=== PATIENT | female | born 1960 | race Caucasian/White ===

== ENCOUNTER 2017-10-18 08:00 | Outpatient (CLI) | payer BC ==
[2017-10-18 12:36] LABS: BASOPHILS # (AUTO) 0.1 10^3/uL (0.0-0.1); EOSINOPHILS # (AUTO) 0.1 10^3/uL (0.0-0.7); EOSINOPHILS % (AUTO) 1.3 %; HGB - HEMOGLOBIN 14.3 g/dL (12.0-16.0); LYMPHOCYTES # (AUTO) 1.8 10^3/uL (1.5-3.5); LYMPHOCYTES % (AUTO) 19.6 %; MEAN CORPUSCULAR HEMOGLOBIN 33.2 pg (27.0-31.0); MEAN CORPUSCULAR HGB CONC 34.9 g/dL (32.0-36.0); MEAN PLATELET VOLUME 7.7 fL (7.9-10.8); MONOCYTES # (AUTO) 0.8 10^3/uL (0.0-1.0); NEUTROPHILS # (AUTO) 6.4 10^3/uL (1.5-6.6); NEUTROPHILS % (AUTO) 69.1 %; PLT - PLATELET COUNT 332 10^3/uL (130-450); RED BLOOD COUNT 4.31 10^6/uL (4.20-5.40); RED CELL DISTRIBUTION WIDTH 12.7 % (12.0-15.0); WHITE BLOOD COUNT 9.3 x10^3/uL (4.8-10.8)
[2017-10-18 13:29] LABS: ALBUMIN 4.2 g/dL (3.2-5.5); ALKALINE PHOSPHATASE 68 IU/L (42-121); ALT ALANINE AMINOTRANSFERASE 25 IU/L (10-60); AST ASPARTATE AMINOTRANSFERASE 37 IU/L (10-42); BILIRUBIN,TOTAL 0.7 mg/dL (0.2-1.0); BUN - BLOOD UREA NITROGEN 12 mg/dL (6-20); CALCIUM 9.5 mg/dL (8.5-10.3); CARBON DIOXIDE - CO2 27 mmol/L (21-32); CHLORIDE 98 mmol/L (101-111); CHOL/HDL RATIO 3.2 (<4.4); CHOLESTEROL 213 mg/dL; CREATININE 0.8 mg/dL (0.4-1.0); GFR - MDRD 74 (>89); GLUCOSE 137 mg/dL (70-100); HDL CHOLESTEROL 67 mg/dL; LDL CHOLESTEROL,CALCULATED 123 mg/dL; LDL/HDL RATIO 1.8 (<4.4); SODIUM 135 mmol/L (135-145); TOTAL PROTEIN 8.3 g/dL (6.7-8.2); VLDL CHOLESTEROL 23 mg/dL
== END 2017-10-18 08:01 | disposition home or self-care (01) ==
LOC: LAB.WCP 08:00
PROVIDERS: ATTEND Family Medicine
DX: Z00.00 Encounter for general adult medical examination without abnormal findings (principal); I10 Essential (primary) hypertension; E78.5 Hyperlipidemia, unspecified
CPT/HCPCS: 36415; 80053; 80061; 83721; 84443; 85025

== ENCOUNTER 2019-05-14 08:00 | Outpatient (CLI) | payer BC ==
[2019-05-14 18:49] LABS: BASOPHILS # (AUTO) 0.1 10^3/uL (0.0-0.1); BASOPHILS % (AUTO) 0.6 %; EOSINOPHILS # (AUTO) 0.3 10^3/uL (0.0-0.7); EOSINOPHILS % (AUTO) 2.7 %; HGB - HEMOGLOBIN 13.5 g/dL (12.0-16.0); LYMPHOCYTES # (AUTO) 2.4 10^3/uL (1.5-3.5); LYMPHOCYTES % (AUTO) 21.8 %; MEAN CORPUSCULAR HEMOGLOBIN 31.8 pg (27.0-31.0); MEAN CORPUSCULAR HGB CONC 33.2 g/dL (32.0-36.0); MEAN PLATELET VOLUME 9.3 fL (7.9-10.8); MONOCYTES % (AUTO) 9.1 %; NEUTROPHILS # (AUTO) 7.3 10^3/uL (1.5-6.6); NEUTROPHILS % (AUTO) 65.4 %; PLT - PLATELET COUNT 330 10^3/uL (130-450); RED BLOOD COUNT 4.24 10^6/uL (4.20-5.40); WHITE BLOOD COUNT 11.2 x10^3/uL (4.8-10.8)
[2019-05-14 19:11] LABS: HB2 TOTAL 13.7 g/dL; HEMOGLOBIN A1C 0.56 g/dL; HEMOGLOBIN A1C % 5.9 % (4.6-6.2)
[2019-05-14 19:17] LABS: ALBUMIN 3.7 g/dL (3.2-5.5); ALBUMIN/GLOBULIN RATIO 0.8 (1.0-2.2); ALKALINE PHOSPHATASE 93 IU/L (42-121); ALT ALANINE AMINOTRANSFERASE 40 IU/L (10-60); AST ASPARTATE AMINOTRANSFERASE 45 IU/L (10-42); BILIRUBIN,TOTAL 0.4 mg/dL (0.2-1.0); BUN - BLOOD UREA NITROGEN 15 mg/dL (6-20); CALCIUM 9.4 mg/dL (8.5-10.3); CARBON DIOXIDE - CO2 29 mmol/L (21-32); CHLORIDE 94 mmol/L (101-111); CHOL/HDL RATIO 2.7 (<4.4); CHOLESTEROL 199 mg/dL; CREATININE 0.7 mg/dL (0.4-1.0); GFR - MDRD 87 (>89); GLUCOSE 89 mg/dL (70-100); HDL CHOLESTEROL 75 mg/dL; LDL CHOLESTEROL,CALCULATED 108 mg/dL; LDL/HDL RATIO 1.4 (<4.4); SODIUM 133 mmol/L (135-145); TOTAL PROTEIN 8.3 g/dL (6.7-8.2); VLDL CHOLESTEROL 16 mg/dL
== END 2019-05-14 23:59 | disposition home or self-care (01) ==
LOC: LAB.WCP 08:00
PROVIDERS: ATTEND Family Medicine
DX: E87.6 Hypokalemia (principal); E78.5 Hyperlipidemia, unspecified; R73.01 Impaired fasting glucose; I10 Essential (primary) hypertension
CPT/HCPCS: 36415; 80053; 80061; 83036; 83721; 85025

== ENCOUNTER 2019-05-31 07:46 | Emergency (ER) | payer BC ==
[2019-05-31] MEDS ORDERED: ONDANSETRON 4 MG/2 ML VIAL IVP STA (08:47)
[2019-05-31] MEDS ORDERED: SODIUM CHLORIDE 0.9% 1,000 ML IV ONE (08:47)
[2019-05-31] MEDS ORDERED: MORPHINE 2 MG/ML CARPUJECT IVP STA (08:47)
[2019-05-31 08:54] LABS: ALBUMIN 3.9 g/dL (3.2-5.5); ALBUMIN/GLOBULIN RATIO 0.8 (1.0-2.2); CALCIUM 9.7 mg/dL (8.5-10.3); CREATININE 0.7 mg/dL (0.4-1.0); TOTAL PROTEIN 8.9 g/dL (6.7-8.2)
[2019-05-31 08:55] LABS: BASOPHILS # (AUTO) 0.1 10^3/uL (0.0-0.1); BASOPHILS % (AUTO) 0.4 %; EOSINOPHILS % (AUTO) 0.2 %; HGB - HEMOGLOBIN 14.3 g/dL (12.0-16.0); LYMPHOCYTES # (AUTO) 2.1 10^3/uL (1.5-3.5); MEAN CORPUSCULAR HEMOGLOBIN 32.6 pg (27.0-31.0); MEAN CORPUSCULAR HGB CONC 34.8 g/dL (32.0-36.0); MEAN CORPUSCULAR VOLUME 93.8 fL (81.0-99.0); MEAN PLATELET VOLUME 9.8 fL (7.9-10.8); MONOCYTES # (AUTO) 1.8 10^3/uL (0.0-1.0); MONOCYTES % (AUTO) 9.6 %; NEUTROPHILS # (AUTO) 14.8 10^3/uL (1.5-6.6); PLT - PLATELET COUNT 328 10^3/uL (130-450); RED BLOOD COUNT 4.38 10^6/uL (4.20-5.40); RED CELL DISTRIBUTION WIDTH 12.2 % (12.0-15.0)
--- NOTE | 2019-05-31 08:56 | ED Physician Documentation ---
PD HPI ABD PAIN - Stated complaint Stated Complaint: ABD PX - Chief complaint Chief Complaint: Abd Pain - History obtained from History obtained from: Patient, Family - History of Present Illness Timing - onset: How many days ago (2) Timing - duration: Days (2) Timing - details: Gradual onset Pain level max: 7 Pain level now: 5 Quality: Aching, Pain Location: LLQ Radiation: No: Chest, , Lower back, Left flank, Left shoulder, Right flank, Right shoulder, Upper back Improved by: Other (laying on her R side) Worsened by: Palpation Associated symptoms: No: Fever, Nausea, Vomiting, Hematemesis, Diarrhea, Constipation, Melena, Hematochezia, Dysuria, Hematuria Similar symptoms before: Has not had sx before Recently seen: Not recently seen - Additional information Additional information: states no constipation or diarrhea. Review of Systems Constitutional: denies: Fever, Chills Throat: denies: Sore throat Respiratory: denies: Cough GI: denies: Nausea, Vomiting, Constipation, Diarrhea, Hematemesis, Bloody / black stool : denies: Dysuria, Frequency, Hesitancy, Discharge Skin: denies: Rash Musculoskeletal: denies: Neck pain, Back pain Neurologic: denies: Headache PD PAST MEDICAL HISTORY - Past Medical History Past Medical History: Yes Cardiovascular: Hypertension - Present Medications Home Medications: Ambulatory Orders Medication Instructions Recorded Confirmed Metoprolol Tartrate 50 mg PO 05/31/19 Metronidazole [Flagyl] 500 mg PO TID #30 tablet 05/31/19 Ondansetron Odt [Zofran] 4 mg TL Q6H PRN #10 tablet 05/31/19 Oxycodone HCl/Acetaminophen 1 - 2 each PO Q6H PRN #14 tablet 05/31/19 [Percocet 5-325 mg Tablet] Sulfamethox/Trimeth 800/160 1 each PO BID #20 tablet 05/31/19 [Bactrim Ds 800/160] Triamterene 50 mg PO 05/31/19 - Allergies Allergies/Adverse Reactions: Allergies Allergy/AdvReac Type Severity Reaction Status Date / Time amoxicillin Allergy Unknown Verified 05/31/19 07:58 - Living Situation Living Situation: reports: With spouse/s.o. Living Arrangement: reports: At home - Social History Does the pt smoke?: Yes - Family History Family history: reports: Non contributory PD ED PE NORMAL - Vitals Vital signs reviewed: Yes - General General: Alert and oriented X 3, No acute distress, Well developed/nourished - HEENT HEENT: Moist mucous membranes - Neck Neck: Supple, no meningeal sign - Cardiac Cardiac: RRR - Respiratory Respiratory: No respiratory distress, Clear bilaterally - Abdomen Abdomen: Soft, Non distended, Other (TTP LLQ, no peritoneal signs) - Derm Derm: Warm and dry, No rash - Extremities Extremities: No calf tenderness / cord - Neuro Neuro: Alert and oriented X 3 - Psych Psych: Normal mood, Normal affect Results - Vitals Vitals: Vital Signs - 24 hr 05/31/19 05/31/19 07:56 09:55 Temperature 36.9 C Heart Rate 105 H 75 Respiratory 18 16 Rate Blood Pressure 156/100 H 141/84 H O2 Saturation 98 100 Oxygen O2 Source Room air - Labs Labs: Laboratory Tests 05/31/19 05/31/19 05/31/19 08:07 08:15 08:15 WBC 19.0 H RBC 4.38 Hgb 14.3 Hct 41.1 MCV 93.8 MCH 32.6 H MCHC 34.8 RDW 12.2 Plt Count 328 MPV 9.8 Neut # (Auto) 14.8 H Lymph # (Auto) 2.1 [place] # (Auto) 1.8 H Eos # (Auto) 0.0 Baso # (Auto) 0.1 Absolute Nucleated RBC 0.00 Nucleated RBC % 0.0 Sodium 133 L Potassium 2.5 L* Chloride 91 L Carbon Dioxide 27 Anion Gap 15.0 H BUN 15 Creatinine 0.7 Estimated GFR (MDRD) 87 L Glucose 136 H Calcium 9.7 Phosphorus Magnesium Total Bilirubin 1.0 AST 26 ALT 32 Alkaline Phosphatase 97 Total Protein 8.9 H Albumin 3.9 Globulin 5.0 H Albumin/Globulin Ratio 0.8 L Lipase 29 Urine Color YELLOW Urine Clarity HAZY Urine pH 7.0 Ur Specific [place] 1.015 Urine Protein 30 H Urine Glucose (UA) NEGATIVE Urine Ketones 15 H Urine Occult Blood NEGATIVE Urine Nitrite POSITIVE H Urine Bilirubin MODERATE H Urine Urobilinogen 1 (NORMAL) Ur Leukocyte Esterase NEGATIVE Urine RBC 0-5 Urine WBC 0-3 Ur Squamous Epith Cells MANY Squamous H Urine Bacteria Many H Ur Microscopic Review INDICATED Urine Culture Comments NOT INDICATED 05/31/19 08:15 WBC RBC Hgb Hct MCV MCH MCHC RDW Plt Count MPV Neut # (Auto) Lymph # (Auto) [place] # (Auto) Eos # (Auto) Baso # (Auto) Absolute Nucleated RBC Nucleated RBC % Sodium Potassium Chloride Carbon Dioxide Anion Gap BUN Creatinine Estimated GFR (MDRD) Glucose Calcium Phosphorus 2.4 L Magnesium 1.3 L Total Bilirubin AST ALT Alkaline Phosphatase Total Protein Albumin Globulin Albumin/Globulin Ratio Lipase Urine Color Urine Clarity Urine pH Ur Specific [place] Urine Protein Urine Glucose (UA) Urine Ketones Urine Occult Blood Urine Nitrite Urine Bilirubin Urine Urobilinogen Ur Leukocyte Esterase Urine RBC Urine WBC Ur Squamous Epith Cells Urine Bacteria Ur Microscopic Review Urine Culture Comments - Rads (name of study) CT abd/pelvis Radiology: Prelim report reviewed, EMP read contemporaneously, See rad report (Likely multifocal uncomplicated diverticulitis, with inflammation around the proximal descending colon, as well as wall thickening and inflammation involving the mid sigmoid colon. Given the degree of wall thickening in the sigmoid colon, consider follow-up colonoscopy after resolution of the acute event to exclude an underlying mass lesion. ) PD MEDICAL DECISION MAKING - ED course Complexity details: reviewed results, re-evaluated patient, considered differential, d/w patient, d/w family ED course: Patient with diverticulitis. Will place on antibiotics and pain medication for home. She is well-appearing, nontoxic. Afebrile. Pain well controlled. We will follow-up with her doctor for further care. Patient counseled that she needs a colonoscopy after completion of treatment. Patient and both state understanding of this. Patient counseled regarding signs and symptoms for which I believe and urgent re-evaluation would be necessary. Patient with good understanding of and agreement to plan and is comfortable going home at this time This document was made in part using voice recognition software. While efforts are made to proofread this document, sound alike and grammatical errors may occur. Departure - Departure Disposition: 01 Home, Self Care Clinical Impression: Diverticulitis, Hypokalemia Condition: Good Instructions: ED Diverticulitis Follow-Up: Brandt Richardson DO [Primary Care Provider] - Within 1 week Prescriptions: Metronidazole [Flagyl] 500 mg PO TID #30 tablet Ondansetron Odt [Zofran] 4 mg TL Q6H PRN #10 tablet PRN Reason: Nausea / Vomiting Oxycodone HCl/Acetaminophen [Percocet 5-325 mg Tablet] 1 - 2 each PO Q6H PRN #14 tablet PRN Reason: pain Sulfamethox/Trimeth 800/160 [Bactrim Ds 800/160] 1 each PO BID #20 tablet Comments: Return if you worsen. Take all antibiotics until gone. You should be feeling better in the next 2 days. [address] not drink alcohol or drive while on narcotic pain medicine. Note that many narcotic pain relievers also contain tylenol/acetaminophen. Please ensure that your total dose of acetaminophen from all sources does not exceed 3 grams (3000mg) per day. You may constipated on this medication, take a stool softener such as "Colace" twice a day while you are on it. Also recommend a byyt-utm-jbeomff laxative such as senna or MiraLAX any day that you do not have a bowel movement. If you received narcotic pain medication in the emergency department, do not drive or operate machinery for the next 24 hours. Discharge Date/Time: 05/31/19 10:52
[2019-05-31] MEDS ORDERED: POTASSIUM CHLORIDE 20 MEQ TABLET PO STA (08:57)
[2019-05-31] MEDS ORDERED: IOVERSOL 320 100 ML VIAL IVP ONE ×2 (09:05→09:28)
[2019-05-31 09:09] LABS: GLUCOSE, URINE (UA) NEGATIVE (NEGATIVE); KETONES,URINE (UA) 15 mg/dL (NEGATIVE); LEUKOCYTE ESTERASE, URINE NEGATIVE (NEGATIVE); NITRITE,URINE POSITIVE (NEGATIVE); OCCULT BLOOD,URINE NEGATIVE (NEGATIVE); PROTEIN,URINE 30 mg/dL (NEGATIVE); UROBILINOGEN,URINE 1 (NORMAL) E.U./dL (NORMAL)
[2019-05-31 09:17] LABS: CLARITY,URINE HAZY (CLEAR); ICTOTEST,URINE POSITIVE
[2019-05-31 09:18] LABS: BILIRUBIN,URINE MODERATE (NEGATIVE)
[2019-05-31 09:20] LABS: BACTERIA,URINE Many /HPF (None Seen); RBC,URINE 0-5 /HPF (0-5); SQUAMOUS EPITHELIAL CELL,UR MANY Squamous (<= Few)
[2019-05-31 09:22] LABS: MAGNESIUM 1.3 mg/dL (1.7-2.8); PHOSPHORUS 2.4 mg/dL (2.5-4.6)
--- NOTE | 2019-05-31 09:54 | CT Report ---
Reason: L LQ abd pain Procedure Date: 05/31/2019 Accession Number: [id number] / [id number] Procedure: CT - Abdomen/Pelvis W CPT Code: FULL RESULT: EXAM: CT ABDOMEN AND PELVIS EXAM DATE: 05/31/2019 09:27 AM. CLINICAL HISTORY: L LQ abd pain. COMPARISONS: None. TECHNIQUE: Routine helical CT imaging was performed through the abdomen and pelvis. IV contrast: 90 mL Optiray 320. Enteric contrast: No. Reconstructions: Coronal and sagittal. In accordance with CT protocol optimization, one or more of the following dose reduction techniques were utilized for this exam: automated exposure control, adjustment of mA and/or KV based on patient size, or use of iterative reconstructive technique. FINDINGS: Lung Bases: Minimal dependent atelectasis. Liver: Diffuse infiltration. No focal lesion. Gallbladder/Bile Ducts: Unremarkable. Spleen: Normal. Pancreas: Normal. Adrenal Glands: Normal. Kidneys: Normal. No masses or hydronephrosis. Peritoneal Cavity/Bowel: There is inflammation around the proximal descending colon, with diverticula present, compatible with diverticulitis. Additionally, there is a longer segment of wall thickening and inflammation in the mid sigmoid colon, with surrounding inflammation, also compatible with diverticulitis. No perforation or abscess is identified. No small bowel obstruction. No adenopathy or free fluid. The appendix is well visualized and normal. Pelvic Organs: Normal. The bladder and visualized pelvic organs are within normal limits. Vasculature: No aneurysms or other significant abnormality. Bones: No significant abnormality. Other: None. IMPRESSION: Likely multifocal uncomplicated diverticulitis, with inflammation around the proximal descending colon, as well as wall thickening and inflammation involving the mid sigmoid colon. Given the degree of wall thickening in the sigmoid colon, consider follow-up colonoscopy after resolution of the acute event to exclude an underlying mass lesion. RADIA
[2019-05-31 09:56] VITALS: BP 141/84
[2019-05-31] MEDS ORDERED: POTASSIUM CHLORIDE 20 MEQ TABLET PO SCH (10:00)
== END 2019-05-31 10:52 | disposition home or self-care (01) ==
LOC: ED 07:46
DX: K57.32 Diverticulitis of large intestine without perforation or abscess without bleeding (principal); E87.6 Hypokalemia; I10 Essential (primary) hypertension; F17.200 Nicotine dependence, unspecified, uncomplicated
CPT/HCPCS: 36415; 74177; 80053; 81001; 83690; 83735; 84100; 85025; 96361; 96374; 99284; A9270; Q9967; 81003; 87086

== ENCOUNTER 2019-06-15 08:00 | Outpatient (CLI) | payer BC ==
[2019-06-15 18:46] LABS: CALCIUM 9.7 mg/dL (8.5-10.3); CREATININE 0.8 mg/dL (0.4-1.0)
== END 2019-06-15 23:59 | disposition home or self-care (01) ==
LOC: LAB.WCP 08:00
PROVIDERS: ATTEND Family Medicine
DX: E87.6 Hypokalemia (principal)
CPT/HCPCS: 36415; 80048

== ENCOUNTER 2019-10-13 09:43 | Outpatient (CLI) | payer BC, OTHER ==
--- NOTE | 2019-10-13 16:40 | XRAY Report ---
Reason: RIGHT LUMBAR RADICULOPATHY Procedure Date: 10/13/2019 Accession Number: [id number] / [id number] Procedure: WCP - Lumbar Spine 2 View CPT Code: Final Report FULL RESULT: EXAM: LUMBOSACRAL SPINE RADIOGRAPHY EXAM DATE: 10/13/2019 09:43 AM. CLINICAL HISTORY: RIGHT LUMBAR RADICULOPATHY. Chronic low back pain, worse 1 week. COMPARISONS: ABDOMEN/PELVIS W/ 05/31/2019 9:18 AM. TECHNIQUE: 2 views. FINDINGS: Alignment: Normal. No spondylolisthesis or scoliosis. Bones: Five pbg-ddy-kqhkahw lumbar vertebral bodies are present. No fractures or bone lesions. Disks: Normal. Disk heights are maintained. Facets: L5-S1 facet hypertrophy. Sacroiliac Joints: Unremarkable. Soft Tissues: Atherosclerotic aortic calcifications. IMPRESSION: 1. L5-S1 facet degenerative changes. RADIA
== END 2019-10-13 23:59 | disposition home or self-care (01) ==
LOC: DI.WCP 09:43
PROVIDERS: ATTEND Family Medicine
DX: M47.27 Other spondylosis with radiculopathy, lumbosacral region (principal)
CPT/HCPCS: 72100

== ENCOUNTER 2020-03-03 12:36 | Outpatient (CLI) | payer OTHER ==
--- NOTE | 2020-03-03 14:11 | XRAY Report ---
PROCEDURE: Shoulder 2 View RT INDICATIONS: PAIN IN RIGHT SHOULDER TECHNIQUE: 2 views of the shoulder were acquired. COMPARISON: None. FINDINGS: Bones: No fractures or dislocations. No suspicious bony lesions. Visualized ribs appear intact. Soft tissues: No suspicious soft tissue calcifications. IMPRESSION: No acute radiographic findings. If pain persists, consider CT or MRI to further characte paris findings. Reviewed by: Julee Francis MD on 03/03/2020 2:10 PM PDT Approved by: Julee Francis MD on 03/03/2020 2:10 PM PDT Station ID: [id number]
== END 2020-03-03 12:37 | disposition home or self-care (01) ==
LOC: DI 12:36
PROVIDERS: ATTEND Nurse Practitioner Family
DX: M25.511 Pain in right shoulder (principal)

== ENCOUNTER 2020-12-05 07:00 | Outpatient (CLI) | payer OTHER ==
--- NOTE | 2020-12-05 13:40 | XRAY Report ---
PROCEDURE: Shoulder 3 View RT INDICATIONS: STRAIN OF MUSCLES AND TENDONS OF ROTATOR CUFF OF R SHOULDER TECHNIQUE: 3 views of the shoulder were acquired. COMPARISON: None. FINDINGS: Bones: No fractures or dislocations. No suspicious bony lesions. Visualized ribs appear intact. Soft tissues: No suspicious soft tissue calcifications. IMPRESSION: No fracture found, no area of ligamentous laxity is identified. Reviewed by: Max Antonio MD on 12/05/2020 1:39 PM PDT Approved by: Max Antonio MD on 12/05/2020 1:39 PM PDT Station ID: [id number]
== END 2020-12-05 23:59 | disposition home or self-care (01) ==
LOC: DI.N 07:00
PROVIDERS: ATTEND Physician Assistant Medical
DX: S46.011D Strain of muscle(s) and tendon(s) of the rotator cuff of right shoulder, subsequent encounter (principal)

== ENCOUNTER 2020-12-16 15:37 | Inpatient (IN) | payer OTHER ==
--- OUTSIDE RECORDS SUMMARY | 2020-12-16 16:05 | EXTERNAL MEDICAL SUMMARY RPT | Continuity of Care Document ---
:1960 Demographics Phone Unavailable Preferred Language Unknown Marital Status Unknown Adventist Affiliation Unknown Race Unknown Ethnic Group Unknown Author Organization [facility] Address [address] [phone] Phone Social History date description facility [phone]
[2020-12-16 16:07] LABS: BASOPHILS # (AUTO) 0.1 10^3/uL (0.0-0.1); BASOPHILS % (AUTO) 0.4 %; EOSINOPHILS # (AUTO) 0.2 10^3/uL (0.0-0.7); EOSINOPHILS % (AUTO) 0.8 %; HCT - HEMATOCRIT 42.8 % (37.0-47.0); LYMPHOCYTES # (AUTO) 1.3 10^3/uL (1.5-3.5); LYMPHOCYTES % (AUTO) 5.6 %; MEAN CORPUSCULAR HEMOGLOBIN 33.1 pg (27.0-31.0); MEAN CORPUSCULAR VOLUME 94.5 fL (81.0-99.0); MONOCYTES # (AUTO) 1.1 10^3/uL (0.0-1.0); MONOCYTES % (AUTO) 4.9 %; NEUTROPHILS # (AUTO) 19.4 10^3/uL (1.5-6.6); NEUTROPHILS % (AUTO) 87.2 %; PLT - PLATELET COUNT 313 10^3/uL (130-450); RED BLOOD COUNT 4.53 10^6/uL (4.20-5.40); RED CELL DISTRIBUTION WIDTH 13.2 % (12.0-15.0); WHITE BLOOD COUNT 22.2 x10^3/uL (4.8-10.8)
[2020-12-16 16:10] LABS: SLIDE REVIEW? Indicated
[2020-12-16] MEDS ORDERED: HYDROmorphone 1 MG/ML CARPUJECT IVP STA ×3 (16:10→19:33)
[2020-12-16] MEDS ORDERED: IOPAMIDOL-300 100 ML VIAL ONE (16:12)
[2020-12-16 16:20] LABS: ALBUMIN 3.2 g/dL (3.2-5.5); ALBUMIN/GLOBULIN RATIO 0.6 (1.0-2.2); BILIRUBIN,TOTAL 1.9 mg/dL (0.2-1.0); CALCIUM 8.7 mg/dL (8.5-10.3); CREATININE 0.8 mg/dL (0.4-1.0); POTASSIUM 3.3 mmol/L (3.5-5.0); TOTAL PROTEIN 8.2 g/dL (6.7-8.2)
[2020-12-16] MEDS ORDERED: SODIUM CHLORIDE 0.9% 1,000 ML IV STA ×2 (16:38)
--- NOTE | 2020-12-16 16:41 | ED Physician Documentation ---
PD HPI ABD PAIN - Stated complaint Stated Complaint: ABD PX/NAUSEA/VOMIT - Chief complaint Chief Complaint: Abd Pain - History obtained from History obtained from: Patient - History of Present Illness Timing - onset: Yesterday Timing - duration: Days (2) Timing - details: Gradual onset Pain level max: 10 Pain level now: 10 Quality: Aching, Pain Location: All over / everywhere Radiation: No: Chest, , Lower back, Left flank, Left shoulder, Right flank, Right shoulder, Upper back Improved by: Laying still Worsened by: Moving, Palpation Associated symptoms: Nausea, Vomiting, Diarrhea, Hematochezia (x1). No: Fever, Hematemesis, Constipation, Melena, Dysuria Similar symptoms before: Diagnosis (diverticulitis) Recently seen: Not recently seen Review of Systems Ten Systems: 10 systems reviewed and negative Constitutional: denies: Fever, Chills Nose: denies: Rhinorrhea / runny nose, Congestion Skin: denies: Rash Musculoskeletal: denies: Neck pain, Back pain Neurologic: denies: Headache PD PAST MEDICAL HISTORY - Past Medical History Past Medical History: Yes Cardiovascular: Hypertension - Past Surgical History Past Surgical History: No - Present Medications Home Medications: Ambulatory Orders Medication Instructions Recorded Confirmed Metoprolol Tartrate 50 mg PO BID 05/31/19 12/16/20 Triamterene 50 mg PO DAILY 05/31/19 12/16/20 - Allergies Allergies/Adverse Reactions: Allergies Allergy/AdvReac Type Severity Reaction Status Date / Time amoxicillin Allergy Unknown Verified 12/16/20 15:49 - Social History Does the pt smoke?: Yes Smoking Status: Current every day smoker PD ED PE NORMAL - Vitals Vital signs reviewed: Yes - General General: Alert and oriented X 3, No acute distress, Well developed/nourished - HEENT HEENT: PERRL, Moist mucous membranes - Neck Neck: Supple, no meningeal sign - Cardiac Cardiac: RRR, Strong equal pulses - Respiratory Respiratory: No respiratory distress, Clear bilaterally - Abdomen Abdomen: Soft, Other (Diffusely tender to palpation, but significantly more tender in the left lower quadrant. Positive rebound and guarding.) - Back Back: No CVA TTP, No spinal TTP - Derm Derm: Warm and dry - Extremities Extremities: No edema - Neuro Neuro: Alert and oriented X 3 - Psych Psych: Normal mood, Normal affect Results - Vitals Vitals: Vital Signs - 24 hr 04/09/21 04/09/21 04/09/21 15:41 18:38 20:00 Temperature 36.5 C Heart Rate 93 95 105 H Respiratory 16 16 16 Rate Blood Pressure 145/76 H 127/78 117/79 O2 Saturation 98 95 95 Oxygen O2 Source Room air - Labs Labs: Laboratory Tests 12/16/20 12/16/20 12/16/20 16:00 16:00 17:54 WBC 22.2 H RBC 4.53 Hgb 15.0 Hct 42.8 MCV 94.5 MCH 33.1 H MCHC 35.0 RDW 13.2 Plt Count 313 MPV 9.0 Neut # (Auto) 19.4 H Lymph # (Auto) 1.3 L [place] # (Auto) 1.1 H Eos # (Auto) 0.2 Baso # (Auto) 0.1 Absolute Nucleated RBC 0.00 Nucleated RBC % 0.0 Manual Slide Review Indicated WBC Morphology NORMAL APPEARANCE Platelet Estimate NORMAL (130-450,000) Platelet Morphology NORMAL APPEARANCE RBC Morph Micro Appear NORMAL APPEARANCE Sodium 129 L Potassium 3.3 L Chloride 99 L Carbon Dioxide 20 L Anion Gap 10.0 BUN 21 H Creatinine 0.8 Estimated GFR (MDRD) 74 L Glucose 124 H Calcium 8.7 Total Bilirubin 1.9 H AST 36 ALT 77 H Alkaline Phosphatase 104 Total Protein 8.2 Albumin 3.2 Globulin 5.0 H Albumin/Globulin Ratio 0.6 L Lipase 27 Urine Color Urine Clarity Urine pH Ur Specific [place] Urine Protein Urine Glucose (UA) Urine Ketones Urine Occult Blood Urine Nitrite Urine Bilirubin Urine Urobilinogen Ur Leukocyte Esterase Ur Microscopic Review Urine Culture Comments Nasal Adenovirus (PCR) NOT DETECTED Nasal B. parapertussis DNA (PCR) NOT DETECTED Nasal Coronavir 229E PCR NOT DETECTED Nasal Coronavir HKU1 PCR NOT DETECTED Nasal Coronavir NL63 PCR NOT DETECTED Nasal Coronavir OC43 PCR NOT DETECTED Nasal Enterovir/Rhinovir PCR NOT DETECTED Nasal Influenza B PCR NOT DETECTED Nasal Influenza A PCR NOT DETECTED Nasal Parainfluen 1 PCR NOT DETECTED Nasal Parainfluen 2 PCR NOT DETECTED Nasal Parainfluen 3 PCR NOT DETECTED Nasal Parainfluen 4 PCR NOT DETECTED Nasal RSV (PCR) NOT DETECTED Nasal B.pertussis DNA PCR NOT DETECTED Nasal C.pneumoniae (PCR) NOT DETECTED Robin Human Metapneumo PCR NOT DETECTED Nasal M.pneumoniae (PCR) NOT DETECTED Nasal SARS-CoV-2 (PCR) NOT DETECTED 12/16/20 19:25 WBC RBC Hgb Hct MCV MCH MCHC RDW Plt Count MPV Neut # (Auto) Lymph # (Auto) [place] # (Auto) Eos # (Auto) Baso # (Auto) Absolute Nucleated RBC Nucleated RBC % Manual Slide Review WBC Morphology Platelet Estimate Platelet Morphology RBC Morph Micro Appear Sodium Potassium Chloride Carbon Dioxide Anion Gap BUN Creatinine Estimated GFR (MDRD) Glucose Calcium Total Bilirubin AST ALT Alkaline Phosphatase Total Protein Albumin Globulin Albumin/Globulin Ratio Lipase Urine Color YELLOW Urine Clarity CLEAR Urine pH 7.0 Ur Specific [place] 1.010 Urine Protein NEGATIVE Urine Glucose (UA) NEGATIVE Urine Ketones NEGATIVE Urine Occult Blood NEGATIVE Urine Nitrite NEGATIVE Urine Bilirubin NEGATIVE Urine Urobilinogen 0.2 (NORMAL) Ur Leukocyte Esterase NEGATIVE Ur Microscopic Review NOT INDICATED Urine Culture Comments NOT INDICATED Nasal Adenovirus (PCR) Nasal B. parapertussis DNA (PCR) Nasal Coronavir 229E PCR Nasal Coronavir HKU1 PCR Nasal Coronavir NL63 PCR Nasal Coronavir OC43 PCR Nasal Enterovir/Rhinovir PCR Nasal Influenza B PCR Nasal Influenza A PCR Nasal Parainfluen 1 PCR Nasal Parainfluen 2 PCR Nasal Parainfluen 3 PCR Nasal Parainfluen 4 PCR Nasal RSV (PCR) Nasal B.pertussis DNA PCR Nasal C.pneumoniae (PCR) Robin Human Metapneumo PCR Nasal M.pneumoniae (PCR) Nasal SARS-CoV-2 (PCR) PD MEDICAL DECISION MAKING - ED course Complexity details: reviewed results, re-evaluated patient, considered differential, d/w patient, d/w workforce management consultant ED course: 60-year-old female with acute sigmoid diverticulitis with signs of perforation, pneumoperitoneum and a small pericolonic abscess, 4 x 2 x 4 cm. Discussed with radiology and does not appear amenable to interventional radiology drainage. Discussed the case with Dr. Collins, recommends admission to the hospitalist and he will consult. Discussed the case with Dr. Snider, hospitalist who states that surgery should admit this patient primarily. Discussed the case with Dr. Collins again and he will write orders. Patient will be admitted IMPRESSION: Acute sigmoid diverticulitis with signs of rupture including a small amount of pneumoperitoneum and formation of a pericolonic abscess measuring 4 x 2 x 4 cm. Departure - Departure Disposition: [facility] DC/Xfer Clinical Impression: Perforation of intestine due to diverticulitis of gastrointestinal tract Condition: Stable
[2020-12-16] MEDS ORDERED: IOPAMIDOL-300 100 ML VIAL IVP ONE (16:49)
[2020-12-16] MEDS ORDERED: CIPROFLOXACIN 400 MG/200 ML 400 MG/200 ML BAG IV STA (16:54)
[2020-12-16] MEDS ORDERED: metroNIDAZOLE 500 MG/100 ML 500 MG/100 ML BAG IV ONE (16:54)
[2020-12-16 17:11] LABS: PLATELET ESTIMATE, MANUAL NORMAL (130-450,000) (NORMAL); PLATELET MORPHOLOGY NORMAL APPEARANCE (NORMAL); RBC MORPHOLOGY (MULTIPLE) NORMAL APPEARANCE (NORMAL); WBC MORPHOLOGY (MULTIPLE) NORMAL APPEARANCE (NORMAL)
--- NOTE | 2020-12-16 17:24 | CT Report ---
PROCEDURE: Abdomen/Pelvis W INDICATIONS: diffuse abd pain CONTRAST: IV CONTRAST: Isovue 300 ml: 100 PO CONTRAST: *NO PO CONTRAST TECHNIQUE: After the administration of intravenous contrast, 5 mm thick sections acquired from the diaphragms to the symphysis. 5 mm thick coronal and sagittal reformats were acquired. For radiation dose reducti on, the following was used: automated exposure control, adjustment of mA and/or kV according to virgil ent size. COMPARISON: CT abdomen/pelvis 05/31/2019 FINDINGS: Image quality: Excellent. ABDOMEN: Lung bases: There is mild dependent atelectasis in the lung bases bilaterally. Heart size is normal. Solid organs: Liver and spleen are normal in size and enhancement. Gallbladder appears normal. Eliceo iary system is non dilated. Pancreas enhances normally. No adrenal nodules. Kidneys demonstrate no rmal size and enhancement, without hydronephrosis. Mild multifocal left renal cortical scarring is se en without signs of acute pyelonephritis. A punctate 2 mm calculus is seen in the inferior pole of th e right kidney. Peritoneum and bowel: A small hiatal hernia is present. Multiple diverticula are seen in the colon. T here is bowel wall thickening and surrounding inflammatory fat stranding involving a diverticulum in the sigmoid colon. Adjacent collection of fluid and gas is seen measuring up to 4.0 x 2.0 x 4.0 cm in size that is suspicious for abscess formation. There is reactive bone marrow edema within adjacent p ortions of the small bowel. Multiple small foci of free air is seen in the abdomen and pelvis. Nodes and vessels: No retroperitoneal or mesenteric adenopathy by size criteria. Aorta and inferior vena cava are normal in size. Mild atherosclerotic calcifications are seen in the aorta. Miscellaneous: No ventral hernias. PELVIS: Genitourinary: Bladder wall thickness is normal. Miscellaneous: No inguinal hernias or adenopathy. Bones: No suspicious bony lesions. No vertebral body compression fractures. IMPRESSION: Acute sigmoid diverticulitis with signs of rupture including a small amount of pneumoperitoneum and f ormation of a pericolonic abscess measuring 4 x 2 x 4 cm. Findings were discussed with Dr. Gallegos of the Emergency Department on 12/16/2020 at 5:22 PM. Reviewed by: Jose Ramírez MD on 12/16/2020 5:23 PM PDT Approved by: Jose Ramírez MD on 12/16/2020 5:23 PM PDT Station ID: [id number]
[2020-12-16 18:52] LABS: B. PARAPERTUSSIS- RESP PCR PAN NOT DETECTED; B. PERTUSSIS- RESP PCR PANEL NOT DETECTED; C. PNEUMONIAE- RESP PCR PANEL NOT DETECTED; CORONAVIRUS 229E-RESP PCR NOT DETECTED; CORONAVIRUS HKU1-RESP PCR NOT DETECTED; CORONAVIRUS NL63-RESP PCR NOT DETECTED; CORONAVIRUS OC43-RESP PCR NOT DETECTED; HUMAN METAPNEUMOVIRUS NOT DETECTED; INFLUENZA A- RESP PCR PANEL NOT DETECTED; INFLUENZA B - RESP PCR PANEL NOT DETECTED; M. PNEUMONIAE- RESP PCR PANEL NOT DETECTED; PARAINFLUENZA VIRUS 1 NOT DETECTED; PARAINFLUENZA VIRUS 2 NOT DETECTED; PARAINFLUENZA VIRUS 3 NOT DETECTED; PARAINFLUENZA VIRUS 4 NOT DETECTED; RHINOVIRUS/ENTEROVIRUS NOT DETECTED; RSV- RESP PCR PANEL NOT DETECTED; SARS-CoV-2 -RESP PCR PANEL NOT DETECTED
[2020-12-16 19:35] LABS: BILIRUBIN,URINE NEGATIVE (NEGATIVE); GLUCOSE, URINE (UA) NEGATIVE (NEGATIVE); KETONES,URINE (UA) NEGATIVE (NEGATIVE); LEUKOCYTE ESTERASE, URINE NEGATIVE (NEGATIVE); NITRITE,URINE NEGATIVE (NEGATIVE); OCCULT BLOOD,URINE NEGATIVE (NEGATIVE); PROTEIN,URINE NEGATIVE (NEGATIVE); UROBILINOGEN,URINE 0.2 (NORMAL) E.U./dL (NORMAL)
[2020-12-16 19:43] LABS: CLARITY,URINE CLEAR (CLEAR)
[2020-12-16] MEDS ORDERED: ONDANSETRON ODT 4 MG TABLET TL PRN (20:43)
--- OUTSIDE RECORDS SUMMARY | 2020-12-16 21:18 | EXTERNAL MEDICAL SUMMARY RPT | Continuity of Care Document ---
:1960 Demographics Phone Unavailable Preferred Language Unknown Marital Status Unknown Congregation Affiliation Unknown Race Unknown Ethnic Group Unknown Author Organization [facility] Address [address] [place] [address] Phone Social History date description facility [phone]
[2020-12-16] MEDS: D5.45NS W/20 MEQ KCL 1,000 ML IV SCH (21:58)
[2020-12-16] MEDS: ACETAMINOPHEN 325 MG TABLET PO PRN (22:00)
[2020-12-16] MEDS: oxyCODONE 5 MG TABLET PO PRN (22:00)
[2020-12-16] MEDS: METOPROLOL TARTRATE 50 MG TABLET PO SCH (22:03)
[2020-12-17] MEDS: metroNIDAZOLE 500 MG/100 ML 500 MG/100 ML BAG IV SCH ×3 (01:22→18:28)
[2020-12-17] MEDS: SODIUM CHLORIDE FLUSH 0.9% 10 ML SYRINGE IVP SCH ×3 (01:22→16:41)
[2020-12-17] MEDS: SODIUM CHLORIDE FLUSH 0.9% 10 ML SYRINGE IVP PRN (02:27)
[2020-12-17] MEDS: oxyCODONE 5 MG TABLET PO PRN ×3 (05:09→22:26)
[2020-12-17] MEDS: ACETAMINOPHEN 325 MG TABLET PO PRN ×3 (05:09→22:26)
[2020-12-17] MEDS: CIPROFLOXACIN 400 MG/200 ML 400 MG/200 ML BAG IV SCH ×2 (05:11→18:29)
[2020-12-17 06:05] LABS: HCT - HEMATOCRIT 38.2 % (37.0-47.0); HGB - HEMOGLOBIN 13.1 g/dL (12.0-16.0); MEAN CORPUSCULAR HEMOGLOBIN 32.7 pg (27.0-31.0); MEAN CORPUSCULAR HGB CONC 34.3 g/dL (32.0-36.0); MEAN CORPUSCULAR VOLUME 95.3 fL (81.0-99.0); MEAN PLATELET VOLUME 9.2 fL (7.9-10.8); RED BLOOD COUNT 4.01 10^6/uL (4.20-5.40); RED CELL DISTRIBUTION WIDTH 13.2 % (12.0-15.0); WHITE BLOOD COUNT 12.6 x10^3/uL (4.8-10.8)
[2020-12-17 06:20] LABS: CALCIUM 7.8 mg/dL (8.5-10.3); CREATININE 0.7 mg/dL (0.4-1.0); POTASSIUM 2.7 mmol/L (3.5-5.0)
[2020-12-17] MEDS: D5.45NS W/20 MEQ KCL 1,000 ML IV SCH (07:58)
[2020-12-17] MEDS: METOPROLOL TARTRATE 50 MG TABLET PO SCH ×2 (08:35→21:29)
[2020-12-17] MEDS: HYDROmorphone 0.5 MG/0.5 ML SYRINGE IVP PRN ×2 (08:53→14:59)
[2020-12-17] MEDS: ONDANSETRON 4 MG/2 ML VIAL IVP PRN (09:51)
[2020-12-17] MEDS: POTASSIUM CHLOR 10 MEQ/100 ML 10 MEQ/100 ML BAG IV SCH ×4 (11:05→16:30)
--- NOTE | 2020-12-17 13:40 | HISTORY & PHYSICAL EXAMINATION ---
Chief Complaint - Chief Complaint Chief Complaint: abdominal pain History of Present Illness - Admitted From Admitted From:: ed - History Obtained From History obtained from: pt Exam Limitations: none - History of Present Illness HPI Comment/Other: Abdominal pain a few days ago. Was not feeling well and then pain become acutely worse. She had a similar episode about a year ago that was not as severe. She is feeling better today. No nausea. She has not had prior colon cancer screening. She has been planning on a cologuard test. History - Past Medical History Cardiovascular: reports: Hypertension Meds/Allgy - Home Medications Home Medications: Ambulatory Orders Medication Instructions Recorded Confirmed Metoprolol Tartrate 50 mg PO BID 05/31/19 12/16/20 Triamterene 50 mg PO DAILY 05/31/19 12/16/20 - Allergies Allergies/Adverse Reactions: Allergies Allergy/AdvReac Type Severity Reaction Status Date / Time amoxicillin Allergy Unknown Verified 12/16/20 15:49 Review of Systems - Other Findings Other Findings: 10 pt ros as above otherwise unremarkable Exam - Vital Signs Reviewed Vital Signs: Yes Vital Signs: Vital Signs x48h Temp Pulse Resp BP Pulse Ox 12/17/20 09:04 36.7 C 103 H 18 127/73 96 - Physical Exam General Appearance: positive: No acute distress, Alert Eyes Bilateral: positive: Normal inspection, PERRL, EOMI ENT: positive: No signs of dehydration Neck: positive: No JVD, Trachea midline Respiratory: positive: No respiratory distress, Breath sounds nml Cardiovascular: positive: Regular rate & rhythm Abdomen: positive: Other (minimal tenderness and distension) Neurologic/Psychiatric: positive: Oriented x3, Mood/affect nml Conclusion/Plan - Problem List (1) Perforation of intestine due to diverticulitis of gastrointestinal tract Conclusion/Plan: much improved today. wbc down. afebrile. continue bowel rest and antibiotics low k. k replacement today recheck labs including mg tomorrow. if improving plan clears tomorrow. if not progressing daily plan repeat ct in several days we discussed need for colon cancer screening and cologuard is fine we also discussed she should consider surgery for diverticular disease when she is well. risk of needing a colostomy at this time is low - Lab Results Fish Bones: 12/17/20 05:46 12/17/20 05:46
[2020-12-18] MEDS: metroNIDAZOLE 500 MG/100 ML 500 MG/100 ML BAG IV SCH ×3 (01:25→16:01)
[2020-12-18] MEDS: SODIUM CHLORIDE FLUSH 0.9% 10 ML SYRINGE IVP SCH ×3 (01:25→18:25)
[2020-12-18] MEDS: SODIUM CHLORIDE FLUSH 0.9% 10 ML SYRINGE IVP PRN (02:19)
[2020-12-18] MEDS: oxyCODONE 5 MG TABLET PO PRN ×2 (02:27→08:05)
[2020-12-18] MEDS: ACETAMINOPHEN 325 MG TABLET PO PRN ×2 (02:27→08:04)
[2020-12-18] MEDS: D5.45NS W/20 MEQ KCL 1,000 ML IV SCH ×2 (02:36→22:31)
[2020-12-18] MEDS: CIPROFLOXACIN 400 MG/200 ML 400 MG/200 ML BAG IV SCH ×2 (05:48→18:30)
[2020-12-18 05:53] LABS: HCT - HEMATOCRIT 36.7 % (37.0-47.0); HGB - HEMOGLOBIN 12.3 g/dL (12.0-16.0); MEAN CORPUSCULAR HEMOGLOBIN 32.3 pg (27.0-31.0); MEAN CORPUSCULAR HGB CONC 33.5 g/dL (32.0-36.0); MEAN CORPUSCULAR VOLUME 96.3 fL (81.0-99.0); MEAN PLATELET VOLUME 9.3 fL (7.9-10.8); RED BLOOD COUNT 3.81 10^6/uL (4.20-5.40); RED CELL DISTRIBUTION WIDTH 13.3 % (12.0-15.0)
[2020-12-18 06:02] LABS: CALCIUM 7.6 mg/dL (8.5-10.3); CREATININE 0.6 mg/dL (0.4-1.0); MAGNESIUM 1.5 mg/dL (1.7-2.8); POTASSIUM 2.9 mmol/L (3.5-5.0)
[2020-12-18] MEDS: HYDROmorphone 0.5 MG/0.5 ML SYRINGE IVP PRN (07:59)
[2020-12-18] MEDS: METOPROLOL TARTRATE 50 MG TABLET PO SCH ×3 (08:45→22:56)
[2020-12-18] MEDS: MORPHINE 2 MG/ML CARPUJECT IVP PRN ×5 (08:50→21:36)
[2020-12-18] MEDS ORDERED: MAGNESIUM SULFATE 2 GRAM 2 GM/50 ML BAG IV ONE (09:00)
[2020-12-18] MEDS: POTASSIUM CHLOR 10 MEQ/100 ML 10 MEQ/100 ML BAG IV SCH ×6 (10:47→17:28)
--- NOTE | 2020-12-18 13:03 | PROVIDER PROGRESS NOTE ---
Subjective - Prog Note Date Prog Note Date: 12/18/20 - Subjective Pt reports feeling: No change (right abdomen was very tight crampy earlier. better now no n/v) Objective - Vital Signs/Intake & Output Reviewed Vital Signs: Yes Vital Signs: Vital Signs x48h Temp Pulse Resp BP Pulse Ox 12/18/20 07:42 36.9 C 102 H 18 108/63 94 Intake & Output: Intake & Output 12/15/20 12/16/20 12/17/20 12/18/20 23:59 23:59 23:59 23:59 Intake Total 1560 3488.750 1998. Balance 1560 3488.750 1998. - Objective General Appearance: positive: No acute distress, Alert Eyes Bilateral: positive: Normal inspection ENT: positive: No signs of dehydration Neck: positive: No JVD, Trachea midline Respiratory: positive: Chest non-tender Abdomen: positive: Other (mild distension. minimal tenderness no peritoneal signs) Neurologic/Psychiatric: positive: Oriented x3 - Lab Results Fish Bones: 12/18/20 05:38 12/18/20 05:38 Other Labs: Lab Results x24hrs 12/18/20 12/18/20 Range/Units 05:38 05:38 WBC 13.0 H (4.8-10.8) x10^3/uL RBC 3.81 L (4.20-5.40) 10^6/uL Hgb 12.3 (12.0-16.0) g/dL Hct 36.7 L (37.0-47.0) % MCV 96.3 (81.0-99.0) fL MCH 32.3 H (27.0-31.0) pg MCHC 33.5 (32.0-36.0) g/dL RDW 13.3 (12.0-15.0) % Plt Count 275 (130-450) 10^3/uL MPV 9.3 (7.9-10.8) fL Sodium 128 L (135-145) mmol/L Potassium 2.9 L (3.5-5.0) mmol/L Chloride 101 (101-111) mmol/L Carbon Dioxide 20 L (21-32) mmol/L Anion Gap 7.0 (6-13) BUN 12 (6-20) mg/dL Creatinine 0.6 (0.4-1.0) mg/dL Estimated GFR (MDRD) 103 (>89) Glucose 154 H (70-100) mg/dL Calcium 7.6 L (8.5-10.3) mg/dL Magnesium 1.5 L (1.7-2.8) mg/dL Assessment/Plan - Problem List (1) Perforation of intestine due to diverticulitis of gastrointestinal tract Impression: continue bowel rest and antibiotics. if she has progressive distension plan ngt. if not improving plan ct scan in several days to evaluate for developing abscess (2) Hypokalemia Impression: replace kcl and mg recheck labs tomorrow
--- NOTE | 2020-12-18 15:37 | PHARMACY PROGRESS NOTE ---
- Best Possible Medication History Admit Date and Time: 12/16/202042 Processed by: Pharmacy Medication History completed: Yes Secondary Source(s): Insurance records As the person ultimately responsible for medication therapy, providers are able to order a medication from an existing home medication list in [facility] via the "Reconcile Routine" prior to Confirmation of that medication by senior support engineer. Such practice is discouraged except when the physician, in their clinical judgment, deems that a medical need exists for a medication without regard to previous use.
[2020-12-19] MEDS: oxyCODONE 5 MG TABLET PO PRN ×4 (01:10→20:31)
[2020-12-19] MEDS: ACETAMINOPHEN 325 MG TABLET PO PRN ×4 (01:10→20:30)
[2020-12-19] MEDS: SIMETHICONE CHEW 80 MG TABLET PO PRN ×4 (01:11→14:33)
[2020-12-19] MEDS: metroNIDAZOLE 500 MG/100 ML 500 MG/100 ML BAG IV SCH ×3 (01:26→18:07)
[2020-12-19] MEDS: SODIUM CHLORIDE FLUSH 0.9% 10 ML SYRINGE IVP SCH ×3 (01:38→15:59)
[2020-12-19] MEDS: CIPROFLOXACIN 400 MG/200 ML 400 MG/200 ML BAG IV SCH ×2 (06:04→18:14)
[2020-12-19 06:29] LABS: HCT - HEMATOCRIT 37.5 % (37.0-47.0); HGB - HEMOGLOBIN 12.7 g/dL (12.0-16.0); MEAN CORPUSCULAR HEMOGLOBIN 32.2 pg (27.0-31.0); MEAN CORPUSCULAR HGB CONC 33.9 g/dL (32.0-36.0); MEAN CORPUSCULAR VOLUME 94.9 fL (81.0-99.0); MEAN PLATELET VOLUME 9.4 fL (7.9-10.8); RED BLOOD COUNT 3.95 10^6/uL (4.20-5.40); RED CELL DISTRIBUTION WIDTH 13.4 % (12.0-15.0); WHITE BLOOD COUNT 12.9 x10^3/uL (4.8-10.8)
[2020-12-19 06:37] LABS: CALCIUM 7.8 mg/dL (8.5-10.3); CREATININE 0.5 mg/dL (0.4-1.0); MAGNESIUM 1.9 mg/dL (1.7-2.8); POTASSIUM 3.4 mmol/L (3.5-5.0)
[2020-12-19] MEDS: METOPROLOL TARTRATE 50 MG TABLET PO SCH ×2 (08:29→20:31)
[2020-12-19] MEDS: D5.45NS W/20 MEQ KCL 1,000 ML IV SCH (10:39)
[2020-12-19] MEDS: POTASSIUM CHLOR 10 MEQ/100 ML 10 MEQ/100 ML BAG IV SCH ×4 (13:33→16:48)
[2020-12-19] MEDS: MORPHINE 2 MG/ML CARPUJECT IVP PRN ×2 (15:57→22:45)
[2020-12-19] MEDS ORDERED: SODIUM CHLORIDE 0.9% 1,000 ML IV ONE (16:30)
--- NOTE | 2020-12-19 16:32 | PROVIDER PROGRESS NOTE ---
Subjective - Prog Note Date Prog Note Date: 12/19/20 - Subjective Pt reports feeling: Improved (less pain today) Objective - Vital Signs/Intake & Output Reviewed Vital Signs: Yes Vital Signs: Vital Signs x48h Temp Pulse Resp BP Pulse Ox 12/19/20 16:00 37.0 C 101 H 18 138/83 H 95 Intake & Output: Intake & Output 12/16/20 12/17/20 12/18/20 12/19/20 23:59 23:59 23:59 23:59 Intake Total 1560 3488.750 3020.833 1600.000 Output Total 400 1450 Balance 1560 3488.750 2620.833 150.000 - Objective General Appearance: positive: No acute distress, Alert ENT: positive: No signs of dehydration Neck: positive: No JVD, Trachea midline Respiratory: positive: No respiratory distress Neurologic/Psychiatric: positive: Oriented x3 - Lab Results Fish Bones: 12/19/20 06:05 12/19/20 06:05 Other Labs: Lab Results x24hrs 12/19/20 12/19/20 12/19/20 Range/Units 07:37 06:05 06:05 WBC 12.9 H (4.8-10.8) x10^3/uL RBC 3.95 L (4.20-5.40) 10^6/uL Hgb 12.7 (12.0-16.0) g/dL Hct 37.5 (37.0-47.0) % MCV 94.9 (81.0-99.0) fL MCH 32.2 H (27.0-31.0) pg MCHC 33.9 (32.0-36.0) g/dL RDW 13.4 (12.0-15.0) % Plt Count 262 (130-450) 10^3/uL MPV 9.4 (7.9-10.8) fL Sodium 129 L (135-145) mmol/L Potassium 3.4 L (3.5-5.0) mmol/L Chloride 103 (101-111) mmol/L Carbon Dioxide 19 L (21-32) mmol/L Anion Gap 7.0 (6-13) BUN 13 (6-20) mg/dL Creatinine 0.5 (0.4-1.0) mg/dL Estimated GFR (MDRD) 127 (>89) Glucose 140 H (70-100) mg/dL POC Whole Bld Glucose 134 H (70 - 100) mg/dL Calcium 7.8 L (8.5-10.3) mg/dL Magnesium 1.9 (1.7-2.8) mg/dL Assessment/Plan - Problem List (1) Perforation of intestine due to diverticulitis of gastrointestinal tract Impression: feeling better. ileus beginning to resolve. less tender low k and low na. plan replacement continue npo except sips and icechips
[2020-12-19] MEDS: MAG HYDROX/AL HYDROX/SIMETH 30 ML UDC PO PRN (18:05)
[2020-12-19] MEDS: ONDANSETRON 4 MG/2 ML VIAL IVP PRN (21:12)
[2020-12-20] MEDS: D5.45NS W/20 MEQ KCL 1,000 ML IV SCH ×3 (00:31→15:01)
[2020-12-20] MEDS: SODIUM CHLORIDE FLUSH 0.9% 10 ML SYRINGE IVP SCH ×3 (00:37→16:43)
[2020-12-20] MEDS: metroNIDAZOLE 500 MG/100 ML 500 MG/100 ML BAG IV SCH ×3 (00:45→16:03)
[2020-12-20] MEDS: ACETAMINOPHEN 325 MG TABLET PO PRN ×4 (00:46→16:40)
[2020-12-20] MEDS: oxyCODONE 5 MG TABLET PO PRN ×4 (00:46→16:40)
[2020-12-20] MEDS: CIPROFLOXACIN 400 MG/200 ML 400 MG/200 ML BAG IV SCH ×2 (05:37→17:24)
[2020-12-20] MEDS: METOPROLOL TARTRATE 50 MG TABLET PO SCH ×2 (09:11→21:04)
[2020-12-20] MEDS: MAG HYDROX/AL HYDROX/SIMETH 30 ML UDC PO PRN ×2 (09:11→16:40)
[2020-12-20] MEDS: SIMETHICONE CHEW 80 MG TABLET PO PRN (09:11)
--- NOTE | 2020-12-20 13:53 | PROVIDER PROGRESS NOTE ---
Subjective - Prog Note Date Prog Note Date: 12/20/20 - Subjective Pt reports feeling: Improved (feeling better. less pain. passing gas.) Objective - Vital Signs/Intake & Output Reviewed Vital Signs: Yes Vital Signs: Vital Signs x48h Temp Pulse Resp BP Pulse Ox 12/20/20 07:45 36.7 C 100 17 128/71 96 Intake & Output: Intake & Output 12/17/20 12/18/20 12/19/20 12/20/20 23:59 23:59 23:59 23:59 Intake Total 3488.750 3020.833 3935.000 1400 Output Total 400 2200 750 Balance 3488.750 2620.833 1735.000 650 - Objective General Appearance: positive: No acute distress, Alert ENT: positive: No signs of dehydration Neck: positive: No JVD Respiratory: positive: No respiratory distress Abdomen: positive: Non-tender, No distention Neurologic/Psychiatric: positive: Oriented x3 - Lab Results Fish Bones: 12/19/20 06:05 12/19/20 06:05 Assessment/Plan - Problem List (1) Perforation of intestine due to diverticulitis of gastrointestinal tract Impression: improving. less pain and tenderness. ileus resolving. diet clears
[2020-12-21] MEDS: ACETAMINOPHEN 325 MG TABLET PO PRN ×4 (00:02→21:24)
[2020-12-21] MEDS: SODIUM CHLORIDE FLUSH 0.9% 10 ML SYRINGE IVP SCH ×3 (00:46→17:11)
[2020-12-21] MEDS: metroNIDAZOLE 500 MG/100 ML 500 MG/100 ML BAG IV SCH ×3 (00:55→17:08)
[2020-12-21] MEDS: D5.45NS W/20 MEQ KCL 1,000 ML IV SCH ×2 (05:22→18:44)
[2020-12-21] MEDS: CIPROFLOXACIN 400 MG/200 ML 400 MG/200 ML BAG IV SCH ×2 (05:25→19:03)
[2020-12-21] MEDS: MAG HYDROX/AL HYDROX/SIMETH 30 ML UDC PO PRN ×2 (05:35→14:27)
[2020-12-21] MEDS: oxyCODONE 5 MG TABLET PO PRN ×2 (08:49→17:05)
[2020-12-21] MEDS: METOPROLOL TARTRATE 50 MG TABLET PO SCH ×2 (08:50→21:25)
[2020-12-21] MEDS: SIMETHICONE CHEW 80 MG TABLET PO PRN ×2 (08:54→17:05)
--- NOTE | 2020-12-21 09:27 | PROVIDER PROGRESS NOTE ---
Subjective - Prog Note Date Prog Note Date: 12/21/20 - Subjective Pt reports feeling: Improved (still painful but improved. passing gas, having bms, abd softer) Objective - Vital Signs/Intake & Output Reviewed Vital Signs: Yes Vital Signs: Vital Signs x48h Temp Pulse Resp BP Pulse Ox 12/21/20 07:51 36.8 C 108 H 17 139/83 H 96 Intake & Output: Intake & Output 12/18/20 12/19/20 12/20/20 12/21/20 23:59 23:59 23:59 23:59 Intake Total 3020.833 3935.000 3048.753 1736.667 Output Total 400 2200 1150 500 Balance 2620.833 3985.855 5369.753 1236.667 - Objective General Appearance: positive: No acute distress, Alert Neck: positive: No JVD Abdomen: positive: No distention, Other (minimal tenderness) - Lab Results Fish Bones: 12/19/20 06:05 12/19/20 06:05 Assessment/Plan - Problem List (1) Perforation of intestine due to diverticulitis of gastrointestinal tract Impression: Improving. tolerating clears. ileus nearly resolved. continue present care. possibly home tomorrow if pain continues to improve
[2020-12-21] MEDS: ONDANSETRON 4 MG/2 ML VIAL IVP PRN (20:09)
[2020-12-22] MEDS: HYDROmorphone 0.5 MG/0.5 ML SYRINGE IVP PRN ×5 (00:24→23:43)
[2020-12-22] MEDS: ONDANSETRON 4 MG/2 ML VIAL IVP PRN ×4 (00:25→21:08)
[2020-12-22] MEDS: metroNIDAZOLE 500 MG/100 ML 500 MG/100 ML BAG IV SCH ×3 (00:37→16:41)
[2020-12-22] MEDS: SODIUM CHLORIDE FLUSH 0.9% 10 ML SYRINGE IVP SCH ×3 (00:43→16:41)
[2020-12-22] MEDS: MAG HYDROX/AL HYDROX/SIMETH 30 ML UDC PO PRN (04:48)
[2020-12-22] MEDS: CIPROFLOXACIN 400 MG/200 ML 400 MG/200 ML BAG IV SCH ×2 (06:27→18:12)
[2020-12-22] MEDS: oxyCODONE 5 MG TABLET PO PRN (06:46)
[2020-12-22] MEDS: ACETAMINOPHEN 325 MG TABLET PO PRN (06:47)
[2020-12-22] MEDS: D5.45NS W/20 MEQ KCL 1,000 ML IV SCH ×3 (07:43→21:25)
[2020-12-22] MEDS: METOPROLOL TARTRATE 50 MG TABLET PO SCH ×2 (08:58→23:30)
--- NOTE | 2020-12-22 17:12 | PROVIDER PROGRESS NOTE ---
Subjective - Subjective Pt reports feeling: Improved (she had more distension today and more discomfort that prior few days. still passing gas/ flatus feels better after ngt placed) Objective - Vital Signs/Intake & Output Reviewed Vital Signs: Yes Vital Signs: Vital Signs x48h Temp Pulse Resp BP Pulse Ox 12/22/20 16:00 37.3 C 108 H 17 127/75 98 Intake & Output: Intake & Output 12/19/20 12/20/20 12/21/20 12/22/20 23:59 23:59 23:59 23:59 Intake Total 3935.000 3048.753 3441.667 1299.999 Output Total 2200 1150 1475 2255 Balance 4177.566 1303.753 1966.662 -955.001 - Objective General Appearance: positive: No acute distress, Alert ENT: positive: No signs of dehydration Neck: positive: No JVD Respiratory: positive: No respiratory distress Abdomen: positive: Non-tender, No distention - Lab Results Fish Bones: 12/19/20 06:05 12/19/20 06:05 Assessment/Plan - Problem List (1) Perforation of intestine due to diverticulitis of gastrointestinal tract Impression: had been improving daily until this afternoon when developed more distension and discomfort. improved after ngt. benign soft non tender abdomen at this time. plan check labs and ct scan. If abscess present she prefers [facility] for IR consult/ drainage Consider picc and tpn soon if not likely to be eating soon. to be reevaluated tomorrow
[2020-12-22 17:23] LABS: HCT - HEMATOCRIT 41.3 % (37.0-47.0); MEAN CORPUSCULAR HEMOGLOBIN 32.3 pg (27.0-31.0); MEAN CORPUSCULAR HGB CONC 33.9 g/dL (32.0-36.0); MEAN CORPUSCULAR VOLUME 95.2 fL (81.0-99.0); MEAN PLATELET VOLUME 9.5 fL (7.9-10.8); RED BLOOD COUNT 4.34 10^6/uL (4.20-5.40); RED CELL DISTRIBUTION WIDTH 14.2 % (12.0-15.0); WHITE BLOOD COUNT 20.9 x10^3/uL (4.8-10.8)
[2020-12-22 17:33] LABS: ALBUMIN 2.3 g/dL (3.2-5.5); ALBUMIN/GLOBULIN RATIO 0.6 (1.0-2.2); BILIRUBIN,TOTAL 1.6 mg/dL (0.2-1.0); CREATININE 0.5 mg/dL (0.4-1.0); POTASSIUM 3.2 mmol/L (3.5-5.0); TOTAL PROTEIN 6.4 g/dL (6.7-8.2)
[2020-12-22] MEDS ORDERED: IOPAMIDOL-300 100 ML VIAL ONE (18:50)
[2020-12-22] MEDS: POTASSIUM CHLOR 10 MEQ/100 ML 10 MEQ/100 ML BAG IV SCH ×3 (19:22→22:55)
[2020-12-22] MEDS ORDERED: IOPAMIDOL-300 50 ML VIAL ONE (20:13)
--- NOTE | 2020-12-22 21:55 | XRAY Report ---
PROCEDURE: Chest for Line Placement INDICATIONS: NGT placement TECHNIQUE: One view of the chest was acquired. COMPARISON: None FINDINGS: Surgical changes and devices: Nasogastric tube is well-positioned with the tip and side port in the s tomach.. Lungs and pleura: There is bibasilar atelectasis. No pneumothorax or pleural effusion. Mediastinum: Mediastinal contours appear normal. Heart size is normal. Bones and chest wall: No suspicious bony lesions. Overlying soft tissues appear unremarkable. IMPRESSION: 1. Nasogastric tube is well-positioned in the stomach. 2. Bibasilar atelectasis. Reviewed by: Elder Christy on 12/22/2020 9:54 PM PDT Approved by: Elder Christy on 12/22/2020 9:54 PM PDT Station ID: [id number]
[2020-12-23] MEDS: POTASSIUM CHLOR 10 MEQ/100 ML 10 MEQ/100 ML BAG IV SCH (00:09)
[2020-12-23] MEDS ORDERED: IOPAMIDOL-300 50 ML VIAL PO ONE (00:52)
[2020-12-23] MEDS ORDERED: IOPAMIDOL-300 100 ML VIAL IVP ONE (00:52)
[2020-12-23] MEDS: SODIUM CHLORIDE FLUSH 0.9% 10 ML SYRINGE IVP PRN ×2 (01:55→03:15)
[2020-12-23] MEDS: SODIUM CHLORIDE FLUSH 0.9% 10 ML SYRINGE IVP SCH ×3 (01:56→21:14)
[2020-12-23] MEDS: metroNIDAZOLE 500 MG/100 ML 500 MG/100 ML BAG IV SCH ×3 (02:06→20:46)
[2020-12-23] MEDS: HYDROmorphone 0.5 MG/0.5 ML SYRINGE IVP PRN ×4 (04:27→21:19)
[2020-12-23] MEDS: CIPROFLOXACIN 400 MG/200 ML 400 MG/200 ML BAG IV SCH ×2 (05:40→21:59)
[2020-12-23] MEDS: METOPROLOL TARTRATE 50 MG TABLET PO SCH ×2 (08:38→21:41)
[2020-12-23] MEDS: D5.45NS W/20 MEQ KCL 1,000 ML IV SCH (08:41)
--- NOTE | 2020-12-23 11:30 | CT Report ---
PROCEDURE: Abdomen/Pelvis W INDICATIONS: eval for abdominal abscess CONTRAST: IV CONTRAST: Isovue 300 ml: 100 PO CONTRAST: Isovue 300 [id number] TECHNIQUE: After the administration of nonionic contrast, 5 mm thick sections acquired from the diaphragms to th e symphysis. 5 mm thick coronal and sagittal reformats were acquired. For radiation dose reduction, the following was used: automated exposure control, adjustment of mA and/or kV according to patient size. COMPARISON: Similar CT 12/16/2020. FINDINGS: Image quality: Excellent. ABDOMEN: Lung bases: Lung bases are mildly abnormal with lung base atelectasis and/or pneumonia. There is a small right pleural effusion, water in density and simple in appearance. Heart size is normal. Esop hagogastric tube extends into the gastric lumen. Solid organs: Liver and spleen are normal in size and enhancement. Gallbladder is free of calculus or evidence of acute cholecystitis. Biliary system is non dilated. Pancreas enhances normally. No adrenal nodules. Kidneys demonstrate normal size and enhancement, without hydronephrosis. Peritoneum and bowel: Bowel loops demonstrate normal wall thickness and caliber. There is, however, a small amount of free fluid in the perihepatic space and also extraluminal gas within the peritoneal space is seen ventral to the liver, and within the fifi hepatis at the left hepatic lobe margin, an d also more inferiorly scattered at several points within the peritoneal space of the abdomen. Additi onal small gas bubbles are present adjacent to the gallbladder, where gallbladder wall thickening is not suspected.. Nodes and vessels: No retroperitoneal or mesenteric adenopathy by size criteria. Aorta and inferior vena cava are normal in size. Miscellaneous: No ventral hernias. PELVIS: Genitourinary: Bladder wall thickness is normal. Miscellaneous: No inguinal hernias or adenopathy. Within the pelvis there are several small bowel l oops that are fluid-dilated, and oral contrast has not transited through the entire small bowel into the cecum. There is a small amount of free fluid within the superior right paracolic gutter, and more inferiorly within the pelvis multiple air-fluid levels can be seen consistent with peritoneal absces s formation in a 3 x 4 cm fluid collection is present to the left of midline, series 3 image 80, show ing rim enhancement. An additional apparent abscess is present at the right lower quadrant measuring approximately 5 x 9 cm in size, interdigitating amongst bowel loops, centered on . A midline ovoi d fluid collection is seen just above the bladder measuring approximately 4 x 5.5 cm, . Bones: No suspicious bony lesions. No vertebral body compression fractures. IMPRESSION: 1. Scattered small foci of free air within the peritoneal space is present. In the absence of recent surgical intervention this is likely a manifestation of bowel perforation. The exact site of bowel pe rforation is not identified. These findings represent a significant worsening in the appearance of e abdomen/pelvis from the comparison study 12/16/2020. 2. Within the lower abdomen and pelvis there are multiple rim-enhancing fluid collections which inter digitate between small bowel and large bowel loops, consistent with multifocal abscess formation. The se fluid collections do not appear to communicate in general. 3. Small bowel loops are mildly dilated within the pelvis, and oral contrast has not transited from t he small bowel into the colon. Inflammatory change causing ileus is the likely cause. 4. Small pleural effusion simple in appearance at the right posterior costophrenic sulcus. Scant effu david on the left. Lung base consolidation appears to represent atelectasis more likely than pneumonia . Note: Findings immediately called to the emergency room and discussed with the emergency room physici an at time of this dictation. Reviewed by: Max Antonio MD on 12/23/2020 11:29 AM PDT Approved by: Max Antonio MD on 12/23/2020 11:29 AM PDT Station ID: [id number]
--- NOTE | 2020-12-23 13:49 | PROVIDER PROGRESS NOTE ---
Subjective - Prog Note Date Prog Note Date: 12/23/20 - Subjective Pt reports feeling: Improved (feeling better, soft abdomen with minimal lower abdominal tenderness) Objective - Vital Signs/Intake & Output Reviewed Vital Signs: Yes Vital Signs: Vital Signs x48h Temp Pulse Resp BP Pulse Ox 12/23/20 08:19 37.1 C 114 H 18 142/75 H 95 Intake & Output: Intake & Output 12/20/20 12/21/20 12/22/20 12/23/20 23:59 23:59 23:59 23:59 Intake Total 3048.753 3441.667 2761.666 1576.667 Output Total 1150 1475 3680 1800 Balance 9115.908 2346.221 -401.334 -223.333 - Objective General Appearance: positive: No acute distress, Alert Eyes Bilateral: positive: PERRL, EOMI ENT: positive: No signs of dehydration Neck: positive: No JVD Respiratory: positive: No respiratory distress Abdomen: positive: No distention, Other (minimal suprapubic tenderness. no peritoneal signs, soft abdomen) - Lab Results Fish Bones: 12/22/20 17:14 12/22/20 17:14 Other Labs: Lab Results x24hrs 12/22/20 12/22/20 Range/Units 17:14 17:14 WBC 20.9 H (4.8-10.8) x10^3/uL RBC 4.34 (4.20-5.40) 10^6/uL Hgb 14.0 (12.0-16.0) g/dL Hct 41.3 (37.0-47.0) % MCV 95.2 (81.0-99.0) fL MCH 32.3 H (27.0-31.0) pg MCHC 33.9 (32.0-36.0) g/dL RDW 14.2 (12.0-15.0) % Plt Count 242 (130-450) 10^3/uL MPV 9.5 (7.9-10.8) fL Sodium 132 L (135-145) mmol/L Potassium 3.2 L (3.5-5.0) mmol/L Chloride 97 L (101-111) mmol/L Carbon Dioxide 27 (21-32) mmol/L Anion Gap 8.0 (6-13) BUN 9 (6-20) mg/dL Creatinine 0.5 (0.4-1.0) mg/dL Estimated GFR (MDRD) 127 (>89) Glucose 130 H (70-100) mg/dL Calcium 8.0 L (8.5-10.3) mg/dL Total Bilirubin 1.6 H (0.2-1.0) mg/dL AST 31 (10-42) IU/L ALT 24 (10-60) IU/L Alkaline Phosphatase 135 H (42-121) IU/L Total Protein 6.4 L (6.7-8.2) g/dL Albumin 2.3 L (3.2-5.5) g/dL Globulin 4.1 (2.1-4.2) g/dL Albumin/Globulin Ratio 0.6 L (1.0-2.2) Assessment/Plan - Problem List (1) Perforation of intestine due to diverticulitis of gastrointestinal tract Impression: Abscess now present. Plan IR consult and drainage angelicat. discussed with patient, [facility]. arrangements made. plan picc line and tpn upon her return to [facility].
[2020-12-23] MEDS ORDERED: SODIUM CHLORIDE 0.9% 1,000 ML IV ONE (21:54)
[2020-12-24] MEDS: HYDROmorphone 0.5 MG/0.5 ML SYRINGE IVP PRN ×6 (00:55→21:58)
[2020-12-24] MEDS: SODIUM CHLORIDE FLUSH 0.9% 10 ML SYRINGE IVP SCH ×3 (00:56→16:59)
[2020-12-24] MEDS: metroNIDAZOLE 500 MG/100 ML 500 MG/100 ML BAG IV SCH ×3 (05:10→21:40)
[2020-12-24 06:10] LABS: BASOPHILS # (AUTO) 0.1 10^3/uL (0.0-0.1); BASOPHILS % (AUTO) 0.6 %; EOSINOPHILS # (AUTO) 0.2 10^3/uL (0.0-0.7); EOSINOPHILS % (AUTO) 1.2 %; HCT - HEMATOCRIT 35.7 % (37.0-47.0); HGB - HEMOGLOBIN 12.3 g/dL (12.0-16.0); INR 1.9 (0.8-1.2); LYMPHOCYTES # (AUTO) 1.1 10^3/uL (1.5-3.5); MEAN CORPUSCULAR HEMOGLOBIN 32.2 pg (27.0-31.0); MEAN CORPUSCULAR HGB CONC 34.5 g/dL (32.0-36.0); MEAN CORPUSCULAR VOLUME 93.5 fL (81.0-99.0); MEAN PLATELET VOLUME 9.1 fL (7.9-10.8); MONOCYTES # (AUTO) 0.9 10^3/uL (0.0-1.0); MONOCYTES % (AUTO) 4.9 %; NEUTROPHILS # (AUTO) 16.1 10^3/uL (1.5-6.6); PLT - PLATELET COUNT 281 10^3/uL (130-450); PT - PROTHROMBIN TIME 20.3 secs (9.9-12.6); RED BLOOD COUNT 3.82 10^6/uL (4.20-5.40); RED CELL DISTRIBUTION WIDTH 14.4 % (12.0-15.0); WHITE BLOOD COUNT 18.7 x10^3/uL (4.8-10.8)
[2020-12-24 06:23] LABS: ALBUMIN 1.9 g/dL (3.2-5.5); ALBUMIN/GLOBULIN RATIO 0.5 (1.0-2.2); BILIRUBIN,TOTAL 1.4 mg/dL (0.2-1.0); CALCIUM 7.4 mg/dL (8.5-10.3); CREATININE 0.4 mg/dL (0.4-1.0); MAGNESIUM 1.7 mg/dL (1.7-2.8); PHOSPHORUS 2.4 mg/dL (2.5-4.6); POTASSIUM 3.1 mmol/L (3.5-5.0); TOTAL PROTEIN 5.5 g/dL (6.7-8.2)
[2020-12-24] MEDS: METOPROLOL TARTRATE 50 MG TABLET PO SCH ×2 (08:02→21:39)
[2020-12-24] MEDS: SODIUM CHLORIDE FLUSH 0.9% 10 ML SYRINGE IVP PRN (08:07)
[2020-12-24] MEDS: CIPROFLOXACIN 400 MG/200 ML 400 MG/200 ML BAG IV SCH ×2 (09:56→22:51)
[2020-12-24] MEDS: D5.45NS W/20 MEQ KCL 1,000 ML IV SCH ×2 (09:58→10:10)
[2020-12-24] MEDS ORDERED: POTASSIUM CHLORIDE 20 MEQ/15 ML UDC NG ONE (11:00)
[2020-12-24] MEDS: D5NS W/20 MEQ KCL 1,000 ML IV SCH (11:25)
[2020-12-24] MEDS: POTASSIUM CHLOR 10 MEQ/100 ML 10 MEQ/100 ML BAG IV SCH ×3 (11:29→16:59)
[2020-12-24 11:49] LABS: ALBUMIN 2.3 g/dL (3.2-5.5); ALBUMIN/GLOBULIN RATIO 0.6 (1.0-2.2); BILIRUBIN,TOTAL 1.7 mg/dL (0.2-1.0); CALCIUM 7.4 mg/dL (8.5-10.3); CREATININE 0.6 mg/dL (0.4-1.0); MAGNESIUM 1.7 mg/dL (1.7-2.8); POTASSIUM 3.4 mmol/L (3.5-5.0); TOTAL PROTEIN 6.1 g/dL (6.7-8.2)
--- NOTE | 2020-12-24 16:19 | PROVIDER PROGRESS NOTE ---
Progress Note Subjective Hospital day #9 for complicated diverticulitis. Patient status post IR drainage yesterday. Pain unchanged. Persistent bowel obstruction with NG tube in place. Continues with bowel function. Objective Afebrile hemodynamically acceptable General Appearance: positive: No acute distress Eyes Bilateral: positive: Normal inspection ENT: positive: ENT inspection nml Neck: positive: Nml inspection Respiratory: positive: Chest non-tender, No respiratory distress, Breath sounds nml. negative: Wheezes, Rales, Rhonchi Cardiovascular: positive: Regular rate & rhythm Abdomen: See below Extremities: positive: Non-tender, Full ROM, Nml appearance Neurologic/Psychiatric: positive: Oriented x3, CN's nml (2-12) Abdomen distended, tender at drainage site, bilious/feculent output from drainage catheter. Impression/Plan 60-year-old female with complicated diverticulitis and drainage catheter revealing feculent output concerning for persistent perforation, although contained. Patient also has bowel obstruction. I am pessimistic that the patient will be candidate for nonoperative management and will discuss this with Dr. Collins. (1) GI - IVF, bowel rest, nasogastric decompression, IV fluid resuscitation. May need TPN. (2) SURGERY - Serial abdominal exams, plain film imaging, possible repeat imaging with CT and contrast challenge. May need operative intervention if fails conservative management. Will follow closely. (3) Renal/Lytes - continue IVF. Renal indices within normal limits. (4) Respiratory - O2 as necessary. Continue IS. (5) Heme - Will continue with DVT ppx. H/H stable. (6) Cardiovascular - HD acceptable. (7) Neuro - Opiate sparring analgesia. (8) Immune/Infectious Disease - continue antibiotic
[2020-12-25] MEDS: SODIUM CHLORIDE FLUSH 0.9% 10 ML SYRINGE IVP SCH ×3 (01:01→16:46)
[2020-12-25] MEDS: HYDROmorphone 0.5 MG/0.5 ML SYRINGE IVP PRN ×8 (01:01→23:56)
[2020-12-25] MEDS: D5NS W/20 MEQ KCL 1,000 ML IV SCH ×4 (02:55→20:37)
[2020-12-25] MEDS: metroNIDAZOLE 500 MG/100 ML 500 MG/100 ML BAG IV SCH ×3 (04:36→21:11)
[2020-12-25] MEDS: oxyCODONE 5 MG TABLET PO PRN (07:53)
[2020-12-25] MEDS: METOPROLOL TARTRATE 50 MG TABLET PO SCH ×2 (07:53→21:26)
[2020-12-25] MEDS: CIPROFLOXACIN 400 MG/200 ML 400 MG/200 ML BAG IV SCH ×2 (10:38→22:15)
[2020-12-25] MEDS: INSULIN REGULAR HUMAN 300 UNIT/3 ML VIAL SUBQ SCH ×2 (12:18→17:37)
[2020-12-25 14:07] LABS: ALBUMIN/GLOBULIN RATIO 0.5 (1.0-2.2); ALKALINE PHOSPHATASE 102 IU/L (42-121); ALT ALANINE AMINOTRANSFERASE 17 IU/L (10-60); AST ASPARTATE AMINOTRANSFERASE 42 IU/L (10-42); BILIRUBIN,TOTAL 1.2 mg/dL (0.2-1.0); BUN - BLOOD UREA NITROGEN < 5 mg/dL (6-20); CALCIUM 7.7 mg/dL (8.5-10.3); CARBON DIOXIDE - CO2 24 mmol/L (21-32); CHLORIDE 104 mmol/L (101-111); CREATININE 0.4 mg/dL (0.4-1.0); GFR - MDRD 164 (>89); GLUCOSE 101 mg/dL (70-100); SODIUM 136 mmol/L (135-145); TOTAL PROTEIN 5.8 g/dL (6.7-8.2)
[2020-12-25] MEDS: SIMETHICONE CHEW 80 MG TABLET PO PRN ×2 (16:46→22:13)
--- NOTE | 2020-12-25 17:02 | PROVIDER PROGRESS NOTE ---
Progress Note Subjective Hospital day #10 for complicated diverticulitis. Patient status post IR drainage Saturday. Pain unchanged. Persistent bowel obstruction with NG tube in place. Continues with minimal bowel function. NGT clamping trial. Objective Afebrile hemodynamically acceptable General Appearance: positive: No acute distress Eyes Bilateral: positive: Normal inspection ENT: positive: ENT inspection nml Neck: positive: Nml inspection Respiratory: positive: Chest non-tender, No respiratory distress, Breath sounds nml. negative: Wheezes, Rales, Rhonchi Cardiovascular: positive: Regular rate & rhythm Abdomen: See below Extremities: positive: Non-tender, Full ROM, Nml appearance Neurologic/Psychiatric: positive: Oriented x3, CN's nml (2-12) Abdomen distended, tender at drainage site, bilious/feculent output from drainage catheter. Impression/Plan 60-year-old female with complicated diverticulitis and drainage catheter revealing feculent output concerning for persistent perforation, although contained. Patient also has bowel obstruction. I am pessimistic that the patient will be candidate for nonoperative management and will discuss this with Dr. Collins. Positive feculent drain output. (1) GI - IVF, bowel rest, nasogastric decompression, IV fluid resuscitation. May need TPN. NG clamp trial. (2) SURGERY - Serial abdominal exams, plain film imaging, possible repeat imaging with CT and contrast challenge. May need operative intervention if fails conservative management. Will follow closely. (3) Renal/Lytes - continue IVF. Renal indices within normal limits. Replete hypokalemia. (4) Respiratory - O2 as necessary. Continue IS. (5) Heme - Will continue with DVT ppx. H/H stable. (6) Cardiovascular - HD acceptable. (7) Neuro - Opiate sparring analgesia. (8) Immune/Infectious Disease - continue antibiotic
[2020-12-25] MEDS: POTASSIUM CHLOR 10 MEQ/100 ML 10 MEQ/100 ML BAG IV SCH ×3 (17:17→20:14)
[2020-12-25] MEDS: PHENOL THROAT SPRAY 177 ML MM PRN ×2 (17:20→21:29)
[2020-12-25] MEDS ORDERED: POTASSIUM CHLORIDE 20 MEQ/15 ML UDC PO SCH (18:00)
[2020-12-25] MEDS: SODIUM CHLORIDE FLUSH 0.9% 10 ML SYRINGE IVP PRN ×2 (18:53→21:32)
[2020-12-26] MEDS: INSULIN REGULAR HUMAN 300 UNIT/3 ML VIAL SUBQ SCH ×4 (00:01→18:29)
[2020-12-26] MEDS: HYDROmorphone 0.5 MG/0.5 ML SYRINGE IVP PRN ×6 (03:00→21:33)
[2020-12-26] MEDS: ONDANSETRON 4 MG/2 ML VIAL IVP PRN (03:09)
[2020-12-26] MEDS: metroNIDAZOLE 500 MG/100 ML 500 MG/100 ML BAG IV SCH ×3 (05:22→21:33)
[2020-12-26 05:32] LABS: BASOPHILS % (AUTO) 0.6 %; EOSINOPHILS % (AUTO) 1.5 %; HCT - HEMATOCRIT 35.5 % (37.0-47.0); HGB - HEMOGLOBIN 11.4 g/dL (12.0-16.0); MEAN CORPUSCULAR HEMOGLOBIN 31.5 pg (27.0-31.0); MEAN CORPUSCULAR HGB CONC 32.1 g/dL (32.0-36.0); MEAN CORPUSCULAR VOLUME 98.1 fL (81.0-99.0); MEAN PLATELET VOLUME 9.1 fL (7.9-10.8); MONOCYTES % (AUTO) 6.4 %; NEUTROPHILS % (AUTO) 82.3 %; PLT - PLATELET COUNT 326 10^3/uL (130-450); RED BLOOD COUNT 3.62 10^6/uL (4.20-5.40); RED CELL DISTRIBUTION WIDTH 14.5 % (12.0-15.0); WHITE BLOOD COUNT 15.3 x10^3/uL (4.8-10.8)
[2020-12-26] MEDS: SODIUM CHLORIDE FLUSH 0.9% 10 ML SYRINGE IVP SCH ×3 (05:34→18:29)
[2020-12-26 05:38] LABS: BAND NEUTROPHILS % (MANUAL) 0 %
[2020-12-26 05:50] LABS: ABNORMAL LYMPHS % (MANUAL) 1 %; BASOPHILS # (MANUAL) 0.3 10^3/uL (0-0.1); BASOPHILS % (MANUAL) 2 %; EOSINOPHILS # (MANUAL) 0.2 10^3/uL (0-0.7); LYMPHOCYTES # (MANUAL) 1.1 10^3/uL (1.5-3.5); LYMPHOCYTES % (MANUAL) 6 %; MONOCYTES # (MANUAL) 0.6 10^3/uL (0.0-1.0); NEUTROPHILS # (MANUAL) 13.2 10^3/uL (1.5-6.6)
[2020-12-26 05:51] LABS: DIFFERENTIAL COMMENT MANUAL DIFFERENTIAL; PLATELET ESTIMATE, MANUAL NORMAL (130-450,000) (NORMAL); PLATELET MORPHOLOGY NORMAL APPEARANCE (NORMAL); RBC MORPHOLOGY (MULTIPLE) 1+ HYPOCHROMASIA (NORMAL); WBC MORPHOLOGY (MULTIPLE) NORMAL APPEARANCE (NORMAL)
[2020-12-26 05:56] LABS: ALBUMIN 2.1 g/dL (3.2-5.5); ALBUMIN/GLOBULIN RATIO 0.6 (1.0-2.2); ALKALINE PHOSPHATASE 95 IU/L (42-121); ALT ALANINE AMINOTRANSFERASE 15 IU/L (10-60); AST ASPARTATE AMINOTRANSFERASE 43 IU/L (10-42); BILIRUBIN,TOTAL 1.3 mg/dL (0.2-1.0); BUN - BLOOD UREA NITROGEN < 5 mg/dL (6-20); CALCIUM 7.3 mg/dL (8.5-10.3); CARBON DIOXIDE - CO2 23 mmol/L (21-32); CHLORIDE 102 mmol/L (101-111); CREATININE 0.4 mg/dL (0.4-1.0); GFR - MDRD 164 (>89); GLUCOSE 136 mg/dL (70-100); MAGNESIUM 1.3 mg/dL (1.7-2.8); PHOSPHORUS 1.9 mg/dL (2.5-4.6); POTASSIUM 3.2 mmol/L (3.5-5.0); PREALBUMIN 6 mg/dL (18-45); SODIUM 132 mmol/L (135-145); TOTAL PROTEIN 5.8 g/dL (6.7-8.2); TRIGLYCERIDES 73 mg/dL
[2020-12-26] MEDS ORDERED: MAGNESIUM SULFATE 1 GM in SODIUM CHLORIDE 0.9% 50 ML IV ONE (08:14)
[2020-12-26] MEDS ORDERED: SODIUM PHOSPHATE 20 MMOL in SODIUM CHLORIDE 0.9% 250 ML IV ONE (08:14)
[2020-12-26] MEDS ORDERED: IOPAMIDOL-300 50 ML VIAL ONE (08:39)
[2020-12-26] MEDS ORDERED: IOPAMIDOL-300 100 ML VIAL ONE (08:39)
[2020-12-26] MEDS: METOPROLOL TARTRATE 50 MG TABLET PO SCH ×2 (08:49→21:32)
[2020-12-26] MEDS: D5NS W/20 MEQ KCL 1,000 ML IV SCH ×2 (08:49→19:20)
[2020-12-26] MEDS: CIPROFLOXACIN 400 MG/200 ML 400 MG/200 ML BAG IV SCH ×2 (08:50→22:40)
[2020-12-26 08:54] LABS: ALBUMIN 2.3 g/dL (3.2-5.5); ALBUMIN/GLOBULIN RATIO 0.5 (1.0-2.2); ALKALINE PHOSPHATASE 105 IU/L (42-121); ALT ALANINE AMINOTRANSFERASE 18 IU/L (10-60); AST ASPARTATE AMINOTRANSFERASE 46 IU/L (10-42); BILIRUBIN,TOTAL 1.3 mg/dL (0.2-1.0); BUN - BLOOD UREA NITROGEN < 5 mg/dL (6-20); CALCIUM 7.9 mg/dL (8.5-10.3); CARBON DIOXIDE - CO2 21 mmol/L (21-32); CHLORIDE 104 mmol/L (101-111); CREATININE 0.5 mg/dL (0.4-1.0); GFR - MDRD 127 (>89); GLUCOSE 132 mg/dL (70-100); POTASSIUM 3.8 mmol/L (3.5-5.0); SODIUM 134 mmol/L (135-145); TOTAL PROTEIN 6.5 g/dL (6.7-8.2)
[2020-12-26] MEDS ORDERED: D5NS W/20 MEQ KCL 1,000 ML IV SCH (09:00)
[2020-12-26] MEDS ORDERED: POTASSIUM CHLORIDE 20 MEQ/15 ML UDC PO SCH (09:00)
[2020-12-26] MEDS ORDERED: POTASSIUM CHLOR 10 MEQ/100 ML 10 MEQ/100 ML BAG IV SCH (09:00)
[2020-12-26] MEDS ORDERED: MAGNESIUM SULFATE 2 GRAM 2 GM/50 ML BAG IV ONE ×2 (09:00→14:00)
[2020-12-26] MEDS ORDERED: POTASSIUM PHOSPHATE 21 MMOL in SODIUM CHLORIDE 0.9% 250 ML IV ONE (10:00)
[2020-12-26] MEDS ORDERED: IOPAMIDOL-300 100 ML VIAL IVP ONE (11:31)
[2020-12-26] MEDS ORDERED: IOPAMIDOL-300 50 ML VIAL PO ONE (11:31)
[2020-12-26] MEDS: oxyCODONE 5 MG TABLET PO PRN (14:18)
--- NOTE | 2020-12-26 16:09 | CT Report ---
PROCEDURE: Abdomen/Pelvis W INDICATIONS: evalute for ileus, perforated diverticulitis CONTRAST: IV CONTRAST: Isovue 300 ml: 100 PO CONTRAST: Isovue 300 ml50 TECHNIQUE: After the administration of contrast, 5 mm thick sections acquired from the diaphragms to the sym physis. 5 mm thick coronal and sagittal reformats were acquired. For radiation dose reduction, the following was used: automated exposure control, adjustment of mA and/or kV according to patient size . COMPARISON: CT abdomen and pelvis 12/23/2020 and 12/16/2020. FINDINGS: Image quality: Excellent. ABDOMEN: Lung bases: Trace bilateral pleural fluid collections. Consolidation noted in the lung bases, right g reater than left which could represent atelectasis, pneumonia or aspiration. Heart size is normal. Solid organs: Liver and spleen are normal in size and enhancement. Small amount of right perihepatic fluid, fluid in the bladder fossa and within the fifi hepatis is stable compared to 12/23/2020. Smal l perihepatic air locules are decreased in size and number compared to 12/23/2020. Gallbladder is with in normal limits Biliary system is non dilated. Pancreas enhances normally. No adrenal nodules. K idneys demonstrate normal size and enhancement, without hydronephrosis. Left renal cortical scarring stable compared to prior exam. Peritoneum and bowel: Nasogastric tube with tip and side-port in distal stomach noted. Multiple dila zev loops of proximal small bowel noted which have decreased in in diameter compared to 12/23/2020. Pe rcutaneous pigtail catheter has been placed into the lower pelvis via a right anterior approach. Mult iple pelvic fluid collections situated between loops of large and small bowel demonstrate peripheral postcontrast enhancement compatible abscesses . The pelvic abscesses have decreased in size compared to 12/23/2020 without complete resolution. Scattered small fluid collections with peripheral enhanceme nt noted in the right paracolic gutter compatible small abscesses. Multiple small free air locules in the peritoneal cavity have decreased in number and size compared to 12/23/2020. Numerous colonic dive rticuli redemonstrated. Nodes and vessels: No retroperitoneal or mesenteric adenopathy by size criteria. Aorta and inferior vena cava are normal in size. Miscellaneous: No ventral hernias. PELVIS: Genitourinary: Bladder wall thickness is normal. Miscellaneous: No inguinal hernias or adenopathy. Bones: No suspicious bony lesions. No vertebral body compression fractures. IMPRESSION: 1. Status post placement of pelvic percutaneous pigtail catheter for drainage of multiple pelvic absc esses. Pelvic abscesses are decreased in size compared to 12/23/2020 but are not completely resolved. 2. Small abscesses in the right paracolic gutter stable compared to 12/23/2000. 3. Dilated loops this proximal small bowel slightly decreased in diameter compared to 12/23/2020. Find ing likely represents ileus related to peritoneal inflammation. 4. Multiple small intraperitoneal and perihepatic free air locules decreased in size and number jil red to 12/23/2020. 5. Bibasilar lung consolidation, right greater than left stable compared to the prior exam. Finding m ay represent atelectasis, aspiration or pneumonia Reviewed by: Cleopatra Jennings MD, PhD on 12/26/2020 4:08 PM PDT Approved by: Cleopatra Jennings MD, PhD on 12/26/2020 4:08 PM PDT Station ID: [id number]
--- NOTE | 2020-12-26 16:41 | XRAY Report ---
PROCEDURE: Chest for Line Placement INDICATIONS: Picc line placement TECHNIQUE: One view of the chest was acquired. COMPARISON: 12/22/2020 FINDINGS: Surgical changes and devices: Nasogastric tube extends below the level of the diaphragm with the dist al tip extending off the [id number]. Right upper extremity PICC is in place with the distal tip pr ojecting near the lower cavoatrial junction. Lungs and pleura: Diffuse interstitial prominence. Patchy bibasilar opacities likely representing ate lectasis. No substantial pleural effusion. No pneumothorax. Patchy airspace opacities of the right mi d lung zone appear more prominent. Mediastinum: Mediastinal contours appear stable. Heart size is normal. Bones and chest wall: No suspicious bony lesions. Overlying soft tissues appear unremarkable. IMPRESSION: 1. Right upper extremity PICC is in place with the distal tip projecting over the lower cavoatrial ju nction. 2. Relatively stable appearance of patchy bibasilar opacities and diffuse interstitial prominence. Fi ndings may represent atelectasis and/or concurrent inflammatory/infectious process. Reviewed by: Armando Espinoza MD on 12/26/2020 3:39 PM AKDT Approved by: Armando Espinoza MD on 12/26/2020 3:39 PM AKDT Station ID: [id number]
--- NOTE | 2020-12-26 17:14 | PROVIDER PROGRESS NOTE ---
Progress Note Subjective Hospital day #11 for complicated diverticulitis. Patient status post IR drainage Saturday. Pain unchanged. Persistent bowel obstruction with NG tube in place. Continues with minimal bowel function. NGT clamping trial without significant tolerance. Objective Afebrile hemodynamically acceptable General Appearance: positive: No acute distress Eyes Bilateral: positive: Normal inspection ENT: positive: ENT inspection nml Neck: positive: Nml inspection Respiratory: positive: Chest non-tender, No respiratory distress, Breath sounds nml. negative: Wheezes, Rales, Rhonchi Cardiovascular: positive: Regular rate & rhythm Abdomen: See below Extremities: positive: Non-tender, Full ROM, Nml appearance Neurologic/Psychiatric: positive: Oriented x3, CN's nml (2-12) Abdomen with persistent distension, tender at drainage site, bilious/feculent output from drainage catheter. Impression/Plan 60-year-old female with complicated diverticulitis and drainage catheter revealing feculent output concerning for persistent perforation, although contained. Patient also has bowel obstruction. I am pessimistic that the patient will be candidate for nonoperative management. Have discussed this with Dr. Collins at length and given the patient's feculent output from the percutaneous drainage, persistent obstruction, failure to improve, and extent of intra-abdominal sequelae, agree that we should proceed with operative intervention. We will proceed with CT scan for further preoperative evaluation. (1) GI - IVF, bowel rest, nasogastric decompression, IV fluid resuscitation. Begin TPN (2) SURGERY - Serial abdominal exams, plain film imaging, repeat imaging with CT and contrast challenge. Plan operative intervention. Will follow closely. Place PICC line for TPN (3) Renal/Lytes - continue IVF. Renal indices within normal limits. Replete hypokalemia. (4) Respiratory - O2 as necessary. Continue IS. (5) Heme - Will continue with DVT ppx. H/H stable. (6) Cardiovascular - HD acceptable. (7) Neuro - Opiate sparring analgesia. (8) Immune/Infectious Disease - continue antibiotic Repeat CT scan abdomen pelvis December 26 impression: 1. Status post placement of pelvic percutaneous pigtail catheter for drainage of multiple pelvic abscesses. Pelvic abscesses are decreased in size compared to 416 but are not completely resolved. 2. Small abscesses in the right paracolic gutter stable compared to 12/23/2020 3. Dilated loops proximal small bowel slightly decreased in diameter compared to 416 findings likely represent ileus related to peritoneal inflammation. 4. Multiple small intraperitoneal and perihepatic free fluid air locules 5. Bibasilar lung consolidation right greater than left stable compared to the prior exam. Findings may represent atelectasis aspiration or pneumonia.
[2020-12-26] MEDS: TPN (CLINIMIX E 5/15) 2,000 ML with MULTIVITAMIN 10 ML, TRACE ELEMENTS 1 ML IV SCH ×3 (19:09)
[2020-12-26] MEDS: FAT EMULSION 20% 250 ML IV SCH (19:10)
[2020-12-26] MEDS: SODIUM CHLORIDE FLUSH 0.9% 10 ML SYRINGE IVP PRN (21:36)
[2020-12-27] MEDS: INSULIN REGULAR HUMAN 300 UNIT/3 ML VIAL SUBQ SCH ×4 (00:01→20:08)
[2020-12-27] MEDS: HYDROmorphone 0.5 MG/0.5 ML SYRINGE IVP PRN ×8 (00:02→18:52)
[2020-12-27] MEDS: SODIUM CHLORIDE FLUSH 0.9% 10 ML SYRINGE IVP SCH ×3 (00:02→19:30)
[2020-12-27] MEDS: metroNIDAZOLE 500 MG/100 ML 500 MG/100 ML BAG IV SCH (05:09)
[2020-12-27] MEDS: D5NS W/20 MEQ KCL 1,000 ML IV SCH ×2 (05:21→19:21)
[2020-12-27 05:24] LABS: BASOPHILS # (AUTO) 0.1 10^3/uL (0.0-0.1); BASOPHILS % (AUTO) 0.8 %; EOSINOPHILS # (AUTO) 0.3 10^3/uL (0.0-0.7); EOSINOPHILS % (AUTO) 1.8 %; HCT - HEMATOCRIT 39.5 % (37.0-47.0); HGB - HEMOGLOBIN 12.8 g/dL (12.0-16.0); LYMPHOCYTES # (AUTO) 1.4 10^3/uL (1.5-3.5); LYMPHOCYTES % (AUTO) 8.4 %; MEAN CORPUSCULAR HEMOGLOBIN 32.2 pg (27.0-31.0); MEAN CORPUSCULAR HGB CONC 32.4 g/dL (32.0-36.0); MEAN CORPUSCULAR VOLUME 99.5 fL (81.0-99.0); MEAN PLATELET VOLUME 9.8 fL (7.9-10.8); MONOCYTES # (AUTO) 1.2 10^3/uL (0.0-1.0); MONOCYTES % (AUTO) 7.1 %; NEUTROPHILS # (AUTO) 13.7 10^3/uL (1.5-6.6); NEUTROPHILS % (AUTO) 80.7 %; PLT - PLATELET COUNT 260 10^3/uL (130-450); RED BLOOD COUNT 3.97 10^6/uL (4.20-5.40); RED CELL DISTRIBUTION WIDTH 14.6 % (12.0-15.0); WHITE BLOOD COUNT 16.9 x10^3/uL (4.8-10.8)
[2020-12-27] MEDS: METOPROLOL TARTRATE 50 MG TABLET PO SCH (08:06)
[2020-12-27] MEDS: CIPROFLOXACIN 400 MG/200 ML 400 MG/200 ML BAG IV SCH (08:07)
[2020-12-27 08:09] LABS: ALBUMIN 2.2 g/dL (3.2-5.5); ALBUMIN/GLOBULIN RATIO 0.5 (1.0-2.2); BILIRUBIN,TOTAL 0.8 mg/dL (0.2-1.0); CALCIUM 7.7 mg/dL (8.5-10.3); CREATININE 0.5 mg/dL (0.4-1.0); MAGNESIUM 1.6 mg/dL (1.7-2.8); PHOSPHORUS 2.3 mg/dL (2.5-4.6); POTASSIUM 3.6 mmol/L (3.5-5.0); TOTAL PROTEIN 6.4 g/dL (6.7-8.2)
--- NOTE | 2020-12-27 10:19 | ANESTHESIA ---
Pre-Anesthesia VS, & Labs - Diagnosis diverticultis, bowel obstruction - Procedure colon resection Vital Signs: Temp Pulse Resp BP Pulse Ox 36.6 C 127 H 20 134/78 H 93 12/27/20 07:52 12/27/20 07:52 12/27/20 07:52 12/27/20 08:06 12/27/20 07:52 Height: 5 ft 3 in Weight (kg): 72 kg Body Mass Index: 28.0 BMI Classification: Overweight - NPO >8 hours - Is Patient ?: No - Lab Results Current Lab Results: Laboratory Tests 12/27/20 07:45: Sodium 134 L, Potassium 3.6, Chloride 103, Carbon Dioxide 23, Anion Gap 8.0, BUN 5 L, Creatinine 0.5, Estimated GFR (MDRD) 127, Glucose 166 H, Calcium 7.7 L, Phosphorus 2.3 L, Magnesium 1.6 L, Total Bilirubin 0.8, AST 41, ALT 16, Alkaline Phosphatase 87, Total Protein 6.4 L, Albumin 2.2 L, Globulin 4.2, Albumin/Globulin Ratio 0.5 L 12/27/20 05:27: POC Whole Bld Glucose 137 H 12/27/20 05:05: WBC 16.9 H, RBC 3.97 L, Hgb 12.8, Hct 39.5, MCV 99.5 H, MCH 32.2 H, MCHC 32.4, RDW 14.6, Plt Count 260, MPV 9.8, Neut # (Auto) 13.7 H, Lymph # (Auto) 1.4 L, Travis # (Auto) 1.2 H, Eos # (Auto) 0.3, Baso # (Auto) 0.1, Absolute Nucleated RBC 0.00, Nucleated RBC % 0.0 12/26/20 23:56: POC Whole Bld Glucose 156 H 12/26/20 18:12: POC Whole Bld Glucose 113 H 12/26/20 11:27: POC Whole Bld Glucose 89 12/26/20 08:34: Sodium 134 L, Potassium 3.8, Chloride 104, Carbon Dioxide 21, Anion Gap 9.0, BUN < 5 L, Creatinine 0.5, Estimated GFR (MDRD) 127, Glucose 132 H, Calcium 7.9 L, Total Bilirubin 1.3 H, AST 46 H, ALT 18, Alkaline Phosphatase 105, Total Protein 6.5 L, Albumin 2.3 L, Globulin 4.2, Albumin/Globulin Ratio 0.5 L 12/26/20 05:41: POC Whole Bld Glucose 121 H 12/26/20 05:18: WBC 15.3 H, RBC 3.62 L, Hgb 11.4 L, Hct 35.5 L, MCV 98.1, MCH 31.5 H, MCHC 32.1, RDW 14.5, Plt Count 326, MPV 9.1, Neut # (Auto) Not Reportable, Lymph # (Auto) Not Reportable, Travis # (Auto) Not Reportable, Eos # (Auto) Not Reportable, Baso # (Auto) Not Reportable, Absolute Nucleated RBC Not Reportable, Total Counted 100, Band Neuts % (Manual) 0, Abnorm Lymph % (Manual) 1, Nucleated RBC % Not Reportable, Neutrophils # (Manual) 13.2 H, Lymphocytes # (Manual) 1.1 L, Monocytes # (Manual) 0.6, Eosinophils # (Manual) 0.2, Basophils # (Manual) 0.3 H, Differential Comment MANUAL DIFFERENTIAL, WBC Morphology NORMAL APPEARANCE, Platelet Estimate NORMAL (130-450,000), Platelet Morphology NORMAL APPEARANCE, RBC Morph Micro Appear 1+ HYPOCHROMASIA 12/26/20 05:18: Sodium 132 L, Potassium 3.2 L, Chloride 102, Carbon Dioxide 23, Anion Gap 7.0, BUN < 5 L, Creatinine 0.4, Estimated GFR (MDRD) 164, Glucose 136 H, Calcium 7.3 L, Phosphorus 1.9 L, Magnesium 1.3 L, Total Bilirubin 1.3 H, AST 43 H, ALT 15, Alkaline Phosphatase 95, Total Protein 5.8 L, Albumin 2.1 L, Globulin 3.7, Albumin/Globulin Ratio 0.6 L, Prealbumin 6 L, Triglycerides 73 12/25/20 23:46: POC Whole Bld Glucose 128 H 12/25/20 17:36: POC Whole Bld Glucose 132 H 12/25/20 13:17: Sodium 136, Potassium 3.0 L, Chloride 104, Carbon Dioxide 24, Anion Gap 8.0, BUN < 5 L, Creatinine 0.4, Estimated GFR (MDRD) 164, Glucose 101 H, Calcium 7.7 L, Total Bilirubin 1.2 H, AST 42, ALT 17, Alkaline Phosphatase 102, Total Protein 5.8 L, Albumin 2.0 L, Globulin 3.8, Albumin/Globulin Ratio 0.5 L 12/25/20 11:46: POC Whole Bld Glucose 146 H 12/25/20 05:36: POC Whole Bld Glucose 130 H 12/25/20 00:01: POC Whole Bld Glucose 127 H 12/24/20 17:51: POC Whole Bld Glucose 117 H 12/24/20 11:23: Phosphorus 2.0 L 12/24/20 11:23: Sodium 130 L, Potassium 3.4 L, Chloride 98 L, Carbon Dioxide 22, Anion Gap 10.0, BUN 7, Creatinine 0.6, Estimated GFR (MDRD) 103, Glucose 126 H, Calcium 7.4 L, Magnesium 1.7, Total Bilirubin 1.7 H, AST 39, ALT 18, Alkaline Phosphatase 123 H, Total Protein 6.1 L, Albumin 2.3 L, Globulin 3.8, Albumin/Globulin Ratio 0.6 L 12/24/20 11:14: POC Whole Bld Glucose 139 H 12/24/20 05:35: Sodium 133 L, Potassium 3.1 L, Chloride 102, Carbon Dioxide 22, Anion Gap 9.0, BUN 8, Creatinine 0.4, Estimated GFR (MDRD) 164, Glucose 111 H, Calcium 7.4 L, Phosphorus 2.4 L, Magnesium 1.7, Total Bilirubin 1.4 H, AST 34, ALT 19, Alkaline Phosphatase 110, Total Protein 5.5 L, Albumin 1.9 L, Globulin 3.6, Albumin/Globulin Ratio 0.5 L, Prealbumin 6 L, Triglycerides 72 12/24/20 05:35: PT 20.3 H, INR 1.9 H 12/24/20 05:35: WBC 18.7 H, RBC 3.82 L, Hgb 12.3, Hct 35.7 L, MCV 93.5, MCH 32.2 H, MCHC 34.5, RDW 14.4, Plt Count 281, MPV 9.1, Neut # (Auto) 16.1 H, Lymph # (Auto) 1.1 L, Travis # (Auto) 0.9, Eos # (Auto) 0.2, Baso # (Auto) 0.1, Absolute Nucleated RBC 0.00, Nucleated RBC % 0.0 04/17/21 00:14: POC Whole Bld Glucose 94 12/22/20 17:14: Sodium 132 L, Potassium 3.2 L, Chloride 97 L, Carbon Dioxide 27, Anion Gap 8.0, BUN 9, Creatinine 0.5, Estimated GFR (MDRD) 127, Glucose 130 H, Calcium 8.0 L, Total Bilirubin 1.6 H, AST 31, ALT 24, Alkaline Phosphatase 135 H , Total Protein 6.4 L, Albumin 2.3 L, Globulin 4.1, Albumin/Globulin Ratio 0.6 L 12/22/20 17:14: WBC 20.9 H, RBC 4.34, Hgb 14.0, Hct 41.3, MCV 95.2, MCH 32.3 H, MCHC 33.9, RDW 14.2, Plt Count 242, MPV 9.5 12/19/20 07:37: POC Whole Bld Glucose 134 H 12/19/20 06:05: Sodium 129 L, Potassium 3.4 L, Chloride 103, Carbon Dioxide 19 L , Anion Gap 7.0, BUN 13, Creatinine 0.5, Estimated GFR (MDRD) 127, Glucose 140 H , Calcium 7.8 L, Magnesium 1.9 12/19/20 06:05: WBC 12.9 H, RBC 3.95 L, Hgb 12.7, Hct 37.5, MCV 94.9, MCH 32.2 H , MCHC 33.9, RDW 13.4, Plt Count 262, MPV 9.4 12/18/20 05:38: Sodium 128 L, Potassium 2.9 L, Chloride 101, Carbon Dioxide 20 L , Anion Gap 7.0, BUN 12, Creatinine 0.6, Estimated GFR (MDRD) 103, Glucose 154 H , Calcium 7.6 L, Magnesium 1.5 L 12/18/20 05:38: WBC 13.0 H, RBC 3.81 L, Hgb 12.3, Hct 36.7 L, MCV 96.3, MCH 32.3 H, MCHC 33.5, RDW 13.3, Plt Count 275, MPV 9.3 12/17/20 05:46: Sodium 129 L, Potassium 2.7 L, Chloride 101, Carbon Dioxide 19 L , Anion Gap 9.0, BUN 16, Creatinine 0.7, Estimated GFR (MDRD) 86 L, Glucose 193 H, Calcium 7.8 L 12/17/20 05:46: WBC 12.6 H, RBC 4.01 L, Hgb 13.1, Hct 38.2, MCV 95.3, MCH 32.7 H , MCHC 34.3, RDW 13.2, Plt Count 279, MPV 9.2 12/16/20 16:00: Sodium 129 L, Potassium 3.3 L, Chloride 99 L, Carbon Dioxide 20 L, Anion Gap 10.0, BUN 21 H, Creatinine 0.8, Estimated GFR (MDRD) 74 L, Glucose 124 H, Calcium 8.7, Total Bilirubin 1.9 H, AST 36, ALT 77 H, Alkaline Phosphatase 104, Total Protein 8.2, Albumin 3.2, Globulin 5.0 H, Albumin/Globulin Ratio 0.6 L, Lipase 27 12/16/20 16:00: WBC 22.2 H, RBC 4.53, Hgb 15.0, Hct 42.8, MCV 94.5, MCH 33.1 H, MCHC 35.0, RDW 13.2, Plt Count 313, MPV 9.0, Neut # (Auto) 19.4 H, Lymph # (Auto) 1.3 L, Travis # (Auto) 1.1 H, Eos # (Auto) 0.2, Baso # (Auto) 0.1, Absolute Nucleated RBC 0.00, Nucleated RBC % 0.0, Manual Slide Review Indicated, WBC Morphology NORMAL APPEARANCE, Platelet Estimate NORMAL (130-450,000), Platelet Morphology NORMAL APPEARANCE, RBC Morph Micro Appear NORMAL APPEARANCE Fish Bones: 12/27/20 05:05 12/27/20 07:45 Home Medications and Allergies Home Medications: Ambulatory Orders Metoprolol Tartrate [Lopressor] 100 mg PO BID 12/18/20 Potassium Chloride [K-Dur] 20 meq PO DAILY 12/18/20 Triamterene/Hydrochlorothiazid [Maxzide 75 mg-50 mg Tablet] 0.5 tab PO DAILY 12/18/20 Active Medications Acetaminophen (Acetaminophen 325 Mg Tablet) 650 mg PO Q4HR PRN PRN Reason: Pain 1 to 4 Last Admin: 12/22/20 06:47 Dose: 650 mg Documented by: Al Hydroxide/Mg Hydroxide (Mag Hydrox/Al Hydrox/Simeth 30 Ml Udc) 30 ml PO Q4HR PRN PRN Reason: INDIGESTION Last Admin: 12/22/20 04:48 Dose: 30 ml Documented by: Hydromorphone HCl (Hydromorphone 0.5 Mg/0.5 Ml Syringe) 0.5 mg IVP Q2H PRN PRN Reason: Pain 8 to 10 Last Admin: 12/27/20 08:07 Dose: 0.5 mg Documented by: Ciprofloxacin (Cipro 400 Mg/200 Ml) 400 mg in 200 mls @ 200 mls/hr IV Q12H [facility] Last Infusion: 12/27/20 10:11 Dose: Infused Documented by: Metronidazole (Flagyl 500 Mg/100 Ml) 500 mg in 100 mls @ 100 mls/hr IV Q8H [facility] Last Infusion: 12/27/20 06:09 Dose: Infused Documented by: Potassium Chloride/Dextrose/Sod Cl (D5ns W/20 Meq Kcl) 1,000 mls @ 125 mls/hr IV .Q8H [facility] Last Infusion: 12/27/20 10:10 Dose: 0 mls/hr Documented by: Multivitamins 10 ml/ TRACE ELEMENTS 1 ml/ Amino Ac/Electrol/Dextrose/Calcium 2,011 mls @ 75 mls/hr IV Q24H [facility]; Protocol Last Infusion: 12/26/20 22:54 Dose: 50 mls/hr Documented by: Fat Emulsion Intravenous (Intralipid 20%) 250 mls @ 21 mls/hr IV Q24H [facility] Last Infusion: 12/27/20 07:05 Dose: Infused Documented by: Insulin Human Regular (Insulin Regular Human 300 Unit/3 Ml Vial) 1 - 5 unit SUBQ Q6HR [facility]; Protocol Last Admin: 12/27/20 05:28 Dose: Not Given Documented by: Metoprolol Tartrate (Metoprolol Tartrate 50 Mg Tablet) 50 mg PO BID [facility] Last Admin: 12/27/20 08:06 Dose: 50 mg Documented by: Morphine Sulfate (Morphine 2 Mg/Ml Carpuject) 2 mg IVP Q2HR PRN PRN Reason: PAIN Last Admin: 12/19/20 22:45 Dose: 2 mg Documented by: Ondansetron HCl (Ondansetron Odt 4 Mg Tablet) 4 mg TL Q6HR PRN PRN Reason: Nausea / Vomiting Ondansetron HCl (Ondansetron 4 Mg/2 Ml Vial) 4 mg IVP Q6HR PRN PRN Reason: Nausea / Vomiting Last Admin: 12/26/20 03:09 Dose: 4 mg Documented by: Oxycodone HCl (Oxycodone 5 Mg Tablet) 5 mg PO Q4HR PRN PRN Reason: Pain 5 to 7 Last Admin: 12/26/20 14:18 Dose: 5 mg Documented by: Phenol/Menthol (Phenol Throat [place] 177 Ml) 2 sprays MM Q2HR PRN PRN Reason: Throat Pain Last Admin: 12/25/20 21:29 Dose: 2 sprays Documented by: Simethicone (Simethicone Chew 80 Mg Tablet) 80 mg PO QID PRN PRN Reason: Gas Last Admin: 12/25/20 22:13 Dose: 80 mg Documented by: Sodium Chloride (Sodium Chloride Flush 0.9% 10 Ml Syringe) 10 ml IVP PRN PRN PRN Reason: NEEDED PER PROVIDER ORDERS Last Admin: 12/26/20 21:36 Dose: 10 ml Documented by: Sodium Chloride (Sodium Chloride Flush 0.9% 10 Ml Syringe) 10 ml IVP 0100,0900,1700 VANESSA Last Admin: 12/27/20 08:08 Dose: 10 ml Documented by: Metoprolol Tartrate [Lopressor] 100 mg PO BID 12/18/20 Potassium Chloride [K-Dur] 20 meq PO DAILY 12/18/20 Triamterene/Hydrochlorothiazid [Maxzide 75 mg-50 mg Tablet] 0.5 tab PO DAILY 07/30 Allergies/Adverse Reactions: Allergies Allergy/AdvReac Type Severity Reaction Status Date / Time amoxicillin Allergy Unknown Verified 12/16/20 15:49 Anes History & Medical History - Anesthetic History Family history of Anesthesia Complications: Denies Family history of Malignant Hyperthermia: Denies - Medical History Cardiovascular: reports: Hypertension Smoking Status: Current every day smoker Exam General: Alert, Oriented x3, Cooperative Dental: Partials Upper Mouth Openin Fingerbreadth Neck Mobility: Normal Mallampati classification: I Thyromental Distance: 4-6 cm Respiratory: Lungs clear Cardiovascular: Regular rate Plan Anesthesia Type: General, Transverse Abdominis Plane (TAP) Block Regional Block: Per Surgeon's request for Post Op pain control Consent for Procedure(s) Verified and Reviewed: Yes Code Status: Attempt Resuscitation ASA classification: 2-Mild systemic disease Is this case an emergency?: No
[2020-12-27] MEDS ORDERED: ePHEDrine 50 MG/ML VIAL IVP PRN (10:23)
[2020-12-27] MEDS ORDERED: ATROPINE ABBOJECT 1 MG/10 ML SYRINGE IVP PRN (10:23)
[2020-12-27] MEDS ORDERED: MORPHINE 2 MG/ML CARPUJECT IVP PRN (10:23)
[2020-12-27] MEDS ORDERED: METOCLOPRAMIDE 10 MG/2 ML VIAL IVP PRN (10:23)
[2020-12-27] MEDS ORDERED: fentaNYL 100 MCG/2 ML VIAL IVP PRN (10:23)
[2020-12-27] MEDS ORDERED: HYDROmorphone 0.5 MG/0.5 ML SYRINGE IVP PRN (10:23)
[2020-12-27] MEDS ORDERED: ONDANSETRON 4 MG/2 ML VIAL IVP PRN ×2 (10:23→17:31)
[2020-12-27] MEDS ORDERED: NALOXONE 0.4 MG/ML VIAL IVP PRN (10:23)
[2020-12-27] MEDS ORDERED: ONDANSETRON 4 MG/2 ML VIAL ONE (10:55)
[2020-12-27] MEDS ORDERED: LIDOCAINE-MPF 2% 5 ML VIAL ONE (10:55)
[2020-12-27] MEDS ORDERED: ROCURONIUM 50 MG/5 ML VIAL ONE ×3 (10:55→16:15)
[2020-12-27] MEDS ORDERED: ROPIVACAINE 0.5% PF 20 ML AMPULE ONE (10:58)
[2020-12-27] MEDS ORDERED: DEXAMETHASONE 4 MG/ML VIAL ONE (10:58)
[2020-12-27] MEDS ORDERED: SUCCINYLCHOLINE 200 MG/10 ML VIAL ONE (10:58)
[2020-12-27] MEDS ORDERED: LACTATED RINGERS 1,000 ML IV SCH (11:00)
[2020-12-27] MEDS ORDERED: MIDAZOLAM 2 MG/2 ML VIAL ONE (11:00)
[2020-12-27] MEDS ORDERED: fentaNYL 100 MCG/2 ML VIAL ONE ×2 (11:00→16:27)
[2020-12-27] MEDS ORDERED: PHENYLEPHRINE 10 MG/ML VIAL ONE ×2 (12:41→17:24)
[2020-12-27] MEDS ORDERED: HYDROmorphone 1 MG/ML CARPUJECT ONE (13:27)
[2020-12-27] MEDS ORDERED: METHYLENE BLUE 0.5% 50 MG/10 ML AMPULE ONE (14:47)
[2020-12-27] MEDS ORDERED: metroNIDAZOLE 500 MG/100 ML 500 MG/100 ML BAG ONE (15:00)
[2020-12-27] MEDS ORDERED: CIPROFLOXACIN 400 MG/200 ML 400 MG/200 ML BAG IV ONE (15:01)
[2020-12-27] MEDS ORDERED: ACETAMINOPHEN 1,000 MG/100 ML 100 ML IV ONE (15:02)
[2020-12-27] MEDS ORDERED: SUGAMMADEX 200 MG/2 ML VIAL IVP ONE (16:37)
[2020-12-27] MEDS ORDERED: PHENYLEPHRINE 20 MG in SODIUM CHLORIDE 0.9% 248 ML IV SCH (17:00)
[2020-12-27] MEDS ORDERED: ALBUTEROL NEB 2.5 MG/3 ML INH PRN (17:31)
[2020-12-27] MEDS ORDERED: IPRATROPIUM 0.2 MG/ML NEB INH PRN (17:31)
[2020-12-27] MEDS ORDERED: METOPROLOL 5 MG/5 ML VIAL IVP STA (17:46)
[2020-12-27] MEDS ORDERED: PHENYLEPHRINE 20 MG in SODIUM CHLORIDE 0.9% 248 ML IV ONE (17:47)
[2020-12-27] MEDS ORDERED: LACTATED RINGERS 1,000 ML IV ONE ×3 (17:55→20:14)
[2020-12-27] MEDS: PHENYLEPHRINE 20 MG in SODIUM CHLORIDE 0.9% 248 ML IV SCH ×2 (17:55→21:27)
[2020-12-27] MEDS ORDERED: MEROPENEM 1 GM in SODIUM CHLORIDE 0.9% MINIBAG 100 ML IV SCH (18:00)
[2020-12-27] MEDS ORDERED: metroNIDAZOLE 500 MG/100 ML 500 MG/100 ML BAG IV SCH (18:00)
--- NOTE | 2020-12-27 18:05 | OPERATIVE REPORT ---
Operative Report - General Admit Date: 12/16/20 Planned Procedure: Procedure: 1. Diagnostic laparoscopy, possible laparotomy 2. Laparoscopic adhesiolysis, possible open 3. Laparoscopic low anterior resection, possible open 4. Abscess drainage with Drain placement 5. Rigid proctoscopy 6. Laparoscopic loop ileostomy, possible Margarita's 7. Tap block per anesthesia Pre-Op Diagnosis: Complicated diverticulitis; perforated diverticulitis s/p perc drain; SBO Procedure Performed: 1. Diagnostic laparoscopy 2. Laparoscopic adhesiolysis extensive 3. Laparoscopic takedown of enterocolonic fistula 4. Laparoscopic takedown of colocutaneous fistula 5. Low anterior resection, laparoscopic 6. Splenic flexure mobilization, laparoscopic 7. Repair of vesicular sinus tract 8. Laparoscopic assisted loop ileostomy 9. Partial omentectomy 10. Umbilical hernia repair 11. Drainage of intra-abdominal abscess multiple 12. Drainage catheter placement 13. Small bowel resection 14. Abdominal washout Post Op Diagnosis: Same; feculent peritonitis; multiple fistulae; vesicular involvement - Procedure Note Primary Surgeon: Juan Secondary Surgeon: Karina Anesthesia Provider: Raudel Anesthesia Technique: General ET tube, Regional block Pathology: 1. Rectosigmoid colon 2. Proximal margin 3. Pericolic abscess 4 culture 4. Anastomotic donuts 5. Omentum 6. Enteric portion of the enterocolic fistula Estimated Blood Loss (mL): 350 Drain/Tube Type: Julio drain Indications: See operative note Findings: See operative note Complications: None - Other Other Information/Narrative: DATE OF SERVICE: 12/27/2020 Physician: Prem Martinez MD ADDENDUM PREOPERATIVE DIAGNOSES 1. Complicated diverticulitis. 2. Perforated diverticulitis. 3. Status post percutaneous drain with feculent output. 4. Small-bowel obstruction. 5. Sepsis. 6. Failure of medical management. POSTOPERATIVE DIAGNOSES 1. Complicated diverticulitis. 2. Perforated diverticulitis. 3. Status post percutaneous drain with feculent output. 4. Small-bowel obstruction. 5. Sepsis. 6. Failure of medical management. 7. Feculent peritonitis. 8. Multiple fistulae including enterocolic. 9. Vesicular involvement of phlegmon in the pelvis at the dome of the bladder. PROCEDURE PERFORMED 1. Diagnostic laparoscopy. 2. Laparoscopic adhesiolysis, extensive. 3. Laparoscopic takedown of enterocolic fistula. 4. Laparoscopic takedown of colocutaneous fistula. 5. Low anterior resection, laparoscopic. 6. Splenic flexure mobilization, laparoscopic. 7. Repair of the vesicular sinus tract. 8. Laparoscopic-assisted loop ileostomy. 9. Partial omentectomy. 10. Umbilical hernia repair. 11. Drainage of intraabdominal abscess, multiple. 12. Drainage catheter placement. 13. Small-bowel resection. 14. Abdominal washout. INDICATIONS: Kindly see electronic medical record. However, in brief, this patient was admitted on 12/16 with complicated diverticulitis as noted by pericolic abscess and pneumoperitoneum as, well as concern for extravasation. The patient underwent bowel rest, IV antibiotics, and was ultimately scheduled for percutaneous drainage catheter placement. Patient had no significant improvement in constellation of symptoms with persistent small-bowel obstruction, leukocytosis, and concerning for continued sepsis. For source control, the patient continued to have feculent output from his percutaneous drain. The patient was discussed with the primary surgeon, Dr. Collins, and we decided that the patient had failed maximal medical therapy and was appropriate for surgical intervention. The patient was counseled at length of the possible risks of intervention including injury to local structures including the ureter as well as the need for fecal diversion either through Margarita's with colostomy or diverting loop ileostomy. OPERATIVE REPORT: The patient was taken to the operating room and placed supine on the operating table. The patient was already obtained for informed consent. The patient had already undergone a transversus abdominis plane block after general endotracheal induction by anesthesia. The patient was placed for Acosta catheter and was prepped and draped in the usual sterile fashion in lithotomy with Olaf stirrups. A timeout was called and agreed to by all in the room. The patient was already on scheduled antibiotics. A plan access point was incised periumbilical. An incision was made sharply. Skin and subcutaneous tissues were divided using Bovie electrocautery. Fascia was encountered it was sharply divided. Muscle was bluntly divided. Posterior fascia was elevated and sharply divided. Abdominal cavity was entered without incident. Kwon port was placed without complication. He noted extensive induration and thereafter proceeded with Pfannenstiel as listed below. We proceeded with hand port placement in the suprapubic region through a Pfannenstiel. The skin 2 cm above the pubis was incised sharply; this was taken down through the skin and subcutaneous fat with Bovie electrocautery. The fascia was encountered and sharply divided. The muscle thereafter was vertically after the fascia had been divided horizontally/transversely. We carefully elevated the peritoneum and sharply incised this and entered the abdominal cavity, which immediately there was noted for evidence of purulent and feculent peritonitis. We proceeded to place the wound ring accessory to the hand port GelPOINT access device to prevent skin and soft tissue complications. With this inside, we proceeded with blunt dissection to assess the degree of the local inflammatory changes, and there was a large phlegmonous change involving the sigmoid colon, extending to the bladder and pelvic structures with small bowel involved, and this was carefully teased bluntly and cautiously, given the extent of the inflammatory changes, through this hand assist port site. Once we were able to ensure additional ports could be placed for laparoscopic access, additional ports were placed as follows: 1. Suprapubic. 2. Right lower quadrant 12 port. 3. Right upper quadrant 5 mm port. We proceeded to perform insufflation through an umbilical access port that was achieved through an open Tammie technique. Please note, there was an umbilical hernia that was appropriate for repair at the conclusion of this case. The patient tolerated insufflation to 15 mmHg without any adverse event. There were extensive inflammatory changes, and we proceeded with extensive hand- assisted adhesiolysis with laparoscopic visualization for nearly 2 hours, which was carefully achieved bluntly with finger fracture as well as laparoscopic suction irrigation; diligent electrocautery was also used, as well as the LigaSure device. Ultimately we were able to achieve access to the abdomen. I had to mobilize the majority of bowel off phlegmonous change and noted that, at this point, with these areas mobilized, patient was noted for air within the Acosta bag, which was consistent with a communication to the urinary bladder, and at this time we plan to evaluate this later with methylene blue. We proceeded with low-anterior resection laparoscopically. Case began with adhesiolysis as follows: Trocars were sequentially placed towards affording appropriate abdominal access for laparoscopic and ultimately Laparoscopic adhesiolysis and enterolysis commences. This was performed in such a way as to maximize exposure and minimize abdominal trauma. We clearly visualized, after appropriate and lengthy laparoscopic adhesiolysis, each trocar placement. Thereafter once appropriate and safe exposure was achieved without any inadvertent injuries or other complicating factors, we proceeded to continue with adhesiolysis to address the patient's extensive intra-abdominal adhesions using sharp Lap dissection, diligent electrocautery, and appropriate countertraction. Please note for multiple reasons as listed above under brief procedural findings, this patient was best suited to minimal access adhesiolysis towards avoiding open intervention, reducing the associated risks thereof, maximizing recovery, minimizing postoperative morbidity and associated stigmata, and enhancing the patient's convalescence towards assuring safe and expeditious ushering into the next step of therapeutic intervention which was crucial given presenting sepsis. This proceeded without any untoward complications, and without any inadvertent injuries or other adverse effect events. With adhesions lysed we proceeded with resection as follows. Along the rectosigmoid mesocolon, the medial peritoneum was incised using the cautery. This was carefully dissected down laterally. The ureter and gonadal vessels were noted and swept down away from colonic mesentery. With this accomplished, and both the ureter and gonadal vessels protected, the inferior mesenteric artery was encircled and divided using EndoGIA vascular staple load, with hemostasis achieved. We proceeded with splenic flexure mobilization taking the lateral peritoneal attachments all the way up affording adequate mobility along with the retroperitoneal attachments carefully minding the location of the ureter and associated structures. No inadvertent injuries or trauma resulted. Once adequate mobility was achieved we proceeded as follows. We proceeded to thereafter proceed with the pelvic dissection, which we proceeded very cautiously. We addressed the side wall adhesions cautiously and identified the ureter and kept it in constant visualization to avoid any inadvertent injury. Ultimately the colon, which was significantly indurated and noted for multiple areas of mural abscess and tethering, was mobilized, and we proceeded with the pelvic dissection, which necessitated careful upward traction to reveal the presacral plane. Ultimately we stapled across the distal margin with a green load of Endo-MALIK and proceeded with a vascular load to take the mesorectum. We confirmed that there was splaying of the tenia at this level at the true anatomic rectum. Once this was completed, we proceeded to continue mobilization of distal rectosigmoid and rectum. The avascular plane between the mesorectum and the presacral space was thereafter entered. This dissection was continued down through to the level of the upper rectum. This was all performed using Ligasure, cautery and countertraction. In addition, the lateral peritoneal reflections of rectum were also divided and ultimately anterior peritoneal reflection of the rectum was divided as well. The mesorectum was then continuously mobilized using Bovie electrocautery. Care was taken not to enter the presacral venous plexus. Extensive adhesions noted to the left adnexal structures associated with the patient's historic refractory chronic diverticular disease. Were able to preserve the left tube and ovary without any consequential injury. Again the left ureter was identified and protected throughout. Please see above findings for the height of the dissection (clearly the upper rectum was visualized given the splaying of taenia) and the specific margins performed during this dissection. Once this was completed with adequate distal margin assured in an appropriately mobilized rectum, the mesorectum was then divided using Ligasure vessel sealing device. With mesorectum divided, and hemostatic, the rectum was appropriately cleared and using Endo-stapling device, the upper rectum was thereafter stapled and divided; again ureters were noted and protected throughout. With the sigmoid colon mobilized and rectum divided, we planned to exteriorize the resection specimen through the GelPort site. With this completed, we exteriorized the specimen, chose an area of viable colon proximal to diseased segment, completely mobilized the splenic flexure la paroscopically with the patient in reverse Trendelenburg position. We then divided the mesentery using the energy device and 2-0 ligatures in the clamp/clamp/cut fashion. We placed a pursestring with 2-0 Prolene and thereafter, the 28 EEA anvil was placed into the lumen. With this completed, anvil was replaced into the abdomen, and proceeded to perform the end to end anastomosis after resufflation by closing the Royal wound ring. Additional mobilization was performed of the peritoneal reflection which allowed, after dividing the peritoneum surrounding rectum, additional distal mobility without any concern for tension. We proceeded to take down the insufflation and complete any necessary adhesiolysis at this time. We proceeded with another half hour to 1 hour of lengthy adhesiolysis of the small bowel and noted an area of small bowel still matted, which was consistent with associated fistula to the colon, and this necessitated small-bowel resection. After performing finger fracture and sharp diligent adhesiolysis throughout the small bowel, which was run through the entirety of its length from the terminal ileum to the ligament of Treitz, we performed a small-bowel resection at the level of this fistula and sent the small specimen for pathology. Additional adhesiolysis was necessary for appropriate prolapse of the small bowel loop and after this was completed, we chose points of transection and after dividing and ligating the intervening mesentery, the small intestine was divided using a linear cutting stapler with a triple staple line. This was in the area of significantly indurated small bowel that appeared to have been gone or performed enterocolic fistula formation to the level of the pelvic phlegmon/abscess. The small bowel was sent for permanent pathology. Once this was completed, Allis clamps were placed along the antimesenteric staple lines of both ends. These were incised and divided using curved Cedeño scissors and thereafter limbs of the linear cutting stapler were placed through both enterotomies and the [id number] anastomosis was created. There was no bleeding, and after the stapler was fired, two seromuscular crotch stitches were placed in order to relieve any tension. Thereafter, the enterotomies were closed with no firings of the Endo MALIK. The anastomosis was widely patent, intact, with no ischemic changes noted. We proceeded to place the anvil in an open manner, after confirming an area of healthy supple colon well above and beyond the area of pathology. We confirmed no tension at the level of the planned coloproctostomy. The EEA stapler was placed through rectum and once appropriately positioned, the spike thereafter was engaged through the staple line of the rectal stump under direct laparoscopic guidance. The spike was then removed and taken out of the abdomen. This was then mated with the trocar of the anvil and once adequately engaged and the colon checked for orientation without evidence of twist, torsion or tension, the EEA was closed and adequate tension was achieved on meter, it was fired without any complication. Again, ureters, both left and right, were identified and protected throughout the entirety of this case. With the EEA fired, donuts were harvested and both were complete and thereafter we performed insufflation test using rigid proctosigmoidoscope under saline immersion without evidence of bubbles or air leak noted laparoscopically. This was done with pinpoint as well. Please note that the anvil was mated to the EEA through direct access using the GelPort and wound protector, and this was not done laparoscopically and under direct visualization. The staple was fired in the usual sterile fashion. There was extensive intraabdominal abscess cavities that were addressed during initial adhesiolysis, requiring extensive and lengthy repeated abdominal washout. In particular, a mural abscess was obtained and sent for pathology and culture and sensitivity. Having performed a small-bowel resection and pelvic anastomosis, we reevaluated the entirety of the length of the small bowel, which was run without any other areas of occult injury. We thereafter planned to place diverting loop ileostomy after measuring 20 cm from the terminal ileum, which was marked with sutures, and the right lower quadrant ileostomy site was performed in the usual fashion. Abdomen was extensively irrigated clear. Ileostomy was constructed as follows: Trephine of skin overlying the Right Abdominal wall was resected within the triangle that encompassed the umbilicus, the anterior superior iliac spine and the pubis (or as pre-operatively marked). Vertical division of the subcutaneous fat to the level of the fascia thereafter was performed with electrocautery. The rectus was bluntly with a oksana clamp with hemostasis achieved. The posterior fascia/peritoneum was divided protecting the underlying structures. The terminal ileum was brought through without torsion or twisting. It was then matured at the conclusion of this case using multiple interrupted sutures of 2-0 Vicryl sutures placed in such a way as to tack the full thickness of the edge of the ileum to a subcuticular layer of the skin in addition to maturation in the standard Iman ileostomy fashion. An ostomy appliance was ultimately placed. Fascia & surrounding skin was appropriately approximated to accommodate the loop ileostomy, which, as stated, at the end of case was matured in a Iman fashion. We thereafter, once performing extensive irrigation and lavage and planning drainage through the right upper quadrant trocar site into the pelvis with a Julio drain, proceeded to evaluate the bladder for communication. Ultimately we placed methylene blue in a clamped bladder and, after evaluating, saw an area of induration and inflammatory change at the dome, which we performed for 2-layer closure with 2-0 Vicryl, first simple interrupted and thereafter with Lembert sutures with no complication. The plan would be to maintain the Acosta catheter going forward. At this time, having completed the following procedures, we noted that there was indurated omentum that was concerning for infectious compromise, and we performed partial omentectomy at this time. With this completed, which was achieved using the LigaSure device, we proceeded to again once more irrigate the abdomen without any complication. It aspirated clear. We placed Seprafilm in the abdomen through the Pfannenstiel site and thereafter closed this in the usual fashion. First we closed the peritoneum in a running fashion and thereafter reapproximated the muscle with interrupted and fashioned bidirectionally with looped PDS. We planned to keep the skin open with a wound VAC, given the extent of the patient's infectious compromise. We closed the umbilicus in the usual fashion with interrupted [id number] of 0 Vicryl and performed an umbilicoplasty. The skin was closed with akash, as were the other trocar sites. The drain was sutured in place with 2-0 nylon. This point we had please note there was multiple occasions where we had proceeded from dirty to clean notably after the small bowel resection. Ultimately after the pelvic double stapled coloproctostomy. We used clean instruments to close the fascia and the Pfannenstiel incision, which was ultimately placed for a wound VAC in the usual fashion. WOUND VAC CHANGE: Pfannenstiel incision was prepped with Betadine. The defect was approximately 14 cm in length by 4 cm in width. At this time we proceeded with washout withsterile saline. There was no concerns for induration or other erythema or purulence. Thereafter black sponge was inserted and placed overlying the entire defect. The clear top dressing was placed, the suction button was thereafter installed over hole cut in the dressing. There was no air leak or other compromise from the dressing. Stoma was matured after instruments were appropriately transitioned from dirty to clean. The patient tolerated the procedure well with no complication. All counts of sponges, needles, and instruments were correct at the conclusion of this operative case. I was present for the entirety of this operative intervention. Dr. Sherif Collins was present for the entirety of this operation, without whom performing this laparoscopically and restoring the patient's bowel continuity would not have been possible. His presence was crucial for retraction, camera maneuvering, performing the anastomoses, and for clinical judgment. TD: 01/02/2021 07:07
--- NOTE | 2020-12-27 18:18 | PROVIDER PROGRESS NOTE ---
Progress Note BRIEF OP NOTE: Admit Date: 12/16/20 Procedure Date: 12/27/20 Planned Procedure: Procedure: 1. Diagnostic laparoscopy, possible laparotomy 2. Laparoscopic adhesiolysis, possible open 3. Laparoscopic low anterior resection, possible open 4. Abscess drainage with Drain placement 5. Rigid proctoscopy 6. Laparoscopic loop ileostomy, possible Margarita's 7. Tap block per anesthesia Pre-Op Diagnosis: Complicated diverticulitis; perforated diverticulitis s/p perc drain; SBO Procedure Performed: 1. Diagnostic laparoscopy 2. Laparoscopic adhesiolysis extensive 3. Laparoscopic takedown of enterocolonic fistula 4. Laparoscopic takedown of colocutaneous fistula 5. Low anterior resection, laparoscopic 6. Splenic flexure mobilization, laparoscopic 7. Repair of vesicular sinus tract 8. Laparoscopic assisted loop ileostomy 9. Partial omentectomy 10. Umbilical hernia repair 11. Drainage of intra-abdominal abscess multiple 12. Drainage catheter placement 13. Small bowel resection 14. Abdominal washout Post Op Diagnosis: Same; feculent peritonitis; multiple fistulae; vesicular involvement - Procedure Note Primary Surgeon: Juan Secondary Surgeon: Karina Anesthesia Provider: Raudel Anesthesia Technique: General ET tube, Regional block Pathology: 1. Rectosigmoid colon 2. Proximal margin 3. Pericolic abscess 4 culture 4. Anastomotic donuts 5. Omentum 6. Enteric portion of the enterocolic fistula Estimated Blood Loss (mL): 350 Drain/Tube Type: Julio drain Indications: See operative note Findings: See operative note Complications: None
[2020-12-27] MEDS ORDERED: HYDROmorphone 0.5 MG/0.5 ML SYRINGE ONE (18:50)
[2020-12-27] MEDS ORDERED: VANCOMYCIN INJ 1 GM, VANCOMYCIN INJ 500 MG in SODIUM CHLORIDE 0.9% 500 ML IV ONE (19:00)
--- NOTE | 2020-12-27 19:05 | ANESTHESIA POST OP EVALUATION ---
Anesthesia Post Eval - Post Anesthesia Eval Vitals: Last Vital Signs Temp 37 C 12/27/20 19:01 Pulse 136 H 12/27/20 19:01 Resp 13 12/27/20 19:01 BP 119/65 12/27/20 19:01 Pulse Ox 96 12/27/20 19:01 CV Function Including HR & BP: Stable, Additional Therapies Ordered (Pt transferred to ICU, Sander gtt infusing @ 40mcg) Pain Control: Satisfactory Nausea & Vomiting: Negative Mental Status: Baseline Respiratory Status: Airway Patent Hydration Status: Satisfactory Anesthesia Complications: None
--- NOTE | 2020-12-27 19:13 | OPERATIVE REPORT ---
Operative Report - General Admit Date: 12/16/20 Procedure Date: 12/27/20 Planned Procedure: Procedure performed: 1. Ultrasound guided left radial arterial access 2. Left radial arterial line placement for hemodynamic monitoring Pre-Op Diagnosis: see below Procedure Performed: Procedure performed: 1. Ultrasound guided left radial arterial access 2. Left radial arterial line placement for hemodynamic monitoring Post Op Diagnosis: see below - Procedure Note Primary Surgeon: Juan Secondary Surgeon: Wayne Anesthesia Provider: Wayne Pathology: None Estimated Blood Loss (mL): 5 Indications: Preoperative diagnosis: 1. Hypovolemic shock 2. Upper GI bleed 3. Suspicion for sepsis 4. Need for additional Hemodynamic monitoring. Postoperative diagnosis: 1. Hypovolemic shock 2. Upper GI bleed 3. Suspicion for sepsis 4. Need for additional Hemodynamic monitoring. 5. Successful placement of Left arterial line, radial artery. Indications: . Complex abdominal postoperative case in 60-year-old female who presented with complicated diverticulitis with complex multifocal abscess, recurrent, contained perforation with feculent drainage per IR drain, and bowel obstruction who underwent extensive laparoscopic assisted intervention. Patient was placed for an arterial line for continued titration of Sander-Synephrine however that line was inadvertently lost during patient transfer. Reattempt was made by drug discovery informatics specialist unsuccessfully on the contralateral, left side, however the patient was signif icantly vasoconstricted. I thereafter was able to achieve arterial access to continued with hemodynamic monitoring in the setting of pressor support. Findings: INTRAOPERATIVE FINDINGS: Left hand confirmed for Olaf test with no concern for compromised arch. Left ulnar artery noted for pulsatile flow by Doppler on ultrasonography. Confirmed left radial artery by ultrasound with pulsatile flow noted on arterial access with appropriate waveform once line completed. Good capillary return and no compromise to left hand at the conclusion of procedure. Complications: None - Other Other Information/Narrative: Procedure performed: 1. Ultrasound guided left radial arterial access 2. Left radial arterial line placement for hemodynamic monitoring INTRAOPERATIVE FINDINGS: Left hand confirmed for Olaf test with no concern for compromised arch. Left ulnar artery noted for pulsatile flow by Doppler on ultrasonography. Confirmed left radial artery by ultrasound with pulsatile flow noted on arterial access with appropriate waveform once line completed. Good capillary return and no compromise to left hand at the conclusion of procedure. Preoperative diagnosis: 1. Hypovolemic shock 2. Upper GI bleed 3. Suspicion for sepsis 4. Need for additional Hemodynamic monitoring. Postoperative diagnosis: 1. Hypovolemic shock 2. Upper GI bleed 3. Suspicion for sepsis 4. Need for additional Hemodynamic monitoring. 5. Successful placement of Left arterial line, radial artery. PROCEDURAL REPORT The patient was prepped for Left hand and arm. Olaf's test performed see above for results.. Time out was called and agreed to by all in the room. Please note secondary to the urgency of the procedure verbal informed consent was obtained and witnessed by nurse attendant in room. The ultrasound probe was draped with a sterile sleeve. Pulsatile structures were noted for both radial and ulnar arteries, and we had already confirmed patency of a palmar arch with completion of the Olaf's test. We proceeded to access the left radial artery using ultrasound guidance with positive arterial blood return. The catheter was easily placed over the wire by modified Seldinger technique. Appropriate arterial waveform was appreciated with no complication. Patient had good cap refill with no complication to the left hand at the conclusion of this procedure. The patient tolerated the procedure well for which there was no complication. All counts for sponges, needles, instruments were correct at the conclusion of this operative intervention. Post-op XR was reviewed without any deviation.
[2020-12-27] MEDS: methocarbamoL 500 MG TABLET PO SCH (19:32)
[2020-12-27] MEDS: DOCUSATE SODIUM 100 MG CAPSULE PO SCH (19:35)
--- NOTE | 2020-12-27 19:37 | CONSULTATION NOTE ---
Referring Provider Name of Referring Provider:: Dr. Prem Martinez Consult Date: 12/27/20 Chief Complaint - Chief Complaint Chief Complaint: Abdominal pain History of Present Illness - Admitted From Admitted From:: Home - History Obtained From Records Reviewed: Yes History obtained from: Patient, Daytime Hospitalist, EMR - History of Present Illness HPI Comment/Other: This is a 60-year-old female with a past medical history significant for hypertension and a history of tachycardia who presented to our facility 11 days ago complaining of abdominal pain. She was admitted on December 16 to the general surgery service for complicated diverticulitis with pneumoperitoneum and abscess. She was treated medically with IV antibiotics and bowel rest. Her hospitalization was complicated by ileus and she required NG tube placement. She had slowly been improving until the when she complained of more abdominal pain and distention. She underwent a repeat CT of the abdomen pelvis which confirmed multiple fluid collections concerning for abscess. She was taken to interventional radiology at [facility] on the for drainage. Despite continued antibiotics and supportive measures, she continued to have ongoing obstruction and her white count was increasing. General surgery felt that at this point in time, she will need operative intervention. The patient went to the OR on December 27 for laparoscopic takedown of enterocolonic fistula, colocutaneous fistula, low anterior resection, loop ileostomy, drainage of intra-abdominal abscess, and small bowel resection. It was noted that she had feculent peritonitis and multiple fistula. She was taken to the intensive care unit postoperatively and medicine was consulted to assist with medical management. The patient currently reports feeling the same as she has been for the past few days. She states her pain is about 8 out of 10 and located throughout her abdomen. She has no nausea or vomiting. Denies any dyspnea or chest pain. She does report palpitations. She has a poor appetite and does not feel hungry or thirsty. She does feel like her mouth is dry. Denies any dysuria, urgency. She tells me prior to this hospitalization, the have been doing well was relatively healthy. She has been on metoprolol as well as triamterene/hydrochlorothiazide for over 15 years. She tells me her blood pressure was quite elevated back then with a systolic in the 200s. It has been controlled ever since. She also reports a history of elevated heart rate but denies a history of arrhythmia, coronary artery disease, heart failure. History - Past Medical History Cardiovascular: reports: Hypertension - Family & Social History Family History: Mother: CAD, Father: Alive and Well, Brother: , CAD Family History Comment/Other: She had a brother who at the age of 48 from a myocardial infarction. Her father has a history of coronary artery disease and also has a pacemaker for unclear reasons. She reports no history of cancer. Living arrangement: At home Living Situation: With spouse/s.o. Social History Notes: She has lived here on [facility] since the age of 12. 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 She drinks about 2-3 alcoholic beverages a day and has been doing so for the past 30 years. She also smokes about half a pack a day and has been doing this for the past 30 years. Meds/Allgy - Home Medications Home Medications: Ambulatory Orders Medication Instructions Recorded Confirmed Metoprolol Tartrate [Lopressor] 100 mg PO BID 12/18/20 12/18/20 Potassium Chloride [K-Dur] 20 meq PO DAILY 12/18/20 12/18/20 Triamterene/Hydrochlorothiazid 0.5 tab PO DAILY 12/18/20 12/18/20 [Maxzide 75 mg-50 mg Tablet] - Allergies Allergies/Adverse Reactions: Allergies Allergy/AdvReac Type Severity Reaction Status Date / Time amoxicillin Allergy Unknown Verified 12/16/20 15:49 Review of Systems - Constitutional Constitutional: reports: Fatigue, Poor appetite. denies: Fever, Chills - Cardiovascular Cariovascular: reports: Palpitations. denies: Chest pain, Edema, Exertional dyspnea, Decr. exercise tolerance - Respiratory Respiratory: denies: Cough, Sputum production, SOB at rest, SOB with exertion - Gastrointestinal Gastrointestinal: reports: Abdominal pain, Constipation, Change in bowel habits. denies: Diarrhea, Nausea, Vomiting - Genitourinary Genitourinary: denies: Frequency, Urgency, Hematuria - Integumentary Integumentary: denies: Rash - Neurological Neurological: denies: General weakness, Focal weakness - Hematologic/Lymphatic Hematologic/Lymphatic: denies: Bleeding tendencies - All Other Systems All Other Systems: reports: Reviewed and negative Exam - Vital Signs Reviewed Vital Signs: Yes Vital Signs: Vital Signs x48h Temp Pulse Pulse Resp BP BP Pulse Ox 12/27/20 19:05 137 H 20 112/62 95 12/27/20 19:01 37 C 136 H 13 119/65 96 12/27/20 18:56 37.1 C 135 H 18 113/63 94 12/27/20 18:46 131 H 18 116/74 100 12/27/20 18:40 128 H 15 129/62 100 12/27/20 18:35 128 H 18 134/65 H 100 12/27/20 18:31 126 H 20 140/67 H 100 12/27/20 18:25 125 H 19 129/74 100 12/27/20 18:22 124 H 17 139/83 H 100 12/27/20 18:17 122 H 17 119/76 100 12/27/20 18:03 123 H 22 127/75 100 12/27/20 18:00 36.9 C 123 H 19 127/75 100 12/27/20 17:55 36.9 C 131 H 17 121/60 99 - Physical Exam General Appearance: positive: No acute distress, Alert Eyes Bilateral: positive: Normal inspection, Conjunctivae nml ENT: positive: Dry mucous membranes. negative: No signs of dehydration Neck: positive: Nml inspection Respiratory: positive: No respiratory distress. negative: Wheezes, Rales Cardiovascular: positive: No murmur, Tachycardia. negative: Irregularly irregular, Systolic murmur Abdomen: positive: No distention, Tenderness (Diffuse tenderness.), Abnml bowel sounds (Hypoactive.), Other (FREDDY drain in RUQ. Ileostomy in place.). negative: Guarding, Rebound Skin: positive: Warm, Dry Extremities: positive: No pedal edema Neurologic/Psychiatric: positive: Oriented x3, Motor nml. negative: Disoriented to person, Disoriented to place, Disoriented to time Conclusion/Plan - Diagnosis Diagnosis: 1) Septic shock. 2) Complicated diverticulitis. 3) Sinus tachycardia. 4) History of hypertension. 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 She is requiring norepinephrine postoperatively but only 40 mcg and her mean arterial pressure is currently 80 mmHg while I was evaluating her. Her hypotension may be related to septic shock or hypovolemia postoperatively. We will give her a liter of lactated Ringer's right now and look to wean her vasopressors to mean arterial pressure of 65 mmHg. I am hopeful this can be accomplished this evening or tomorrow. We will continue the IV antibiotics. I agree with meropenem IV for gram-negative and anaerobic coverage. Will defer the use of vancomycin and fluconazole to general surgery. Follow up cultures. With regards to her tachycardia, this is likely multifactorial. This is tachycardia on telemetry and I suspect is related to her pain, hypovolemia and possible sepsis as well as her not receiving her usual dose of metoprolol. Her heart rate has varied throughout this stay but has predominately been in the 100s to 110s. We will give her a liter of lactated Ringer's as mentioned above. We will resume her home metoprolol when appropriate and likely when she is off of pressors for at least 24 hours. Continue with antibiotics as mentioned above. Will also check a TSH. Thank you for this consult. We will continue to follow with you. - Lab Results Lab results reviewed: Yes Fish Bones: 12/27/20 05:05 12/27/20 07:45 - Diagnostic Imaging Results Diagnostic Imaging Results: positive: Final report reviewed
[2020-12-27] MEDS: HYDROmorphone PCA 20MG/100ML IV PRN (19:59)
[2020-12-27] MEDS: TPN (CLINIMIX E 5/15) 2,000 ML with MULTIVITAMIN 10 ML, TRACE ELEMENTS 1 ML IV SCH ×3 (20:00)
[2020-12-27] MEDS: FAT EMULSION 20% 250 ML IV SCH (20:01)
[2020-12-27] MEDS: KETOROLAC 30 MG/ML VIAL IVP SCH (20:10)
[2020-12-27] MEDS: METOCLOPRAMIDE 10 MG/2 ML VIAL IVP SCH (20:19)
[2020-12-27] MEDS ORDERED: ACETAMINOPHEN 1,000 MG/100 ML 100 ML IV SCH (21:00)
[2020-12-27] MEDS: HEPARIN 5,000 UNIT/ML VIAL SUBQ SCH (21:01)
[2020-12-27] MEDS: polyethylene glycoL 3350 17 GM PACKET PO SCH (21:12)
[2020-12-27] MEDS: SODIUM CHLORIDE FLUSH 0.9% 10 ML SYRINGE IVP PRN (22:32)
[2020-12-28] MEDS: methocarbamoL 500 MG TABLET PO SCH ×4 (00:05→18:08)
[2020-12-28] MEDS: SODIUM CHLORIDE FLUSH 0.9% 10 ML SYRINGE IVP SCH ×3 (00:06→17:43)
[2020-12-28] MEDS: INSULIN REGULAR HUMAN 300 UNIT/3 ML VIAL SUBQ SCH ×3 (00:15→18:26)
[2020-12-28] MEDS: PHENYLEPHRINE 20 MG in SODIUM CHLORIDE 0.9% 248 ML IV SCH ×2 (00:44→06:23)
[2020-12-28] MEDS ORDERED: SODIUM CHLORIDE FLUSH 0.9% 10 ML SYRINGE IVP SCH (01:00)
[2020-12-28] MEDS: METOCLOPRAMIDE 10 MG/2 ML VIAL IVP SCH ×4 (01:40→18:09)
[2020-12-28] MEDS: KETOROLAC 30 MG/ML VIAL IVP SCH ×4 (01:40→18:07)
[2020-12-28] MEDS ORDERED: ACETAMINOPHEN 1,000 MG/100 ML 100 ML IV SCH (05:00)
[2020-12-28] MEDS: MEROPENEM 1 GM in SODIUM CHLORIDE 0.9% MINIBAG 100 ML IV SCH ×3 (05:05→21:17)
[2020-12-28 05:24] LABS: BASOPHILS % (AUTO) 0.5 %; EOSINOPHILS % (AUTO) 0.1 %; HCT - HEMATOCRIT 23.7 % (37.0-47.0); HGB - HEMOGLOBIN 7.8 g/dL (12.0-16.0); LYMPHOCYTES % (AUTO) 5.8 %; MEAN CORPUSCULAR HGB CONC 32.9 g/dL (32.0-36.0); MEAN CORPUSCULAR VOLUME 97.1 fL (81.0-99.0); MEAN PLATELET VOLUME 9.6 fL (7.9-10.8); MONOCYTES % (AUTO) 3.1 %; NEUTROPHILS % (AUTO) 89.9 %; PLT - PLATELET COUNT 326 10^3/uL (130-450); RED BLOOD COUNT 2.44 10^6/uL (4.20-5.40); RED CELL DISTRIBUTION WIDTH 14.6 % (12.0-15.0)
[2020-12-28 05:31] LABS: ABNORMAL LYMPHS % (MANUAL) 0 %
[2020-12-28 05:35] LABS: ALBUMIN 1.4 g/dL (3.2-5.5); ALBUMIN/GLOBULIN RATIO 0.5 (1.0-2.2); BILIRUBIN,TOTAL 0.7 mg/dL (0.2-1.0); CALCIUM 6.8 mg/dL (8.5-10.3); CREATININE 0.7 mg/dL (0.4-1.0); MAGNESIUM 1.2 mg/dL (1.7-2.8); POTASSIUM 3.3 mmol/L (3.5-5.0); TOTAL PROTEIN 4.2 g/dL (6.7-8.2)
[2020-12-28 06:25] LABS: BAND NEUTROPHILS % (MANUAL) 31 %; DIFFERENTIAL COMMENT MANUAL DIFFERENTIAL; LYMPHOCYTES # (MANUAL) 0.3 10^3/uL (1.5-3.5); LYMPHOCYTES % (MANUAL) 2 %; MONOCYTES # (MANUAL) 0.3 10^3/uL (0.0-1.0); NEUTROPHILS # (MANUAL) 15.4 10^3/uL (1.5-6.6); PLATELET ESTIMATE, MANUAL NORMAL (130-450,000) (NORMAL); RBC MORPHOLOGY (MULTIPLE) NORMAL APPEARANCE (NORMAL)
[2020-12-28] MEDS: MAGNESIUM SULFATE 2 GRAM 2 GM/50 ML BAG IV SCH ×2 (07:17→08:22)
[2020-12-28] MEDS: POTASSIUM CHLOR 20 MEQ/100 ML 20 MEQ/100 ML BAG IV SCH ×2 (08:27→09:40)
[2020-12-28] MEDS: VANCOMYCIN INJ 1 GM, VANCOMYCIN INJ 250 MG in SODIUM CHLORIDE 0.9% 250 ML IV SCH ×2 (08:38→20:34)
[2020-12-28] MEDS: FLUCONAZOLE 200 MG/100 ML 100 ML IV SCH (08:43)
[2020-12-28] MEDS ORDERED: POTASSIUM PHOSPHATE 15 MMOL in SODIUM CHLORIDE 0.9% 250 ML IV ONE (09:30)
[2020-12-28] MEDS: DOCUSATE SODIUM 100 MG CAPSULE PO SCH ×2 (09:43→21:17)
[2020-12-28] MEDS: polyethylene glycoL 3350 17 GM PACKET PO SCH ×2 (09:45→21:17)
[2020-12-28] MEDS: HEPARIN 5,000 UNIT/ML VIAL SUBQ SCH ×2 (09:47→21:18)
[2020-12-28] MEDS: ACETAMINOPHEN 325 MG TABLET PO PRN (11:50)
[2020-12-28] MEDS ORDERED: INSULIN REGULAR HUMAN 300 UNIT/3 ML VIAL SUBQ SCH (12:00)
--- NOTE | 2020-12-28 12:02 | PROVIDER PROGRESS NOTE ---
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 Management as per surgery. Since she has slght bowel sounds, will start diet w/ clear liquid diet, OKd by Dr Martinez. Continue CAD MANAGER pump for pain control. Will change iv ofirmev to po Tylenol. Continue broad spectrum antibiotics. (2) Diverticulitis Assessment/Plan: She had a complication of diverticulitis, prompting this entire stay. Continue empiric antibx, TPN, slow advancement of diet and surgical management. (3) Anemia Assessment/Plan: This is probably multifactorial: From IV hydration and hemodilution, also from blood loss and surgery yesterday. Follow CBC daily, transfuse if hemoglobin goes under 7. We will check iron stores and B12 and folate stores. (4) Hypokalemia Assessment/Plan: Replace w/ K riders. Follow BMP daily. (5) Hyponatremia Assessment/Plan: Related to fluid shifts and iv fluids for hydration. Will give NS. Follow BMP daily. (6) HTN (hypertension) Assessment/Plan: She was hypotensive yesterday and for the last few days because of sepsis. Her blood pressure meds have been on hold, this explains the tachycardia because she has not been getting the metoprolol. We will slowly resume her blood pressure meds as the blood pressure rises. (7) Septic shock Assessment/Plan: Resolved. She was weaned off iv pressors overnight. Will discontinue art line. Remain in ICU today; still using CAD MANAGER pump. - Current Meds Current Meds: Current Medications Generic Name Dose Route Start Last Admin Trade Name Freq PRN Reason Stop Dose Admin Docusate Sodium 100 mg 12/27/20 21:00 12/28/20 09:43 Docusate Sodium 100 Mg Capsule PO 100 mg BID VANESSA Administration Heparin Sodium (Porcine) 5,000 unit 12/27/20 21:00 12/28/20 09:47 Heparin 5,000 Unit/Ml Vial SUBQ 5,000 unit BID VANESSA Administration Hydromorphone HCl 0 mg 12/27/20 19:14 12/27/20 19:59 Hydromorphone Ui Software Engineer 20mg/100ml IV 20 mg PRN PRN Administration PAIN Protocol Multivitamins 10 ml/ TRACE 2,011 mls @ 75 mls/hr 12/26/20 19:00 12/28/20 10:09 ELEMENTS 1 ml/ Amino Ac/ IV 75 mls/hr Electrol/Dextrose/Calcium Q24H VANESSA Infusion Protocol Fat Emulsion Intravenous 250 mls @ 21 mls/hr 12/26/20 19:00 12/28/20 08:00 Intralipid 20% IV Infused Q24H VANESSA Infusion Potassium Chloride/Dextrose/Sod Cl 1,000 mls @ 50 mls/hr 12/27/20 17:41 12/28/20 08:59 D5ns W/20 Meq Kcl IV 0 mls/hr .Q20H VANESSA Infusion Fluconazole 100 mls @ 100 mls/hr 12/28/20 09:00 12/28/20 10:09 Diflucan 200 Mg/100 Ml IV Infused DAILY VANESSA Infusion Vancomycin HCl 1 gm/ 250 mls @ 167 mls/hr 12/28/20 08:00 12/28/20 08:38 Vancomycin HCl 250 mg/ Sodium IV 167 mls/hr Chloride Q12H VANESSA Administration Meropenem 1 gm/ Sodium 100 mls @ 200 mls/hr 12/28/20 05:00 12/28/20 05:35 Chloride IV Infused Q8H VANESSA Infusion Potassium Phosphate 15 mmol/ 255 mls @ 63 mls/hr 12/28/20 09:30 12/28/20 10:48 Sodium Chloride IV 12/28/20 13:32 63 mls/hr ONCE ONE Administration Protocol Ketorolac Tromethamine 15 mg 12/27/20 18:00 12/28/20 07:46 Ketorolac 30 Mg/Ml Vial IVP 01/01/21 17:59 15 mg Q6HR VANESSA Administration Methocarbamol 500 mg 12/27/20 18:00 12/28/20 06:23 Methocarbamol 500 Mg Tablet PO Not Given Q6HR VANESSA Metoclopramide HCl 10 mg 12/27/20 18:00 12/28/20 07:48 Metoclopramide 10 Mg/2 Ml Vial IVP 10 mg Q6HR VANESSA Administration Morphine Sulfate 2 mg 12/18/20 08:36 12/19/20 22:45 Morphine 2 Mg/Ml Carpuject IVP 2 mg Q2HR PRN Administration PAIN Polyethylene Glycol 17 gm 12/27/20 21:00 12/28/20 09:45 Polyethylene Glycol 3350 17 Gm Packet PO 17 gm BID VANESSA Administration Sodium Chloride 10 ml 12/17/20 01:00 12/28/20 09:54 Sodium Chloride Flush 0.9% 10 Ml Syringe IVP Not Given 0100,0900,1700 VANESSA - Lab Result Fish Bone Diagrams: 12/28/20 05:00 12/28/20 05:00 - Additional Planning My Orders: My Active Orders 12/28/20 10:01 Acetaminophen [Tylenol] 650 mg PO Q4HR PRN 12/28/20 Lunch Clear Liquid Diet [DIET] 12/28/20 11:58 Arterial Line Discontinuation [RC] .Once Subjective - Subjective Patient Reports: Resting Comfortably, Pain (She has required treatment using her CAD MANAGER pump all morning.) Objective Vital Signs: Vital Signs - 24 hr 12/27/20 12/27/20 12/27/20 17:55 18:00 18:03 Temperature 36.9 C 36.9 C Heart Rate 131 H 123 H Heart Rate [ 123 H Brachial] Heart Rate [ Monitoring electrodes] Respiratory 17 19 22 Rate Blood Pressure 121/60 127/75 Blood Pressure 127/75 [Left Brachial artery] Blood Pressure [left radial] O2 Saturation 99 100 100 12/27/20 12/27/20 12/27/20 18:15 18:16 18:17 Temperature Heart Rate 121 H 121 H 122 H Heart Rate [ Brachial] Heart Rate [ Monitoring electrodes] Respiratory 19 20 17 Rate Blood Pressure 119/76 119/76 Blood Pressure [Left Brachial artery] Blood Pressure [left radial] O2 Saturation 100 12/27/20 12/27/20 12/27/20 18:19 18:20 18:21 Temperature Heart Rate 123 H 122 H 123 H Heart Rate [ Brachial] Heart Rate [ Monitoring electrodes] Respiratory 23 15 18 Rate Blood Pressure 139/83 H Blood Pressure [Left Brachial artery] Blood Pressure [left radial] O2 Saturation 12/27/20 12/27/20 12/27/20 18:22 18:25 18:26 Temperature Heart Rate 124 H 125 H 124 H Heart Rate [ Brachial] Heart Rate [ Monitoring electrodes] Respiratory 17 20 15 Rate Blood Pressure 139/83 H 129/74 129/74 Blood Pressure [Left Brachial artery] Blood Pressure [left radial] O2 Saturation 100 100 12/27/20 12/27/20 12/27/20 18:30 18:31 18:35 Temperature Heart Rate 125 H 126 H 127 H Heart Rate [ Brachial] Heart Rate [ Monitoring electrodes] Respiratory 16 20 18 Rate Blood Pressure 140/67 H 134/65 H Blood Pressure [Left Brachial artery] Blood Pressure [left radial] O2 Saturation 100 100 12/27/20 12/27/20 12/27/20 18:36 18:40 18:45 Temperature Heart Rate 129 H 130 H 132 H Heart Rate [ Brachial] Heart Rate [ Monitoring electrodes] Respiratory 18 17 23 Rate Blood Pressure 140/75 H 129/62 Blood Pressure [Left Brachial artery] Blood Pressure [left radial] O2 Saturation 100 12/27/20 12/27/20 12/27/20 18:46 18:50 18:55 Temperature Heart Rate 131 H 135 H 136 H Heart Rate [ Brachial] Heart Rate [ Monitoring electrodes] Respiratory 18 23 17 Rate Blood Pressure 116/74 Blood Pressure [Left Brachial artery] Blood Pressure [left radial] O2 Saturation 100 12/27/20 12/27/20 12/27/20 18:56 19:00 19:01 Temperature 37.1 C 37 C Heart Rate 135 H 136 H 136 H Heart Rate [ Brachial] Heart Rate [ Monitoring electrodes] Respiratory 18 18 13 Rate Blood Pressure 113/63 119/65 Blood Pressure [Left Brachial artery] Blood Pressure [left radial] O2 Saturation 94 96 12/27/20 12/27/20 12/27/20 19:05 19:10 19:15 Temperature Heart Rate 137 H 136 H 138 H Heart Rate [ Brachial] Heart Rate [ Monitoring electrodes] Respiratory 20 20 16 Rate Blood Pressure 112/62 Blood Pressure [Left Brachial artery] Blood Pressure [left radial] O2 Saturation 95 12/27/20 12/27/20 12/27/20 19:20 19:25 19:30 Temperature Heart Rate 138 H 138 H 138 H Heart Rate [ Brachial] Heart Rate [ Monitoring electrodes] Respiratory 16 18 19 Rate Blood Pressure Blood Pressure [Left Brachial artery] Blood Pressure [left radial] O2 Saturation 12/27/20 12/27/20 12/27/20 19:35 19:40 19:45 Temperature Heart Rate 138 H 137 H 136 H Heart Rate [ Brachial] Heart Rate [ Monitoring electrodes] Respiratory 17 19 20 Rate Blood Pressure Blood Pressure [Left Brachial artery] Blood Pressure [left radial] O2 Saturation 12/27/20 12/27/20 12/27/20 19:50 19:55 20:00 Temperature Heart Rate 135 H 135 H 135 H Heart Rate [ Brachial] Heart Rate [ Monitoring electrodes] Respiratory 20 20 16 Rate Blood Pressure Blood Pressure [Left Brachial artery] Blood Pressure [left radial] O2 Saturation 12/27/20 12/27/20 12/27/20 20:05 20:10 20:15 Temperature Heart Rate 133 H 130 H 129 H Heart Rate [ Brachial] Heart Rate [ Monitoring electrodes] Respiratory 17 14 19 Rate Blood Pressure Blood Pressure [Left Brachial artery] Blood Pressure [left radial] O2 Saturation 12/27/20 12/27/20 12/27/20 20:20 20:25 20:30 Temperature Heart Rate 124 H 129 H 125 H Heart Rate [ Brachial] Heart Rate [ Monitoring electrodes] Respiratory 14 16 20 Rate Blood Pressure Blood Pressure [Left Brachial artery] Blood Pressure [left radial] O2 Saturation 12/27/20 12/27/20 12/27/20 20:35 20:40 20:45 Temperature Heart Rate 121 H 123 H 121 H Heart Rate [ Brachial] Heart Rate [ Monitoring electrodes] Respiratory 17 15 15 Rate Blood Pressure Blood Pressure [Left Brachial artery] Blood Pressure [left radial] O2 Saturation 12/27/20 12/27/20 12/27/20 20:50 20:55 21:00 Temperature Heart Rate 118 H 121 H 118 H Heart Rate [ Brachial] Heart Rate [ Monitoring electrodes] Respiratory 14 22 17 Rate Blood Pressure Blood Pressure [Left Brachial artery] Blood Pressure [left radial] O2 Saturation 12/27/20 12/27/20 12/27/20 21:05 21:10 21:15 Temperature Heart Rate 118 H 117 H 113 H Heart Rate [ Brachial] Heart Rate [ Monitoring electrodes] Respiratory 20 19 10 L Rate Blood Pressure Blood Pressure [Left Brachial artery] Blood Pressure [left radial] O2 Saturation 12/27/20 12/27/20 12/27/20 21:20 21:25 21:30 Temperature Heart Rate 110 H 113 H 109 H Heart Rate [ Brachial] Heart Rate [ Monitoring electrodes] Respiratory 13 13 13 Rate Blood Pressure Blood Pressure [Left Brachial artery] Blood Pressure [left radial] O2 Saturation 12/27/20 12/27/20 12/27/20 21:35 21:38 21:39 Temperature Heart Rate 111 H 110 H 109 H Heart Rate [ Brachial] Heart Rate [ Monitoring electrodes] Respiratory 14 11 L 10 L Rate Blood Pressure 110/56 L Blood Pressure [Left Brachial artery] Blood Pressure [left radial] O2 Saturation 12/27/20 12/27/20 12/27/20 21:40 22:00 22:01 Temperature 37.3 C Heart Rate 110 H 112 H 111 H Heart Rate [ Brachial] Heart Rate [ 109 H 117 H Monitoring electrodes] Respiratory 17 12 13 Rate Blood Pressure 96/61 Blood Pressure 110/56 L 96/61 [Left Brachial artery] Blood Pressure 110/59 L [left radial] O2 Saturation 96 95 12/27/20 12/27/20 12/27/20 22:05 22:10 22:15 Temperature Heart Rate 114 H 114 H 116 H Heart Rate [ Brachial] Heart Rate [ Monitoring electrodes] Respiratory 13 13 13 Rate Blood Pressure Blood Pressure [Left Brachial artery] Blood Pressure [left radial] O2 Saturation 12/27/20 12/27/20 12/27/20 22:20 22:25 22:30 Temperature Heart Rate 113 H 116 H 114 H Heart Rate [ Brachial] Heart Rate [ Monitoring electrodes] Respiratory 13 15 11 L Rate Blood Pressure Blood Pressure [Left Brachial artery] Blood Pressure [left radial] O2 Saturation 12/27/20 12/27/20 12/27/20 22:35 22:40 22:45 Temperature Heart Rate 114 H 110 H 113 H Heart Rate [ Brachial] Heart Rate [ Monitoring electrodes] Respiratory 12 14 13 Rate Blood Pressure Blood Pressure [Left Brachial artery] Blood Pressure [left radial] O2 Saturation 12/27/20 12/27/20 12/27/20 22:50 22:55 22:59 Temperature Heart Rate 111 H 115 H 114 H Heart Rate [ Brachial] Heart Rate [ Monitoring electrodes] Respiratory 15 13 13 Rate Blood Pressure Blood Pressure [Left Brachial artery] Blood Pressure [left radial] O2 Saturation 12/27/20 12/27/20 12/27/20 23:00 23:01 23:05 Temperature Heart Rate 111 H 115 H 109 H Heart Rate [ Brachial] Heart Rate [ 114 H Monitoring electrodes] Respiratory 12 13 13 Rate Blood Pressure 95/65 Blood Pressure 95/65 [Left Brachial artery] Blood Pressure 117/61 [left radial] O2 Saturation 95 12/27/20 12/27/20 12/27/20 23:10 23:15 23:20 Temperature Heart Rate 113 H 113 H 112 H Heart Rate [ Brachial] Heart Rate [ Monitoring electrodes] Respiratory 14 12 14 Rate Blood Pressure Blood Pressure [Left Brachial artery] Blood Pressure [left radial] O2 Saturation 12/27/20 12/27/20 12/27/20 23:25 23:30 23:35 Temperature Heart Rate 108 H 112 H 112 H Heart Rate [ Brachial] Heart Rate [ Monitoring electrodes] Respiratory 14 14 14 Rate Blood Pressure Blood Pressure [Left Brachial artery] Blood Pressure [left radial] O2 Saturation 12/27/20 12/27/20 12/27/20 23:40 23:45 23:50 Temperature Heart Rate 110 H 110 H 111 H Heart Rate [ Brachial] Heart Rate [ Monitoring electrodes] Respiratory 14 14 13 Rate Blood Pressure Blood Pressure [Left Brachial artery] Blood Pressure [left radial] O2 Saturation 12/27/20 12/27/20 12/28/20 23:55 23:59 00:00 Temperature 36.8 C Heart Rate 109 H 114 H 114 H Heart Rate [ Brachial] Heart Rate [ 114 H Monitoring electrodes] Respiratory 12 14 14 Rate Blood Pressure 122/68 Blood Pressure 122/68 [Left Brachial artery] Blood Pressure 138/69 H [left radial] O2 Saturation 95 12/28/20 12/28/20 12/28/20 00:01 00:05 00:10 Temperature Heart Rate 112 H 112 H 118 H Heart Rate [ Brachial] Heart Rate [ Monitoring electrodes] Respiratory 14 13 18 Rate Blood Pressure Blood Pressure [Left Brachial artery] Blood Pressure [left radial] O2 Saturation 12/28/20 12/28/20 12/28/20 00:15 00:20 00:25 Temperature Heart Rate 114 H 119 H 117 H Heart Rate [ Brachial] Heart Rate [ Monitoring electrodes] Respiratory 16 22 18 Rate Blood Pressure Blood Pressure [Left Brachial artery] Blood Pressure [left radial] O2 Saturation 12/28/20 12/28/20 12/28/20 00:30 00:35 00:40 Temperature Heart Rate 110 H 112 H 108 H Heart Rate [ Brachial] Heart Rate [ Monitoring electrodes] Respiratory 12 14 14 Rate Blood Pressure Blood Pressure [Left Brachial artery] Blood Pressure [left radial] O2 Saturation 12/28/20 12/28/20 12/28/20 00:45 00:50 00:55 Temperature Heart Rate 109 H 112 H 110 H Heart Rate [ Brachial] Heart Rate [ Monitoring electrodes] Respiratory 13 13 13 Rate Blood Pressure Blood Pressure [Left Brachial artery] Blood Pressure [left radial] O2 Saturation 12/28/20 12/28/20 12/28/20 01:00 01:01 01:05 Temperature Heart Rate 106 H 112 H 113 H Heart Rate [ Brachial] Heart Rate [ 111 H Monitoring electrodes] Respiratory 13 14 14 Rate Blood Pressure 103/60 Blood Pressure 103/60 [Left Brachial artery] Blood Pressure 110/59 L [left radial] O2 Saturation 96 12/28/20 12/28/20 12/28/20 01:10 01:15 01:20 Temperature Heart Rate 110 H 111 H 108 H Heart Rate [ Brachial] Heart Rate [ Monitoring electrodes] Respiratory 14 16 14 Rate Blood Pressure Blood Pressure [Left Brachial artery] Blood Pressure [left radial] O2 Saturation 12/28/20 12/28/20 12/28/20 01:25 01:30 01:35 Temperature Heart Rate 111 H 107 H 110 H Heart Rate [ Brachial] Heart Rate [ Monitoring electrodes] Respiratory 15 14 15 Rate Blood Pressure Blood Pressure [Left Brachial artery] Blood Pressure [left radial] O2 Saturation 12/28/20 12/28/20 12/28/20 01:40 01:45 01:50 Temperature Heart Rate 108 H 110 H 107 H Heart Rate [ Brachial] Heart Rate [ Monitoring electrodes] Respiratory 13 16 15 Rate Blood Pressure Blood Pressure [Left Brachial artery] Blood Pressure [left radial] O2 Saturation 12/28/20 12/28/20 12/28/20 01:55 01:59 02:00 Temperature Heart Rate 108 H 107 H 110 H Heart Rate [ Brachial] Heart Rate [ 109 H Monitoring electrodes] Respiratory 14 15 14 Rate Blood Pressure 95/60 Blood Pressure 95/60 [Left Brachial artery] Blood Pressure 109/58 L [left radial] O2 Saturation 95 12/28/20 12/28/20 12/28/20 02:01 02:05 02:10 Temperature Heart Rate 109 H 109 H 108 H Heart Rate [ Brachial] Heart Rate [ Monitoring electrodes] Respiratory 14 16 15 Rate Blood Pressure Blood Pressure [Left Brachial artery] Blood Pressure [left radial] O2 Saturation 12/28/20 12/28/20 12/28/20 02:15 02:20 02:25 Temperature Heart Rate 109 H 107 H 107 H Heart Rate [ Brachial] Heart Rate [ Monitoring electrodes] Respiratory 15 14 16 Rate Blood Pressure Blood Pressure [Left Brachial artery] Blood Pressure [left radial] O2 Saturation 12/28/20 12/28/20 12/28/20 02:30 02:35 02:40 Temperature Heart Rate 108 H 110 H 108 H Heart Rate [ Brachial] Heart Rate [ Monitoring electrodes] Respiratory 15 15 15 Rate Blood Pressure Blood Pressure [Left Brachial artery] Blood Pressure [left radial] O2 Saturation 12/28/20 12/28/20 12/28/20 02:45 02:50 02:55 Temperature Heart Rate 110 H 109 H 103 H Heart Rate [ Brachial] Heart Rate [ Monitoring electrodes] Respiratory 15 17 14 Rate Blood Pressure Blood Pressure [Left Brachial artery] Blood Pressure [left radial] O2 Saturation 12/28/20 12/28/20 12/28/20 02:59 03:00 03:01 Temperature Heart Rate 110 H 109 H 104 H Heart Rate [ Brachial] Heart Rate [ 108 H Monitoring electrodes] Respiratory 14 15 16 Rate Blood Pressure 99/59 L Blood Pressure 99/59 L [Left Brachial artery] Blood Pressure [left radial] O2 Saturation 96 12/28/20 12/28/20 12/28/20 03:05 03:10 03:15 Temperature Heart Rate 107 H 108 H 108 H Heart Rate [ Brachial] Heart Rate [ Monitoring electrodes] Respiratory 16 16 15 Rate Blood Pressure Blood Pressure [Left Brachial artery] Blood Pressure [left radial] O2 Saturation 12/28/20 12/28/20 12/28/20 03:20 03:25 03:30 Temperature Heart Rate 102 H 106 H 110 H Heart Rate [ Brachial] Heart Rate [ Monitoring electrodes] Respiratory 16 15 16 Rate Blood Pressure Blood Pressure [Left Brachial artery] Blood Pressure [left radial] O2 Saturation 12/28/20 12/28/20 12/28/20 03:35 03:40 03:45 Temperature Heart Rate 109 H 107 H 109 H Heart Rate [ Brachial] Heart Rate [ Monitoring electrodes] Respiratory 15 16 16 Rate Blood Pressure Blood Pressure [Left Brachial artery] Blood Pressure [left radial] O2 Saturation 12/28/20 12/28/20 12/28/20 03:50 03:55 03:59 Temperature Heart Rate 108 H 106 H 107 H Heart Rate [ Brachial] Heart Rate [ Monitoring electrodes] Respiratory 16 17 16 Rate Blood Pressure Blood Pressure [Left Brachial artery] Blood Pressure [left radial] O2 Saturation 12/28/20 12/28/20 12/28/20 04:00 04:01 04:05 Temperature 36.9 C Heart Rate 114 H 119 H 118 H Heart Rate [ Brachial] Heart Rate [ 105 H Monitoring electrodes] Respiratory 26 H 23 21 Rate Blood Pressure 99/74 Blood Pressure 99/74 [Left Brachial artery] Blood Pressure 125/64 [left radial] O2 Saturation 96 12/28/20 12/28/20 12/28/20 04:10 04:15 04:20 Temperature Heart Rate 110 H 110 H 109 H Heart Rate [ Brachial] Heart Rate [ Monitoring electrodes] Respiratory 16 15 16 Rate Blood Pressure Blood Pressure [Left Brachial artery] Blood Pressure [left radial] O2 Saturation 12/28/20 12/28/20 12/28/20 04:25 04:30 04:35 Temperature Heart Rate 108 H 117 H 110 H Heart Rate [ Brachial] Heart Rate [ Monitoring electrodes] Respiratory 16 27 H 16 Rate Blood Pressure Blood Pressure [Left Brachial artery] Blood Pressure [left radial] O2 Saturation 12/28/20 12/28/20 12/28/20 04:40 04:45 04:50 Temperature Heart Rate 107 H 110 H 107 H Heart Rate [ Brachial] Heart Rate [ Monitoring electrodes] Respiratory 16 16 16 Rate Blood Pressure Blood Pressure [Left Brachial artery] Blood Pressure [left radial] O2 Saturation 12/28/20 12/28/20 12/28/20 04:55 04:59 05:00 Temperature Heart Rate 107 H 110 H 105 H Heart Rate [ Brachial] Heart Rate [ 106 H Monitoring electrodes] Respiratory 15 17 15 Rate Blood Pressure 101/56 L Blood Pressure 101/56 L [Left Brachial artery] Blood Pressure 106/54 L [left radial] O2 Saturation 96 12/28/20 12/28/20 12/28/20 05:01 06:00 06:39 Temperature Heart Rate 109 H Heart Rate [ Brachial] Heart Rate [ 18 L Monitoring electrodes] Respiratory 14 103 H 21 Rate Blood Pressure Blood Pressure 94/57 L [Left Brachial artery] Blood Pressure 115/54 L [left radial] O2 Saturation 96 12/28/20 12/28/20 12/28/20 07:00 08:00 08:54 Temperature 37.2 C 36.9 C Heart Rate 115 H Heart Rate [ Brachial] Heart Rate [ 105 H 114 H Monitoring electrodes] Respiratory 16 26 H 24 Rate Blood Pressure Blood Pressure 98/63 116/63 [Left Brachial artery] Blood Pressure 107/50 L 119/55 L [left radial] O2 Saturation 94 95 96 12/28/20 12/28/20 12/28/20 09:00 10:00 11:00 Temperature Heart Rate Heart Rate [ Brachial] Heart Rate [ 115 H 108 H 114 H Monitoring electrodes] Respiratory 24 23 26 H Rate Blood Pressure Blood Pressure 109/69 [Left Brachial artery] Blood Pressure 124/61 127/62 133/64 H [left radial] O2 Saturation 93 95 94 Oxygen O2 Source Room air I&O (Last 24 Hrs): Intake and Output Totals x24h 12/26/20 12/27/20 12/28/20 23:59 23:59 23:59 Intake Total 3334.900 4283.100 2321.667 Output Total 2905 3155 1478 Balance 863.711 0767.100 843.667 General: Alert, Oriented x3 HEENT: Mucous membr. moist/pink Neck: Supple, No JVD Neuro: Alert, Non Focal Cardiovascular: Regular rate, No murmurs Respiratory: No respiratory distress, Breath sounds nml Abdomen: Soft, Other (Trivial bowel sounds in RUQ ar4e present.) Extremities: No edema - Results Results: Laboratory Results WBC 16.0 x10^3/uL (4.8-10.8) H 12/28/20 05:00 RBC 2.44 10^6/uL (4.20-5.40) L 12/28/20 05:00 Hgb 7.8 g/dL (12.0-16.0) L 12/28/20 05:00 Hct 23.7 % (37.0-47.0) L 12/28/20 05:00 MCV 97.1 fL (81.0-99.0) 12/28/20 05:00 MCH 32.0 pg (27.0-31.0) H 12/28/20 05:00 MCHC 32.9 g/dL (32.0-36.0) 12/28/20 05:00 RDW 14.6 % (12.0-15.0) 12/28/20 05:00 Plt Count 326 10^3/uL (130-450) 12/28/20 05:00 MPV 9.6 fL (7.9-10.8) 12/28/20 05:00 Neut # (Auto) Not Reportable 12/28/20 05:00 Lymph # (Auto) Not Reportable 12/28/20 05:00 [place] # (Auto) Not Reportable 12/28/20 05:00 Eos # (Auto) Not Reportable 12/28/20 05:00 Baso # (Auto) Not Reportable 12/28/20 05:00 Absolute Nucleated RBC Not Reportable 12/28/20 05:00 Total Counted 100 12/28/20 05:00 Band Neuts % (Manual) 31 % (0-10) H 12/28/20 05:00 Abnorm Lymph % (Manual) 0 % 12/28/20 05:00 Nucleated RBC % Not Reportable 12/28/20 05:00 Neutrophils # (Manual) 15.4 10^3/uL (1.5-6.6) H 12/28/20 05:00 Lymphocytes # (Manual) 0.3 10^3/uL (1.5-3.5) L 12/28/20 05:00 Monocytes # (Manual) 0.3 10^3/uL (0.0-1.0) 12/28/20 05:00 Eosinophils # (Manual) 0.0 10^3/uL (0-0.7) 12/28/20 05:00 Basophils # (Manual) 0.0 10^3/uL (0-0.1) 12/28/20 05:00 Differential Comment MANUAL DIFFERENTIAL 12/28/20 05:00 Manual Slide Review Indicated 12/16/20 16:00 WBC Morphology NORMAL APPEARANCE (NORMAL) 12/26/20 05:18 Platelet Estimate NORMAL (130-450,000) (NORMAL) 12/28/20 05:00 Platelet Morphology NORMAL APPEARANCE (NORMAL) 12/26/20 05:18 RBC Morph Micro Appear NORMAL APPEARANCE (NORMAL) 12/28/20 05:00 PT 20.3 secs (9.9-12.6) H 12/24/20 05:35 INR 1.9 (0.8-1.2) H 12/24/20 05:35 Sodium 129 mmol/L (135-145) L 12/28/20 05:00 Potassium 3.3 mmol/L (3.5-5.0) L 12/28/20 05:00 Chloride 102 mmol/L (101-111) 12/28/20 05:00 Carbon Dioxide 21 mmol/L (21-32) 12/28/20 05:00 Anion Gap 6.0 (6-13) 12/28/20 05:00 BUN 10 mg/dL (6-20) 12/28/20 05:00 Creatinine 0.7 mg/dL (0.4-1.0) 12/28/20 05:00 Estimated GFR (MDRD) 86 (>89) L 12/28/20 05:00 Glucose 263 mg/dL (70-100) H 12/28/20 05:00 POC Whole Bld Glucose 233 mg/dL (70 - 100) H 12/28/20 06:28 Calcium 6.8 mg/dL (8.5-10.3) L 12/28/20 05:00 Phosphorus 2.0 mg/dL (2.5-4.6) L 12/28/20 05:00 Magnesium 1.2 mg/dL (1.7-2.8) L 12/28/20 05:00 Total Bilirubin 0.7 mg/dL (0.2-1.0) 12/28/20 05:00 AST 31 IU/L (10-42) 12/28/20 05:00 ALT 16 IU/L (10-60) 12/28/20 05:00 Alkaline Phosphatase 49 IU/L (42-121) 12/28/20 05:00 Total Protein 4.2 g/dL (6.7-8.2) L 12/28/20 05:00 Albumin 1.4 g/dL (3.2-5.5) L 12/28/20 05:00 Globulin 2.8 g/dL (2.1-4.2) 12/28/20 05:00 Albumin/Globulin Ratio 0.5 (1.0-2.2) L 12/28/20 05:00 Prealbumin 4 mg/dL (18-45) L 12/28/20 05:00 Triglycerides 49 mg/dL (-149) 12/28/20 05:00 Lipase 27 U/L (22-51) 12/16/20 16:00 TSH 2.48 uIU/mL (0.34-5.60) 12/28/20 05:00 Urine Color YELLOW 12/16/20 19:25 Urine Clarity CLEAR (CLEAR) 12/16/20 19:25 Urine pH 7.0 PH (5.0-7.5) 12/16/20 19:25 Ur Specific [place] 1.010 (1.002-1.030) 12/16/20 19:25 Urine Protein NEGATIVE mg/dL (NEGATIVE) 12/16/20 19:25 Urine Glucose (UA) NEGATIVE mg/dL (NEGATIVE) 12/16/20 19:25 Urine Ketones NEGATIVE mg/dL (NEGATIVE) 12/16/20 19:25 Urine Occult Blood NEGATIVE (NEGATIVE) 12/16/20 19:25 Urine Nitrite NEGATIVE (NEGATIVE) 12/16/20 19:25 Urine Bilirubin NEGATIVE (NEGATIVE) 12/16/20 19:25 Urine Urobilinogen 0.2 (NORMAL) E.U./dL (NORMAL) 12/16/20 19:25 Ur Leukocyte Esterase NEGATIVE (NEGATIVE) 12/16/20 19:25 Ur Microscopic Review NOT INDICATED 12/16/20 19:25 Urine Culture Comments NOT INDICATED 12/16/20 19:25 Nasal Adenovirus (PCR) NOT DETECTED 12/16/20 17:54 Nasal B. parapertussis DNA (PCR) NOT DETECTED 12/16/20 17:54 Nasal Coronavir 229E PCR NOT DETECTED 12/16/20 17:54 Nasal Coronavir HKU1 PCR NOT DETECTED 12/16/20 17:54 Nasal Coronavir NL63 PCR NOT DETECTED 12/16/20 17:54 Nasal Coronavir OC43 PCR NOT DETECTED 12/16/20 17:54 Nasal Enterovir/Rhinovir PCR NOT DETECTED 12/16/20 17:54 Nasal Influenza B PCR NOT DETECTED 12/16/20 17:54 Nasal Influenza A PCR NOT DETECTED 12/16/20 17:54 Nasal Parainfluen 1 PCR NOT DETECTED 12/16/20 17:54 Nasal Parainfluen 2 PCR NOT DETECTED 12/16/20 17:54 Nasal Parainfluen 3 PCR NOT DETECTED 12/16/20 17:54 Nasal Parainfluen 4 PCR NOT DETECTED 12/16/20 17:54 Nasal RSV (PCR) NOT DETECTED 12/16/20 17:54 Nasal Screen MRSA (PCR) NEGATIVE (NEGATIVE) 12/27/20 18:00 Nasal B.pertussis DNA PCR NOT DETECTED 12/16/20 17:54 Nasal C.pneumoniae (PCR) NOT DETECTED 12/16/20 17:54 Robin Human Metapneumo PCR NOT DETECTED 04/09/21 17:54 Nasal M.pneumoniae (PCR) NOT DETECTED 12/16/20 17:54 Nasal SARS-CoV-2 (PCR) NOT DETECTED 12/16/20 17:54
--- NOTE | 2020-12-28 15:38 | PROVIDER PROGRESS NOTE ---
Subjective - Prog Note Date Prog Note Date: 12/28/20 - Subjective Pt reports feeling: Improved (feeling much better than prior to surgery) Objective - Vital Signs/Intake & Output Reviewed Vital Signs: Yes Vital Signs: Vital Signs x48h Temp Pulse Pulse Resp BP BP Pulse Ox 12/28/20 15:00 111 H 24 118/67 95 12/28/20 14:00 109 H 24 116/64 96 12/28/20 12:52 37.2 C 12/28/20 12:00 118 H 28 H 123/75 128/62 95 12/28/20 11:00 114 H 26 H 109/69 133/64 H 94 12/28/20 10:00 108 H 23 127/62 95 12/28/20 09:00 115 H 24 124/61 93 12/28/20 08:54 36.9 C 115 H 24 96 12/28/20 08:00 37.2 C 114 H 26 H 116/63 119/55 L 95 Intake & Output: Intake & Output 12/25/20 12/26/20 12/27/20 12/28/20 23:59 23:59 23:59 23:59 Intake Total 3220.417 3334.900 4283.100 3302.084 Output Total 3920 2905 3155 1833 Balance -699.583 671.644 9459.100 1469.084 - Objective General Appearance: positive: No acute distress, Alert Neck: positive: No JVD Respiratory: positive: No respiratory distress Abdomen: positive: Non-tender, No distention, Other (pink stoma clear urine) Neurologic/Psychiatric: positive: Oriented x3 - Lab Results Fish Bones: 12/28/20 05:00 12/28/20 05:00 Other Labs: Lab Results x24hrs 12/28/20 12/28/20 12/28/20 Range/Units 11:58 11:30 06:28 WBC (4.8-10.8) x10^3/uL RBC (4.20-5.40) 10^6/uL Hgb (12.0-16.0) g/dL Hct (37.0-47.0) % MCV (81.0-99.0) fL MCH (27.0-31.0) pg MCHC (32.0-36.0) g/dL RDW (12.0-15.0) % Plt Count (130-450) 10^3/uL MPV (7.9-10.8) fL Neut # (Auto) Lymph # (Auto) [place] # (Auto) Eos # (Auto) Baso # (Auto) Absolute Nucleated RBC Total Counted Band Neuts % (Manual) (0 - 10) % Abnorm Lymph % (Manual) % Nucleated RBC % Neutrophils # (Manual) (1.5-6.6) 10^3/uL Lymphocytes # (Manual) (1.5-3.5) 10^3/uL Monocytes # (Manual) (0.0-1.0) 10^3/uL Eosinophils # (Manual) (0-0.7) 10^3/uL Basophils # (Manual) (0-0.1) 10^3/uL Differential Comment Platelet Estimate (NORMAL) RBC Morph Micro Appear (NORMAL) Sodium (135-145) mmol/L Potassium (3.5-5.0) mmol/L Chloride (101-111) mmol/L Carbon Dioxide (21-32) mmol/L Anion Gap (6-13) BUN (6-20) mg/dL Creatinine (0.4-1.0) mg/dL Estimated GFR (MDRD) (>89) Glucose (70-100) mg/dL POC Whole Bld Glucose 205 H 233 H (70 - 100) mg/dL Calcium (8.5-10.3) mg/dL Phosphorus (2.5-4.6) mg/dL Magnesium 2.2 (1.7-2.8) mg/dL Total Bilirubin (0.2-1.0) mg/dL AST (10-42) IU/L ALT (10-60) IU/L Alkaline Phosphatase (42-121) IU/L Total Protein (6.7-8.2) g/dL Albumin (3.2-5.5) g/dL Globulin (2.1-4.2) g/dL Albumin/Globulin Ratio (1.0-2.2) Prealbumin (18-45) mg/dL Triglycerides ( - 149) mg/dL TSH (0.34-5.60) uIU/mL Nasal Screen MRSA (PCR) (NEGATIVE) 12/28/20 12/28/20 12/28/20 Range/Units 05:00 05:00 05:00 WBC 16.0 H (4.8-10.8) x10^3/uL RBC 2.44 L (4.20-5.40) 10^6/uL Hgb 7.8 L (12.0-16.0) g/dL Hct 23.7 L (37.0-47.0) % MCV 97.1 (81.0-99.0) fL MCH 32.0 H (27.0-31.0) pg MCHC 32.9 (32.0-36.0) g/dL RDW 14.6 (12.0-15.0) % Plt Count 326 (130-450) 10^3/uL MPV 9.6 (7.9-10.8) fL Neut # (Auto) Not Reportable Lymph # (Auto) Not Reportable [place] # (Auto) Not Reportable Eos # (Auto) Not Reportable Baso # (Auto) Not Reportable Absolute Nucleated RBC Not Reportable Total Counted 100 Band Neuts % (Manual) 31 H (0 - 10) % Abnorm Lymph % (Manual) 0 % Nucleated RBC % Not Reportable Neutrophils # (Manual) 15.4 H (1.5-6.6) 10^3/uL Lymphocytes # (Manual) 0.3 L (1.5-3.5) 10^3/uL Monocytes # (Manual) 0.3 (0.0-1.0) 10^3/uL Eosinophils # (Manual) 0.0 (0-0.7) 10^3/uL Basophils # (Manual) 0.0 (0-0.1) 10^3/uL Differential Comment MANUAL DIFFERENTIAL Platelet Estimate NORMAL (130-450,000) (NORMAL) RBC Morph Micro Appear NORMAL APPEARANCE (NORMAL) Sodium 129 L (135-145) mmol/L Potassium 3.3 L (3.5-5.0) mmol/L Chloride 102 (101-111) mmol/L Carbon Dioxide 21 (21-32) mmol/L Anion Gap 6.0 (6-13) BUN 10 (6-20) mg/dL Creatinine 0.7 (0.4-1.0) mg/dL Estimated GFR (MDRD) 86 L (>89) Glucose 263 H (70-100) mg/dL POC Whole Bld Glucose (70 - 100) mg/dL Calcium 6.8 L (8.5-10.3) mg/dL Phosphorus 2.0 L (2.5-4.6) mg/dL Magnesium 1.2 L (1.7-2.8) mg/dL Total Bilirubin 0.7 (0.2-1.0) mg/dL AST 31 (10-42) IU/L ALT 16 (10-60) IU/L Alkaline Phosphatase 49 (42-121) IU/L Total Protein 4.2 L (6.7-8.2) g/dL Albumin 1.4 L (3.2-5.5) g/dL Globulin 2.8 (2.1-4.2) g/dL Albumin/Globulin Ratio 0.5 L (1.0-2.2) Prealbumin 4 L (18-45) mg/dL Triglycerides 49 ( - 149) mg/dL TSH 2.48 (0.34-5.60) uIU/mL Nasal Screen MRSA (PCR) (NEGATIVE) 12/28/20 12/27/20 12/27/20 Range/Units 00:10 19:31 18:00 WBC (4.8-10.8) x10^3/uL RBC (4.20-5.40) 10^6/uL Hgb (12.0-16.0) g/dL Hct (37.0-47.0) % MCV (81.0-99.0) fL MCH (27.0-31.0) pg MCHC (32.0-36.0) g/dL RDW (12.0-15.0) % Plt Count (130-450) 10^3/uL MPV (7.9-10.8) fL Neut # (Auto) Lymph # (Auto) [place] # (Auto) Eos # (Auto) Baso # (Auto) Absolute Nucleated RBC Total Counted Band Neuts % (Manual) (0 - 10) % Abnorm Lymph % (Manual) % Nucleated RBC % Neutrophils # (Manual) (1.5-6.6) 10^3/uL Lymphocytes # (Manual) (1.5-3.5) 10^3/uL Monocytes # (Manual) (0.0-1.0) 10^3/uL Eosinophils # (Manual) (0-0.7) 10^3/uL Basophils # (Manual) (0-0.1) 10^3/uL Differential Comment Platelet Estimate (NORMAL) RBC Morph Micro Appear (NORMAL) Sodium (135-145) mmol/L Potassium (3.5-5.0) mmol/L Chloride (101-111) mmol/L Carbon Dioxide (21-32) mmol/L Anion Gap (6-13) BUN (6-20) mg/dL Creatinine (0.4-1.0) mg/dL Estimated GFR (MDRD) (>89) Glucose (70-100) mg/dL POC Whole Bld Glucose 273 H 159 H (70 - 100) mg/dL Calcium (8.5-10.3) mg/dL Phosphorus (2.5-4.6) mg/dL Magnesium (1.7-2.8) mg/dL Total Bilirubin (0.2-1.0) mg/dL AST (10-42) IU/L ALT (10-60) IU/L Alkaline Phosphatase (42-121) IU/L Total Protein (6.7-8.2) g/dL Albumin (3.2-5.5) g/dL Globulin (2.1-4.2) g/dL Albumin/Globulin Ratio (1.0-2.2) Prealbumin (18-45) mg/dL Triglycerides ( - 149) mg/dL TSH (0.34-5.60) uIU/mL Nasal Screen MRSA (PCR) NEGATIVE (NEGATIVE) Assessment/Plan - Problem List (1) Perforation of intestine due to diverticulitis of gastrointestinal tract Impression: doing well after complex surgery for perforated diverticular disease. continue present care
[2020-12-28] MEDS: D5NS W/20 MEQ KCL 1,000 ML IV SCH (17:43)
[2020-12-28] MEDS: FAT EMULSION 20% 250 ML IV SCH (18:36)
[2020-12-28] MEDS: TPN (CLINIMIX E 5/15) 2,000 ML with MULTIVITAMIN 10 ML, TRACE ELEMENTS 1 ML IV SCH ×3 (18:43)
[2020-12-28 20:36] LABS: HCT - HEMATOCRIT 22.7 % (37.0-47.0); HGB - HEMOGLOBIN 8.3 g/dL (12.0-16.0)
[2020-12-28] MEDS ORDERED: METOPROLOL 5 MG/5 ML VIAL IVP STA (23:20)
[2020-12-29] MEDS: INSULIN REGULAR HUMAN 300 UNIT/3 ML VIAL SUBQ SCH ×4 (00:10→17:56)
[2020-12-29] MEDS: METOCLOPRAMIDE 10 MG/2 ML VIAL IVP SCH ×5 (00:19→23:59)
[2020-12-29] MEDS: KETOROLAC 30 MG/ML VIAL IVP SCH ×5 (00:22→23:58)
[2020-12-29] MEDS: methocarbamoL 500 MG TABLET PO SCH ×5 (00:22→23:58)
[2020-12-29] MEDS: SODIUM CHLORIDE FLUSH 0.9% 10 ML SYRINGE IVP SCH ×4 (00:24→23:59)
[2020-12-29] MEDS: MORPHINE 2 MG/ML CARPUJECT IVP PRN ×2 (04:34→23:59)
[2020-12-29 04:52] LABS: BASOPHILS % (AUTO) 0.4 %; EOSINOPHILS % (AUTO) 0.1 %; HGB - HEMOGLOBIN 8.5 g/dL (12.0-16.0); LYMPHOCYTES % (AUTO) 5.2 %; MEAN CORPUSCULAR HEMOGLOBIN 31.7 pg (27.0-31.0); MEAN CORPUSCULAR HGB CONC 32.7 g/dL (32.0-36.0); MEAN PLATELET VOLUME 9.4 fL (7.9-10.8); MONOCYTES % (AUTO) 4.7 %; NEUTROPHILS % (AUTO) 87.7 %; PLT - PLATELET COUNT 481 10^3/uL (130-450); RED BLOOD COUNT 2.68 10^6/uL (4.20-5.40); RED CELL DISTRIBUTION WIDTH 14.6 % (12.0-15.0); WHITE BLOOD COUNT 29.9 x10^3/uL (4.8-10.8)
[2020-12-29 04:55] LABS: ABNORMAL LYMPHS % (MANUAL) 0 %
[2020-12-29 05:04] LABS: ALBUMIN 1.9 g/dL (3.2-5.5); ALBUMIN/GLOBULIN RATIO 0.5 (1.0-2.2); BILIRUBIN,TOTAL 0.8 mg/dL (0.2-1.0); CALCIUM 7.3 mg/dL (8.5-10.3); CREATININE 0.6 mg/dL (0.4-1.0); POTASSIUM 3.7 mmol/L (3.5-5.0); TOTAL PROTEIN 5.6 g/dL (6.7-8.2)
[2020-12-29 05:42] LABS: BAND NEUTROPHILS % (MANUAL) 23 %; DIFFERENTIAL COMMENT MANUAL DIFFERENTIAL; LYMPHOCYTES # (MANUAL) 0.9 10^3/uL (1.5-3.5); LYMPHOCYTES % (MANUAL) 3 %; MONOCYTES # (MANUAL) 0.6 10^3/uL (0.0-1.0); NEUTROPHILS # (MANUAL) 28.4 10^3/uL (1.5-6.6); PLATELET ESTIMATE, MANUAL INCREASED (>450,000) (NORMAL); RBC MORPHOLOGY (MULTIPLE) NORMAL APPEARANCE (NORMAL)
[2020-12-29] MEDS: MEROPENEM 1 GM in SODIUM CHLORIDE 0.9% MINIBAG 100 ML IV SCH ×3 (06:29→20:23)
[2020-12-29] MEDS: VANCOMYCIN INJ 1 GM, VANCOMYCIN INJ 250 MG in SODIUM CHLORIDE 0.9% 250 ML IV SCH ×2 (08:07→20:24)
[2020-12-29] MEDS: polyethylene glycoL 3350 17 GM PACKET PO SCH ×2 (08:18→20:22)
[2020-12-29] MEDS: DOCUSATE SODIUM 100 MG CAPSULE PO SCH ×2 (08:19→20:22)
[2020-12-29] MEDS: FLUCONAZOLE 200 MG/100 ML 100 ML IV SCH (08:20)
--- NOTE | 2020-12-29 09:20 | XRAY Report ---
PROCEDURE: Chest 1 View X-Ray INDICATIONS: F/U post-op, rising WBC TECHNIQUE: One view of the chest was acquired. COMPARISON: 12/26/2020 FINDINGS: Surgical changes and devices: PICC line is stable. Lungs and pleura: Trace right pleural effusion. Patchy opacities in the lung bases bilaterally are st able. Mediastinum: Mediastinal contours appear normal. Heart size is normal. Bones and chest wall: No suspicious bony lesions. Overlying soft tissues appear unremarkable. IMPRESSION: 1. Trace right-sided pleural effusion. 2. Stable bibasilar patchy opacities which could represent atelectasis or pneumonia. Reviewed by: Cleopatra Jennings MD, PhD on 12/29/2020 9:18 AM PDT Approved by: Cleopatra Jennings MD, PhD on 12/29/2020 9:18 AM PDT Station ID: [id number]
[2020-12-29] MEDS: HEPARIN 5,000 UNIT/ML VIAL SUBQ SCH ×2 (09:47→20:24)
--- NOTE | 2020-12-29 11:06 | PROVIDER PROGRESS NOTE ---
Progress Note Subjective: Patient remains in ICU. Positive ileostomy output. Pain controlled. Nothing per rectum. Acosta remains in place. Off pressors. Pre-Op Diagnosis: Complicated diverticulitis; perforated diverticulitis s/p perc drain; SBO Procedure Performed: 1. Diagnostic laparoscopy 2. Laparoscopic adhesiolysis extensive 3. Laparoscopic takedown of enterocolonic fistula 4. Laparoscopic takedown of colocutaneous fistula 5. Low anterior resection, laparoscopic 6. Splenic flexure mobilization, laparoscopic 7. Repair of vesicular sinus tract 8. Laparoscopic assisted loop ileostomy 9. Partial omentectomy 10. Umbilical hernia repair 11. Drainage of intra-abdominal abscess multiple 12. Drainage catheter placement 13. Small bowel resection 14. Abdominal washout Post Op Diagnosis: Same; feculent peritonitis; multiple fistulae; vesicular involvement Objective General Appearance: positive: No acute distress Eyes Bilateral: positive: Normal inspection ENT: positive: ENT inspection nml Neck: positive: Nml inspection Respiratory: positive: Chest non-tender, No respiratory distress, Breath sounds nml. negative: Wheezes, Rales, Rhonchi Cardiovascular: positive: Regular rate & rhythm Abdomen: positive: No distention, Other. negative: Guarding, Rebound Extremities: positive: Non-tender, Full ROM, Nml appearance Neurologic/Psychiatric: positive: Oriented x3, CN's nml (2-12) Stoma pink. Wound VAC in place. Julio drain serosanguineous. Impression/Plan Post operative day #2 status post above listed procedure. (1) GI - IVF, bowel regimen, TPN. Advance diet slowly. GI ppx. [Anticipate ileus]. Opiate sparring analgesia. (2) SURGERY - continue Acosta catheter secondary to bladder involvement. Bladder repair. Continue Julio drain. Will need to change wound VAC.. (3) Renal/Lytes - continue IVF. Renal indices within normal limits. Do not remove Acosta catheter prior to CT cystogram. (4) Respiratory - O2 as necessary. Continue IS. (5) Heme - Will continue with DVT ppx. H/H stable. (6) Cardiovascular - HD acceptable. (7) Neuro - Opiate sparring analgesia. Antispasmodics with Robaxin. [Toradol]. Neuropathic agents. (8) Immune/Infectious Disease - continue broad-spectrum antibiotics to include vancomycin, meropenem, and Diflucan.
[2020-12-29] MEDS: NEUTRA-PHOS 250 MG TABLET PO SCH ×2 (11:22→13:24)
[2020-12-29 11:38] LABS: BILIRUBIN,URINE NEGATIVE (NEGATIVE); GLUCOSE, URINE (UA) NEGATIVE (NEGATIVE); KETONES,URINE (UA) NEGATIVE (NEGATIVE); LEUKOCYTE ESTERASE, URINE NEGATIVE (NEGATIVE); NITRITE,URINE NEGATIVE (NEGATIVE); OCCULT BLOOD,URINE TRACE-LYSE (NEGATIVE); PROTEIN,URINE NEGATIVE (NEGATIVE); UROBILINOGEN,URINE 0.2 (NORMAL) E.U./dL (NORMAL)
[2020-12-29 11:39] LABS: CLARITY,URINE CLEAR (CLEAR)
--- NOTE | 2020-12-29 12:29 | PROVIDER PROGRESS NOTE ---
Assessment/Plan - Problem List (1) Perforation and abscess of large intestine concurrent with and due to diverticulitis Assessment/Plan: Concerned that her white blood count increased to nearly 30 today from yesterday. Pressure however is not low, we did not need to restart IV pressors. Chest x-ray, urinalysis and blood cultures were ordered to be repeated today. Continue with broad-spectrum empiric antibiotics. Remain in the ICU in case she develops signs of sepsis. Continue with only clear liquid diet. Continue with IV fluids and follow electrolytes daily. (2) Diverticulitis Assessment/Plan: As per history, this was the cause of this complication (3) Anemia Assessment/Plan: Today Hgb is 8.5. This is probably multifactorial: From IV hydration and hemodilution, also from blood loss in surgery. Follow CBC daily, transfuse if hemoglobin goes under 7. We will check iron stores and B12 and folate stores. (4) Tachycardia Assessment/Plan: "Tachycardia" along with her hypertension was her diagnosis and she was on beta- pura for this pre-admission. She has been off her beta-pura for over a week now. Her TSH is normal, ruling out hyperthyroidism. Her heart rate has been elevated throughout admission but even more today with an elevation of white blood count making a worsening infection of concern. Did get 1 dose of Lopressor 5 mg IV at midnight last night. Will begin to treat with daily IV beta-pura. Continue with IV fluids. Continue telemetry. (5) Hyponatremia Assessment/Plan: Improving with NS in iv fluids. Follow BMP daily. (6) HTN (hypertension) Assessment/Plan: Blood pressure is more elevated today. She has been off her home blood pressure meds for many days. She did get IV Lopressor for the tachycardia and blood pressure control. She may need to continue with IV meds for several days before resuming p.o. blood pressure meds (7) Septic shock Assessment/Plan: Resolved (8) Hypokalemia Assessment/Plan: Resolved - Current Meds Current Meds: Current Medications Generic Name Dose Route Start Last Admin Trade Name Freq PRN Reason Stop Dose Admin Acetaminophen 650 mg 12/28/20 10:01 12/28/20 11:50 Acetaminophen 325 Mg Tablet PO 650 mg Q4HR PRN Administration Pain or Fever > 38C (100.4F) Docusate Sodium 100 mg 12/27/20 21:00 12/29/20 08:19 Docusate Sodium 100 Mg Capsule PO 100 mg BID VANESSA Administration Heparin Sodium (Porcine) 5,000 unit 12/27/20 21:00 12/29/20 09:47 Heparin 5,000 Unit/Ml Vial SUBQ 5,000 unit BID VANESSA Administration Hydromorphone HCl 0 mg 12/27/20 19:14 12/27/20 19:59 Hydromorphone Biology Research Assistant 20mg/100ml IV 20 mg PRN PRN Administration PAIN Protocol Multivitamins 10 ml/ TRACE 2,011 mls @ 75 mls/hr 12/26/20 19:00 12/28/20 18:43 ELEMENTS 1 ml/ Amino Ac/ IV 75 mls/hr Electrol/Dextrose/Calcium Q24H VANESSA Administration Protocol Fat Emulsion Intravenous 250 mls @ 21 mls/hr 12/26/20 19:00 12/29/20 07:13 Intralipid 20% IV Infused Q24H VANESSA Infusion Potassium Chloride/Dextrose/Sod Cl 1,000 mls @ 50 mls/hr 12/27/20 17:41 12/28/20 17:43 D5ns W/20 Meq Kcl IV 50 mls/hr .Q20H VANESSA Administration Fluconazole 100 mls @ 100 mls/hr 12/28/20 09:00 12/29/20 09:30 Diflucan 200 Mg/100 Ml IV Infused DAILY VANESSA Infusion Vancomycin HCl 1 gm/ 250 mls @ 167 mls/hr 12/28/20 08:00 12/29/20 09:53 Vancomycin HCl 250 mg/ Sodium IV Infused Chloride Q12H VANESSA Infusion Meropenem 1 gm/ Sodium 100 mls @ 200 mls/hr 12/28/20 05:00 12/29/20 07:00 Chloride IV Infused Q8H VANESSA Infusion Insulin Human Regular 2 - 10 unit 12/28/20 19:00 12/29/20 06:41 Insulin Regular Human 300 Unit/3 Ml Vial SUBQ 2 unit Q6HR VANESSA Administration Protocol Ketorolac Tromethamine 15 mg 12/27/20 18:00 12/29/20 12:27 Ketorolac 30 Mg/Ml Vial IVP 01/01/21 17:59 15 mg Q6HR VANESSA Administration Methocarbamol 500 mg 12/27/20 18:00 12/29/20 12:26 Methocarbamol 500 Mg Tablet PO 500 mg Q6HR VANESSA Administration Metoclopramide HCl 10 mg 12/27/20 18:00 12/29/20 12:27 Metoclopramide 10 Mg/2 Ml Vial IVP 10 mg Q6HR VANESSA Administration Morphine Sulfate 2 mg 12/18/20 08:36 12/29/20 04:34 Morphine 2 Mg/Ml Carpuject IVP 2 mg Q2HR PRN Administration PAIN Polyethylene Glycol 17 gm 12/27/20 21:00 12/29/20 08:18 Polyethylene Glycol 3350 17 Gm Packet PO 17 gm BID VANESSA Administration Sodium Chloride 10 ml 12/17/20 01:00 12/29/20 09:54 Sodium Chloride Flush 0.9% 10 Ml Syringe IVP 10 ml 0100,0900,1700 VANESSA Administration Sodium Phosphate 250 mg 12/29/20 11:00 12/29/20 11:22 Neutra-Phos 250 Mg Tablet PO 12/29/20 13:01 250 mg Q2H VANESSA Administration Protocol - Lab Result Fish Bone Diagrams: 12/29/20 04:44 12/29/20 04:44 - Additional Planning My Orders: My Active Orders 12/29/20 11:00 Neutra-Phos [K-Phos Neutral] 250 mg PO Q2H Subjective - Subjective Patient Reports: Pain (Patient encouraged by her RN to use her CUSTOMER LOGISTICS MANAGER pump for abd pain. No nausea or epigastric pain with drinking clear liquids. Feels like gas is building up but no passing gas yet.) Objective Vital Signs: Vital Signs - 24 hr 12/28/20 12/28/20 12/28/20 12:52 14:00 15:00 Temperature 37.2 C Heart Rate [ 109 H 111 H Monitoring electrodes] Respiratory 24 24 Rate Blood Pressure Blood Pressure 116/64 118/67 [Left Brachial artery] O2 Saturation 96 95 12/28/20 12/28/20 12/28/20 16:00 17:00 18:00 Temperature 37.3 C Heart Rate [ 98 118 H 135 H Monitoring electrodes] Respiratory 15 26 H 26 H Rate Blood Pressure Blood Pressure 102/59 L 129/69 120/70 [Left Brachial artery] O2 Saturation 97 100 95 12/28/20 12/28/20 12/28/20 19:00 20:00 21:00 Temperature 37.2 C Heart Rate [ 120 H 112 H 116 H Monitoring electrodes] Respiratory 26 H 27 H 23 Rate Blood Pressure Blood Pressure 123/70 132/78 H 128/67 [Left Brachial artery] O2 Saturation 100 98 98 12/28/20 12/28/20 12/29/20 22:00 23:00 00:00 Temperature 37.0 C Heart Rate [ 118 H 102 H 108 H Monitoring electrodes] Respiratory 31 H 17 22 Rate Blood Pressure Blood Pressure 136/70 H 120/71 131/75 H [Left Brachial artery] O2 Saturation 95 96 97 12/29/20 12/29/20 12/29/20 00:21 01:00 02:00 Temperature Heart Rate [ 94 99 Monitoring electrodes] Respiratory 15 17 Rate Blood Pressure 131/75 H Blood Pressure 104/60 115/63 [Left Brachial artery] O2 Saturation 95 97 12/29/20 12/29/20 12/29/20 03:00 04:00 05:00 Temperature 37.1 C Heart Rate [ 111 H 118 H 111 H Monitoring electrodes] Respiratory 28 H 24 24 Rate Blood Pressure Blood Pressure 152/94 H 170/83 H 162/84 H [Left Brachial artery] O2 Saturation 95 96 96 12/29/20 12/29/20 12/29/20 06:00 07:00 08:00 Temperature 36.8 C Heart Rate [ 125 H 120 H 126 H Monitoring electrodes] Respiratory 28 H 29 H 26 H Rate Blood Pressure Blood Pressure 163/89 H 159/86 H 141/69 H [Left Brachial artery] O2 Saturation 95 95 96 12/29/20 12/29/20 12/29/20 09:00 10:00 11:00 Temperature Heart Rate [ 123 H 114 H 112 H Monitoring electrodes] Respiratory 30 H 21 27 H Rate Blood Pressure Blood Pressure 127/74 149/79 H 141/82 H [Left Brachial artery] O2 Saturation 99 98 98 12/29/20 12:00 Temperature Heart Rate [ 118 H Monitoring electrodes] Respiratory 27 H Rate Blood Pressure Blood Pressure [Left Brachial artery] O2 Saturation 97 Oxygen O2 Source Room air I&O (Last 24 Hrs): Intake and Output Totals x24h 12/27/20 12/28/20 12/29/20 23:59 23:59 23:59 Intake Total 4283.100 4932.500 1180 Output Total 3155 2998 1425 Balance 4849.376 8119.500 -245 General: Alert, Oriented x3 HEENT: Mucous membr. moist/pink Neck: Supple, No JVD Neuro: Alert, Non Focal Cardiovascular: Regular rate, No murmurs Respiratory: No respiratory distress, Breath sounds nml Abdomen: Soft, Other (No bowel sounds) Extremities: No edema - Results Results: Laboratory Results WBC 29.9 x10^3/uL (4.8-10.8) H 12/29/20 04:44 RBC 2.68 10^6/uL (4.20-5.40) L 12/29/20 04:44 Hgb 8.5 g/dL (12.0-16.0) L 12/29/20 04:44 Hct 26.0 % (37.0-47.0) L 12/29/20 04:44 MCV 97.0 fL (81.0-99.0) 12/29/20 04:44 MCH 31.7 pg (27.0-31.0) H 12/29/20 04:44 MCHC 32.7 g/dL (32.0-36.0) 12/29/20 04:44 RDW 14.6 % (12.0-15.0) 12/29/20 04:44 Plt Count 481 10^3/uL (130-450) H 12/29/20 04:44 MPV 9.4 fL (7.9-10.8) 12/29/20 04:44 Neut # (Auto) Not Reportable 12/29/20 04:44 Lymph # (Auto) Not Reportable 12/29/20 04:44 [place] # (Auto) Not Reportable 12/29/20 04:44 Eos # (Auto) Not Reportable 12/29/20 04:44 Baso # (Auto) Not Reportable 12/29/20 04:44 Absolute Nucleated RBC Not Reportable 12/29/20 04:44 Total Counted 100 12/29/20 04:44 Band Neuts % (Manual) 23 % (0-10) H 12/29/20 04:44 Abnorm Lymph % (Manual) 0 % 12/29/20 04:44 Nucleated RBC % Not Reportable 12/29/20 04:44 Neutrophils # (Manual) 28.4 10^3/uL (1.5-6.6) H 12/29/20 04:44 Lymphocytes # (Manual) 0.9 10^3/uL (1.5-3.5) L 12/29/20 04:44 Monocytes # (Manual) 0.6 10^3/uL (0.0-1.0) 12/29/20 04:44 Eosinophils # (Manual) 0.0 10^3/uL (0-0.7) 12/29/20 04:44 Basophils # (Manual) 0.0 10^3/uL (0-0.1) 12/29/20 04:44 Differential Comment MANUAL DIFFERENTIAL 12/29/20 04:44 Manual Slide Review Indicated 12/16/20 16:00 WBC Morphology NORMAL APPEARANCE (NORMAL) 12/26/20 05:18 Platelet Estimate INCREASED (>450,000) (NORMAL) 12/29/20 04:44 Platelet Morphology NORMAL APPEARANCE (NORMAL) 12/26/20 05:18 RBC Morph Micro Appear NORMAL APPEARANCE (NORMAL) 12/29/20 04:44 PT 20.3 secs (9.9-12.6) H 12/24/20 05:35 INR 1.9 (0.8-1.2) H 12/24/20 05:35 Whole Blood INR 1.4 (0.8-1.2) H 12/29/20 09:13 Sodium 134 mmol/L (135-145) L 12/29/20 04:44 Potassium 3.7 mmol/L (3.5-5.0) 12/29/20 04:44 Chloride 105 mmol/L (101-111) 12/29/20 04:44 Carbon Dioxide 22 mmol/L (21-32) 12/29/20 04:44 Anion Gap 7.0 (6-13) 12/29/20 04:44 BUN 14 mg/dL (6-20) 12/29/20 04:44 Creatinine 0.6 mg/dL (0.4-1.0) 12/29/20 04:44 Estimated GFR (MDRD) 103 (>89) 12/29/20 04:44 Glucose 172 mg/dL (70-100) H 12/29/20 04:44 POC Whole Bld Glucose 153 mg/dL (70 - 100) H 12/29/20 11:56 Calcium 7.3 mg/dL (8.5-10.3) L 12/29/20 04:44 Phosphorus 2.3 mg/dL (2.5-4.6) L 12/29/20 06:35 Magnesium 2.2 mg/dL (1.7-2.8) 12/28/20 11:30 Total Bilirubin 0.8 mg/dL (0.2-1.0) 12/29/20 04:44 AST 24 IU/L (10-42) 12/29/20 04:44 ALT 16 IU/L (10-60) 12/29/20 04:44 Alkaline Phosphatase 66 IU/L (42-121) 12/29/20 04:44 Total Protein 5.6 g/dL (6.7-8.2) L 12/29/20 04:44 Albumin 1.9 g/dL (3.2-5.5) L 12/29/20 04:44 Globulin 3.7 g/dL (2.1-4.2) 12/29/20 04:44 Albumin/Globulin Ratio 0.5 (1.0-2.2) L 12/29/20 04:44 Prealbumin 4 mg/dL (18-45) L 12/28/20 05:00 Triglycerides 49 mg/dL (-149) 12/28/20 05:00 Lipase 27 U/L (22-51) 12/16/20 16:00 TSH 2.48 uIU/mL (0.34-5.60) 12/28/20 05:00 Urine Color YELLOW 12/29/20 11:30 Urine Clarity CLEAR (CLEAR) 12/29/20 11:30 Urine pH 7.0 PH (5.0-7.5) 12/29/20 11:30 Ur Specific [place] 1.020 (1.002-1.030) 12/29/20 11:30 Urine Protein NEGATIVE mg/dL (NEGATIVE) 12/29/20 11:30 Urine Glucose (UA) NEGATIVE mg/dL (NEGATIVE) 12/29/20 11:30 Urine Ketones NEGATIVE mg/dL (NEGATIVE) 12/29/20 11:30 Urine Occult Blood TRACE-LYSE (NEGATIVE) 12/29/20 11:30 Urine Nitrite NEGATIVE (NEGATIVE) 12/29/20 11:30 Urine Bilirubin NEGATIVE (NEGATIVE) 12/29/20 11:30 Urine Urobilinogen 0.2 (NORMAL) E.U./dL (NORMAL) 12/29/20 11:30 Ur Leukocyte Esterase NEGATIVE (NEGATIVE) 12/29/20 11:30 Ur Microscopic Review NOT INDICATED 12/29/20 11:30 Urine Culture Comments NOT INDICATED 12/29/20 11:30 Nasal Adenovirus (PCR) NOT DETECTED 12/16/20 17:54 Nasal B. parapertussis DNA (PCR) NOT DETECTED 12/16/20 17:54 Nasal Coronavir 229E PCR NOT DETECTED 12/16/20 17:54 Nasal Coronavir HKU1 PCR NOT DETECTED 12/16/20 17:54 Nasal Coronavir NL63 PCR NOT DETECTED 12/16/20 17:54 Nasal Coronavir OC43 PCR NOT DETECTED 12/16/20 17:54 Nasal Enterovir/Rhinovir PCR NOT DETECTED 12/16/20 17:54 Nasal Influenza B PCR NOT DETECTED 12/16/20 17:54 Nasal Influenza A PCR NOT DETECTED 12/16/20 17:54 Nasal Parainfluen 1 PCR NOT DETECTED 12/16/20 17:54 Nasal Parainfluen 2 PCR NOT DETECTED 12/16/20 17:54 Nasal Parainfluen 3 PCR NOT DETECTED 12/16/20 17:54 Nasal Parainfluen 4 PCR NOT DETECTED 12/16/20 17:54 Nasal RSV (PCR) NOT DETECTED 12/16/20 17:54 Nasal Screen MRSA (PCR) NEGATIVE (NEGATIVE) 12/27/20 18:00 Nasal B.pertussis DNA PCR NOT DETECTED 12/16/20 17:54 Nasal C.pneumoniae (PCR) NOT DETECTED 12/16/20 17:54 Robin Human Metapneumo PCR NOT DETECTED 12/16/20 17:54 Nasal M.pneumoniae (PCR) NOT DETECTED 12/16/20 17:54 Nasal SARS-CoV-2 (PCR) NOT DETECTED 12/16/20 17:54 Blood Type O POSITIVE 12/28/20 20:28 Blood Type Recheck O POSITIVE 12/28/20 05:00 Antibody Screen NEGATIVE 12/28/20 20:28
[2020-12-29] MEDS: METOPROLOL 5 MG/5 ML VIAL IVP SCH ×2 (13:39→20:23)
[2020-12-29] MEDS: HYDROmorphone PCA 20MG/100ML IV PRN (16:07)
[2020-12-29] MEDS: D5NS W/20 MEQ KCL 1,000 ML IV SCH (16:08)
[2020-12-29] MEDS: TPN (CLINIMIX E 5/15) 2,000 ML with MULTIVITAMIN 10 ML, TRACE ELEMENTS 1 ML IV SCH ×3 (18:48)
[2020-12-29] MEDS: FAT EMULSION 20% 250 ML IV SCH (19:40)
[2020-12-30] MEDS: INSULIN REGULAR HUMAN 300 UNIT/3 ML VIAL SUBQ SCH ×5 (00:27→23:40)
[2020-12-30] MEDS ORDERED: SODIUM CHLORIDE 0.9% 500 ML IV PRN (01:06)
[2020-12-30] MEDS: MORPHINE 2 MG/ML CARPUJECT IVP PRN ×4 (03:34→23:36)
[2020-12-30] MEDS: MEROPENEM 1 GM in SODIUM CHLORIDE 0.9% MINIBAG 100 ML IV SCH ×3 (04:54→20:40)
[2020-12-30] MEDS: SODIUM CHLORIDE FLUSH 0.9% 10 ML SYRINGE IVP PRN ×6 (04:54→22:58)
[2020-12-30 05:26] LABS: BASOPHILS % (AUTO) 0.3 %; EOSINOPHILS % (AUTO) 0.1 %; HCT - HEMATOCRIT 22.8 % (37.0-47.0); HGB - HEMOGLOBIN 7.6 g/dL (12.0-16.0); LYMPHOCYTES % (AUTO) 8.1 %; MEAN CORPUSCULAR HEMOGLOBIN 32.5 pg (27.0-31.0); MEAN CORPUSCULAR HGB CONC 33.3 g/dL (32.0-36.0); MEAN CORPUSCULAR VOLUME 97.4 fL (81.0-99.0); MEAN PLATELET VOLUME 9.5 fL (7.9-10.8); MONOCYTES % (AUTO) 3.8 %; NEUTROPHILS % (AUTO) 85.1 %; PLT - PLATELET COUNT 484 10^3/uL (130-450); RED BLOOD COUNT 2.34 10^6/uL (4.20-5.40); RED CELL DISTRIBUTION WIDTH 14.9 % (12.0-15.0); WHITE BLOOD COUNT 24.2 x10^3/uL (4.8-10.8)
[2020-12-30 05:27] LABS: ABNORMAL LYMPHS % (MANUAL) 0 %; BAND NEUTROPHILS % (MANUAL) 0 %
[2020-12-30] MEDS: methocarbamoL 500 MG TABLET PO SCH ×4 (05:37→23:13)
[2020-12-30] MEDS: METOCLOPRAMIDE 10 MG/2 ML VIAL IVP SCH ×4 (05:38→23:15)
[2020-12-30] MEDS: KETOROLAC 30 MG/ML VIAL IVP SCH ×4 (05:38→23:15)
[2020-12-30 05:43] LABS: ALBUMIN 1.6 g/dL (3.2-5.5); ALBUMIN/GLOBULIN RATIO 0.4 (1.0-2.2); BILIRUBIN,TOTAL 0.6 mg/dL (0.2-1.0); CALCIUM 7.3 mg/dL (8.5-10.3); CREATININE 0.5 mg/dL (0.4-1.0); POTASSIUM 3.8 mmol/L (3.5-5.0); TOTAL PROTEIN 5.5 g/dL (6.7-8.2)
[2020-12-30 05:44] LABS: EOSINOPHILS # (MANUAL) 0.2 10^3/uL (0-0.7); LYMPHOCYTES # (MANUAL) 2.4 10^3/uL (1.5-3.5); LYMPHOCYTES % (MANUAL) 10 %; NEUTROPHILS # (MANUAL) 20.6 10^3/uL (1.5-6.6); PLATELET MORPHOLOGY NORMAL APPEARANCE (NORMAL); RBC MORPHOLOGY (MULTIPLE) 1+ HYPOCHROMASIA (NORMAL)
[2020-12-30 05:45] LABS: DIFFERENTIAL COMMENT MANUAL DIFFERENTIAL; PLATELET ESTIMATE, MANUAL INCREASED (>450,000) (NORMAL); WBC MORPHOLOGY (MULTIPLE) NORMAL APPEARANCE (NORMAL)
[2020-12-30 06:09] LABS: FOLATE 3.8 ng/mL (5.90 - >24.8)
[2020-12-30] MEDS ORDERED: LACTATED RINGERS 500 ML IV ONE (07:20)
[2020-12-30] MEDS: VANCOMYCIN INJ 1 GM, VANCOMYCIN INJ 250 MG in SODIUM CHLORIDE 0.9% 250 ML IV SCH (08:00)
[2020-12-30 08:07] LABS: PHOSPHORUS 2.3 mg/dL (2.5-4.6)
[2020-12-30 08:24] LABS: VANCOMYCIN,TROUGH 25.2 ug/mL (10.0-20.0)
[2020-12-30] MEDS: MAGNESIUM SULFATE 2 GRAM 2 GM/50 ML BAG IV SCH ×2 (08:41→09:44)
[2020-12-30] MEDS: NEUTRA-PHOS 250 MG TABLET PO SCH ×2 (08:42→10:04)
[2020-12-30] MEDS: polyethylene glycoL 3350 17 GM PACKET PO SCH ×2 (08:43→20:39)
[2020-12-30] MEDS: DOCUSATE SODIUM 100 MG CAPSULE PO SCH ×2 (08:43→20:40)
[2020-12-30] MEDS: FLUCONAZOLE 200 MG/100 ML 100 ML IV SCH (08:44)
[2020-12-30] MEDS: METOPROLOL 5 MG/5 ML VIAL IVP SCH ×2 (08:46→16:56)
[2020-12-30] MEDS: SODIUM CHLORIDE FLUSH 0.9% 10 ML SYRINGE IVP SCH ×4 (08:49→23:16)
--- NOTE | 2020-12-30 09:20 | PROVIDER PROGRESS NOTE ---
Assessment/Plan - Problem List (1) Perforation and abscess of large intestine concurrent with and due to diverticulitis Assessment/Plan: Blood count has decreased from 30-24. There is no fever. She is tolerating clear liquids only. She is getting peripheral iv TPN for protein and nutrition support. Management as per general surgery (2) Tachycardia Assessment/Plan: Her heart rate was as high as 150 this morning. The cooler deliverer gave her 500 cc LR bolus. We will increase her IV Lopressor from 5 mg twice daily to 5 mg every 8 hours. Will check chest x-ray today, get a baseline BNP and will obtain an Echo to establish chamber sizes and contractility>> Chest x-ray showed interstitial edema. The echo showed preserved LV systolic function, cannot rule out diastolic dysfunction because of tachycardia, BNP is 200. The IV Lopressor 5 mg twice daily will be increased to every 8 hours. We will also start Cardizem 30 mg po, spread out, every 6 hours. (3) Dyspnea Assessment/Plan: She is more short of breath today and ankles show mild edema. Her weight has increased from 87 kg yesterday to 91.5 kg today and her iv fluids were going at 165 mL/h combining her IV hydration, her TPN and antibiotics. Will stop the IV fluid hydration of D5 NS with K at 50 cc/hr and only continue iv TPN fluids and her IV antibiotics. Will obtain baseline BNP, chest x-ray and Echo to establish chamber sizes and contractility>>> BNP was 200. The chest x-ray showed interstitial edema and the echo showed preserved LV systolic function, cannot rule out diastolic dysfunction due to tachycardia. IV Lasix was given x1 and she had marked improvement in shortness of breath in 30 minutes. Will decrease her TPN rate from 75-60 an hour. We will stop the TKA fluids which are giving her 500 cc extra per day. (4) Anemia Assessment/Plan: Partly from hemodilution and also blood loss and recent surgery. We will transfuse blood if hemoglobin goes under 7. Follow H/H every 12 hours. She has also been started on folate and iron replacement for low folate and iron serum levels. (5) Hyponatremia Assessment/Plan: Related to her fluid overload. Lasix was given today. Follow BMP daily. (6) HTN (hypertension) Assessment/Plan: Blood pressure has been rising, ever since Sander-Synephrine off to 1/2 days ago. By increasing her IV Lopressor and starting p.o. Cardizem, blood pressure should also improve (7) Septic shock Assessment/Plan: Resolved (8) Hypokalemia Assessment/Plan: Resolved with replacement. - Current Meds Current Meds: Current Medications Generic Name Dose Route Start Last Admin Trade Name Freq PRN Reason Stop Dose Admin Acetaminophen 650 mg 12/28/20 10:01 12/28/20 11:50 Acetaminophen 325 Mg Tablet PO 650 mg Q4HR PRN Administration Pain or Fever > 38C (100.4F) Docusate Sodium 100 mg 12/27/20 21:00 12/30/20 08:43 Docusate Sodium 100 Mg Capsule PO 100 mg BID VANESSA Administration Heparin Sodium (Porcine) 5,000 unit 12/27/20 21:00 12/29/20 20:24 Heparin 5,000 Unit/Ml Vial SUBQ 5,000 unit BID VANESSA Administration Hydromorphone HCl 0 mg 12/27/20 19:14 12/29/20 16:07 Hydromorphone Double Head Machine Operator 20mg/100ml IV 20 mg PRN PRN Administration PAIN Protocol Multivitamins 10 ml/ TRACE 2,011 mls @ 75 mls/hr 12/26/20 19:00 12/30/20 06:58 ELEMENTS 1 ml/ Amino Ac/ IV 75 mls/hr Electrol/Dextrose/Calcium Q24H VANESSA Infusion Protocol Fat Emulsion Intravenous 250 mls @ 21 mls/hr 12/26/20 19:00 12/30/20 06:58 Intralipid 20% IV 21 mls/hr Q24H VANESSA Infusion Fluconazole 100 mls @ 100 mls/hr 12/28/20 09:00 12/30/20 08:44 Diflucan 200 Mg/100 Ml IV 100 mls/hr DAILY VANESSA Administration Vancomycin HCl 1 gm/ 250 mls @ 167 mls/hr 12/28/20 08:00 12/29/20 22:40 Vancomycin HCl 250 mg/ Sodium IV Infused Chloride Q12H VANESSA Infusion Meropenem 1 gm/ Sodium 100 mls @ 200 mls/hr 12/28/20 05:00 12/30/20 05:30 Chloride IV Infused Q8H VANESSA Infusion Magnesium Sulfate 2 gm in 50 mls @ 50 mls/hr 12/30/20 08:00 12/30/20 08:41 Magnesium Sulfate IV 12/30/20 09:59 50 mls/hr Q1H VANESSA Administration Protocol Insulin Human Regular 2 - 10 unit 12/28/20 19:00 12/30/20 06:34 Insulin Regular Human 300 Unit/3 Ml Vial SUBQ Not Given Q6HR [facility] Protocol Ketorolac Tromethamine 15 mg 12/27/20 18:00 12/30/20 05:38 Ketorolac 30 Mg/Ml Vial IVP 01/01/21 17:59 15 mg Q6HR VANESSA Administration Methocarbamol 500 mg 12/27/20 18:00 12/30/20 05:37 Methocarbamol 500 Mg Tablet PO 500 mg Q6HR VANESSA Administration Metoclopramide HCl 10 mg 12/27/20 18:00 12/30/20 05:38 Metoclopramide 10 Mg/2 Ml Vial IVP 10 mg Q6HR VANESSA Administration Morphine Sulfate 2 mg 12/18/20 08:36 12/30/20 05:36 Morphine 2 Mg/Ml Carpuject IVP 2 mg Q2HR PRN Administration PAIN Polyethylene Glycol 17 gm 12/27/20 21:00 12/30/20 08:43 Polyethylene Glycol 3350 17 Gm Packet PO 17 gm BID VANESSA Administration Sodium Chloride 10 ml 12/17/20 01:00 12/30/20 08:49 Sodium Chloride Flush 0.9% 10 Ml Syringe IVP 10 ml 0100,0900,1700 VANESSA Administration Sodium Chloride 10 ml 12/27/20 17:31 12/30/20 05:39 Sodium Chloride Flush 0.9% 10 Ml Syringe IVP 10 ml PRN PRN Administration NEEDED PER PROVIDER ORDERS Sodium Chloride 20 ml 12/30/20 01:06 12/30/20 04:54 Sodium Chloride Flush 0.9% 10 Ml Syringe IVP 20 ml PRN PRN Administration After Blood Draw Sodium Phosphate 250 mg 12/30/20 08:00 12/30/20 08:42 Neutra-Phos 250 Mg Tablet PO 12/30/20 10:01 250 mg Q2H VANESSA Administration Protocol - Lab Result Fish Bone Diagrams: 12/30/20 04:50 12/30/20 05:00 - Additional Planning My Orders: My Active Orders 12/29/20 12:55 CULTURE, BLOOD #1 [RM] Urgent 12/29/20 13:30 CULTURE, BLOOD #2 [RM] Urgent 12/30/20 08:07 Echo Transthoracic Complete [ECHO] Routine 12/30/20 08:43 Chest 1 View X-Ray [XR] Stat 12/30/20 17:00 Metoprolol Inj [Lopressor Inj] 5 mg IVP Q8H 12/30/20 18:00 HEMOGLOBIN AND HEMATOCRIT [HEME] Timed Subjective - Subjective Patient Reports: Shortness of Breath Objective Vital Signs: Vital Signs - 24 hr 12/29/20 12/29/20 12/29/20 10:00 11:00 12:00 Temperature Heart Rate [ 114 H 112 H 118 H Monitoring electrodes] Respiratory 21 27 H 26 H Rate Blood Pressure Blood Pressure 149/79 H 141/82 H [Left Brachial artery] Blood Pressure [left radial] O2 Saturation 98 98 97 12/29/20 12/29/20 12/29/20 13:00 13:39 14:00 Temperature 37.4 C Heart Rate [ 115 H 105 H Monitoring electrodes] Respiratory 25 H 18 Rate Blood Pressure 142/85 H Blood Pressure 142/85 H 142/82 H [Left Brachial artery] Blood Pressure [left radial] O2 Saturation 97 100 12/29/20 12/29/20 12/29/20 15:00 16:00 17:00 Temperature 37.7 C Heart Rate [ 105 H 118 H 114 H Monitoring electrodes] Respiratory 23 25 H 27 H Rate Blood Pressure Blood Pressure 140/83 H 92/73 121/78 [Left Brachial artery] Blood Pressure [left radial] O2 Saturation 100 96 98 12/29/20 12/29/20 12/29/20 18:00 19:00 20:00 Temperature 37.5 C Heart Rate [ 118 H 118 H 118 H Monitoring electrodes] Respiratory 28 H 28 H 28 H Rate Blood Pressure Blood Pressure 141/85 H 161/88 H [Left Brachial artery] Blood Pressure 166/79 H [left radial] O2 Saturation 100 97 97 12/29/20 12/29/20 12/29/20 20:23 21:00 22:00 Temperature Heart Rate [ 108 H 106 H Monitoring electrodes] Respiratory 28 H 21 Rate Blood Pressure 166/79 H Blood Pressure [Left Brachial artery] Blood Pressure 161/71 H 114/65 [left radial] O2 Saturation 98 98 12/29/20 12/30/20 12/30/20 23:00 00:00 01:00 Temperature 37.5 C Heart Rate [ 108 H 126 H 113 H Monitoring electrodes] Respiratory 21 31 H 19 Rate Blood Pressure Blood Pressure [Left Brachial artery] Blood Pressure 134/84 H 154/80 H 126/63 [left radial] O2 Saturation 97 94 96 12/30/20 12/30/20 12/30/20 01:50 02:00 03:00 Temperature Heart Rate [ 111 H 115 H Monitoring electrodes] Respiratory 19 20 23 Rate Blood Pressure Blood Pressure [Left Brachial artery] Blood Pressure 123/67 137/74 H [left radial] O2 Saturation 96 95 12/30/20 12/30/20 12/30/20 04:00 04:24 05:00 Temperature 37.4 C Heart Rate [ 129 H 139 H Monitoring electrodes] Respiratory 27 H 25 H 29 H Rate Blood Pressure Blood Pressure [Left Brachial artery] Blood Pressure 139/76 H 156/94 H [left radial] O2 Saturation 93 93 12/30/20 12/30/20 12/30/20 06:00 06:12 07:00 Temperature Heart Rate [ 142 H 131 H Monitoring electrodes] Respiratory 25 H 23 14 Rate Blood Pressure Blood Pressure [Left Brachial artery] Blood Pressure 127/77 114/67 [left radial] O2 Saturation 92 93 12/30/20 12/30/20 12/30/20 08:00 08:46 09:00 Temperature 37.7 C Heart Rate [ 147 H 123 H Monitoring electrodes] Respiratory 34 H 32 H Rate Blood Pressure 152/82 H Blood Pressure [Left Brachial artery] Blood Pressure 152/82 H 123/100 H [left radial] O2 Saturation 94 941 H Oxygen O2 Source Room air I&O (Last 24 Hrs): Intake and Output Totals x24h 12/28/20 12/29/20 12/30/20 23:59 23:59 23:59 Intake Total 5186.600 4946.25 2410.633 Output Total 2998 4150 1740 Balance 2188.600 796.25 670.633 General: Alert, Oriented x3 HEENT: Atraumatic, EOMI Neck: Supple, No JVD Neuro: Alert, Non Focal Cardiovascular: Regular rate, No murmurs Respiratory: Rales (anteriorly) Abdomen: Soft, Other (No bowel sounds) Extremities: No edema (1+ ankle edema) - Results Results: Laboratory Results WBC 24.2 x10^3/uL (4.8-10.8) H 12/30/20 04:50 RBC 2.34 10^6/uL (4.20-5.40) L 12/30/20 04:50 Hgb 7.6 g/dL (12.0-16.0) L 12/30/20 04:50 Hct 22.8 % (37.0-47.0) L 12/30/20 04:50 MCV 97.4 fL (81.0-99.0) 12/30/20 04:50 MCH 32.5 pg (27.0-31.0) H 12/30/20 04:50 MCHC 33.3 g/dL (32.0-36.0) 12/30/20 04:50 RDW 14.9 % (12.0-15.0) 12/30/20 04:50 Plt Count 484 10^3/uL (130-450) H 12/30/20 04:50 MPV 9.5 fL (7.9-10.8) 12/30/20 04:50 Neut # (Auto) Not Reportable 12/30/20 04:50 Lymph # (Auto) Not Reportable 12/30/20 04:50 [place] # (Auto) Not Reportable 12/30/20 04:50 Eos # (Auto) Not Reportable 12/30/20 04:50 Baso # (Auto) Not Reportable 12/30/20 04:50 Absolute Nucleated RBC Not Reportable 12/30/20 04:50 Total Counted 100 12/30/20 04:50 Band Neuts % (Manual) 0 % (0-10) 12/30/20 04:50 Abnorm Lymph % (Manual) 0 % 12/30/20 04:50 Nucleated RBC % Not Reportable 12/30/20 04:50 Neutrophils # (Manual) 20.6 10^3/uL (1.5-6.6) H 12/30/20 04:50 Lymphocytes # (Manual) 2.4 10^3/uL (1.5-3.5) 12/30/20 04:50 Monocytes # (Manual) 1.0 10^3/uL (0.0-1.0) 12/30/20 04:50 Eosinophils # (Manual) 0.2 10^3/uL (0-0.7) 12/30/20 04:50 Basophils # (Manual) 0.0 10^3/uL (0-0.1) 12/30/20 04:50 Differential Comment MANUAL DIFFERENTIAL 12/30/20 04:50 Manual Slide Review Indicated 12/16/20 16:00 WBC Morphology NORMAL APPEARANCE (NORMAL) 12/30/20 04:50 Platelet Estimate INCREASED (>450,000) (NORMAL) 12/30/20 04:50 Platelet Morphology NORMAL APPEARANCE (NORMAL) 12/30/20 04:50 RBC Morph Micro Appear 1+ HYPOCHROMASIA (NORMAL) 12/30/20 04:50 PT 20.3 secs (9.9-12.6) H 12/24/20 05:35 INR 1.9 (0.8-1.2) H 12/24/20 05:35 Whole Blood INR 1.4 (0.8-1.2) H 12/29/20 09:13 Sodium 134 mmol/L (135-145) L 12/30/20 05:00 Potassium 3.8 mmol/L (3.5-5.0) 12/30/20 05:00 Chloride 105 mmol/L (101-111) 12/30/20 05:00 Carbon Dioxide 22 mmol/L (21-32) 12/30/20 05:00 Anion Gap 7.0 (6-13) 12/30/20 05:00 BUN 14 mg/dL (6-20) 12/30/20 05:00 Creatinine 0.5 mg/dL (0.4-1.0) 12/30/20 05:00 Estimated GFR (MDRD) 127 (>89) 12/30/20 05:00 Glucose 137 mg/dL (70-100) H 12/30/20 05:00 POC Whole Bld Glucose 125 mg/dL (70 - 100) H 12/30/20 05:44 Calcium 7.3 mg/dL (8.5-10.3) L 12/30/20 05:00 Phosphorus 2.3 mg/dL (2.5-4.6) L 12/30/20 07:40 Magnesium 1.3 mg/dL (1.7-2.8) L 12/30/20 05:00 Iron 6 ug/dL (28-170) L 12/30/20 05:00 TIBC 115 ug/dL (250-450) L 12/30/20 05:00 % Saturation 5 % (20-50) L 12/30/20 05:00 Transferrin 82 mg/dL (192-382) L 12/30/20 05:00 Total Bilirubin 0.6 mg/dL (0.2-1.0) 12/30/20 05:00 AST 26 IU/L (10-42) 12/30/20 05:00 ALT 14 IU/L (10-60) 12/30/20 05:00 Alkaline Phosphatase 79 IU/L (42-121) 12/30/20 05:00 B-Natriuretic Peptide 214 pg/mL (5-100) H 12/30/20 04:50 Total Protein 5.5 g/dL (6.7-8.2) L 12/30/20 05:00 Albumin 1.6 g/dL (3.2-5.5) L 12/30/20 05:00 Globulin 3.9 g/dL (2.1-4.2) 12/30/20 05:00 Albumin/Globulin Ratio 0.4 (1.0-2.2) L 12/30/20 05:00 Prealbumin 4 mg/dL (18-45) L 12/28/20 05:00 Triglycerides 49 mg/dL (-149) 12/28/20 05:00 Lipase 27 U/L (22-51) 12/16/20 16:00 Vitamin B12 893 pg/mL (180-914) 12/30/20 05:00 Folate 3.80 ng/mL (5.90 - >24.8) L 12/30/20 05:00 TSH 2.48 uIU/mL (0.34-5.60) 12/28/20 05:00 Urine Color YELLOW 12/29/20 11:30 Urine Clarity CLEAR (CLEAR) 12/29/20 11:30 Urine pH 7.0 PH (5.0-7.5) 12/29/20 11:30 Ur Specific [place] 1.020 (1.002-1.030) 12/29/20 11:30 Urine Protein NEGATIVE mg/dL (NEGATIVE) 12/29/20 11:30 Urine Glucose (UA) NEGATIVE mg/dL (NEGATIVE) 12/29/20 11:30 Urine Ketones NEGATIVE mg/dL (NEGATIVE) 12/29/20 11:30 Urine Occult Blood TRACE-LYSE (NEGATIVE) 12/29/20 11:30 Urine Nitrite NEGATIVE (NEGATIVE) 12/29/20 11:30 Urine Bilirubin NEGATIVE (NEGATIVE) 12/29/20 11:30 Urine Urobilinogen 0.2 (NORMAL) E.U./dL (NORMAL) 12/29/20 11:30 Ur Leukocyte Esterase NEGATIVE (NEGATIVE) 12/29/20 11:30 Ur Microscopic Review NOT INDICATED 12/29/20 11:30 Urine Culture Comments NOT INDICATED 12/29/20 11:30 Nasal Adenovirus (PCR) NOT DETECTED 12/16/20 17:54 Nasal B. parapertussis DNA (PCR) NOT DETECTED 12/16/20 17:54 Nasal Coronavir 229E PCR NOT DETECTED 12/16/20 17:54 Nasal Coronavir HKU1 PCR NOT DETECTED 12/16/20 17:54 Nasal Coronavir NL63 PCR NOT DETECTED 12/16/20 17:54 Nasal Coronavir OC43 PCR NOT DETECTED 12/16/20 17:54 Nasal Enterovir/Rhinovir PCR NOT DETECTED 12/16/20 17:54 Nasal Influenza B PCR NOT DETECTED 12/16/20 17:54 Nasal Influenza A PCR NOT DETECTED 12/16/20 17:54 Nasal Parainfluen 1 PCR NOT DETECTED 12/16/20 17:54 Nasal Parainfluen 2 PCR NOT DETECTED 12/16/20 17:54 Nasal Parainfluen 3 PCR NOT DETECTED 12/16/20 17:54 Nasal Parainfluen 4 PCR NOT DETECTED 12/16/20 17:54 Nasal RSV (PCR) NOT DETECTED 12/16/20 17:54 Nasal Screen MRSA (PCR) NEGATIVE (NEGATIVE) 12/27/20 18:00 Nasal B.pertussis DNA PCR NOT DETECTED 12/16/20 17:54 Nasal C.pneumoniae (PCR) NOT DETECTED 12/16/20 17:54 Robin Human Metapneumo PCR NOT DETECTED 12/16/20 17:54 Nasal M.pneumoniae (PCR) NOT DETECTED 12/16/20 17:54 Nasal SARS-CoV-2 (PCR) NOT DETECTED 12/16/20 17:54 Last Dose Date UNK 12/30/20 07:40 Last Dose Time UNK 12/30/20 07:40 Vancomycin Trough 25.2 ug/mL (10.0-20.0) H* 12/30/20 07:40 Blood Type O POSITIVE 12/28/20 20:28 Blood Type Recheck O POSITIVE 12/28/20 05:00 Antibody Screen NEGATIVE 12/28/20 20:28
--- NOTE | 2020-12-30 09:21 | XRAY Report ---
PROCEDURE: Chest 1 View X-Ray INDICATIONS: Increased shortness of breath TECHNIQUE: One view of the chest was acquired. COMPARISON: 12/29/2020 chest radiograph FINDINGS: Patchy bilateral interstitial and airspace opacities have worsened when compared with the prior study , particularly on the right. Right-sided pleural effusion is similar. No pleural effusion on the left . Cardiac and mediastinal contours are within normal limits. Right approaching the PICC is unchanged. IMPRESSION: Worsened bilateral interstitial and airspace opacities when compared with the prior study, particular ly on the right. Reviewed by: Jayme Cordova MD on 12/30/2020 9:20 AM PDT Approved by: Jayme Cordova MD on 12/30/2020 9:20 AM PDT Station ID: [id number]
[2020-12-30] MEDS ORDERED: FUROSEMIDE 40 MG/4 ML VIAL IVP STA (09:22)
[2020-12-30] MEDS: HEPARIN 5,000 UNIT/ML VIAL SUBQ SCH ×2 (09:31→20:48)
[2020-12-30] MEDS ORDERED: FAMOTIDINE 20 MG/2 ML VIAL IVP SCH (10:21)
[2020-12-30] MEDS: FAMOTIDINE 20 MG TABLET PO SCH ×2 (11:14→20:40)
[2020-12-30] MEDS: FOLIC ACID 1 MG TABLET PO SCH (11:16)
[2020-12-30] MEDS: VANCOMYCIN INJ 1 GM in SODIUM CHLORIDE 0.9% 250 ML IV SCH (13:15)
[2020-12-30] MEDS ORDERED: TPN (CLINIMIX E 5/15) 2,000 ML with MULTIVITAMIN 10 ML, TRACE ELEMENTS 1 ML IV SCH ×3 (13:52)
[2020-12-30] MEDS ORDERED: CARBOXYMETHYLCELLULOSE OPHTH DROPS EACHEYE PRN (14:41)
[2020-12-30] MEDS: HYDROmorphone 0.5 MG/0.5 ML SYRINGE IVP PRN ×3 (16:15→22:56)
[2020-12-30 18:18] LABS: HGB - HEMOGLOBIN 7.5 g/dL (12.0-16.0)
[2020-12-30] MEDS: diltiaZEM 30 MG TABLET PO SCH ×2 (18:34→23:13)
[2020-12-30] MEDS: TPN (CLINIMIX E 5/15) 2,000 ML with MULTIVITAMIN 10 ML, TRACE ELEMENTS 1 ML IV SCH ×3 (18:53)
[2020-12-30] MEDS: FAT EMULSION 20% 250 ML IV SCH (19:31)
[2020-12-30] MEDS ORDERED: FUROSEMIDE 20 MG/2 ML VIAL IVP STA (23:49)
[2020-12-31] MEDS: SODIUM CHLORIDE FLUSH 0.9% 10 ML SYRINGE IVP SCH ×4 (00:01→23:52)
[2020-12-31] MEDS: METOPROLOL 5 MG/5 ML VIAL IVP SCH ×3 (01:05→18:15)
[2020-12-31] MEDS: VANCOMYCIN INJ 1 GM in SODIUM CHLORIDE 0.9% 250 ML IV SCH ×2 (01:05→14:33)
[2020-12-31] MEDS: SODIUM CHLORIDE FLUSH 0.9% 10 ML SYRINGE IVP PRN ×6 (01:06→22:54)
[2020-12-31] MEDS: MORPHINE 2 MG/ML CARPUJECT IVP PRN ×6 (03:18→23:59)
[2020-12-31] MEDS: MEROPENEM 1 GM in SODIUM CHLORIDE 0.9% MINIBAG 100 ML IV SCH ×3 (04:45→20:29)
[2020-12-31] MEDS: HYDROmorphone 0.5 MG/0.5 ML SYRINGE IVP PRN ×5 (05:00→22:53)
[2020-12-31 05:36] LABS: BASOPHILS % (AUTO) 0.3 %; EOSINOPHILS % (AUTO) 0.7 %; LYMPHOCYTES % (AUTO) 7.6 %; MEAN CORPUSCULAR HEMOGLOBIN 31.1 pg (27.0-31.0); MEAN CORPUSCULAR HGB CONC 32.4 g/dL (32.0-36.0); MEAN CORPUSCULAR VOLUME 95.9 fL (81.0-99.0); MEAN PLATELET VOLUME 9.7 fL (7.9-10.8); MONOCYTES % (AUTO) 3.6 %; NEUTROPHILS % (AUTO) 85.9 %; PLT - PLATELET COUNT 450 10^3/uL (130-450); RED BLOOD COUNT 2.19 10^6/uL (4.20-5.40); RED CELL DISTRIBUTION WIDTH 14.7 % (12.0-15.0); WHITE BLOOD COUNT 20.5 x10^3/uL (4.8-10.8)
[2020-12-31 05:49] LABS: ABNORMAL LYMPHS % (MANUAL) 0 %; ALBUMIN 1.6 g/dL (3.2-5.5); ALBUMIN/GLOBULIN RATIO 0.4 (1.0-2.2); BAND NEUTROPHILS % (MANUAL) 0 %; BILIRUBIN,TOTAL 0.8 mg/dL (0.2-1.0); CALCIUM 7.2 mg/dL (8.5-10.3); CREATININE 0.5 mg/dL (0.4-1.0); HGB - HEMOGLOBIN 6.8 g/dL (12.0-16.0); INR 1.5 (0.8-1.2); MAGNESIUM 1.4 mg/dL (1.7-2.8); PHOSPHORUS 3.2 mg/dL (2.5-4.6); POTASSIUM 3.2 mmol/L (3.5-5.0); PT - PROTHROMBIN TIME 16.1 secs (9.9-12.6); TOTAL PROTEIN 5.6 g/dL (6.7-8.2)
[2020-12-31] MEDS: methocarbamoL 500 MG TABLET PO SCH ×4 (05:58→23:51)
[2020-12-31] MEDS: KETOROLAC 30 MG/ML VIAL IVP SCH ×4 (05:59→23:51)
[2020-12-31] MEDS: METOCLOPRAMIDE 10 MG/2 ML VIAL IVP SCH ×4 (05:59→23:51)
[2020-12-31] MEDS: diltiaZEM 30 MG TABLET PO SCH ×4 (06:01→23:51)
[2020-12-31 06:04] LABS: LYMPHOCYTES # (MANUAL) 1.2 10^3/uL (1.5-3.5); LYMPHOCYTES % (MANUAL) 6 %; MONOCYTES # (MANUAL) 0.2 10^3/uL (0.0-1.0); MYELOCYTES % (MANUAL) 1 %; NEUTROPHILS # (MANUAL) 17.8 10^3/uL (1.5-6.6)
[2020-12-31 06:05] LABS: DIFFERENTIAL COMMENT MANUAL DIFFERENTIAL; PLATELET ESTIMATE, MANUAL NORMAL (130-450,000) (NORMAL); PLATELET MORPHOLOGY NORMAL APPEARANCE (NORMAL); RBC MORPHOLOGY (MULTIPLE) 1+ HYPOCHROMASIA (NORMAL); WBC MORPHOLOGY (MULTIPLE) NORMAL APPEARANCE (NORMAL)
[2020-12-31] MEDS: INSULIN REGULAR HUMAN 300 UNIT/3 ML VIAL SUBQ SCH ×3 (06:09→17:52)
--- NOTE | 2020-12-31 07:54 | PROVIDER PROGRESS NOTE ---
Progress Note Subjective: Patient remains in ICU. Positive ileostomy output. Pain controlled. Nothing per rectum. Acosta remains in place. Off pressors. Pre-Op Diagnosis: Complicated diverticulitis; perforated diverticulitis s/p perc drain; SBO Procedure Performed: 1. Diagnostic laparoscopy 2. Laparoscopic adhesiolysis extensive 3. Laparoscopic takedown of enterocolonic fistula 4. Laparoscopic takedown of colocutaneous fistula 5. Low anterior resection, laparoscopic 6. Splenic flexure mobilization, laparoscopic 7. Repair of vesicular sinus tract 8. Laparoscopic assisted loop ileostomy 9. Partial omentectomy 10. Umbilical hernia repair 11. Drainage of intra-abdominal abscess multiple 12. Drainage catheter placement 13. Small bowel resection 14. Abdominal washout Post Op Diagnosis: Same; feculent peritonitis; multiple fistulae; vesicular involvement Objective General Appearance: positive: No acute distress Eyes Bilateral: positive: Normal inspection ENT: positive: ENT inspection nml Neck: positive: Nml inspection Respiratory: positive: Chest non-tender, No respiratory distress, Breath sounds nml. negative: Wheezes, Rales, Rhonchi Cardiovascular: positive: Regular rate & rhythm Abdomen: positive: No distention, Other. negative: Guarding, Rebound Extremities: positive: Non-tender, Full ROM, Nml appearance Neurologic/Psychiatric: positive: Oriented x3, CN's nml (2-12) Stoma pink. Wound VAC in place. Julio drain serosanguineous. Impression/Plan Post operative day #3 status post above listed procedure. (1) GI - IVF, bowel regimen, continue TPN through the weekend. Advance diet slowly given small bowel resection. GI ppx. Anticipate ileus. Opiate sparring analgesia. (2) SURGERY - continue Acosta catheter secondary to bladder involvement. Bladder repair. Continue Julio drain. Will need to change wound VAC.. (3) Renal/Lytes - continue IVF. Renal indices within normal limits. Do not remove Acosta catheter prior to CT cystogram. Agree with diuresis. (4) Respiratory - O2 as necessary. Continue IS. (5) Heme - Will continue with DVT ppx. H/H stable. Hemodiluted secondary to mobilization and aggressive resusitation in the setting of sepsis. (6) Cardiovascular - HD acceptable. (7) Neuro - Opiate sparring analgesia. Antispasmodics with Robaxin. [Toradol]. Neuropathic agents. (8) Immune/Infectious Disease - continue broad-spectrum antibiotics to include vancomycin, meropenem, and Diflucan.
[2020-12-31] MEDS ORDERED: POTASSIUM CHLORIDE 20 MEQ TABLET PO ONE (08:00)
--- NOTE | 2020-12-31 08:38 | XRAY Report ---
PROCEDURE: Chest 1 View X-Ray INDICATIONS: F/U CHF TECHNIQUE: One view of the chest was acquired. COMPARISON: 12/29/2020, 12/30/2020 FINDINGS: Surgical changes and devices: A stable right-sided PICC line is seen. Lungs and pleura: On the semiupright images, no large pneumothorax or large pleural effusions can be seen. Generalized interstitial prominence can be seen, which is slightly improved compared to the pr ior examination. Low lung volumes can be seen, causing a crowded appearance to the lung markings. Mediastinum: Mediastinal contours appear normal. Heart size is normal. Bones and chest wall: No suspicious bony lesions. Age-appropriate degenerative changes are seen. O verlying soft tissues appear unremarkable. IMPRESSION: Generalized interstitial prominence is seen, which is most likely related to pulmonary edema, which i s slightly improved compared to the prior examination. Reviewed by: Rad Garcia MD on 12/31/2020 7:36 AM JULIO Approved by: Rad Garcia MD on 12/31/2020 7:36 AM JULIO Station ID: [id number]
[2020-12-31] MEDS: polyethylene glycoL 3350 17 GM PACKET PO SCH ×2 (08:45→20:29)
[2020-12-31] MEDS: HEPARIN 5,000 UNIT/ML VIAL SUBQ SCH ×2 (08:45→20:37)
[2020-12-31] MEDS: FOLIC ACID 1 MG TABLET PO SCH (08:45)
[2020-12-31] MEDS: FAMOTIDINE 20 MG TABLET PO SCH ×2 (08:45→20:28)
[2020-12-31] MEDS: DOCUSATE SODIUM 100 MG CAPSULE PO SCH ×2 (08:45→20:28)
[2020-12-31] MEDS: MAGNESIUM OXIDE 400 MG TABLET PO SCH ×2 (08:55→14:30)
[2020-12-31] MEDS: FLUCONAZOLE 200 MG/100 ML 100 ML IV SCH (09:04)
[2020-12-31] MEDS ORDERED: FUROSEMIDE 20 MG/2 ML VIAL IVP SCH (09:35)
[2020-12-31 13:42] LABS: HCT - HEMATOCRIT 26.3 % (37.0-47.0); HGB - HEMOGLOBIN 8.7 g/dL (12.0-16.0)
--- NOTE | 2020-12-31 14:03 | PROVIDER PROGRESS NOTE ---
Subjective - General Admit Date: 12/16/20 Procedure Date: 12/27/20 Post Op Days: 4 Procedure Performed: Hand-assisted laparoscopic colectomy with small bowel resection, repair of - Review of Systems General: positive: No symptoms HEENT: positive: No symptoms Pulmonary: positive: Shortness of breath Cardiovascular: positive: Dyspnea on exertion, Edema Gastrointestinal: negative: Nausea, Vomiting Genitourinary: positive: No symptoms Skin: positive: No symptoms All Other Systems: positive: Reviewed and negative - Other Other Information/Narrative: Shauna reports feeling "actually really good today". She sitting up in a chair. She says she feels like the blood transfusion made all the difference in the world. She denies any pain. She denies any nausea. Not sure if she is passed any flatus per bag but has definitely noticed some fluid. Reports she is feeling more comfortable with her ostomy and that the ostomy nurse was around to see her again today.Her biggest complaint today is swelling of her feet and legs. She says it makes it feel very strange to walk.She has had a shower this morning and had her hair washed Objective - Patient Data Reviewed Vital Signs: Yes Vital Signs: Vital Signs x48h Temp Pulse Pulse Resp BP BP Pulse Ox 12/31/20 13:00 116 H 24 121/68 96 12/31/20 12:15 37.8 C 115 H 33 H 143/69 H 12/31/20 12:00 37.6 C 116 H 35 H 138/68 H 95 12/31/20 11:00 110 H 34 H 128/67 92 12/31/20 10:00 109 H 32 H 133/73 H 94 12/31/20 09:00 104 H 31 H 125/68 96 12/31/20 08:30 37.4 C 114 H 26 H 124/57 L 12/31/20 08:11 37.7 C 120 H 29 H 119/60 12/31/20 08:00 37.7 C 124 H 30 H 119/60 96 12/31/20 07:00 117 H 24 93/54 L 88 L Weight: Weight 12/29/20 12/30/20 12/31/20 23:59 23:59 23:59 Weight (kg) 87.9 kg 91.5 kg 91 kg Intake & Output: Intake and Output Totals x24h 12/29/20 12/30/20 12/31/20 23:59 23:59 23:59 Intake Total 4946.25 5163.083 1100 Output Total 3893 8119 0901 Balance 796.64 -717.425 -5312 - Lab Results Lab Results: 12/31/20 13:30 12/31/20 04:50 Other Lab Results: Lab Results x24hrs 12/31/20 12/31/20 12/31/20 Range/Units 13:30 12:38 06:06 WBC (4.8-10.8) x10^3/uL RBC (4.20-5.40) 10^6/uL Hgb 8.7 L (12.0-16.0) g/dL Hct 26.3 L (37.0-47.0) % MCV (81.0-99.0) fL MCH (27.0-31.0) pg MCHC (32.0-36.0) g/dL RDW (12.0-15.0) % Plt Count (130-450) 10^3/uL MPV (7.9-10.8) fL Neut # (Auto) Lymph # (Auto) [place] # (Auto) Eos # (Auto) Baso # (Auto) Absolute Nucleated RBC Total Counted Band Neuts % (Manual) (0 - 10) % Abnorm Lymph % (Manual) % Myelocytes % ( - 0) % Nucleated RBC % Neutrophils # (Manual) (1.5-6.6) 10^3/uL Lymphocytes # (Manual) (1.5-3.5) 10^3/uL Monocytes # (Manual) (0.0-1.0) 10^3/uL Eosinophils # (Manual) (0-0.7) 10^3/uL Basophils # (Manual) (0-0.1) 10^3/uL Differential Comment WBC Morphology (NORMAL) Platelet Estimate (NORMAL) Platelet Morphology (NORMAL) RBC Morph Micro Appear (NORMAL) PT (9.9-12.6) secs INR (0.8-1.2) Sodium (135-145) mmol/L Potassium (3.5-5.0) mmol/L Chloride (101-111) mmol/L Carbon Dioxide (21-32) mmol/L Anion Gap (6-13) BUN (6-20) mg/dL Creatinine (0.4-1.0) mg/dL Estimated GFR (MDRD) (>89) Glucose (70-100) mg/dL POC Whole Bld Glucose 145 H 155 H (70 - 100) mg/dL Calcium (8.5-10.3) mg/dL Phosphorus (2.5-4.6) mg/dL Magnesium (1.7-2.8) mg/dL Total Bilirubin (0.2-1.0) mg/dL AST (10-42) IU/L ALT (10-60) IU/L Alkaline Phosphatase (42-121) IU/L B-Natriuretic Peptide (5-100) pg/mL Total Protein (6.7-8.2) g/dL Albumin (3.2-5.5) g/dL Globulin (2.1-4.2) g/dL Albumin/Globulin Ratio (1.0-2.2) Prealbumin (18-45) mg/dL Triglycerides ( - 149) mg/dL Blood Type Antibody Screen Crossmatch IS Only 12/31/20 12/31/20 12/31/20 Range/Units 04:50 04:50 04:50 WBC (4.8-10.8) x10^3/uL RBC (4.20-5.40) 10^6/uL Hgb (12.0-16.0) g/dL Hct (37.0-47.0) % MCV (81.0-99.0) fL MCH (27.0-31.0) pg MCHC (32.0-36.0) g/dL RDW (12.0-15.0) % Plt Count (130-450) 10^3/uL MPV (7.9-10.8) fL Neut # (Auto) Lymph # (Auto) [place] # (Auto) Eos # (Auto) Baso # (Auto) Absolute Nucleated RBC Total Counted Band Neuts % (Manual) (0 - 10) % Abnorm Lymph % (Manual) % Myelocytes % ( - 0) % Nucleated RBC % Neutrophils # (Manual) (1.5-6.6) 10^3/uL Lymphocytes # (Manual) (1.5-3.5) 10^3/uL Monocytes # (Manual) (0.0-1.0) 10^3/uL Eosinophils # (Manual) (0-0.7) 10^3/uL Basophils # (Manual) (0-0.1) 10^3/uL Differential Comment WBC Morphology (NORMAL) Platelet Estimate (NORMAL) Platelet Morphology (NORMAL) RBC Morph Micro Appear (NORMAL) PT 16.1 H (9.9-12.6) secs INR 1.5 H (0.8-1.2) Sodium 131 L (135-145) mmol/L Potassium 3.2 L (3.5-5.0) mmol/L Chloride 100 L (101-111) mmol/L Carbon Dioxide 23 (21-32) mmol/L Anion Gap 8.0 (6-13) BUN 14 (6-20) mg/dL Creatinine 0.5 (0.4-1.0) mg/dL Estimated GFR (MDRD) 127 (>89) Glucose 140 H (70-100) mg/dL POC Whole Bld Glucose (70 - 100) mg/dL Calcium 7.2 L (8.5-10.3) mg/dL Phosphorus 3.2 (2.5-4.6) mg/dL Magnesium 1.4 L (1.7-2.8) mg/dL Total Bilirubin 0.8 (0.2-1.0) mg/dL AST 33 (10-42) IU/L ALT 13 (10-60) IU/L Alkaline Phosphatase 75 (42-121) IU/L B-Natriuretic Peptide 133 H (5-100) pg/mL Total Protein 5.6 L (6.7-8.2) g/dL Albumin 1.6 L (3.2-5.5) g/dL Globulin 4.0 (2.1-4.2) g/dL Albumin/Globulin Ratio 0.4 L (1.0-2.2) Prealbumin 6 L (18-45) mg/dL Triglycerides 80 ( - 149) mg/dL Blood Type Antibody Screen Crossmatch IS Only 12/31/20 12/30/20 12/30/20 Range/Units 04:50 23:22 18:12 WBC 20.5 H (4.8-10.8) x10^3/uL RBC 2.19 L (4.20-5.40) 10^6/uL Hgb 6.8 L* 7.5 L (12.0-16.0) g/dL Hct 21.0 L 23.0 L (37.0-47.0) % MCV 95.9 (81.0-99.0) fL MCH 31.1 H (27.0-31.0) pg MCHC 32.4 (32.0-36.0) g/dL RDW 14.7 (12.0-15.0) % Plt Count 450 (130-450) 10^3/uL MPV 9.7 (7.9-10.8) fL Neut # (Auto) Not Reportable Lymph # (Auto) Not Reportable [place] # (Auto) Not Reportable Eos # (Auto) Not Reportable Baso # (Auto) Not Reportable Absolute Nucleated RBC Not Reportable Total Counted 100 Band Neuts % (Manual) 0 (0 - 10) % Abnorm Lymph % (Manual) 0 % Myelocytes % 1 H ( - 0) % Nucleated RBC % Not Reportable Neutrophils # (Manual) 17.8 H (1.5-6.6) 10^3/uL Lymphocytes # (Manual) 1.2 L (1.5-3.5) 10^3/uL Monocytes # (Manual) 0.2 (0.0-1.0) 10^3/uL Eosinophils # (Manual) 1.0 H (0-0.7) 10^3/uL Basophils # (Manual) 0.0 (0-0.1) 10^3/uL Differential Comment MANUAL DIFFERENTIAL WBC Morphology NORMAL APPEARANCE (NORMAL) Platelet Estimate NORMAL (130-450,000) (NORMAL) Platelet Morphology NORMAL APPEARANCE (NORMAL) RBC Morph Micro Appear 1+ HYPOCHROMASIA (NORMAL) PT (9.9-12.6) secs INR (0.8-1.2) Sodium (135-145) mmol/L Potassium (3.5-5.0) mmol/L Chloride (101-111) mmol/L Carbon Dioxide (21-32) mmol/L Anion Gap (6-13) BUN (6-20) mg/dL Creatinine (0.4-1.0) mg/dL Estimated GFR (MDRD) (>89) Glucose (70-100) mg/dL POC Whole Bld Glucose 133 H (70 - 100) mg/dL Calcium (8.5-10.3) mg/dL Phosphorus (2.5-4.6) mg/dL Magnesium (1.7-2.8) mg/dL Total Bilirubin (0.2-1.0) mg/dL AST (10-42) IU/L ALT (10-60) IU/L Alkaline Phosphatase (42-121) IU/L B-Natriuretic Peptide (5-100) pg/mL Total Protein (6.7-8.2) g/dL Albumin (3.2-5.5) g/dL Globulin (2.1-4.2) g/dL Albumin/Globulin Ratio (1.0-2.2) Prealbumin (18-45) mg/dL Triglycerides ( - 149) mg/dL Blood Type Antibody Screen Crossmatch IS Only 12/30/20 12/28/20 Range/Units 18:07 20:28 WBC (4.8-10.8) x10^3/uL RBC (4.20-5.40) 10^6/uL Hgb (12.0-16.0) g/dL Hct (37.0-47.0) % MCV (81.0-99.0) fL MCH (27.0-31.0) pg MCHC (32.0-36.0) g/dL RDW (12.0-15.0) % Plt Count (130-450) 10^3/uL MPV (7.9-10.8) fL Neut # (Auto) Lymph # (Auto) [place] # (Auto) Eos # (Auto) Baso # (Auto) Absolute Nucleated RBC Total Counted Band Neuts % (Manual) (0 - 10) % Abnorm Lymph % (Manual) % Myelocytes % ( - 0) % Nucleated RBC % Neutrophils # (Manual) (1.5-6.6) 10^3/uL Lymphocytes # (Manual) (1.5-3.5) 10^3/uL Monocytes # (Manual) (0.0-1.0) 10^3/uL Eosinophils # (Manual) (0-0.7) 10^3/uL Basophils # (Manual) (0-0.1) 10^3/uL Differential Comment WBC Morphology (NORMAL) Platelet Estimate (NORMAL) Platelet Morphology (NORMAL) RBC Morph Micro Appear (NORMAL) PT (9.9-12.6) secs INR (0.8-1.2) Sodium (135-145) mmol/L Potassium (3.5-5.0) mmol/L Chloride (101-111) mmol/L Carbon Dioxide (21-32) mmol/L Anion Gap (6-13) BUN (6-20) mg/dL Creatinine (0.4-1.0) mg/dL Estimated GFR (MDRD) (>89) Glucose (70-100) mg/dL POC Whole Bld Glucose 128 H (70 - 100) mg/dL Calcium (8.5-10.3) mg/dL Phosphorus (2.5-4.6) mg/dL Magnesium (1.7-2.8) mg/dL Total Bilirubin (0.2-1.0) mg/dL AST (10-42) IU/L ALT (10-60) IU/L Alkaline Phosphatase (42-121) IU/L B-Natriuretic Peptide (5-100) pg/mL Total Protein (6.7-8.2) g/dL Albumin (3.2-5.5) g/dL Globulin (2.1-4.2) g/dL Albumin/Globulin Ratio (1.0-2.2) Prealbumin (18-45) mg/dL Triglycerides ( - 149) mg/dL Blood Type O POSITIVE Antibody Screen NEGATIVE Crossmatch IS Only See Detail - Imaging Results Imaging Results Comments: Chest x-ray consistent with mild pulmonary edema - Current Medications Current Medications: Current Medications Generic Name Dose Route Start Last Admin Trade Name Freq PRN Reason Stop Dose Admin Acetaminophen 650 mg 12/28/20 10:01 12/28/20 11:50 Acetaminophen 325 Mg Tablet PO 650 mg Q4HR PRN Administration Pain or Fever > 38C (100.4F) Carboxymethylcellulose 1 drops 12/30/20 14:41 12/30/20 14:51 Carboxymethylcellulose Ophth Drops EACHEYE 1 drops PRN PRN Administration Dry Eye Diltiazem HCl 30 mg 12/30/20 18:00 12/31/20 12:29 Diltiazem 30 Mg Tablet PO 30 mg Q6HR VANESSA Administration Docusate Sodium 100 mg 12/27/20 21:00 12/31/20 08:45 Docusate Sodium 100 Mg Capsule PO 100 mg BID VANESSA Administration Famotidine 20 mg 12/30/20 11:00 12/31/20 08:45 Famotidine 20 Mg Tablet PO 20 mg BID VANESSA Administration Folic Acid 1 mg 12/30/20 11:00 12/31/20 08:45 Folic Acid 1 Mg Tablet PO 1 mg DAILY VANESSA Administration Heparin Sodium (Porcine) 5,000 unit 12/27/20 21:00 12/31/20 08:45 Heparin 5,000 Unit/Ml Vial SUBQ 5,000 unit BID VANESSA Administration Hydromorphone HCl 0.5 mg 12/30/20 11:36 12/31/20 12:51 Hydromorphone 0.5 Mg/0.5 Ml Syringe IVP 0.5 mg Q2H PRN Administration PAIN Multivitamins 10 ml/ TRACE 2,011 mls @ 60 mls/hr 12/26/20 19:00 12/30/20 18:53 ELEMENTS 1 ml/ Amino Ac/ IV 60 mls/hr Electrol/Dextrose/Calcium Q24H VANESSA Administration Protocol Fat Emulsion Intravenous 250 mls @ 21 mls/hr 12/26/20 19:00 12/31/20 07:26 Intralipid 20% IV Infused Q24H VANESSA Infusion Fluconazole 100 mls @ 100 mls/hr 12/28/20 09:00 12/31/20 10:57 Diflucan 200 Mg/100 Ml IV Infused DAILY VANESSA Infusion Meropenem 1 gm/ Sodium 100 mls @ 200 mls/hr 12/28/20 05:00 12/31/20 13:37 Chloride IV 200 mls/hr Q8H VANESSA Administration Vancomycin HCl 1 gm/ Sodium 250 mls @ 167 mls/hr 12/30/20 13:00 12/31/20 02:50 Chloride IV Infused Q12H VANESSA Infusion Insulin Human Regular 2 - 10 unit 12/28/20 19:00 12/31/20 13:11 Insulin Regular Human 300 Unit/3 Ml Vial SUBQ 2 unit Q6HR VANESSA Administration Protocol Ketorolac Tromethamine 15 mg 12/27/20 18:00 12/31/20 12:28 Ketorolac 30 Mg/Ml Vial IVP 01/01/21 17:59 15 mg Q6HR VANESSA Administration Methocarbamol 500 mg 12/27/20 18:00 12/31/20 12:28 Methocarbamol 500 Mg Tablet PO 500 mg Q6HR VANESSA Administration Metoclopramide HCl 10 mg 12/27/20 18:00 12/31/20 12:28 Metoclopramide 10 Mg/2 Ml Vial IVP 10 mg Q6HR VANESSA Administration Metoprolol Tartrate 5 mg 12/30/20 17:00 12/31/20 08:46 Metoprolol 5 Mg/5 Ml Vial IVP 5 mg Q8H VANESSA Administration Morphine Sulfate 2 mg 12/18/20 08:36 12/31/20 11:36 Morphine 2 Mg/Ml Carpuject IVP 2 mg Q2HR PRN Administration PAIN Polyethylene Glycol 17 gm 12/27/20 21:00 12/31/20 08:45 Polyethylene Glycol 3350 17 Gm Packet PO 17 gm BID VANESSA Administration Sodium Chloride 10 ml 12/17/20 01:00 12/31/20 03:18 Sodium Chloride Flush 0.9% 10 Ml Syringe IVP 10 ml 0100,0900,1700 VANESSA Administration Sodium Chloride 10 ml 12/27/20 17:31 12/31/20 06:00 Sodium Chloride Flush 0.9% 10 Ml Syringe IVP 10 ml PRN PRN Administration NEEDED PER PROVIDER ORDERS Sodium Chloride 20 ml 12/30/20 01:06 12/31/20 04:49 Sodium Chloride Flush 0.9% 10 Ml Syringe IVP 20 ml PRN PRN Administration After Blood Draw - Physical Exam Wound/Incisions: positive: Healing well, Other (Wound VAC in place. Patient requests I not change it today as she has had such a busy morning.) General Appearance: positive: No acute distress, Alert Eyes Bilateral: positive: Normal inspection Neck: positive: No JVD Cardiovascular: positive: Regular rate & rhythm Abdomen: positive: Other (Appropriately tender to palpation with active bowel sounds.Ostomy is pink and viable.) Extremities: positive: Pedal edema Neurologic/Psychiatric: positive: Oriented x3 ABX Reporting Has patient been on IV antibiotics over the past 48 hours?: Yes Impression/Plan - Problem List Problem List: Postop day 4 after hand-assisted laparoscopic colon resection with resection and repair of small bowel fistula, repair of urinary bladder, and placement of diverting ileostomy.She continues to third space but in general she is looking much better.Ostomy and wound VAC supplies are in the room. I will plan to change it in the morning before she gets out of bed.Her pain is well controlled. We will continue with meropenem, vancomycin, and fluconazole due to the nature of the illness and prior cultures.Hold the diet clear liquids for now. Gait all of the excellent assistance from Hospitalist service
[2020-12-31] MEDS ORDERED: IOPAMIDOL-300 100 ML VIAL ONE (16:21)
--- NOTE | 2020-12-31 17:19 | PROVIDER PROGRESS NOTE ---
Assessment/Plan - Problem List (1) Perforation and abscess of large intestine concurrent with and due to diverticulitis Assessment/Plan: Continue with empiric antibiotics, clear liquid diet, management per surgery. Because of another drop in hemoglobin, will plan to image the abdomen with CT today to look for any new changes postop. (2) Tachycardia Assessment/Plan: Part of the tachycardia worsened when she had more distress. Continue with IV beta-pura and p.o. Cardizem. Treat the underlying pain. (3) Dyspnea Assessment/Plan: She is requiring much higher O2 settings in the last 24 hours. We will continue giving IV Lasix, especially since she will get a blood transfusion today. Plan on imaging the chest with CT machine is fixed (it is currently broken). She is getting empiric Vanco, Diflucan and meropenem, broad-spectrum which would cover most lung pathogens. (4) Anemia Assessment/Plan: Hemoglobin dropped to 6.8 today. She is still in significant positive fluid balance and is mobilizing the fluids. We will give 1 unit PRBCs, treat with iv Lasix pre and post. Follow CBC about every 12 hours (5) Hyponatremia Assessment/Plan: Continue with saline in her IV meds being administered. Follow BMP daily (6) Hypokalemia Assessment/Plan: Replace with ICU protocol. Follow BMP daily (7) HTN (hypertension) Assessment/Plan: We are continuing to hold oral BP meds since her Lopressor and p.o. Cardizem are needed for rate control (8) Septic shock Assessment/Plan: Resolved - Current Meds Current Meds: Current Medications Generic Name Dose Route Start Last Admin Trade Name Gabe PRN Reason Stop Dose Admin Acetaminophen 650 mg 12/28/20 10:01 12/28/20 11:50 Acetaminophen 325 Mg Tablet PO 650 mg Q4HR PRN Administration Pain or Fever > 38C (100.4F) Carboxymethylcellulose 1 drops 12/30/20 14:41 12/30/20 14:51 Carboxymethylcellulose Ophth Drops EACHEYE 1 drops PRN PRN Administration Dry Eye Diltiazem HCl 30 mg 12/30/20 18:00 12/31/20 12:29 Diltiazem 30 Mg Tablet PO 30 mg Q6HR VANESSA Administration Docusate Sodium 100 mg 12/27/20 21:00 12/31/20 08:45 Docusate Sodium 100 Mg Capsule PO 100 mg BID VANESSA Administration Famotidine 20 mg 12/30/20 11:00 12/31/20 08:45 Famotidine 20 Mg Tablet PO 20 mg BID VANESSA Administration Folic Acid 1 mg 12/30/20 11:00 12/31/20 08:45 Folic Acid 1 Mg Tablet PO 1 mg DAILY VANESSA Administration Heparin Sodium (Porcine) 5,000 unit 12/27/20 21:00 12/31/20 08:45 Heparin 5,000 Unit/Ml Vial SUBQ 5,000 unit BID VANESSA Administration Hydromorphone HCl 0.5 mg 12/30/20 11:36 12/31/20 12:51 Hydromorphone 0.5 Mg/0.5 Ml Syringe IVP 0.5 mg Q2H PRN Administration PAIN Multivitamins 10 ml/ TRACE 2,011 mls @ 60 mls/hr 12/26/20 19:00 12/30/20 18:53 ELEMENTS 1 ml/ Amino Ac/ IV 60 mls/hr Electrol/Dextrose/Calcium Q24H VANESSA Administration Protocol Fat Emulsion Intravenous 250 mls @ 21 mls/hr 12/26/20 19:00 12/31/20 07:26 Intralipid 20% IV Infused Q24H VANESSA Infusion Fluconazole 100 mls @ 100 mls/hr 12/28/20 09:00 12/31/20 10:57 Diflucan 200 Mg/100 Ml IV Infused DAILY VANESSA Infusion Meropenem 1 gm/ Sodium 100 mls @ 200 mls/hr 12/28/20 05:00 12/31/20 14:07 Chloride IV Infused Q8H VANESSA Infusion Vancomycin HCl 1 gm/ Sodium 250 mls @ 167 mls/hr 12/30/20 13:00 12/31/20 16:03 Chloride IV Infused Q12H VANESSA Infusion Insulin Human Regular 2 - 10 unit 12/28/20 19:00 12/31/20 13:11 Insulin Regular Human 300 Unit/3 Ml Vial SUBQ 2 unit Q6HR VANESSA Administration Protocol Ketorolac Tromethamine 15 mg 12/27/20 18:00 12/31/20 12:28 Ketorolac 30 Mg/Ml Vial IVP 01/01/21 17:59 15 mg Q6HR VANESSA Administration Methocarbamol 500 mg 12/27/20 18:00 12/31/20 12:28 Methocarbamol 500 Mg Tablet PO 500 mg Q6HR VANESSA Administration Metoclopramide HCl 10 mg 12/27/20 18:00 12/31/20 12:28 Metoclopramide 10 Mg/2 Ml Vial IVP 10 mg Q6HR VANESSA Administration Metoprolol Tartrate 5 mg 12/30/20 17:00 12/31/20 08:46 Metoprolol 5 Mg/5 Ml Vial IVP 5 mg Q8H VANESSA Administration Morphine Sulfate 2 mg 12/18/20 08:36 12/31/20 14:27 Morphine 2 Mg/Ml Carpuject IVP 2 mg Q2HR PRN Administration PAIN Polyethylene Glycol 17 gm 12/27/20 21:00 12/31/20 08:45 Polyethylene Glycol 3350 17 Gm Packet PO 17 gm BID VANESSA Administration Sodium Chloride 10 ml 12/17/20 01:00 12/31/20 03:18 Sodium Chloride Flush 0.9% 10 Ml Syringe IVP 10 ml 0100,0900,1700 VANESSA Administration Sodium Chloride 10 ml 12/27/20 17:31 12/31/20 06:00 Sodium Chloride Flush 0.9% 10 Ml Syringe IVP 10 ml PRN PRN Administration NEEDED PER PROVIDER ORDERS Sodium Chloride 20 ml 12/30/20 01:06 12/31/20 04:49 Sodium Chloride Flush 0.9% 10 Ml Syringe IVP 20 ml PRN PRN Administration After Blood Draw - Lab Result Fish Bone Diagrams: 12/31/20 13:30 12/31/20 04:50 - Additional Planning My Orders: My Active Orders 12/30/20 17:00 Metoprolol Inj [Lopressor Inj] 5 mg IVP Q8H 12/30/20 18:00 diltiaZEM [Cardizem] 30 mg PO Q6HR 12/31/20 16:07 ANGIO CHEST W/WO [CT] Stat 12/31/20 16:58 ABDOMEN/PELVIS W [CT] Stat 01/01/21 05:00 BNP - B-NATRIURETIC PEPTIDE [IAI] DAILYLAB Subjective - Subjective Patient Reports: Feeling Better, Shortness of Breath (She alternates between feeling better and feeling very SOB) Objective Vital Signs: Vital Signs - 24 hr 12/30/20 12/30/20 12/30/20 18:00 18:34 19:00 Temperature Heart Rate Heart Rate [ 124 H 122 H Monitoring electrodes] Respiratory 32 H 25 H Rate Blood Pressure 140/62 H Blood Pressure 140/62 H 128/78 [left radial] O2 Saturation 98 97 12/30/20 12/30/20 12/30/20 20:00 21:00 22:00 Temperature 37.4 C Heart Rate Heart Rate [ 127 H 123 H 122 H Monitoring electrodes] Respiratory 27 H 29 H 26 H Rate Blood Pressure Blood Pressure 131/68 H 151/68 H 128/72 [left radial] O2 Saturation 93 91 L 94 12/30/20 12/30/20 12/31/20 23:00 23:13 00:00 Temperature 38 C H Heart Rate Heart Rate [ 131 H 128 H Monitoring electrodes] Respiratory 27 H 23 Rate Blood Pressure 147/81 H Blood Pressure 147/81 H 99/58 L [left radial] O2 Saturation 91 L 92 12/31/20 12/31/20 12/31/20 01:04 01:05 02:00 Temperature Heart Rate Heart Rate [ 122 H 106 H Monitoring electrodes] Respiratory 20 23 Rate Blood Pressure 112/56 L Blood Pressure 112/56 L 98/60 [left radial] O2 Saturation 100 93 12/31/20 12/31/20 12/31/20 03:00 04:00 05:00 Temperature 37.4 C Heart Rate Heart Rate [ 112 H 118 H 130 H Monitoring electrodes] Respiratory 28 H 28 H 36 H Rate Blood Pressure Blood Pressure 105/62 96/82 H 134/64 H [left radial] O2 Saturation 93 93 90 L 12/31/20 12/31/20 12/31/20 06:00 06:01 07:00 Temperature 37.4 C Heart Rate Heart Rate [ 133 H 117 H Monitoring electrodes] Respiratory 23 24 Rate Blood Pressure 130/62 Blood Pressure 130/62 93/54 L [left radial] O2 Saturation 90 L 88 L 12/31/20 12/31/20 12/31/20 08:00 08:11 08:30 Temperature 37.7 C 37.7 C 37.4 C Heart Rate 120 H 114 H Heart Rate [ 124 H Monitoring electrodes] Respiratory 30 H 29 H 26 H Rate Blood Pressure 119/60 124/57 L Blood Pressure 119/60 [left radial] O2 Saturation 96 12/31/20 12/31/20 12/31/20 09:00 10:00 11:00 Temperature Heart Rate Heart Rate [ 104 H 109 H 110 H Monitoring electrodes] Respiratory 31 H 32 H 34 H Rate Blood Pressure Blood Pressure 125/68 133/73 H 128/67 [left radial] O2 Saturation 96 94 92 12/31/20 12/31/20 12/31/20 12:00 12:15 13:00 Temperature 37.6 C 37.8 C Heart Rate 115 H Heart Rate [ 116 H 116 H Monitoring electrodes] Respiratory 35 H 33 H 24 Rate Blood Pressure 143/69 H Blood Pressure 138/68 H 121/68 [left radial] O2 Saturation 95 96 12/31/20 12/31/20 12/31/20 14:00 15:00 16:00 Temperature 37.4 C Heart Rate Heart Rate [ 116 H 113 H 116 H Monitoring electrodes] Respiratory 28 H 30 H 29 H Rate Blood Pressure Blood Pressure 123/75 127/63 130/72 [left radial] O2 Saturation 96 96 92 Oxygen O2 Source Nasal cannula I&O (Last 24 Hrs): Intake and Output Totals x24h 12/29/20 12/30/20 12/31/20 23:59 23:59 23:59 Intake Total 4946.25 5163.083 1450 Output Total 4150 5820 3838 Balance 796.25 -656.917 -9938 General: Alert, Oriented x3 HEENT: Mucous membr. moist/pink, Other (On O2 per n.c.) Neck: Supple, No JVD Neuro: Alert, Non Focal Cardiovascular: Regular rate Respiratory: Other (Tachypneic with speaking) Abdomen: Other (Drains and ostomy in place) Extremities: Other (1+ edema) - Results Results: Laboratory Results WBC 20.5 x10^3/uL (4.8-10.8) H 12/31/20 04:50 RBC 2.19 10^6/uL (4.20-5.40) L 12/31/20 04:50 Hgb 8.7 g/dL (12.0-16.0) L 12/31/20 13:30 Hct 26.3 % (37.0-47.0) L 12/31/20 13:30 MCV 95.9 fL (81.0-99.0) 12/31/20 04:50 MCH 31.1 pg (27.0-31.0) H 12/31/20 04:50 MCHC 32.4 g/dL (32.0-36.0) 12/31/20 04:50 RDW 14.7 % (12.0-15.0) 12/31/20 04:50 Plt Count 450 10^3/uL (130-450) 12/31/20 04:50 MPV 9.7 fL (7.9-10.8) 12/31/20 04:50 Neut # (Auto) Not Reportable 12/31/20 04:50 Lymph # (Auto) Not Reportable 12/31/20 04:50 [place] # (Auto) Not Reportable 12/31/20 04:50 Eos # (Auto) Not Reportable 12/31/20 04:50 Baso # (Auto) Not Reportable 12/31/20 04:50 Absolute Nucleated RBC Not Reportable 12/31/20 04:50 Total Counted 100 12/31/20 04:50 Band Neuts % (Manual) 0 % (0-10) 12/31/20 04:50 Abnorm Lymph % (Manual) 0 % 12/31/20 04:50 Myelocytes % 1 % (-0) H 12/31/20 04:50 Nucleated RBC % Not Reportable 12/31/20 04:50 Neutrophils # (Manual) 17.8 10^3/uL (1.5-6.6) H 12/31/20 04:50 Lymphocytes # (Manual) 1.2 10^3/uL (1.5-3.5) L 12/31/20 04:50 Monocytes # (Manual) 0.2 10^3/uL (0.0-1.0) 12/31/20 04:50 Eosinophils # (Manual) 1.0 10^3/uL (0-0.7) H 12/31/20 04:50 Basophils # (Manual) 0.0 10^3/uL (0-0.1) 12/31/20 04:50 Differential Comment MANUAL DIFFERENTIAL 12/31/20 04:50 Manual Slide Review Indicated 12/16/20 16:00 WBC Morphology NORMAL APPEARANCE (NORMAL) 12/31/20 04:50 Platelet Estimate NORMAL (130-450,000) (NORMAL) 12/31/20 04:50 Platelet Morphology NORMAL APPEARANCE (NORMAL) 12/31/20 04:50 RBC Morph Micro Appear 1+ HYPOCHROMASIA (NORMAL) 12/31/20 04:50 PT 16.1 secs (9.9-12.6) H 12/31/20 04:50 INR 1.5 (0.8-1.2) H 12/31/20 04:50 Whole Blood INR 1.4 (0.8-1.2) H 12/29/20 09:13 Sodium 131 mmol/L (135-145) L 12/31/20 04:50 Potassium 3.2 mmol/L (3.5-5.0) L 12/31/20 04:50 Chloride 100 mmol/L (101-111) L 12/31/20 04:50 Carbon Dioxide 23 mmol/L (21-32) 12/31/20 04:50 Anion Gap 8.0 (6-13) 12/31/20 04:50 BUN 14 mg/dL (6-20) 12/31/20 04:50 Creatinine 0.5 mg/dL (0.4-1.0) 12/31/20 04:50 Estimated GFR (MDRD) 127 (>89) 12/31/20 04:50 Glucose 140 mg/dL (70-100) H 12/31/20 04:50 POC Whole Bld Glucose 145 mg/dL (70 - 100) H 12/31/20 12:38 Calcium 7.2 mg/dL (8.5-10.3) L 12/31/20 04:50 Phosphorus 3.2 mg/dL (2.5-4.6) 12/31/20 04:50 Magnesium 1.4 mg/dL (1.7-2.8) L 12/31/20 04:50 Iron 6 ug/dL (28-170) L 12/30/20 05:00 TIBC 115 ug/dL (250-450) L 12/30/20 05:00 % Saturation 5 % (20-50) L 12/30/20 05:00 Transferrin 82 mg/dL (192-382) L 12/30/20 05:00 Total Bilirubin 0.8 mg/dL (0.2-1.0) 12/31/20 04:50 AST 33 IU/L (10-42) 12/31/20 04:50 ALT 13 IU/L (10-60) 12/31/20 04:50 Alkaline Phosphatase 75 IU/L (42-121) 12/31/20 04:50 B-Natriuretic Peptide 133 pg/mL (5-100) H 12/31/20 04:50 Total Protein 5.6 g/dL (6.7-8.2) L 12/31/20 04:50 Albumin 1.6 g/dL (3.2-5.5) L 12/31/20 04:50 Globulin 4.0 g/dL (2.1-4.2) 12/31/20 04:50 Albumin/Globulin Ratio 0.4 (1.0-2.2) L 12/31/20 04:50 Prealbumin 6 mg/dL (18-45) L 12/31/20 04:50 Triglycerides 80 mg/dL (-149) 12/31/20 04:50 Lipase 27 U/L (22-51) 12/16/20 16:00 Vitamin B12 893 pg/mL (180-914) 12/30/20 05:00 Folate 3.80 ng/mL (5.90 - >24.8) L 12/30/20 05:00 TSH 2.48 uIU/mL (0.34-5.60) 12/28/20 05:00 Urine Color YELLOW 12/29/20 11:30 Urine Clarity CLEAR (CLEAR) 12/29/20 11:30 Urine pH 7.0 PH (5.0-7.5) 12/29/20 11:30 Ur Specific [place] 1.020 (1.002-1.030) 12/29/20 11:30 Urine Protein NEGATIVE mg/dL (NEGATIVE) 12/29/20 11:30 Urine Glucose (UA) NEGATIVE mg/dL (NEGATIVE) 12/29/20 11:30 Urine Ketones NEGATIVE mg/dL (NEGATIVE) 12/29/20 11:30 Urine Occult Blood TRACE-LYSE (NEGATIVE) 12/29/20 11:30 Urine Nitrite NEGATIVE (NEGATIVE) 12/29/20 11:30 Urine Bilirubin NEGATIVE (NEGATIVE) 12/29/20 11:30 Urine Urobilinogen 0.2 (NORMAL) E.U./dL (NORMAL) 12/29/20 11:30 Ur Leukocyte Esterase NEGATIVE (NEGATIVE) 12/29/20 11:30 Ur Microscopic Review NOT INDICATED 12/29/20 11:30 Urine Culture Comments NOT INDICATED 12/29/20 11:30 Nasal Adenovirus (PCR) NOT DETECTED 12/16/20 17:54 Nasal B. parapertussis DNA (PCR) NOT DETECTED 12/16/20 17:54 Nasal Coronavir 229E PCR NOT DETECTED 12/16/20 17:54 Nasal Coronavir HKU1 PCR NOT DETECTED 12/16/20 17:54 Nasal Coronavir NL63 PCR NOT DETECTED 12/16/20 17:54 Nasal Coronavir OC43 PCR NOT DETECTED 12/16/20 17:54 Nasal Enterovir/Rhinovir PCR NOT DETECTED 12/16/20 17:54 Nasal Influenza B PCR NOT DETECTED 12/16/20 17:54 Nasal Influenza A PCR NOT DETECTED 12/16/20 17:54 Nasal Parainfluen 1 PCR NOT DETECTED 12/16/20 17:54 Nasal Parainfluen 2 PCR NOT DETECTED 12/16/20 17:54 Nasal Parainfluen 3 PCR NOT DETECTED 12/16/20 17:54 Nasal Parainfluen 4 PCR NOT DETECTED 12/16/20 17:54 Nasal RSV (PCR) NOT DETECTED 12/16/20 17:54 Nasal Screen MRSA (PCR) NEGATIVE (NEGATIVE) 12/27/20 18:00 Nasal B.pertussis DNA PCR NOT DETECTED 12/16/20 17:54 Nasal C.pneumoniae (PCR) NOT DETECTED 12/16/20 17:54 Robin Human Metapneumo PCR NOT DETECTED 12/16/20 17:54 Nasal M.pneumoniae (PCR) NOT DETECTED 12/16/20 17:54 Nasal SARS-CoV-2 (PCR) NOT DETECTED 12/16/20 17:54 Last Dose Date UNK 12/30/20 07:40 Last Dose Time UNK 12/30/20 07:40 Vancomycin Trough 25.2 ug/mL (10.0-20.0) H* 12/30/20 07:40 Blood Type O POSITIVE 12/28/20 20:28 Blood Type Recheck O POSITIVE 12/28/20 05:00 Antibody Screen NEGATIVE 12/28/20 20:28 Crossmatch IS Only See Detail 12/28/20 20:28
--- NOTE | 2020-12-31 17:42 | CT Report ---
PROCEDURE: ANGIO CHEST W/WO INDICATIONS: Worsening SOB and desaturations CONTRAST: IV CONTRAST: Isovue 300 ml: 100 PO CONTRAST: *NO PO CONTRAST TECHNIQUE: After the administration of intravenous contrast, 2 mm thick sections acquired from the pulmonary api yoandy to the posterior costophrenic angles. 3-dimensional maximum intensity projection (MIP) coronal a nd sagittal reformats were then acquired through the thorax. For radiation dose reduction, the follow ing was used: automated exposure control, adjustment of mA and/or kV according to patient size. COMPARISON: Correlation is made with the accompanying abdomen and pelvis CT, 12/31/2020. Correlation is also made with the accompanying chest x-ray, 12/31/2020. FINDINGS: Image quality: Motion artifact is noted. Pulmonary arteries: Pulmonary arteries are normal in size, and demonstrate no intraluminal filling d efects to suggest central pulmonary embolism. Lungs and pleura: Abnormal patchy interstitial infiltrates are seen, which appear worse by chest CT t beyer on the recent prior chest radiograph. There is a small left-sided pleural effusion. Mild overlyin g dependent atelectasis can be seen at the left lung base. No pneumothorax. The central airways are p atent. Mediastinum: Heart size is normal, without pericardial effusion. No mediastinal or hilar adenopathy . Thoracic aorta is normal in caliber and enhancement. Esophagus is normal in caliber.There is a sm all hiatal hernia. Bones and chest wall: There is a right-sided PICC line, with the tip near the cavoatrial junction. N o suspicious bony lesions. Ribs and thoracic spine appear intact throughout. The thyroid is normal. No axillary or supraclavicular adenopathy. Abdomen: Visualized upper abdominal solid organs appear normal in the early arterial phase of enhanc ement. IMPRESSION: Negative for pulmonary embolism. Abnormal interstitial infiltrates are seen. Please consider carotid pneumonia versus pulmonary edema. Small left-sided pleural effusion. Incidental note is made of: Right-sided PICC line Small hiatal hernia Reviewed by: Rad Garcia MD on 12/31/2020 4:41 PM AKDT Approved by: Rad Garcia MD on 12/31/2020 4:41 PM AKDT Station ID: [id number]
--- NOTE | 2020-12-31 17:52 | CT Report ---
PROCEDURE: Abdomen/Pelvis W INDICATIONS: ANEMIA, POST OP EVAL CONTRAST: IV CONTRAST: Isovue 300 ml: 100 PO CONTRAST: *NO PO CONTRAST TECHNIQUE: After the administration of nonionic IV contrast contrast, 5 mm thick sections acquired from the diap hragms to the symphysis. 5 mm thick coronal and sagittal reformats were acquired. For radiation dos e reduction, the following was used: automated exposure control, adjustment of mA and/or kV accordin g to patient size. COMPARISON: 12/26/2020, 12/22/2020. Correlation is also made with a complete chest CT, 12/31/2020. FINDINGS: Image quality: Excellent. ABDOMEN: Lung bases: There is a small left-sided pleural effusion. Interstitial type infiltrates are seen at t he lung bases. Heart size is normal. Solid organs: Liver and spleen are normal in size and enhancement. Gallbladder wall does not appear thickened. Biliary system is non dilated. Pancreas enhances normally. No adrenal nodules. Kidn eys demonstrate normal size and enhancement, without hydronephrosis. Peritoneum and bowel: Partial colectomy change can be seen. There is a rectal anastomotic staple line seen. Small bowel anastomotic staple lines are also seen. Dilated loops of proximal small bowel can be seen that measure up to 3.6 cm. The proximal small bowel loops loops are mildly hyperenhancing. Th e distal small bowel loops are decompressed. There is a relative transition point identified adjacent to the small bowel anastomotic staple line, as on series 4 image 16. The previously administered ora l contrast can be seen within the colon. There is a right-sided drainage catheter. A small amount of free intraperitoneal fluid can be seen. No definite free air can be seen. The previ ously described right paracolic fluid collections are improved. Nodes and vessels: No retroperitoneal or mesenteric adenopathy by size criteria. Aorta and inferior vena cava are normal in size. Miscellaneous: No ventral hernias. Postoperative akash can be seen adjacent to the umbilicus. PELVIS: Genitourinary: Bladder wall thickness is normal. Miscellaneous: No inguinal hernias or adenopathy. Bones: No suspicious bony lesions. No vertebral body compression fractures. IMPRESSION: Abnormally dilated loops of proximal small bowel with decompressed distal small bowel loops. There i s a relative transition point seen within the lower mid abdomen, adjacent to a small bowel anastomoti c staple line. Given the forward progress of the previously administered oral contrast (now seen with in the colon) concern is raised for a partial small bowel obstruction, although ileus is also possibl e in this postoperative patient. Prior partial colectomy, with a rectal anastomotic staple line. A right-sided drainage catheter can be seen. Improved right paracolic gutter fluid collections, suggestive of resolving abscesses. There is a small left-sided pleural effusion. Interstitial type infiltrates are seen at the lung base s. Reviewed by: Rad Garcia MD on 12/31/2020 4:51 PM AKGRAY Approved by: Rad Garcia MD on 12/31/2020 4:51 PM JULIO Station ID: [id number]
[2020-12-31] MEDS ORDERED: IOPAMIDOL-300 100 ML VIAL IVP ONE (18:29)
[2020-12-31] MEDS ORDERED: FUROSEMIDE 20 MG/2 ML VIAL IVP STA (18:46)
[2020-12-31] MEDS ORDERED: MORPHINE 2 MG/ML CARPUJECT IVP STA (18:47)
[2020-12-31] MEDS: FAT EMULSION 20% 250 ML IV SCH (19:47)
[2020-12-31] MEDS: TPN (CLINIMIX E 5/15) 2,000 ML with MULTIVITAMIN 10 ML, TRACE ELEMENTS 1 ML IV SCH ×3 (19:48)
[2021-01-01] MEDS: INSULIN REGULAR HUMAN 300 UNIT/3 ML VIAL SUBQ SCH ×5 (00:07→23:54)
[2021-01-01] MEDS: VANCOMYCIN INJ 1 GM in SODIUM CHLORIDE 0.9% 250 ML IV SCH (01:14)
[2021-01-01] MEDS: METOPROLOL 5 MG/5 ML VIAL IVP SCH ×3 (01:14→16:37)
[2021-01-01] MEDS: MORPHINE 2 MG/ML CARPUJECT IVP PRN ×4 (03:24→18:06)
[2021-01-01] MEDS: SODIUM CHLORIDE FLUSH 0.9% 10 ML SYRINGE IVP PRN ×5 (03:25→05:58)
[2021-01-01] MEDS: MEROPENEM 1 GM in SODIUM CHLORIDE 0.9% MINIBAG 100 ML IV SCH (04:40)
[2021-01-01] MEDS: HYDROmorphone 0.5 MG/0.5 ML SYRINGE IVP PRN ×7 (04:49→23:42)
[2021-01-01 05:35] LABS: BASOPHILS % (AUTO) 0.4 %; EOSINOPHILS % (AUTO) 2.2 %; HGB - HEMOGLOBIN 8.6 g/dL (12.0-16.0); LYMPHOCYTES % (AUTO) 5.7 %; MEAN CORPUSCULAR HGB CONC 33.1 g/dL (32.0-36.0); MEAN CORPUSCULAR VOLUME 90.6 fL (81.0-99.0); MONOCYTES % (AUTO) 3.4 %; NEUTROPHILS % (AUTO) 84.3 %; PLT - PLATELET COUNT 465 10^3/uL (130-450); RED BLOOD COUNT 2.87 10^6/uL (4.20-5.40); RED CELL DISTRIBUTION WIDTH 17.1 % (12.0-15.0); WHITE BLOOD COUNT 20.1 x10^3/uL (4.8-10.8)
[2021-01-01 05:42] LABS: ABNORMAL LYMPHS % (MANUAL) 0 %
[2021-01-01 05:49] LABS: CALCIUM 7.4 mg/dL (8.5-10.3); CREATININE 0.4 mg/dL (0.4-1.0); MAGNESIUM 1.4 mg/dL (1.7-2.8); PHOSPHORUS 2.9 mg/dL (2.5-4.6); POTASSIUM 2.8 mmol/L (3.5-5.0)
[2021-01-01 05:57] LABS: BAND NEUTROPHILS % (MANUAL) 1 %; EOSINOPHILS # (MANUAL) 0.2 10^3/uL (0-0.7); LYMPHOCYTES # (MANUAL) 1.6 10^3/uL (1.5-3.5); LYMPHOCYTES % (MANUAL) 8 %; METAMYELOCYTES % (MANUAL) 1 %; MYELOCYTES % (MANUAL) 4 %; NEUTROPHILS # (MANUAL) 16.3 10^3/uL (1.5-6.6); PLATELET ESTIMATE, MANUAL INCREASED (>450,000) (NORMAL); PLATELET MORPHOLOGY NORMAL APPEARANCE (NORMAL); RBC MORPHOLOGY (MULTIPLE) 1+ ANISOCYTOSIS (NORMAL); WBC MORPHOLOGY (MULTIPLE) NORMAL APPEARANCE (NORMAL)
[2021-01-01 05:58] LABS: DIFFERENTIAL COMMENT MANUAL DIFFERENTIAL
[2021-01-01] MEDS: FUROSEMIDE 20 MG/2 ML VIAL IVP SCH ×2 (05:58→13:24)
[2021-01-01] MEDS: METOCLOPRAMIDE 10 MG/2 ML VIAL IVP SCH ×4 (05:58→23:55)
[2021-01-01] MEDS: KETOROLAC 30 MG/ML VIAL IVP SCH ×2 (05:58→12:27)
[2021-01-01] MEDS: diltiaZEM 30 MG TABLET PO SCH ×3 (06:01→18:00)
[2021-01-01] MEDS: methocarbamoL 500 MG TABLET PO SCH ×3 (06:08→18:00)
[2021-01-01] MEDS: TPN (CLINIMIX E 5/15) 2,000 ML with MULTIVITAMIN 10 ML, TRACE ELEMENTS 1 ML IV SCH ×6 (08:00→19:54)
[2021-01-01 08:45] LABS: ABG PCO2 38 mmHg (34-45); ABG PH 7.49 (7.35-7.45)
[2021-01-01 08:46] LABS: ABG HCO3 28.7 mmol/L (22.0-26.0); ALLEN TEST POSITIVE
[2021-01-01 08:50] LABS: ABG OXYGEN SATURATION 82 % (94-98); ABG PO2 43 mmHg (80-100)
[2021-01-01] MEDS: POTASSIUM CHLORIDE 20 MEQ TABLET PO SCH ×2 (08:59→12:14)
[2021-01-01] MEDS: DOCUSATE SODIUM 100 MG CAPSULE PO SCH ×2 (09:00→21:10)
[2021-01-01] MEDS: MAGNESIUM OXIDE 400 MG TABLET PO SCH ×2 (09:00→13:24)
[2021-01-01] MEDS: SODIUM CHLORIDE FLUSH 0.9% 10 ML SYRINGE IVP SCH ×4 (09:00→23:56)
[2021-01-01] MEDS: FOLIC ACID 1 MG TABLET PO SCH (09:00)
[2021-01-01] MEDS: FAMOTIDINE 20 MG TABLET PO SCH ×2 (09:00→21:10)
[2021-01-01] MEDS: polyethylene glycoL 3350 17 GM PACKET PO SCH ×2 (09:01→21:10)
[2021-01-01] MEDS: FLUCONAZOLE 200 MG/100 ML 100 ML IV SCH (09:03)
[2021-01-01] MEDS: HEPARIN 5,000 UNIT/ML VIAL SUBQ SCH ×2 (09:07→21:14)
--- NOTE | 2021-01-01 09:49 | PROVIDER PROGRESS NOTE ---
Subjective - General Admit Date: 12/16/20 Procedure Date: 12/27/20 Post Op Days: 5 Procedure Performed: Hand-assisted laparoscopic colectomy with small bowel resection, repair of - Review of Systems Wound/Incisions: positive: Healing well, Other (Wound VAC in place. Patient requests I not change it today as she has had such a busy morning.) Drain Type: clearing Drain Output Description: serous General: positive: No symptoms HEENT: positive: No symptoms Pulmonary: positive: Shortness of breath Cardiovascular: positive: Dyspnea on exertion, Edema Gastrointestinal: negative: Nausea, Vomiting Genitourinary: positive: No symptoms Skin: positive: No symptoms All Other Systems: positive: Reviewed and negative - Other Other Information/Narrative: Complaint this morning is shortness of breath. CT scan late yesterday afternoon was encouraging. She still has some dilated loops of proximal small bowel with a relative transition point at the anastomosis. Fortunately, she is not had any nausea. Her ostomy continues to work and is producing some air as well as succus.She has been switched to high flow oxygen this morning to maintain a saturation above 90%.She reports her pain is reasonably well controlled. Objective - Patient Data Reviewed Vital Signs: Yes Vital Signs: Vital Signs x48h Temp Pulse Resp BP BP Pulse Ox 01/01/21 09:00 116 H 32 H 123/65 90 L 01/01/21 08:19 37.3 C 01/01/21 08:00 106 H 26 H 108/59 L 96 01/01/21 07:00 108 H 24 110/62 95 01/01/21 06:01 110/65 01/01/21 06:00 37.1 C 109 H 21 110/65 92 01/01/21 05:00 117 H 42 H 150/72 H 87 L 01/01/21 04:00 37.1 C 110 H 41 H 147/71 H 86 L 01/01/21 03:00 112 H 34 H 138/73 H 90 L 01/01/21 02:00 93 22 105/58 L 96 Weight: Weight 12/30/20 12/31/20 01/01/21 23:59 23:59 23:59 Weight (kg) 91.5 kg 91 kg 81.5 kg Intake & Output: Intake and Output Totals x24h 12/30/20 12/31/20 01/01/21 23:59 23:59 23:59 Intake Total 5163.083 3535 1346 Output Total 7390 7284 7541 [facility] -[phone] - Lab Results Lab Results: 01/01/21 04:55 01/01/21 04:55 Other Lab Results: Lab Results x24hrs 01/01/21 01/01/21 01/01/21 Range/Units 08:30 06:06 04:55 WBC (4.8-10.8) x10^3/uL RBC (4.20-5.40) 10^6/uL Hgb (12.0-16.0) g/dL Hct (37.0-47.0) % MCV (81.0-99.0) fL MCH (27.0-31.0) pg MCHC (32.0-36.0) g/dL RDW (12.0-15.0) % Plt Count (130-450) 10^3/uL MPV (7.9-10.8) fL Neut # (Auto) Lymph # (Auto) Curry # (Auto) Eos # (Auto) Baso # (Auto) Absolute Nucleated RBC Total Counted Band Neuts % (Manual) (0 - 10) % Abnorm Lymph % (Manual) % Metamyelocytes % ( - 0) % Myelocytes % ( - 0) % Nucleated RBC % Neutrophils # (Manual) (1.5-6.6) 10^3/uL Lymphocytes # (Manual) (1.5-3.5) 10^3/uL Monocytes # (Manual) (0.0-1.0) 10^3/uL Eosinophils # (Manual) (0-0.7) 10^3/uL Basophils # (Manual) (0-0.1) 10^3/uL Differential Comment WBC Morphology (NORMAL) Platelet Estimate (NORMAL) Platelet Morphology (NORMAL) RBC Morph Micro Appear (NORMAL) Bld Gas Analysis Time 0830 Sample Site RIGHT RADIAL ABG pH 7.49 H (7.35-7.45) ABG pCO2 38 (34-45) mmHg ABG pO2 43 L* (80-100) mmHg ABG HCO3 28.7 H (22.0-26.0) mmol/L ABG Total CO2 30.0 H (21.0-29.0) MMOL/L ABG O2 Saturation 82 L* (94-98) % ABG Base Excess 5.0 H (-2.0-3.0) mmol/L Olaf Test POSITIVE O2 Delivery Device OXYMASK O2 Liters/Min 9.00 LPM Sodium 132 L (135-145) mmol/L Potassium 2.8 L (3.5-5.0) mmol/L Chloride 98 L (101-111) mmol/L Carbon Dioxide 25 (21-32) mmol/L Anion Gap 9.0 (6-13) BUN 13 (6-20) mg/dL Creatinine 0.4 (0.4-1.0) mg/dL Estimated GFR (MDRD) 164 (>89) Glucose 164 H (70-100) mg/dL POC Whole Bld Glucose 157 H (70 - 100) mg/dL Calcium 7.4 L (8.5-10.3) mg/dL Phosphorus 2.9 (2.5-4.6) mg/dL Magnesium 1.4 L (1.7-2.8) mg/dL B-Natriuretic Peptide (5-100) pg/mL Blood Type Antibody Screen Crossmatch IS Only 01/01/21 01/01/21 01/01/21 Range/Units 04:55 04:55 00:02 WBC 20.1 H (4.8-10.8) x10^3/uL RBC 2.87 L (4.20-5.40) 10^6/uL Hgb 8.6 L (12.0-16.0) g/dL Hct 26.0 L (37.0-47.0) % MCV 90.6 (81.0-99.0) fL MCH 30.0 (27.0-31.0) pg MCHC 33.1 (32.0-36.0) g/dL RDW 17.1 H (12.0-15.0) % Plt Count 465 H (130-450) 10^3/uL MPV 10.0 (7.9-10.8) fL Neut # (Auto) Not Reportable Lymph # (Auto) Not Reportable Curry # (Auto) Not Reportable Eos # (Auto) Not Reportable Baso # (Auto) Not Reportable Absolute Nucleated RBC Not Reportable Total Counted 100 Band Neuts % (Manual) 1 (0 - 10) % Abnorm Lymph % (Manual) 0 % Metamyelocytes % 1 H ( - 0) % Myelocytes % 4 H ( - 0) % Nucleated RBC % Not Reportable Neutrophils # (Manual) 16.3 H (1.5-6.6) 10^3/uL Lymphocytes # (Manual) 1.6 (1.5-3.5) 10^3/uL Monocytes # (Manual) 1.0 (0.0-1.0) 10^3/uL Eosinophils # (Manual) 0.2 (0-0.7) 10^3/uL Basophils # (Manual) 0.0 (0-0.1) 10^3/uL Differential Comment MANUAL DIFFERENTIAL WBC Morphology NORMAL APPEARANCE (NORMAL) Platelet Estimate INCREASED (>450,000) (NORMAL) Platelet Morphology NORMAL APPEARANCE (NORMAL) RBC Morph Micro Appear 1+ ANISOCYTOSIS (NORMAL) Bld Gas Analysis Time Sample Site ABG pH (7.35-7.45) ABG pCO2 (34-45) mmHg ABG pO2 (80-100) mmHg ABG HCO3 (22.0-26.0) mmol/L ABG Total CO2 (21.0-29.0) MMOL/L ABG O2 Saturation (94-98) % ABG Base Excess (-2.0-3.0) mmol/L Olaf Test O2 Delivery Device O2 Liters/Min LPM Sodium (135-145) mmol/L Potassium (3.5-5.0) mmol/L Chloride (101-111) mmol/L Carbon Dioxide (21-32) mmol/L Anion Gap (6-13) BUN (6-20) mg/dL Creatinine (0.4-1.0) mg/dL Estimated GFR (MDRD) (>89) Glucose (70-100) mg/dL POC Whole Bld Glucose 152 H (70 - 100) mg/dL Calcium (8.5-10.3) mg/dL Phosphorus (2.5-4.6) mg/dL Magnesium (1.7-2.8) mg/dL B-Natriuretic Peptide 159 H (5-100) pg/mL Blood Type Antibody Screen Crossmatch IS Only 12/31/20 12/31/20 12/31/20 Range/Units 17:51 13:30 12:38 WBC (4.8-10.8) x10^3/uL RBC (4.20-5.40) 10^6/uL Hgb 8.7 L (12.0-16.0) g/dL Hct 26.3 L (37.0-47.0) % MCV (81.0-99.0) fL MCH (27.0-31.0) pg MCHC (32.0-36.0) g/dL RDW (12.0-15.0) % Plt Count (130-450) 10^3/uL MPV (7.9-10.8) fL Neut # (Auto) Lymph # (Auto) Curry # (Auto) Eos # (Auto) Baso # (Auto) Absolute Nucleated RBC Total Counted Band Neuts % (Manual) (0 - 10) % Abnorm Lymph % (Manual) % Metamyelocytes % ( - 0) % Myelocytes % ( - 0) % Nucleated RBC % Neutrophils # (Manual) (1.5-6.6) 10^3/uL Lymphocytes # (Manual) (1.5-3.5) 10^3/uL Monocytes # (Manual) (0.0-1.0) 10^3/uL Eosinophils # (Manual) (0-0.7) 10^3/uL Basophils # (Manual) (0-0.1) 10^3/uL Differential Comment WBC Morphology (NORMAL) Platelet Estimate (NORMAL) Platelet Morphology (NORMAL) RBC Morph Micro Appear (NORMAL) Bld Gas Analysis Time Sample Site ABG pH (7.35-7.45) ABG pCO2 (34-45) mmHg ABG pO2 (80-100) mmHg ABG HCO3 (22.0-26.0) mmol/L ABG Total CO2 (21.0-29.0) MMOL/L ABG O2 Saturation (94-98) % ABG Base Excess (-2.0-3.0) mmol/L Olaf Test O2 Delivery Device O2 Liters/Min LPM Sodium (135-145) mmol/L Potassium (3.5-5.0) mmol/L Chloride (101-111) mmol/L Carbon Dioxide (21-32) mmol/L Anion Gap (6-13) BUN (6-20) mg/dL Creatinine (0.4-1.0) mg/dL Estimated GFR (MDRD) (>89) Glucose (70-100) mg/dL POC Whole Bld Glucose 114 H 145 H (70 - 100) mg/dL Calcium (8.5-10.3) mg/dL Phosphorus (2.5-4.6) mg/dL Magnesium (1.7-2.8) mg/dL B-Natriuretic Peptide (5-100) pg/mL Blood Type Antibody Screen Crossmatch IS Only 12/28/20 Range/Units 20:28 WBC (4.8-10.8) x10^3/uL RBC (4.20-5.40) 10^6/uL Hgb (12.0-16.0) g/dL Hct (37.0-47.0) % MCV (81.0-99.0) fL MCH (27.0-31.0) pg MCHC (32.0-36.0) g/dL RDW (12.0-15.0) % Plt Count (130-450) 10^3/uL MPV (7.9-10.8) fL Neut # (Auto) Lymph # (Auto) Curry # (Auto) Eos # (Auto) Baso # (Auto) Absolute Nucleated RBC Total Counted Band Neuts % (Manual) (0 - 10) % Abnorm Lymph % (Manual) % Metamyelocytes % ( - 0) % Myelocytes % ( - 0) % Nucleated RBC % Neutrophils # (Manual) (1.5-6.6) 10^3/uL Lymphocytes # (Manual) (1.5-3.5) 10^3/uL Monocytes # (Manual) (0.0-1.0) 10^3/uL Eosinophils # (Manual) (0-0.7) 10^3/uL Basophils # (Manual) (0-0.1) 10^3/uL Differential Comment WBC Morphology (NORMAL) Platelet Estimate (NORMAL) Platelet Morphology (NORMAL) RBC Morph Micro Appear (NORMAL) Bld Gas Analysis Time Sample Site ABG pH (7.35-7.45) ABG pCO2 (34-45) mmHg ABG pO2 (80-100) mmHg ABG HCO3 (22.0-26.0) mmol/L ABG Total CO2 (21.0-29.0) MMOL/L ABG O2 Saturation (94-98) % ABG Base Excess (-2.0-3.0) mmol/L Olaf Test O2 Delivery Device O2 Liters/Min LPM Sodium (135-145) mmol/L Potassium (3.5-5.0) mmol/L Chloride (101-111) mmol/L Carbon Dioxide (21-32) mmol/L Anion Gap (6-13) BUN (6-20) mg/dL Creatinine (0.4-1.0) mg/dL Estimated GFR (MDRD) (>89) Glucose (70-100) mg/dL POC Whole Bld Glucose (70 - 100) mg/dL Calcium (8.5-10.3) mg/dL Phosphorus (2.5-4.6) mg/dL Magnesium (1.7-2.8) mg/dL B-Natriuretic Peptide (5-100) pg/mL Blood Type O POSITIVE Antibody Screen NEGATIVE Crossmatch IS Only See Detail - Imaging Results Radiology Imaging: positive: Final report received Imaging Results Comments: Improving appearance of abscess with no new collections - Current Medications Current Medications: Current Medications Generic Name Dose Route Start Last Admin Trade Name Freq PRN Reason Stop Dose Admin Acetaminophen 650 mg 12/28/20 10:01 12/28/20 11:50 Acetaminophen 325 Mg Tablet PO 650 mg Q4HR PRN Administration Pain or Fever > 38C (100.4F) Carboxymethylcellulose 1 drops 12/30/20 14:41 12/30/20 14:51 Carboxymethylcellulose Ophth Drops EACHEYE 1 drops PRN PRN Administration Dry Eye Diltiazem HCl 30 mg 12/30/20 18:00 01/01/21 06:01 Diltiazem 30 Mg Tablet PO 30 mg Q6HR VANESSA Administration Docusate Sodium 100 mg 12/27/20 21:00 01/01/21 09:00 Docusate Sodium 100 Mg Capsule PO 100 mg BID VANESSA Administration Famotidine 20 mg 12/30/20 11:00 01/01/21 09:00 Famotidine 20 Mg Tablet PO 20 mg BID VANESSA Administration Folic Acid 1 mg 12/30/20 11:00 01/01/21 09:00 Folic Acid 1 Mg Tablet PO 1 mg DAILY VANESSA Administration Furosemide 20 mg 01/01/21 06:00 01/01/21 05:58 Furosemide 20 Mg/2 Ml Vial IVP 20 mg BIDDIURETIC VANESSA Administration Heparin Sodium (Porcine) 5,000 unit 12/27/20 21:00 01/01/21 09:07 Heparin 5,000 Unit/Ml Vial SUBQ 5,000 unit BID VANESSA Administration Hydromorphone HCl 0.5 mg 12/30/20 11:36 01/01/21 09:24 Hydromorphone 0.5 Mg/0.5 Ml Syringe IVP 0.5 mg Q2H PRN Administration PAIN Multivitamins 10 ml/ TRACE 2,011 mls @ 60 mls/hr 12/26/20 19:00 01/01/21 06:17 ELEMENTS 1 ml/ Amino Ac/ IV Infused Electrol/Dextrose/Calcium Q24H VANESSA Infusion Protocol Fat Emulsion Intravenous 250 mls @ 21 mls/hr 12/26/20 19:00 01/01/21 07:55 Intralipid 20% IV Infused Q24H VANESSA Infusion Fluconazole 100 mls @ 100 mls/hr 12/28/20 09:00 01/01/21 09:03 Diflucan 200 Mg/100 Ml IV 100 mls/hr DAILY VANESSA Administration Meropenem 1 gm/ Sodium 100 mls @ 200 mls/hr 12/28/20 05:00 01/01/21 05:15 Chloride IV Infused Q8H VANESSA Infusion Vancomycin HCl 1 gm/ Sodium 250 mls @ 167 mls/hr 12/30/20 13:00 01/01/21 03:10 Chloride IV Infused Q12H VANESSA Infusion Insulin Human Regular 2 - 10 unit 12/28/20 19:00 01/01/21 06:07 Insulin Regular Human 300 Unit/3 Ml Vial SUBQ 2 unit Q6HR VANESSA Administration Protocol Ketorolac Tromethamine 15 mg 12/27/20 18:00 01/01/21 05:58 Ketorolac 30 Mg/Ml Vial IVP 01/01/21 17:59 15 mg Q6HR VANESSA Administration Magnesium Oxide 400 mg 01/01/21 08:00 01/01/21 09:00 Magnesium Oxide 400 Mg Tablet PO 01/01/21 14:01 400 mg Q6H VANESSA Administration Protocol Methocarbamol 500 mg 12/27/20 18:00 01/01/21 06:08 Methocarbamol 500 Mg Tablet PO 500 mg Q6HR VANESSA Administration Metoclopramide HCl 10 mg 12/27/20 18:00 01/01/21 05:58 Metoclopramide 10 Mg/2 Ml Vial IVP 10 mg Q6HR VANESSA Administration Metoprolol Tartrate 5 mg 12/30/20 17:00 01/01/21 01:14 Metoprolol 5 Mg/5 Ml Vial IVP 5 mg Q8H VANESSA Administration Morphine Sulfate 2 mg 12/18/20 08:36 01/01/21 05:58 Morphine 2 Mg/Ml Carpuject IVP 2 mg Q2HR PRN Administration PAIN Polyethylene Glycol 17 gm 12/27/20 21:00 01/01/21 09:01 Polyethylene Glycol 3350 17 Gm Packet PO 17 gm BID VANESSA Administration Potassium Chloride 40 meq 01/01/21 08:00 01/01/21 08:59 Potassium Chloride 20 Meq Tablet PO 01/01/21 12:01 40 meq Q4H VANESSA Administration Protocol Sodium Chloride 10 ml 12/17/20 01:00 01/01/21 09:00 Sodium Chloride Flush 0.9% 10 Ml Syringe IVP 10 ml 0100,0900,1700 VANESSA Administration Sodium Chloride 10 ml 12/27/20 17:31 01/01/21 05:58 Sodium Chloride Flush 0.9% 10 Ml Syringe IVP 10 ml PRN PRN Administration NEEDED PER PROVIDER ORDERS Sodium Chloride 20 ml 12/30/20 01:06 01/01/21 04:57 Sodium Chloride Flush 0.9% 10 Ml Syringe IVP 20 ml PRN PRN Administration After Blood Draw - Physical Exam Wound/Incisions: positive: Healing well, Other (VAC changed. Wound is 4 x 12 and granualating well. No purulence. All other port sites are well approximate. Ostomy is pink and working.) General Appearance: positive: Mild distress (Respiratory) Eyes Bilateral: positive: Normal inspection ENT: positive: ENT inspection nml Neck: positive: Nml inspection Abdomen: positive: Nml bowel sounds, Tenderness. 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 1. Fluid overload - management per Hospitalist service. Now on IV Lasix 2. Pulmonary edema with hypoxia - on high flow O2 with improvement in symptoms 3. WBC stable at 20. Hospitalist service has recommended change from Meropenem to Zosyn for slightly broader coverage. Agree with that plan. Transfusion could also be a contributing factor. Diff shows only 1 band. 4. On clear liquid diet. Patient denies any nausea and has a strong desire to eat. Will advance to full liquid but hold there for now. This should give us slightly higher protein intake and may allow a decrease in TPN rate evenutally.
[2021-01-01] MEDS: ACETAMINOPHEN 325 MG TABLET PO PRN ×2 (11:16→18:02)
[2021-01-01] MEDS ORDERED: PIPERACILLIN/TAZOBACTAM 3.375 GM in SODIUM CHLORIDE 0.9% MINIBAG 100 ML IV SCH (12:00)
[2021-01-01 12:56] LABS: VANCOMYCIN,TROUGH 26.2 ug/mL (10.0-20.0)
--- NOTE | 2021-01-01 15:28 | PROVIDER PROGRESS NOTE ---
Assessment/Plan - Problem List (1) Perforation and abscess of large intestine concurrent with and due to diverticulitis Assessment/Plan: Caren have been no fevers but her white blood count has stopped normalizing and has plateaued at 20. CT of the abdomen yesterday showed an ileus Recommend changing her empiric Meropenem to Zosyn, continue the others empirically Vanco and Diflucan Continue drains and dressing plan as per general surgeon. Advance diet to pureed today. (2) Tachycardia Assessment/Plan: This is slightly improved today, resting heart rate is 108-114 in sinus rhythm. Continue with the IV Lopressor and the p.o. Cardizem spread out (3) Dyspnea Assessment/Plan: An ABG was done today that shows she is mildly hyperventilating to maintain saturations. Continue with scheduled IV twice daily Lasix. I told her that if she can increase nutritional intake, her TPN can decrease and be stopped since it is giving her extra fluids. (4) Anemia Assessment/Plan: Follow CBC daily. Transfuse if hemoglobin under 7 w/ extra Lasix. (5) Hyponatremia Assessment/Plan: Related to IV fluids. Continue with scheduled Lasix. Follow BMP (6) Hypokalemia Assessment/Plan: Replace per ICU protocol (7) HTN (hypertension) Assessment/Plan: Her home meds are on hold so that she can get Lopressor and Cardizem for heart rate control (8) Septic shock Assessment/Plan: Resolved - Current Meds Current Meds: Current Medications Generic Name Dose Route Start Last Admin Trade Name Freq PRN Reason Stop Dose Admin Acetaminophen 650 mg 12/28/20 10:01 01/01/21 11:16 Acetaminophen 325 Mg Tablet PO 650 mg Q4HR PRN Administration Pain or Fever > 38C (100.4F) Carboxymethylcellulose 1 drops 12/30/20 14:41 12/30/20 14:51 Carboxymethylcellulose Ophth Drops EACHEYE 1 drops PRN PRN Administration Dry Eye Diltiazem HCl 30 mg 12/30/20 18:00 01/01/21 12:13 Diltiazem 30 Mg Tablet PO 30 mg Q6HR VAENSSA Administration Docusate Sodium 100 mg 12/27/20 21:00 01/01/21 09:00 Docusate Sodium 100 Mg Capsule PO 100 mg BID VANESSA Administration Famotidine 20 mg 12/30/20 11:00 01/01/21 09:00 Famotidine 20 Mg Tablet PO 20 mg BID VANESSA Administration Folic Acid 1 mg 12/30/20 11:00 01/01/21 09:00 Folic Acid 1 Mg Tablet PO 1 mg DAILY VANESSA Administration Furosemide 20 mg 01/01/21 06:00 01/01/21 13:24 Furosemide 20 Mg/2 Ml Vial IVP 20 mg BIDDIURETIC VANESSA Administration Heparin Sodium (Porcine) 5,000 unit 12/27/20 21:00 01/01/21 09:07 Heparin 5,000 Unit/Ml Vial SUBQ 5,000 unit BID VANESSA Administration Hydromorphone HCl 0.5 mg 12/30/20 11:36 01/01/21 12:47 Hydromorphone 0.5 Mg/0.5 Ml Syringe IVP 0.5 mg Q2H PRN Administration PAIN Multivitamins 10 ml/ TRACE 2,011 mls @ 60 mls/hr 12/26/20 19:00 01/01/21 08:00 ELEMENTS 1 ml/ Amino Ac/ IV 60 mls/hr Electrol/Dextrose/Calcium Q24H VANESSA Administration Protocol Fat Emulsion Intravenous 250 mls @ 21 mls/hr 12/26/20 19:00 01/01/21 07:55 Intralipid 20% IV Infused Q24H VANESSA Infusion Fluconazole 100 mls @ 100 mls/hr 12/28/20 09:00 01/01/21 10:03 Diflucan 200 Mg/100 Ml IV Infused DAILY VANESSA Infusion Insulin Human Regular 2 - 10 unit 12/28/20 19:00 01/01/21 12:58 Insulin Regular Human 300 Unit/3 Ml Vial SUBQ 2 unit Q6HR VANESSA Administration Protocol Ketorolac Tromethamine 15 mg 12/27/20 18:00 01/01/21 12:27 Ketorolac 30 Mg/Ml Vial IVP 01/01/21 17:59 15 mg Q6HR VANESSA Administration Methocarbamol 500 mg 12/27/20 18:00 01/01/21 12:21 Methocarbamol 500 Mg Tablet PO 500 mg Q6HR VANESSA Administration Metoclopramide HCl 10 mg 12/27/20 18:00 01/01/21 12:27 Metoclopramide 10 Mg/2 Ml Vial IVP 10 mg Q6HR VANESSA Administration Metoprolol Tartrate 5 mg 12/30/20 17:00 01/01/21 09:45 Metoprolol 5 Mg/5 Ml Vial IVP 5 mg Q8H VANESSA Administration Morphine Sulfate 2 mg 12/18/20 08:36 01/01/21 11:18 Morphine 2 Mg/Ml Carpuject IVP 2 mg Q2HR PRN Administration PAIN Polyethylene Glycol 17 gm 12/27/20 21:00 01/01/21 09:01 Polyethylene Glycol 3350 17 Gm Packet PO 17 gm BID VANESSA Administration Sodium Chloride 10 ml 12/17/20 01:00 01/01/21 09:00 Sodium Chloride Flush 0.9% 10 Ml Syringe IVP 10 ml 0100,0900,1700 VANESSA Administration Sodium Chloride 10 ml 12/27/20 17:31 01/01/21 05:58 Sodium Chloride Flush 0.9% 10 Ml Syringe IVP 10 ml PRN PRN Administration NEEDED PER PROVIDER ORDERS Sodium Chloride 20 ml 12/30/20 01:06 01/01/21 04:57 Sodium Chloride Flush 0.9% 10 Ml Syringe IVP 20 ml PRN PRN Administration After Blood Draw - Lab Result Fish Bone Diagrams: 01/01/21 04:55 01/01/21 04:55 - Additional Planning My Orders: My Active Orders 01/01/21 06:00 FUROSEMIDE INJ 20mg VIAL [LASIX INJ 20mg VIAL] 20 mg IVP BIDDIURETIC 01/01/21 08:07 RT - Obtain Arterial Specimen [RC] .ONCE Subjective - Subjective Patient Reports: Feeling Better, Resting Comfortably Nursing Reports: Other (She is still intermittently complaining of shortness of breath) Objective Vital Signs: Vital Signs - 24 hr 12/31/20 12/31/20 12/31/20 16:00 17:00 18:00 Temperature 37.4 C Heart Rate [ 116 H 126 H 124 H Monitoring electrodes] Respiratory 29 H 36 H 36 H Rate Blood Pressure Blood Pressure 130/72 145/71 H 144/67 H [left radial] O2 Saturation 92 90 L 92 12/31/20 12/31/20 12/31/20 18:13 18:15 19:00 Temperature Heart Rate [ 112 H Monitoring electrodes] Respiratory 40 H Rate Blood Pressure 159/73 H 159/73 H Blood Pressure 121/94 H [left radial] O2 Saturation 88 L 12/31/20 12/31/20 12/31/20 20:00 21:00 22:00 Temperature 37.8 C Heart Rate [ 109 H 117 H 110 H Monitoring electrodes] Respiratory 36 H 23 33 H Rate Blood Pressure Blood Pressure 122/65 135/62 H 128/67 [left radial] O2 Saturation 92 91 L 93 12/31/20 12/31/20 01/01/21 23:00 23:51 00:03 Temperature 37.6 C Heart Rate [ 115 H 106 H Monitoring electrodes] Respiratory 38 H 24 Rate Blood Pressure 138/68 H Blood Pressure 138/68 H 146/69 H [left radial] O2 Saturation 91 L 91 L 01/01/21 01/01/21 01/01/21 01:00 01:14 02:00 Temperature Heart Rate [ 103 H 93 Monitoring electrodes] Respiratory 23 22 Rate Blood Pressure 107/62 Blood Pressure 107/62 105/58 L [left radial] O2 Saturation 96 96 01/01/21 01/01/21 01/01/21 03:00 04:00 05:00 Temperature 37.1 C Heart Rate [ 112 H 110 H 117 H Monitoring electrodes] Respiratory 34 H 41 H 42 H Rate Blood Pressure Blood Pressure 138/73 H 147/71 H 150/72 H [left radial] O2 Saturation 90 L 86 L 87 L 01/01/21 01/01/21 01/01/21 06:00 06:01 07:00 Temperature 37.1 C Heart Rate [ 109 H 108 H Monitoring electrodes] Respiratory 21 24 Rate Blood Pressure 110/65 Blood Pressure 110/65 110/62 [left radial] O2 Saturation 92 95 01/01/21 01/01/21 01/01/21 08:00 08:19 09:00 Temperature 37.3 C Heart Rate [ 106 H 116 H Monitoring electrodes] Respiratory 26 H 32 H Rate Blood Pressure Blood Pressure 108/59 L 123/65 [left radial] O2 Saturation 96 90 L 01/01/21 01/01/21 01/01/21 09:45 10:00 11:00 Temperature Heart Rate [ 107 H 112 H Monitoring electrodes] Respiratory 27 H 33 H Rate Blood Pressure 145/65 H Blood Pressure 121/77 113/69 [left radial] O2 Saturation 93 90 L 01/01/21 01/01/21 01/01/21 12:00 13:00 14:00 Temperature 37.3 C Heart Rate [ 113 H 116 H 110 H Monitoring electrodes] Respiratory 33 H 35 H 28 H Rate Blood Pressure Blood Pressure 138/72 H 114/73 97/67 [left radial] O2 Saturation 92 94 94 01/01/21 15:00 Temperature Heart Rate [ 114 H Monitoring electrodes] Respiratory 34 H Rate Blood Pressure Blood Pressure 121/71 [left radial] O2 Saturation 94 Oxygen O2 Source [facility] I&O (Last 24 Hrs): Intake and Output Totals x24h 12/30/20 12/31/20 01/01/21 23:59 23:59 23:59 Intake Total 5163.083 3535 2146 Output Total 5809 5788 2805 Balance -656.917 -2193 -659 General: Alert, Oriented x3 HEENT: Mucous membr. moist/pink, Other (Wearing high flow O2 nasal cannula mass) Neck: Supple, No JVD Neuro: Alert, Non Focal Cardiovascular: Regular rate Respiratory: Other (Crackles anteriorly) Abdomen: Soft, Other (Diminished bowel sounds, wrapped) Extremities: No edema - Results Results: Laboratory Results WBC 20.1 x10^3/uL (4.8-10.8) H 01/01/21 04:55 RBC 2.87 10^6/uL (4.20-5.40) L 01/01/21 04:55 Hgb 8.6 g/dL (12.0-16.0) L 01/01/21 04:55 Hct 26.0 % (37.0-47.0) L 01/01/21 04:55 MCV 90.6 fL (81.0-99.0) 01/01/21 04:55 MCH 30.0 pg (27.0-31.0) 01/01/21 04:55 MCHC 33.1 g/dL (32.0-36.0) 01/01/21 04:55 RDW 17.1 % (12.0-15.0) H 01/01/21 04:55 Plt Count 465 10^3/uL (130-450) H 01/01/21 04:55 MPV 10.0 fL (7.9-10.8) 01/01/21 04:55 Neut # (Auto) Not Reportable 01/01/21 04:55 Lymph # (Auto) Not Reportable 01/01/21 04:55 [place] # (Auto) Not Reportable 01/01/21 04:55 Eos # (Auto) Not Reportable 01/01/21 04:55 Baso # (Auto) Not Reportable 01/01/21 04:55 Absolute Nucleated RBC Not Reportable 01/01/21 04:55 Total Counted 100 01/01/21 04:55 Band Neuts % (Manual) 1 % (0-10) 01/01/21 04:55 Abnorm Lymph % (Manual) 0 % 01/01/21 04:55 Metamyelocytes % 1 % (-0) H 01/01/21 04:55 Myelocytes % 4 % (-0) H 01/01/21 04:55 Nucleated RBC % Not Reportable 01/01/21 04:55 Neutrophils # (Manual) 16.3 10^3/uL (1.5-6.6) H 01/01/21 04:55 Lymphocytes # (Manual) 1.6 10^3/uL (1.5-3.5) 01/01/21 04:55 Monocytes # (Manual) 1.0 10^3/uL (0.0-1.0) 01/01/21 04:55 Eosinophils # (Manual) 0.2 10^3/uL (0-0.7) 01/01/21 04:55 Basophils # (Manual) 0.0 10^3/uL (0-0.1) 01/01/21 04:55 Differential Comment MANUAL DIFFERENTIAL 01/01/21 04:55 Manual Slide Review Indicated 12/16/20 16:00 WBC Morphology NORMAL APPEARANCE (NORMAL) 01/01/21 04:55 Platelet Estimate INCREASED (>450,000) (NORMAL) 01/01/21 04:55 Platelet Morphology NORMAL APPEARANCE (NORMAL) 01/01/21 04:55 RBC Morph Micro Appear 1+ ANISOCYTOSIS (NORMAL) 01/01/21 04:55 PT 16.1 secs (9.9-12.6) H 12/31/20 04:50 INR 1.5 (0.8-1.2) H 12/31/20 04:50 Whole Blood INR 1.4 (0.8-1.2) H 12/29/20 09:13 Bld Gas Analysis Time 0830 01/01/21 08:30 Sample Site RIGHT RADIAL 01/01/21 08:30 ABG pH 7.49 (7.35-7.45) H 01/01/21 08:30 ABG pCO2 38 mmHg (34-45) 01/01/21 08:30 ABG pO2 43 mmHg (80-100) L* 01/01/21 08:30 ABG HCO3 28.7 mmol/L (22.0-26.0) H 01/01/21 08:30 ABG Total CO2 30.0 MMOL/L (21.0-29.0) H 01/01/21 08:30 ABG O2 Saturation 82 % (94-98) L* 01/01/21 08:30 ABG Base Excess 5.0 mmol/L (-2.0-3.0) H 01/01/21 08:30 Olaf Test POSITIVE 01/01/21 08:30 O2 Delivery Device OXYMASK 01/01/21 08:30 O2 Liters/Min 9.00 LPM 01/01/21 08:30 Sodium 132 mmol/L (135-145) L 01/01/21 04:55 Potassium 2.8 mmol/L (3.5-5.0) L 01/01/21 04:55 Chloride 98 mmol/L (101-111) L 01/01/21 04:55 Carbon Dioxide 25 mmol/L (21-32) 01/01/21 04:55 Anion Gap 9.0 (6-13) 01/01/21 04:55 BUN 13 mg/dL (6-20) 01/01/21 04:55 Creatinine 0.4 mg/dL (0.4-1.0) 01/01/21 04:55 Estimated GFR (MDRD) 164 (>89) 01/01/21 04:55 Glucose 164 mg/dL (70-100) H 01/01/21 04:55 POC Whole Bld Glucose 147 mg/dL (70 - 100) H 01/01/21 12:19 Calcium 7.4 mg/dL (8.5-10.3) L 01/01/21 04:55 Phosphorus 2.9 mg/dL (2.5-4.6) 01/01/21 04:55 Magnesium 1.4 mg/dL (1.7-2.8) L 01/01/21 04:55 Iron 6 ug/dL (28-170) L 12/30/20 05:00 TIBC 115 ug/dL (250-450) L 12/30/20 05:00 % Saturation 5 % (20-50) L 12/30/20 05:00 Transferrin 82 mg/dL (192-382) L 12/30/20 05:00 Total Bilirubin 0.8 mg/dL (0.2-1.0) 12/31/20 04:50 AST 33 IU/L (10-42) 12/31/20 04:50 ALT 13 IU/L (10-60) 12/31/20 04:50 Alkaline Phosphatase 75 IU/L (42-121) 12/31/20 04:50 B-Natriuretic Peptide 159 pg/mL (5-100) H 01/01/21 04:55 Total Protein 5.6 g/dL (6.7-8.2) L 12/31/20 04:50 Albumin 1.6 g/dL (3.2-5.5) L 12/31/20 04:50 Globulin 4.0 g/dL (2.1-4.2) 12/31/20 04:50 Albumin/Globulin Ratio 0.4 (1.0-2.2) L 12/31/20 04:50 Prealbumin 6 mg/dL (18-45) L 12/31/20 04:50 Triglycerides 80 mg/dL (-149) 12/31/20 04:50 Lipase 27 U/L (22-51) 12/16/20 16:00 Vitamin B12 893 pg/mL (180-914) 12/30/20 05:00 Folate 3.80 ng/mL (5.90 - >24.8) L 12/30/20 05:00 TSH 2.48 uIU/mL (0.34-5.60) 12/28/20 05:00 Urine Color YELLOW 12/29/20 11:30 Urine Clarity CLEAR (CLEAR) 12/29/20 11:30 Urine pH 7.0 PH (5.0-7.5) 12/29/20 11:30 Ur Specific [place] 1.020 (1.002-1.030) 12/29/20 11:30 Urine Protein NEGATIVE mg/dL (NEGATIVE) 12/29/20 11:30 Urine Glucose (UA) NEGATIVE mg/dL (NEGATIVE) 12/29/20 11:30 Urine Ketones NEGATIVE mg/dL (NEGATIVE) 12/29/20 11:30 Urine Occult Blood TRACE-LYSE (NEGATIVE) 12/29/20 11:30 Urine Nitrite NEGATIVE (NEGATIVE) 12/29/20 11:30 Urine Bilirubin NEGATIVE (NEGATIVE) 12/29/20 11:30 Urine Urobilinogen 0.2 (NORMAL) E.U./dL (NORMAL) 12/29/20 11:30 Ur Leukocyte Esterase NEGATIVE (NEGATIVE) 12/29/20 11:30 Ur Microscopic Review NOT INDICATED 12/29/20 11:30 Urine Culture Comments NOT INDICATED 12/29/20 11:30 Nasal Adenovirus (PCR) NOT DETECTED 12/16/20 17:54 Nasal B. parapertussis DNA (PCR) NOT DETECTED 12/16/20 17:54 Nasal Coronavir 229E PCR NOT DETECTED 12/16/20 17:54 Nasal Coronavir HKU1 PCR NOT DETECTED 12/16/20 17:54 Nasal Coronavir NL63 PCR NOT DETECTED 12/16/20 17:54 Nasal Coronavir OC43 PCR NOT DETECTED 12/16/20 17:54 Nasal Enterovir/Rhinovir PCR NOT DETECTED 12/16/20 17:54 Nasal Influenza B PCR NOT DETECTED 12/16/20 17:54 Nasal Influenza A PCR NOT DETECTED 12/16/20 17:54 Nasal Parainfluen 1 PCR NOT DETECTED 12/16/20 17:54 Nasal Parainfluen 2 PCR NOT DETECTED 12/16/20 17:54 Nasal Parainfluen 3 PCR NOT DETECTED 12/16/20 17:54 Nasal Parainfluen 4 PCR NOT DETECTED 12/16/20 17:54 Nasal RSV (PCR) NOT DETECTED 12/16/20 17:54 Nasal Screen MRSA (PCR) NEGATIVE (NEGATIVE) 12/27/20 18:00 Nasal B.pertussis DNA PCR NOT DETECTED 12/16/20 17:54 Nasal C.pneumoniae (PCR) NOT DETECTED 12/16/20 17:54 Robin Human Metapneumo PCR NOT DETECTED 12/16/20 17:54 Nasal M.pneumoniae (PCR) NOT DETECTED 12/16/20 17:54 Nasal SARS-CoV-2 (PCR) NOT DETECTED 12/16/20 17:54 Last Dose Date 01/01/21 01/01/21 12:20 Last Dose Time 0114 01/01/21 12:20 Vancomycin Trough 26.2 ug/mL (10.0-20.0) H* 04/25/21 12:20 Blood Type O POSITIVE 12/28/20 20:28 Blood Type Recheck O POSITIVE 12/28/20 05:00 Antibody Screen NEGATIVE 12/28/20 20:28 Crossmatch IS Only See Detail 12/28/20 20:28
[2021-01-01] MEDS: PIPERACILLIN/TAZOBACTAM 3.375 GM in SODIUM CHLORIDE 0.9% MINIBAG 100 ML IV SCH ×2 (16:37→23:54)
[2021-01-01] MEDS: FAT EMULSION 20% 250 ML IV SCH (19:55)
[2021-01-01] MEDS: VANCOMYCIN INJ 750 MG in SODIUM CHLORIDE 0.9% 250 ML IV SCH (21:10)
[2021-01-02] MEDS: diltiaZEM 30 MG TABLET PO SCH ×5 (00:01→23:51)
[2021-01-02] MEDS: methocarbamoL 500 MG TABLET PO SCH ×5 (00:01→23:50)
[2021-01-02] MEDS: METOPROLOL 5 MG/5 ML VIAL IVP SCH ×3 (01:02→16:47)
[2021-01-02] MEDS: MORPHINE 2 MG/ML CARPUJECT IVP PRN ×3 (01:07→22:10)
[2021-01-02] MEDS: HYDROmorphone 0.5 MG/0.5 ML SYRINGE IVP PRN ×9 (01:52→23:53)
[2021-01-02] MEDS: ACETAMINOPHEN 325 MG TABLET PO PRN ×2 (04:38→11:50)
[2021-01-02] MEDS: SODIUM CHLORIDE FLUSH 0.9% 10 ML SYRINGE IVP PRN ×5 (05:12→22:10)
[2021-01-02 05:40] LABS: BASOPHILS # (AUTO) 0.1 10^3/uL (0.0-0.1); BASOPHILS % (AUTO) 0.6 %; EOSINOPHILS # (AUTO) 0.5 10^3/uL (0.0-0.7); HCT - HEMATOCRIT 25.1 % (37.0-47.0); HGB - HEMOGLOBIN 8.4 g/dL (12.0-16.0); LYMPHOCYTES # (AUTO) 0.8 10^3/uL (1.5-3.5); LYMPHOCYTES % (AUTO) 4.7 %; MEAN CORPUSCULAR HEMOGLOBIN 30.5 pg (27.0-31.0); MEAN CORPUSCULAR HGB CONC 33.5 g/dL (32.0-36.0); MEAN CORPUSCULAR VOLUME 91.3 fL (81.0-99.0); MEAN PLATELET VOLUME 10.1 fL (7.9-10.8); MONOCYTES # (AUTO) 0.5 10^3/uL (0.0-1.0); MONOCYTES % (AUTO) 3.2 %; NEUTROPHILS # (AUTO) 14.5 10^3/uL (1.5-6.6); NEUTROPHILS % (AUTO) 85.2 %; PLT - PLATELET COUNT 483 10^3/uL (130-450); RED BLOOD COUNT 2.75 10^6/uL (4.20-5.40); RED CELL DISTRIBUTION WIDTH 16.5 % (12.0-15.0); WHITE BLOOD COUNT 17.1 x10^3/uL (4.8-10.8)
[2021-01-02 05:52] LABS: CALCIUM 7.7 mg/dL (8.5-10.3); CREATININE 0.5 mg/dL (0.4-1.0); MAGNESIUM 1.3 mg/dL (1.7-2.8); PHOSPHORUS 2.8 mg/dL (2.5-4.6); POTASSIUM 3.2 mmol/L (3.5-5.0)
[2021-01-02] MEDS: METOCLOPRAMIDE 10 MG/2 ML VIAL IVP SCH ×4 (06:17→23:51)
[2021-01-02] MEDS: INSULIN REGULAR HUMAN 300 UNIT/3 ML VIAL SUBQ SCH ×3 (06:17→18:50)
[2021-01-02] MEDS: FUROSEMIDE 20 MG/2 ML VIAL IVP SCH ×3 (06:17→19:42)
[2021-01-02] MEDS: MAGNESIUM SULFATE 2 GRAM 2 GM/50 ML BAG IV SCH ×2 (06:30→08:44)
[2021-01-02] MEDS: POTASSIUM CHLOR 20 MEQ/100 ML 20 MEQ/100 ML BAG IV SCH ×6 (06:32→20:00)
--- NOTE | 2021-01-02 08:10 | OPERATIVE REPORT ---
Please delete as incorporated into the operative report within the [employer] system. MTDD
[2021-01-02] MEDS: FAMOTIDINE 20 MG TABLET PO SCH ×2 (08:48→20:39)
[2021-01-02] MEDS: FOLIC ACID 1 MG TABLET PO SCH (08:48)
[2021-01-02] MEDS: polyethylene glycoL 3350 17 GM PACKET PO SCH ×2 (08:48→20:40)
[2021-01-02] MEDS: DOCUSATE SODIUM 100 MG CAPSULE PO SCH ×2 (08:48→20:39)
[2021-01-02] MEDS: PIPERACILLIN/TAZOBACTAM 3.375 GM in SODIUM CHLORIDE 0.9% MINIBAG 100 ML IV SCH ×3 (09:01→23:56)
[2021-01-02] MEDS: SODIUM CHLORIDE FLUSH 0.9% 10 ML SYRINGE IVP SCH ×3 (09:01→23:53)
[2021-01-02] MEDS: HEPARIN 5,000 UNIT/ML VIAL SUBQ SCH ×2 (09:09→20:48)
[2021-01-02] MEDS: VANCOMYCIN INJ 750 MG in SODIUM CHLORIDE 0.9% 250 ML IV SCH (09:49)
[2021-01-02] MEDS: FLUCONAZOLE 200 MG/100 ML 100 ML IV SCH (09:54)
[2021-01-02] MEDS ORDERED: PETROLATUM WHITE 5 GM PACKET TOP PRN (10:13)
[2021-01-02] MEDS ORDERED: TPN (CLINIMIX E 5/15) 2,000 ML with MULTIVITAMIN 10 ML, TRACE ELEMENTS 1 ML IV SCH ×3 (11:23)
--- NOTE | 2021-01-02 11:24 | PROVIDER PROGRESS NOTE ---
Assessment/Plan - Problem List (1) Perforation and abscess of large intestine concurrent with and due to diverticulitis Assessment/Plan: Abdominal surgery management as per general surgery. TPN will be decreased and weaned to off and either increased oral intake allowed or Dobbhoff is being considered by the general surgeon, since there is output in the ileostomy bag. Continue with pain meds as needed, continue empiric antibiotics. Vancomycin can be discontinued, in discussion with Dr. Martinez today (2) Tachycardia Assessment/Plan: She has only been in sinus tachycardia, no other dysrhythmias seen. Etiology is not clear since she has no fever, pain is relatively well controlled and she is not volume depleted. An Echo was done several days ago that showed normal LV contractility. HR is improving slightly as her meds for rate control have been increased c arefully. She is now on Lopressor IV scheduled and Cardizem p.o. spread out. (3) Dyspnea Assessment/Plan: She likely has hospital-acquired pneumonia, has very poor ventilation and cough effort. She also has volume overload of many liters. She improved once IV Lasix was scheduled. A CT chest was done several days ago that showed volume overload and "interst itial infiltrates". Continue with supplemental oxygen, weaning down as tolerated. Today her Lasix IV twice daily will be increased to 3 times daily since she always has a "panic attack" and shortness of breath at about 10 PM. Continue with incentive spirometry and encourage a deeper cough. Continue empiric IV antibiotics (4) Anemia Assessment/Plan: She has required blood transfusions intermittently when hemoglobin was under 7. Follow CBC daily. Transfuse if hemoglobin under 7 with iv Lasix pre and post. (5) Hyponatremia Assessment/Plan: This is improving slowly from 130 to 132 and today is 134. The hope is that her IV loop diuretic will help promote free water clearance more than salt loss. Continue with present plan: to decrease her peripheral IV infusions and continue IV Lasix. Follow BMP daily (6) Hypokalemia Assessment/Plan: Her leg cramps are likely from low potassium or magnesium from being diuresed aggressively. Will monitor afternoon electrolytes and replace if low. Magnesium has been added orally and IV and now will plan scheduled potassium daily as well, while she is being diuresed. (7) HTN (hypertension) Assessment/Plan: Pressure is under good control on her 2 heart rate slowing meds (8) Septic shock Assessment/Plan: Resolved - Current Meds Current Meds: Current Medications Generic Name Dose Route Start Last Admin Trade Name Freq PRN Reason Stop Dose Admin Acetaminophen 650 mg 12/28/20 10:01 01/02/21 04:38 Acetaminophen 325 Mg Tablet PO 650 mg Q4HR PRN Administration Pain or Fever > 38C (100.4F) Carboxymethylcellulose 1 drops 12/30/20 14:41 12/30/20 14:51 Carboxymethylcellulose Ophth Drops EACHEYE 1 drops PRN PRN Administration Dry Eye Diltiazem HCl 30 mg 12/30/20 18:00 01/02/21 11:08 Diltiazem 30 Mg Tablet PO 30 mg Q6HR VANESSA Administration Docusate Sodium 100 mg 12/27/20 21:00 01/02/21 08:48 Docusate Sodium 100 Mg Capsule PO 100 mg BID VANESSA Administration Famotidine 20 mg 12/30/20 11:00 01/02/21 08:48 Famotidine 20 Mg Tablet PO 20 mg BID VANESSA Administration Folic Acid 1 mg 12/30/20 11:00 01/02/21 08:48 Folic Acid 1 Mg Tablet PO 1 mg DAILY VANESSA Administration Heparin Sodium (Porcine) 5,000 unit 12/27/20 21:00 01/02/21 09:09 Heparin 5,000 Unit/Ml Vial SUBQ 5,000 unit BID VANESSA Administration Hydromorphone HCl 0.5 mg 12/30/20 11:36 01/02/21 11:08 Hydromorphone 0.5 Mg/0.5 Ml Syringe IVP 0.5 mg Q2H PRN Administration PAIN Fat Emulsion Intravenous 250 mls @ 21 mls/hr 12/26/20 19:00 01/02/21 07:50 Intralipid 20% IV Infused Q24H VANESSA Infusion Fluconazole 100 mls @ 100 mls/hr 12/28/20 09:00 01/02/21 10:54 Diflucan 200 Mg/100 Ml IV Infused DAILY VANESSA Infusion Piperacillin Sod/Tazobactam 100 mls @ 25 mls/hr 01/01/21 16:00 01/02/21 09:01 Sod 3.375 gm/ Sodium Chloride IV 25 mls/hr Q8H VANESSA Administration Insulin Human Regular 2 - 10 unit 12/28/20 19:00 01/02/21 06:17 Insulin Regular Human 300 Unit/3 Ml Vial SUBQ 2 unit Q6HR VANESSA Administration Protocol Methocarbamol 500 mg 12/27/20 18:00 01/02/21 11:08 Methocarbamol 500 Mg Tablet PO 500 mg Q6HR VANESSA Administration Metoclopramide HCl 10 mg 12/27/20 18:00 01/02/21 11:08 Metoclopramide 10 Mg/2 Ml Vial IVP 10 mg Q6HR VANESSA Administration Metoprolol Tartrate 5 mg 12/30/20 17:00 01/02/21 09:00 Metoprolol 5 Mg/5 Ml Vial IVP 5 mg Q8H VANESSA Administration Morphine Sulfate 2 mg 12/18/20 08:36 01/02/21 01:07 Morphine 2 Mg/Ml Carpuject IVP 2 mg Q2HR PRN Administration PAIN Petrolatum 1 applic 01/02/21 10:13 01/02/21 11:22 Petrolatum White 5 Gm Packet TOP 1 applic PRN PRN Administration Dry Lips Polyethylene Glycol 17 gm 12/27/20 21:00 01/02/21 08:48 Polyethylene Glycol 3350 17 Gm Packet PO 17 gm BID VANESSA Administration Sodium Chloride 10 ml 12/17/20 01:00 01/02/21 09:01 Sodium Chloride Flush 0.9% 10 Ml Syringe IVP 40 ml 0100,0900,1700 VANESSA Administration Sodium Chloride 10 ml 12/27/20 17:31 01/02/21 11:09 Sodium Chloride Flush 0.9% 10 Ml Syringe IVP 10 ml PRN PRN Administration NEEDED PER PROVIDER ORDERS Sodium Chloride 20 ml 12/30/20 01:06 01/02/21 05:12 Sodium Chloride Flush 0.9% 10 Ml Syringe IVP 20 ml PRN PRN Administration After Blood Draw - Lab Result Fish Bone Diagrams: 01/02/21 05:05 01/02/21 15:00 - Additional Planning My Orders: My Active Orders 01/02/21 10:13 Petrolatum White [Vaseline] 1 applic TOP PRN PRN 01/02/21 11:23 Multivitamin [Infuvite] 10 ml Trace Elements [Tralement Vial] 1 ml TPN (Clinimix E 5/15) [Clinimix E 5%-15% Solution] 2,000 ml IV Q24H 01/02/21 13:00 FUROSEMIDE INJ 20mg VIAL [LASIX INJ 20mg VIAL] 20 mg IVP 0600,1300,199901/02/21 17:00 Magnesium Oxide [Mag Ox] 400 mg PO BIDWM Subjective - Subjective Patient Reports: Shortness of Breath ("Hard to take a deep breath"), Other (Complains of cramping of her thighs and calves) Nursing Reports: Other (Responds well to iv Lasix, has a "panic attack" from dyspnea every 10 pm. Has a very weak and ineefective cough, per Liz. DAVID) Objective Vital Signs: Vital Signs - 24 hr 01/01/21 01/01/21 01/01/21 12:00 13:00 14:00 Temperature 37.3 C Heart Rate [ 113 H 116 H 110 H Monitoring electrodes] Respiratory 33 H 35 H 28 H Rate Blood Pressure Blood Pressure 138/72 H 114/73 97/67 [left radial] O2 Saturation 92 94 94 01/01/21 01/01/21 01/01/21 15:00 16:00 16:37 Temperature 37.1 C Heart Rate [ 114 H 104 H Monitoring electrodes] Respiratory 34 H 34 H Rate Blood Pressure 132/75 H Blood Pressure 121/71 134/90 H [left radial] O2 Saturation 94 95 01/01/21 01/01/21 01/01/21 17:00 18:00 20:00 Temperature 37.0 C Heart Rate [ 99 116 H 113 H Monitoring electrodes] Respiratory 21 32 H 31 H Rate Blood Pressure Blood Pressure 130/80 134/64 H 116/84 H [left radial] O2 Saturation 94 91 L 96 01/01/21 01/01/21 01/01/21 21:00 22:00 23:00 Temperature Heart Rate [ 99 101 H 103 H Monitoring electrodes] Respiratory 30 H 35 H 35 H Rate Blood Pressure Blood Pressure 125/76 133/75 H 144/77 H [left radial] O2 Saturation 99 97 97 01/02/21 01/02/21 01/02/21 00:00 00:01 01:00 Temperature 37.4 C Heart Rate [ 127 H 128 H Monitoring electrodes] Respiratory 35 H 84 H Rate Blood Pressure 162/79 H Blood Pressure 162/79 H 168/83 H [left radial] O2 Saturation 91 L 89 L 01/02/21 01/02/21 01/02/21 01:02 02:00 03:00 Temperature Heart Rate [ 117 H 112 H Monitoring electrodes] Respiratory 40 H 39 H Rate Blood Pressure 168/83 H Blood Pressure 170/88 H 155/75 H [left radial] O2 Saturation 94 100 01/02/21 01/02/21 01/02/21 04:34 05:00 06:00 Temperature 38.0 C H Heart Rate [ 121 H 121 H 107 H Monitoring electrodes] Respiratory 34 H 36 H 32 H Rate Blood Pressure Blood Pressure 150/75 H 140/77 H 123/65 [left radial] O2 Saturation 97 99 100 01/02/21 01/02/21 01/02/21 06:15 06:16 07:00 Temperature 37.8 C Heart Rate [ 106 H 101 H Monitoring electrodes] Respiratory 31 H 39 H Rate Blood Pressure 123/65 Blood Pressure 107/66 [left radial] O2 Saturation 100 01/02/21 01/02/21 08:00 09:00 Temperature 37.3 C Heart Rate [ 102 H 101 H Monitoring electrodes] Respiratory 26 H 39 H Rate Blood Pressure 117/71 Blood Pressure 110/59 L 103/61 [left radial] O2 Saturation 97 98 Oxygen O2 Source [facility] I&O (Last 24 Hrs): Intake and Output Totals x24h 12/31/20 01/01/21 01/02/21 23:59 23:59 23:59 Intake Total 3535 3210 870 Output Total 5769 3925 2330 Balance -2193 -715 -1460 General: Alert, Oriented x3 HEENT: Mucous membr. moist/pink Neck: Supple, No JVD Neuro: Alert, Non Focal Cardiovascular: Regular rate, No murmurs Respiratory: Rales, Other (Diminished breath sounds) Abdomen: Soft, Other (Bandage-s present) Extremities: Other (Trace pre-tibial edema) - Results Results: Laboratory Results WBC 17.1 x10^3/uL (4.8-10.8) H 01/02/21 05:05 RBC 2.75 10^6/uL (4.20-5.40) L 01/02/21 05:05 Hgb 8.4 g/dL (12.0-16.0) L 01/02/21 05:05 Hct 25.1 % (37.0-47.0) L 01/02/21 05:05 MCV 91.3 fL (81.0-99.0) 01/02/21 05:05 MCH 30.5 pg (27.0-31.0) 01/02/21 05:05 MCHC 33.5 g/dL (32.0-36.0) 01/02/21 05:05 RDW 16.5 % (12.0-15.0) H 01/02/21 05:05 Plt Count 483 10^3/uL (130-450) H 01/02/21 05:05 MPV 10.1 fL (7.9-10.8) 01/02/21 05:05 Neut # (Auto) 14.5 10^3/uL (1.5-6.6) H 01/02/21 05:05 Lymph # (Auto) 0.8 10^3/uL (1.5-3.5) L 01/02/21 05:05 [place] # (Auto) 0.5 10^3/uL (0.0-1.0) 01/02/21 05:05 Eos # (Auto) 0.5 10^3/uL (0.0-0.7) 01/02/21 05:05 Baso # (Auto) 0.1 10^3/uL (0.0-0.1) 01/02/21 05:05 Absolute Nucleated RBC 0.00 x10^3/uL 01/02/21 05:05 Total Counted 100 01/01/21 04:55 Band Neuts % (Manual) 1 % (0-10) 01/01/21 04:55 Abnorm Lymph % (Manual) 0 % 01/01/21 04:55 Metamyelocytes % 1 % (-0) H 01/01/21 04:55 Myelocytes % 4 % (-0) H 01/01/21 04:55 Nucleated RBC % 0.0 /100WBC 01/02/21 05:05 Neutrophils # (Manual) 16.3 10^3/uL (1.5-6.6) H 01/01/21 04:55 Lymphocytes # (Manual) 1.6 10^3/uL (1.5-3.5) 01/01/21 04:55 Monocytes # (Manual) 1.0 10^3/uL (0.0-1.0) 01/01/21 04:55 Eosinophils # (Manual) 0.2 10^3/uL (0-0.7) 01/01/21 04:55 Basophils # (Manual) 0.0 10^3/uL (0-0.1) 01/01/21 04:55 Differential Comment MANUAL DIFFERENTIAL 01/01/21 04:55 Manual Slide Review Indicated 12/16/20 16:00 WBC Morphology NORMAL APPEARANCE (NORMAL) 01/01/21 04:55 Platelet Estimate INCREASED (>450,000) (NORMAL) 01/01/21 04:55 Platelet Morphology NORMAL APPEARANCE (NORMAL) 01/01/21 04:55 RBC Morph Micro Appear 1+ ANISOCYTOSIS (NORMAL) 01/01/21 04:55 PT 16.1 secs (9.9-12.6) H 12/31/20 04:50 INR 1.5 (0.8-1.2) H 12/31/20 04:50 Whole Blood INR 1.4 (0.8-1.2) H 12/29/20 09:13 Bld Gas Analysis Time 0830 01/01/21 08:30 Sample Site RIGHT RADIAL 01/01/21 08:30 ABG pH 7.49 (7.35-7.45) H 01/01/21 08:30 ABG pCO2 38 mmHg (34-45) 01/01/21 08:30 ABG pO2 43 mmHg (80-100) L* 01/01/21 08:30 ABG HCO3 28.7 mmol/L (22.0-26.0) H 01/01/21 08:30 ABG Total CO2 30.0 MMOL/L (21.0-29.0) H 01/01/21 08:30 ABG O2 Saturation 82 % (94-98) L* 01/01/21 08:30 ABG Base Excess 5.0 mmol/L (-2.0-3.0) H 01/01/21 08:30 Olaf Test POSITIVE 01/01/21 08:30 O2 Delivery Device OXYMASK 01/01/21 08:30 O2 Liters/Min 9.00 LPM 01/01/21 08:30 Sodium 134 mmol/L (135-145) L 01/02/21 05:05 Potassium 3.2 mmol/L (3.5-5.0) L 01/02/21 05:05 Chloride 99 mmol/L (101-111) L 01/02/21 05:05 Carbon Dioxide 26 mmol/L (21-32) 01/02/21 05:05 Anion Gap 9.0 (6-13) 01/02/21 05:05 BUN 13 mg/dL (6-20) 01/02/21 05:05 Creatinine 0.5 mg/dL (0.4-1.0) 01/02/21 05:05 Estimated GFR (MDRD) 127 (>89) 01/02/21 05:05 Glucose 163 mg/dL (70-100) H 01/02/21 05:05 POC Whole Bld Glucose 168 mg/dL (70 - 100) H 01/02/21 06:11 Calcium 7.7 mg/dL (8.5-10.3) L 01/02/21 05:05 Phosphorus 2.8 mg/dL (2.5-4.6) 01/02/21 05:05 Magnesium 1.3 mg/dL (1.7-2.8) L 01/02/21 05:05 Iron 6 ug/dL (28-170) L 12/30/20 05:00 TIBC 115 ug/dL (250-450) L 12/30/20 05:00 % Saturation 5 % (20-50) L 12/30/20 05:00 Transferrin 82 mg/dL (192-382) L 12/30/20 05:00 Total Bilirubin 0.8 mg/dL (0.2-1.0) 12/31/20 04:50 AST 33 IU/L (10-42) 12/31/20 04:50 ALT 13 IU/L (10-60) 12/31/20 04:50 Alkaline Phosphatase 75 IU/L (42-121) 12/31/20 04:50 B-Natriuretic Peptide 159 pg/mL (5-100) H 01/01/21 04:55 Total Protein 5.6 g/dL (6.7-8.2) L 12/31/20 04:50 Albumin 1.5 g/dL (3.2-5.5) L 01/02/21 05:05 Globulin 4.0 g/dL (2.1-4.2) 12/31/20 04:50 Albumin/Globulin Ratio 0.4 (1.0-2.2) L 12/31/20 04:50 Prealbumin 6 mg/dL (18-45) L 12/31/20 04:50 Triglycerides 80 mg/dL (-149) 12/31/20 04:50 Lipase 27 U/L (22-51) 12/16/20 16:00 Vitamin B12 893 pg/mL (180-914) 12/30/20 05:00 Folate 3.80 ng/mL (5.90 - >24.8) L 12/30/20 05:00 TSH 2.48 uIU/mL (0.34-5.60) 12/28/20 05:00 Urine Color YELLOW 12/29/20 11:30 Urine Clarity CLEAR (CLEAR) 12/29/20 11:30 Urine pH 7.0 PH (5.0-7.5) 12/29/20 11:30 Ur Specific [place] 1.020 (1.002-1.030) 12/29/20 11:30 Urine Protein NEGATIVE mg/dL (NEGATIVE) 12/29/20 11:30 Urine Glucose (UA) NEGATIVE mg/dL (NEGATIVE) 12/29/20 11:30 Urine Ketones NEGATIVE mg/dL (NEGATIVE) 12/29/20 11:30 Urine Occult Blood TRACE-LYSE (NEGATIVE) 12/29/20 11:30 Urine Nitrite NEGATIVE (NEGATIVE) 12/29/20 11:30 Urine Bilirubin NEGATIVE (NEGATIVE) 12/29/20 11:30 Urine Urobilinogen 0.2 (NORMAL) E.U./dL (NORMAL) 12/29/20 11:30 Ur Leukocyte Esterase NEGATIVE (NEGATIVE) 12/29/20 11:30 Ur Microscopic Review NOT INDICATED 12/29/20 11:30 Urine Culture Comments NOT INDICATED 12/29/20 11:30 Nasal Adenovirus (PCR) NOT DETECTED 12/16/20 17:54 Nasal B. parapertussis DNA (PCR) NOT DETECTED 12/16/20 17:54 Nasal Coronavir 229E PCR NOT DETECTED 12/16/20 17:54 Nasal Coronavir HKU1 PCR NOT DETECTED 12/16/20 17:54 Nasal Coronavir NL63 PCR NOT DETECTED 12/16/20 17:54 Nasal Coronavir OC43 PCR NOT DETECTED 12/16/20 17:54 Nasal Enterovir/Rhinovir PCR NOT DETECTED 12/16/20 17:54 Nasal Influenza B PCR NOT DETECTED 12/16/20 17:54 Nasal Influenza A PCR NOT DETECTED 12/16/20 17:54 Nasal Parainfluen 1 PCR NOT DETECTED 12/16/20 17:54 Nasal Parainfluen 2 PCR NOT DETECTED 12/16/20 17:54 Nasal Parainfluen 3 PCR NOT DETECTED 12/16/20 17:54 Nasal Parainfluen 4 PCR NOT DETECTED 12/16/20 17:54 Nasal RSV (PCR) NOT DETECTED 12/16/20 17:54 Nasal Screen MRSA (PCR) NEGATIVE (NEGATIVE) 12/27/20 18:00 Nasal B.pertussis DNA PCR NOT DETECTED 12/16/20 17:54 Nasal C.pneumoniae (PCR) NOT DETECTED 12/16/20 17:54 Robin Human Metapneumo PCR NOT DETECTED 12/16/20 17:54 Nasal M.pneumoniae (PCR) NOT DETECTED 12/16/20 17:54 Nasal SARS-CoV-2 (PCR) NOT DETECTED 12/16/20 17:54 Last Dose Date 01/01/21 01/01/21 12:20 Last Dose Time 0114 01/01/21 12:20 Vancomycin Trough 26.2 ug/mL (10.0-20.0) H* 01/01/21 12:20 Blood Type O POSITIVE 12/28/20 20:28 Blood Type Recheck O POSITIVE 12/28/20 05:00 Antibody Screen NEGATIVE 12/28/20 20:28 Crossmatch IS Only See Detail 12/28/20 20:28
[2021-01-02 15:21] LABS: POTASSIUM 2.9 mmol/L (3.5-5.0)
[2021-01-02] MEDS: MAGNESIUM OXIDE 400 MG TABLET PO SCH (16:47)
[2021-01-03] MEDS: INSULIN REGULAR HUMAN 300 UNIT/3 ML VIAL SUBQ SCH ×4 (00:38→17:56)
[2021-01-03] MEDS: METOPROLOL 5 MG/5 ML VIAL IVP SCH ×2 (00:43→08:47)
[2021-01-03] MEDS: SODIUM CHLORIDE FLUSH 0.9% 10 ML SYRINGE IVP PRN ×8 (00:44→21:45)
[2021-01-03] MEDS: MORPHINE 2 MG/ML CARPUJECT IVP PRN ×2 (00:44→21:44)
[2021-01-03] MEDS: HYDROmorphone 0.5 MG/0.5 ML SYRINGE IVP PRN ×8 (03:57→20:41)
[2021-01-03 05:09] LABS: BASOPHILS # (AUTO) 0.1 10^3/uL (0.0-0.1); BASOPHILS % (AUTO) 0.4 %; EOSINOPHILS # (AUTO) 0.1 10^3/uL (0.0-0.7); EOSINOPHILS % (AUTO) 0.6 %; HCT - HEMATOCRIT 23.9 % (37.0-47.0); HGB - HEMOGLOBIN 7.9 g/dL (12.0-16.0); LYMPHOCYTES # (AUTO) 1.2 10^3/uL (1.5-3.5); LYMPHOCYTES % (AUTO) 6.3 %; MEAN CORPUSCULAR HGB CONC 33.1 g/dL (32.0-36.0); MEAN CORPUSCULAR VOLUME 90.9 fL (81.0-99.0); MEAN PLATELET VOLUME 9.8 fL (7.9-10.8); MONOCYTES # (AUTO) 0.8 10^3/uL (0.0-1.0); MONOCYTES % (AUTO) 4.1 %; NEUTROPHILS # (AUTO) 16.5 10^3/uL (1.5-6.6); NEUTROPHILS % (AUTO) 86.4 %; PLT - PLATELET COUNT 480 10^3/uL (130-450); RED BLOOD COUNT 2.63 10^6/uL (4.20-5.40); RED CELL DISTRIBUTION WIDTH 16.2 % (12.0-15.0); WHITE BLOOD COUNT 19.2 x10^3/uL (4.8-10.8)
[2021-01-03 05:23] LABS: ALBUMIN 1.7 g/dL (3.2-5.5); ALBUMIN/GLOBULIN RATIO 0.4 (1.0-2.2); BILIRUBIN,TOTAL 0.8 mg/dL (0.2-1.0); CALCIUM 7.6 mg/dL (8.5-10.3); CREATININE 0.5 mg/dL (0.4-1.0); POTASSIUM 3.5 mmol/L (3.5-5.0); TOTAL PROTEIN 6.4 g/dL (6.7-8.2)
[2021-01-03 05:32] LABS: MAGNESIUM 1.6 mg/dL (1.7-2.8); PHOSPHORUS 3.1 mg/dL (2.5-4.6)
[2021-01-03] MEDS: methocarbamoL 500 MG TABLET PO SCH ×3 (06:06→17:40)
[2021-01-03] MEDS: diltiaZEM 30 MG TABLET PO SCH ×3 (06:06→12:20)
[2021-01-03] MEDS: FUROSEMIDE 20 MG/2 ML VIAL IVP SCH ×2 (06:07→12:45)
[2021-01-03] MEDS: METOCLOPRAMIDE 10 MG/2 ML VIAL IVP SCH ×3 (06:07→17:42)
[2021-01-03] MEDS: SODIUM CHLORIDE FLUSH 0.9% 10 ML SYRINGE IVP SCH ×3 (08:25→18:35)
[2021-01-03] MEDS: PIPERACILLIN/TAZOBACTAM 3.375 GM in SODIUM CHLORIDE 0.9% MINIBAG 100 ML IV SCH ×2 (08:30→16:38)
[2021-01-03] MEDS: ACETAMINOPHEN 325 MG TABLET PO PRN (08:31)
[2021-01-03] MEDS: DOCUSATE SODIUM 100 MG CAPSULE PO SCH ×2 (08:44→20:41)
[2021-01-03] MEDS: PRENATAL VITAMIN TABLET PO SCH (08:44)
[2021-01-03] MEDS: MAGNESIUM OXIDE 400 MG TABLET PO SCH ×2 (08:45→17:41)
[2021-01-03] MEDS: polyethylene glycoL 3350 17 GM PACKET PO SCH ×2 (08:46→20:40)
[2021-01-03] MEDS: FAMOTIDINE 20 MG TABLET PO SCH ×2 (08:51→20:41)
[2021-01-03] MEDS ORDERED: MAGNESIUM SULFATE 1 GM in SODIUM CHLORIDE 0.9% 50 ML IV ONE (09:06)
[2021-01-03] MEDS: HEPARIN 5,000 UNIT/ML VIAL SUBQ SCH ×2 (09:16→20:45)
[2021-01-03] MEDS: FLUCONAZOLE 200 MG/100 ML 100 ML IV SCH (09:53)
[2021-01-03] MEDS ORDERED: MAGNESIUM SULFATE 2 GRAM 2 GM/50 ML BAG IV ONE (10:00)
--- NOTE | 2021-01-03 11:01 | PROVIDER PROGRESS NOTE ---
Progress Note Subjective: Patient remains in ICU. Positive ileostomy output. Pain controlled. Nothing per rectum. Acosta remains in place. Patient with stable however worsened overall respiratory distress over weekend. On high flow oxygen. Has been on scheduled Lasix 3 times daily. 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 Jarquin Pre-Op Diagnosis: Complicated diverticulitis; perforated diverticulitis s/p perc drain; SBO Procedure Performed: 1. Diagnostic laparoscopy 2. Laparoscopic adhesiolysis extensive 3. Laparoscopic takedown of enterocolonic fistula 4. Laparoscopic takedown of colocutaneous fistula 5. Low anterior resection, laparoscopic 6. Splenic flexure mobilization, laparoscopic 7. Repair of vesicular sinus tract 8. Laparoscopic assisted loop ileostomy 9. Partial omentectomy 10. Umbilical hernia repair 11. Drainage of intra-abdominal abscess multiple 12. Drainage catheter placement 13. Small bowel resection 14. Abdominal washout Post Op Diagnosis: Same; feculent peritonitis; multiple fistulae; vesicular involvement Objective General Appearance: positive: No acute distress Eyes Bilateral: positive: Normal inspection ENT: positive: ENT inspection nml Neck: positive: Nml inspection Respiratory: positive: Chest non-tender, No respiratory distress, Breath sounds nml. negative: Wheezes, Rales, Rhonchi Cardiovascular: positive: Regular rate & rhythm Abdomen: positive: No distention, Other. negative: Guarding, Rebound Extremities: positive: Non-tender, Full ROM, Nml appearance Neurologic/Psychiatric: positive: Oriented x3, CN's nml (2-12) Stoma pink. Wound VAC in place. Julio drain serosanguineous. Impression/Plan Post operative day #6 status post above listed procedure. (1) GI - IVF, bowel regimen, continue TPN, consider weaning. Advance diet slowly given small bowel resection. Patient with early satiety. Will place Dobbhoff for trickle feeds [id number]. Concern for aspiration and aggressive bowel resumption and advancement of diet which would be catastrophic in the setting of her current respiratory status. GI ppx. Anticipate ileus. Opiate sparring analgesia. (2) SURGERY - continue Acosta catheter secondary to bladder involvement. Bladder repair. Continue Julio drain. Will order CT cystogram in the next 24 to 48 hours. Final wound VAC change within next 24 hours. (3) Renal/Lytes - continue IVF. Renal indices within normal limits. Do not remove Acosta catheter prior to CT cystogram. Agree with continued aggressive diuresis. Concentrate all fluids. (4) Respiratory - O2 as necessary. Continue IS. (5) Heme - Will continue with DVT ppx. H/H stable. Hemodiluted secondary to mobilization and aggressive resusitation in the setting of sepsis. (6) Cardiovascular - HD acceptable. (7) Neuro - Opiate sparring analgesia. Antispasmodics with Robaxin. Neuropathic agents. (8) Immune/Infectious Disease - continue broad-spectrum antibiotics. Agree with Zosyn. D/C Nathan.
--- NOTE | 2021-01-03 17:30 | PROVIDER PROGRESS NOTE ---
Assessment/Plan - Problem List (1) Perforation and abscess of large intestine concurrent with and due to diverticulitis Assessment/Plan: (1) Perforation and abscess of large intestine concurrent with and due to diverticulitis Assessment/Plan: Abdominal surgery management as per general surgery. TPN has been weaned off, patient now taking oral intake with regular Ensure. Continues to have output from ileostomy bag. Continue with pain meds as needed, continue empiric antibiotics. (2) Tachycardia Assessment/Plan: Stable tachycardia with rates 100-110s. Has had work up without clear cause found. Echo shows normal EF and LV contractility. Currently on oral diltizem and IVP metoprolol for HR rate control, will add PO metoprolol as well. (3) Dyspnea Assessment/Plan: Likely related hospital-acquired pneumonia and volume overload. Improved with scheduled IV Lasix TID. Able to get OOB and minimal ambulation in room. Continue with incentive spirometry and encourage a deeper cough. Continue empiric IV antibiotics Continues to require HFN at night, down to 2 LNC during the day. (4) Anemia Assessment/Plan: Likely acute blood loss anemia s/p surgery. She has required blood transfusions intermittently when hemoglobin was under 7. Transfuse if hemoglobin under 7 with iv Lasix pre and post. Morning Hgb 7.8 Continue daily CBC and monitor for s/s of bleeding. (5) Hyponatremia Assessment/Plan: Morning sodium back down to 132 from 134 yesterday. Pt is now off TPN, and incr eased oral intake, wondering if this has contributed to slight decrease in sodium levels. Will continue IV Lasix to promote free water clearance and daily BMPs. Continue with present plan: to decrease her peripheral IV infusions and continue IV Lasix. Follow BMP daily (6) Hypokalemia Assessment/Plan: Morning potassium normalized this morning. Continue PRN replacement and monitor for s/s of hypokalemia. Will monitor with daily BMP with magnesium level. Additional magnesium given to replete AM labs. Continue scheduled potassium and magnesium daily while she is being diuresis. (7) HTN (hypertension) Assessment/Plan: Low normotensive Pressure with current BP management. Continue current med management. (8) Septic shock Assessment/Plan: Resolved - Current Meds Current Meds: Current Medications Generic Name Dose Route Start Last Admin Trade Name Freq PRN Reason Stop Dose Admin Acetaminophen 650 mg 12/28/20 10:01 01/03/21 08:31 Acetaminophen 325 Mg Tablet PO 650 mg Q4HR PRN Administration Pain or Fever > 38C (100.4F) Carboxymethylcellulose 1 drops 12/30/20 14:41 12/30/20 14:51 Carboxymethylcellulose Ophth Drops EACHEYE 1 drops PRN PRN Administration Dry Eye Docusate Sodium 100 mg 12/27/20 21:00 01/03/21 08:44 Docusate Sodium 100 Mg Capsule PO 100 mg BID VANESSA Administration Famotidine 20 mg 12/30/20 11:00 01/03/21 08:51 Famotidine 20 Mg Tablet PO 20 mg BID VANESSA Administration Furosemide 20 mg 01/02/21 13:00 01/03/21 12:45 Furosemide 20 Mg/2 Ml Vial IVP 20 mg 0600,1300,2000 VANESSA Administration Heparin Sodium (Porcine) 5,000 unit 12/27/20 21:00 01/03/21 09:16 Heparin 5,000 Unit/Ml Vial SUBQ 5,000 unit BID VANESSA Administration Hydromorphone HCl 0.5 mg 12/30/20 11:36 01/03/21 14:15 Hydromorphone 0.5 Mg/0.5 Ml Syringe IVP 0.5 mg Q2H PRN Administration PAIN Fluconazole 100 mls @ 100 mls/hr 12/28/20 09:00 01/03/21 11:00 Diflucan 200 Mg/100 Ml IV Infused DAILY VANESSA Infusion Piperacillin Sod/Tazobactam 100 mls @ 25 mls/hr 01/01/21 16:00 01/03/21 16:38 Sod 3.375 gm/ Sodium Chloride IV 25 mls/hr Q8H VANESSA Administration Insulin Human Regular 2 - 10 unit 12/28/20 19:00 01/03/21 12:27 Insulin Regular Human 300 Unit/3 Ml Vial SUBQ Not Given Q6HR [facility] Protocol Magnesium Oxide 400 mg 01/02/21 17:00 01/03/21 08:45 Magnesium Oxide 400 Mg Tablet PO 400 mg BIDWM VANESSA Administration Methocarbamol 500 mg 12/27/20 18:00 01/03/21 12:20 Methocarbamol 500 Mg Tablet PO 500 mg Q6HR VANESSA Administration Metoclopramide HCl 10 mg 12/27/20 18:00 01/03/21 12:19 Metoclopramide 10 Mg/2 Ml Vial IVP 10 mg Q6HR VANESSA Administration Morphine Sulfate 2 mg 12/18/20 08:36 01/03/21 00:44 Morphine 2 Mg/Ml Carpuject IVP 2 mg Q2HR PRN Administration PAIN Petrolatum 1 applic 01/02/21 10:13 01/02/21 11:22 Petrolatum White 5 Gm Packet TOP 1 applic PRN PRN Administration Dry Lips Polyethylene Glycol 17 gm 12/27/20 21:00 01/03/21 08:46 Polyethylene Glycol 3350 17 Gm Packet PO 17 gm BID VANESSA Administration Multivit/Folic Acid/Iron 1 tab 01/03/21 08:00 01/03/21 08:44 Vitamin Tablet PO 1 tab DAILYWM VANESSA Administration Sodium Chloride 10 ml 12/17/20 01:00 01/03/21 08:25 Sodium Chloride Flush 0.9% 10 Ml Syringe IVP 20 ml 0100,0900,1700 VANESSA Administration Sodium Chloride 10 ml 12/27/20 17:31 01/03/21 12:21 Sodium Chloride Flush 0.9% 10 Ml Syringe IVP 10 ml PRN PRN Administration NEEDED PER PROVIDER ORDERS Sodium Chloride 20 ml 12/30/20 01:06 01/03/21 04:53 Sodium Chloride Flush 0.9% 10 Ml Syringe IVP 20 ml PRN PRN Administration After Blood Draw - Lab Result Lab results reviewed: Yes Fish Bone Diagrams: 01/03/21 04:55 01/03/21 04:55 - Additional Planning Condition/Complexity: Improved Time Spent: 15-30 minutes Subjective - Subjective Patient Reports: Feeling Better (Pt feeling better today, able to get out of bed and to eat.) Nursing Reports: No Complaints Objective Vital Signs: Vital Signs - 24 hr 01/02/21 01/02/21 01/02/21 18:00 18:50 19:00 Temperature Heart Rate [ 98 114 H Monitoring electrodes] Respiratory 36 H 27 H Rate Blood Pressure 131/72 H Blood Pressure 104/75 133/76 H [left radial] O2 Saturation 99 90 L 01/02/21 01/02/21 01/02/21 20:00 21:00 22:00 Temperature 37.5 C Heart Rate [ 126 H 128 H 117 H Monitoring electrodes] Respiratory 41 H 34 H 42 H Rate Blood Pressure Blood Pressure 118/81 H 115/81 H 97/59 L [left radial] O2 Saturation 95 97 100 01/02/21 01/02/21 01/03/21 23:00 23:51 00:00 Temperature 37.6 C Heart Rate [ 117 H Monitoring electrodes] Respiratory 34 H 26 H Rate Blood Pressure 102/62 Blood Pressure 102/62 123/67 [left radial] O2 Saturation 100 96 01/03/21 01/03/21 01/03/21 00:43 01:00 02:00 Temperature Heart Rate [ 122 H 89 Monitoring electrodes] Respiratory 27 H 29 H Rate Blood Pressure 123/67 Blood Pressure 132/98 H 96/54 L [left radial] O2 Saturation 92 100 01/03/21 01/03/21 01/03/21 03:00 04:00 05:00 Temperature 37.6 C Heart Rate [ 106 H 105 H 104 H Monitoring electrodes] Respiratory 38 H 35 H 33 H Rate Blood Pressure Blood Pressure 105/63 95/60 116/67 [left radial] O2 Saturation 99 97 99 01/03/21 01/03/21 01/03/21 06:00 06:06 06:51 Temperature Heart Rate [ 109 H Monitoring electrodes] Respiratory 31 H Rate Blood Pressure 103/57 L 111/59 L Blood Pressure 103/57 L [left radial] O2 Saturation 100 01/03/21 01/03/21 01/03/21 07:00 07:55 08:47 Temperature 37.1 C Heart Rate [ 115 H 114 H Monitoring electrodes] Respiratory 24 22 Rate Blood Pressure 104/64 Blood Pressure 107/55 L 104/64 [left radial] O2 Saturation 99 100 01/03/21 01/03/21 01/03/21 09:00 10:00 10:25 Temperature Heart Rate [ 128 H 119 H Monitoring electrodes] Respiratory 29 H 20 26 H Rate Blood Pressure Blood Pressure 101/58 L 98/70 [left radial] O2 Saturation 100 100 100 01/03/21 01/03/21 01/03/21 10:41 11:00 11:31 Temperature Heart Rate [ 115 H 110 H Monitoring electrodes] Respiratory 23 22 22 Rate Blood Pressure Blood Pressure 94/66 [left radial] O2 Saturation 100 97 96 01/03/21 01/03/21 01/03/21 11:57 12:20 13:00 Temperature 37 C Heart Rate [ 113 H 113 H Monitoring electrodes] Respiratory 24 26 H Rate Blood Pressure 99/66 Blood Pressure 99/66 93/77 [left radial] O2 Saturation 100 100 01/03/21 01/03/21 14:00 16:55 Temperature 37.3 C Heart Rate [ 104 H 115 H Monitoring electrodes] Respiratory 30 H 23 Rate Blood Pressure Blood Pressure 99/79 97/57 L [left radial] O2 Saturation 100 95 Oxygen O2 Source Nasal cannula I&O (Last 24 Hrs): Intake and Output Totals x24h 01/01/21 01/02/21 01/03/21 23:59 23:59 23:59 Intake Total 3210 3827 1760 Output Total 3925 3260 4023 [facility] -[phone] General: Alert, Oriented x3 HEENT: Mucous membr. moist/pink Neck: Supple, No JVD, No thyromegaly Lymphatic: no adenopathy Neuro: Alert, Non Focal, Oriented Times 3 Cardiovascular: Regular rate, Other (tachycardic with low normal BP) Respiratory: Other (Bilateral dimminished in bases) Abdomen: Normal bowel sounds, Soft, Other (FREDDY draining serosang, ileostomy with liquid brown stool and pink ostomy) Genitourinary: Normal External, No Discharge Extremities: No clubbing, Other (BLE R>L non pitting) Skin: No rashes, No breakdown, No significant lesion - Results Results: Laboratory Results WBC 19.2 x10^3/uL (4.8-10.8) H 01/03/21 04:55 RBC 2.63 10^6/uL (4.20-5.40) L 01/03/21 04:55 Hgb 7.9 g/dL (12.0-16.0) L 01/03/21 04:55 Hct 23.9 % (37.0-47.0) L 01/03/21 04:55 MCV 90.9 fL (81.0-99.0) 01/03/21 04:55 MCH 30.0 pg (27.0-31.0) 01/03/21 04:55 MCHC 33.1 g/dL (32.0-36.0) 01/03/21 04:55 RDW 16.2 % (12.0-15.0) H 01/03/21 04:55 Plt Count 480 10^3/uL (130-450) H 01/03/21 04:55 MPV 9.8 fL (7.9-10.8) 01/03/21 04:55 Neut # (Auto) 16.5 10^3/uL (1.5-6.6) H 01/03/21 04:55 Lymph # (Auto) 1.2 10^3/uL (1.5-3.5) L 01/03/21 04:55 [place] # (Auto) 0.8 10^3/uL (0.0-1.0) 01/03/21 04:55 Eos # (Auto) 0.1 10^3/uL (0.0-0.7) 01/03/21 04:55 Baso # (Auto) 0.1 10^3/uL (0.0-0.1) 01/03/21 04:55 Absolute Nucleated RBC 0.00 x10^3/uL 01/03/21 04:55 Total Counted 100 01/01/21 04:55 Band Neuts % (Manual) 1 % (0-10) 01/01/21 04:55 Abnorm Lymph % (Manual) 0 % 01/01/21 04:55 Metamyelocytes % 1 % (-0) H 01/01/21 04:55 Myelocytes % 4 % (-0) H 01/01/21 04:55 Nucleated RBC % 0.0 /100WBC 01/03/21 04:55 Neutrophils # (Manual) 16.3 10^3/uL (1.5-6.6) H 01/01/21 04:55 Lymphocytes # (Manual) 1.6 10^3/uL (1.5-3.5) 01/01/21 04:55 Monocytes # (Manual) 1.0 10^3/uL (0.0-1.0) 01/01/21 04:55 Eosinophils # (Manual) 0.2 10^3/uL (0-0.7) 01/01/21 04:55 Basophils # (Manual) 0.0 10^3/uL (0-0.1) 01/01/21 04:55 Differential Comment MANUAL DIFFERENTIAL 01/01/21 04:55 Manual Slide Review Indicated 12/16/20 16:00 WBC Morphology NORMAL APPEARANCE (NORMAL) 01/01/21 04:55 Platelet Estimate INCREASED (>450,000) (NORMAL) 01/01/21 04:55 Platelet Morphology NORMAL APPEARANCE (NORMAL) 01/01/21 04:55 RBC Morph Micro Appear 1+ ANISOCYTOSIS (NORMAL) 01/01/21 04:55 PT 16.1 secs (9.9-12.6) H 12/31/20 04:50 INR 1.5 (0.8-1.2) H 12/31/20 04:50 Whole Blood INR 1.4 (0.8-1.2) H 12/29/20 09:13 Bld Gas Analysis Time 82901/01/21 08:30 Sample Site RIGHT RADIAL 01/01/21 08:30 ABG pH 7.49 (7.35-7.45) H 01/01/21 08:30 ABG pCO2 38 mmHg (34-45) 01/01/21 08:30 ABG pO2 43 mmHg (80-100) L* 01/01/21 08:30 ABG HCO3 28.7 mmol/L (22.0-26.0) H 01/01/21 08:30 ABG Total CO2 30.0 MMOL/L (21.0-29.0) H 01/01/21 08:30 ABG O2 Saturation 82 % (94-98) L* 01/01/21 08:30 ABG Base Excess 5.0 mmol/L (-2.0-3.0) H 01/01/21 08:30 Olaf Test POSITIVE 01/01/21 08:30 O2 Delivery Device OXYMASK 01/01/21 08:30 O2 Liters/Min 9.00 LPM 01/01/21 08:30 Sodium 132 mmol/L (135-145) L 01/03/21 04:55 Potassium 3.5 mmol/L (3.5-5.0) 01/03/21 04:55 Chloride 95 mmol/L (101-111) L 01/03/21 04:55 Carbon Dioxide 28 mmol/L (21-32) 01/03/21 04:55 Anion Gap 9.0 (6-13) 01/03/21 04:55 BUN 13 mg/dL (6-20) 01/03/21 04:55 Creatinine 0.5 mg/dL (0.4-1.0) 01/03/21 04:55 Estimated GFR (MDRD) 127 (>89) 01/03/21 04:55 Glucose 87 mg/dL (70-100) 01/03/21 04:55 POC Whole Bld Glucose 129 mg/dL (70 - 100) H 01/03/21 11:42 Calcium 7.6 mg/dL (8.5-10.3) L 01/03/21 04:55 Phosphorus 3.1 mg/dL (2.5-4.6) 01/03/21 04:55 Magnesium 1.6 mg/dL (1.7-2.8) L 01/03/21 04:55 Iron 6 ug/dL (28-170) L 12/30/20 05:00 TIBC 115 ug/dL (250-450) L 12/30/20 05:00 % Saturation 5 % (20-50) L 12/30/20 05:00 Transferrin 82 mg/dL (192-382) L 12/30/20 05:00 Total Bilirubin 0.8 mg/dL (0.2-1.0) 01/03/21 04:55 AST 32 IU/L (10-42) 01/03/21 04:55 ALT 12 IU/L (10-60) 01/03/21 04:55 Alkaline Phosphatase 88 IU/L (42-121) 01/03/21 04:55 B-Natriuretic Peptide 159 pg/mL (5-100) H 01/01/21 04:55 Total Protein 6.4 g/dL (6.7-8.2) L 01/03/21 04:55 Albumin 1.7 g/dL (3.2-5.5) L 01/03/21 04:55 Globulin 4.7 g/dL (2.1-4.2) H 01/03/21 04:55 Albumin/Globulin Ratio 0.4 (1.0-2.2) L 01/03/21 04:55 Prealbumin 4 mg/dL (18-45) L 01/03/21 04:55 Triglycerides 80 mg/dL (-149) 12/31/20 04:50 Lipase 27 U/L (22-51) 12/16/20 16:00 Vitamin B12 893 pg/mL (180-914) 12/30/20 05:00 Folate 3.80 ng/mL (5.90 - >24.8) L 12/30/20 05:00 TSH 2.48 uIU/mL (0.34-5.60) 12/28/20 05:00 Urine Color YELLOW 12/29/20 11:30 Urine Clarity CLEAR (CLEAR) 12/29/20 11:30 Urine pH 7.0 PH (5.0-7.5) 12/29/20 11:30 Ur Specific [place] 1.020 (1.002-1.030) 12/29/20 11:30 Urine Protein NEGATIVE mg/dL (NEGATIVE) 12/29/20 11:30 Urine Glucose (UA) NEGATIVE mg/dL (NEGATIVE) 12/29/20 11:30 Urine Ketones NEGATIVE mg/dL (NEGATIVE) 12/29/20 11:30 Urine Occult Blood TRACE-LYSE (NEGATIVE) 12/29/20 11:30 Urine Nitrite NEGATIVE (NEGATIVE) 12/29/20 11:30 Urine Bilirubin NEGATIVE (NEGATIVE) 12/29/20 11:30 Urine Urobilinogen 0.2 (NORMAL) E.U./dL (NORMAL) 12/29/20 11:30 Ur Leukocyte Esterase NEGATIVE (NEGATIVE) 12/29/20 11:30 Ur Microscopic Review NOT INDICATED 12/29/20 11:30 Urine Culture Comments NOT INDICATED 12/29/20 11:30 Nasal Adenovirus (PCR) NOT DETECTED 12/16/20 17:54 Nasal B. parapertussis DNA (PCR) NOT DETECTED 12/16/20 17:54 Nasal Coronavir 229E PCR NOT DETECTED 12/16/20 17:54 Nasal Coronavir HKU1 PCR NOT DETECTED 12/16/20 17:54 Nasal Coronavir NL63 PCR NOT DETECTED 12/16/20 17:54 Nasal Coronavir OC43 PCR NOT DETECTED 12/16/20 17:54 Nasal Enterovir/Rhinovir PCR NOT DETECTED 12/16/20 17:54 Nasal Influenza B PCR NOT DETECTED 12/16/20 17:54 Nasal Influenza A PCR NOT DETECTED 12/16/20 17:54 Nasal Parainfluen 1 PCR NOT DETECTED 12/16/20 17:54 Nasal Parainfluen 2 PCR NOT DETECTED 12/16/20 17:54 Nasal Parainfluen 3 PCR NOT DETECTED 12/16/20 17:54 Nasal Parainfluen 4 PCR NOT DETECTED 12/16/20 17:54 Nasal RSV (PCR) NOT DETECTED 12/16/20 17:54 Nasal Screen MRSA (PCR) NEGATIVE (NEGATIVE) 12/27/20 18:00 Nasal B.pertussis DNA PCR NOT DETECTED 12/16/20 17:54 Nasal C.pneumoniae (PCR) NOT DETECTED 12/16/20 17:54 Robin Human Metapneumo PCR NOT DETECTED 12/16/20 17:54 Nasal M.pneumoniae (PCR) NOT DETECTED 12/16/20 17:54 Nasal SARS-CoV-2 (PCR) NOT DETECTED 12/16/20 17:54 Last Dose Date 01/01/21 01/01/21 12:20 Last Dose Time 0114 01/01/21 12:20 Vancomycin Trough 26.2 ug/mL (10.0-20.0) H* 01/01/21 12:20 Blood Type O POSITIVE 12/28/20 20:28 Blood Type Recheck O POSITIVE 12/28/20 05:00 Antibody Screen NEGATIVE 12/28/20 20:28 Crossmatch IS Only See Detail 12/28/20 20:28 ABX Reporting Has patient been on IV antibiotics over the past 48 hours?: Yes
--- NOTE | 2021-01-03 19:46 | PROVIDER PROGRESS NOTE ---
Progress Note Subjective: Patient remains in ICU. Positive ileostomy output. Pain controlled. Nothing per rectum. Acosta remains in place. Patient with significantly improved respiratory status. Has been on scheduled Lasix 3 times daily; tachycardia with stable SBP. Pre-Op Diagnosis: Complicated diverticulitis; perforated diverticulitis s/p perc drain; SBO Procedure Performed: 1. Diagnostic laparoscopy 2. Laparoscopic adhesiolysis extensive 3. Laparoscopic takedown of enterocolonic fistula 4. Laparoscopic takedown of colocutaneous fistula 5. Low anterior resection, laparoscopic 6. Splenic flexure mobilization, laparoscopic 7. Repair of vesicular sinus tract 8. Laparoscopic assisted loop ileostomy 9. Partial omentectomy 10. Umbilical hernia repair 11. Drainage of intra-abdominal abscess multiple 12. Drainage catheter placement 13. Small bowel resection 14. Abdominal washout Post Op Diagnosis: Same; feculent peritonitis; multiple fistulae; vesicular involvement Objective General Appearance: positive: No acute distress Eyes Bilateral: positive: Normal inspection ENT: positive: ENT inspection nml Neck: positive: Nml inspection Respiratory: positive: Chest non-tender, No respiratory distress, Breath sounds nml. negative: Wheezes, Rales, Rhonchi Cardiovascular: positive: Regular rate & rhythm Extremities: positive: Non-tender, Full ROM, Nml appearance Neurologic/Psychiatric: positive: Oriented x3, CN's nml (2-12) Stoma pink. Wound VAC in place. Julio drain serosanguineous. Abdomen soft, nondistended, no rebound no guarding. Impression/Plan Post operative day #7 status post above listed procedure. (1) GI - IVF, bowel regimen, TPN discontinued. Advancing diet. Much improved early satiety and abdominal distention. Will defer the placement of Dobbhoff for trickle feeds [id number] at this time. GI ppx. (2) SURGERY - continue Acosta catheter secondary to bladder involvement. Bladder repair. Continue Julio drain. Will order CT cystogram in the next 24 to 48 hours. Wound VAC change within next 24 hours. (3) Renal/Lytes - continue IVF. Renal indices within normal limits. Do not remove Acosta catheter prior to CT cystogram. Agree with continued diuresis, however secondary to the patient's persistent tachycardia and relative hypotension would decrease frequency of Lasix to once daily. Concentrate all fluids to avoid overload. (4) Respiratory - O2 as necessary. Continue IS. (5) Heme - Will continue with DVT ppx. H/H stable. Transfuse as necessary. Consider Venofer. (6) Cardiovascular - HD acceptable. (7) Neuro - Opiate sparring analgesia. Antispasmodics with Robaxin. Neuropathic agents. (8) Immune/Infectious Disease - continue broad-spectrum antibiotics. Agree with Zosyn. D/C Vanco. Follow WBC.
[2021-01-03] MEDS: METOPROLOL TARTRATE 50 MG TABLET PO SCH (20:41)
[2021-01-03] MEDS: LIDOCAINE PATCH 5% TOP PRN (21:44)
[2021-01-04] MEDS: PIPERACILLIN/TAZOBACTAM 3.375 GM in SODIUM CHLORIDE 0.9% MINIBAG 100 ML IV SCH ×3 (00:02→17:26)
[2021-01-04] MEDS: METOCLOPRAMIDE 10 MG/2 ML VIAL IVP SCH ×4 (00:03→17:31)
[2021-01-04] MEDS: methocarbamoL 500 MG TABLET PO SCH ×4 (00:03→17:27)
[2021-01-04] MEDS: SODIUM CHLORIDE FLUSH 0.9% 10 ML SYRINGE IVP SCH ×2 (00:04→17:31)
[2021-01-04] MEDS: HYDROmorphone 0.5 MG/0.5 ML SYRINGE IVP PRN ×9 (00:04→22:33)
[2021-01-04] MEDS: INSULIN REGULAR HUMAN 300 UNIT/3 ML VIAL SUBQ SCH ×4 (01:41→17:09)
[2021-01-04] MEDS: SODIUM CHLORIDE FLUSH 0.9% 10 ML SYRINGE IVP PRN ×9 (02:40→19:51)
[2021-01-04 05:40] LABS: BASOPHILS % (AUTO) 0.6 %; EOSINOPHILS % (AUTO) 2.7 %; HCT - HEMATOCRIT 23.9 % (37.0-47.0); HGB - HEMOGLOBIN 7.8 g/dL (12.0-16.0); LYMPHOCYTES % (AUTO) 8.1 %; MEAN CORPUSCULAR HEMOGLOBIN 29.4 pg (27.0-31.0); MEAN CORPUSCULAR HGB CONC 32.6 g/dL (32.0-36.0); MEAN CORPUSCULAR VOLUME 90.2 fL (81.0-99.0); MEAN PLATELET VOLUME 10.1 fL (7.9-10.8); MONOCYTES % (AUTO) 4.5 %; NEUTROPHILS % (AUTO) 80.9 %; PLT - PLATELET COUNT 556 10^3/uL (130-450); RED BLOOD COUNT 2.65 10^6/uL (4.20-5.40); RED CELL DISTRIBUTION WIDTH 15.9 % (12.0-15.0); WHITE BLOOD COUNT 21.9 x10^3/uL (4.8-10.8)
[2021-01-04 05:46] LABS: ABNORMAL LYMPHS % (MANUAL) 0 %
[2021-01-04 05:49] LABS: CALCIUM 7.6 mg/dL (8.5-10.3); CREATININE 0.6 mg/dL (0.4-1.0); MAGNESIUM 1.6 mg/dL (1.7-2.8); PHOSPHORUS 2.7 mg/dL (2.5-4.6); POTASSIUM 3.4 mmol/L (3.5-5.0)
[2021-01-04] MEDS: MORPHINE 2 MG/ML CARPUJECT IVP PRN (06:02)
[2021-01-04 06:11] LABS: BAND NEUTROPHILS % (MANUAL) 6 %; EOSINOPHILS # (MANUAL) 0.4 10^3/uL (0-0.7); LYMPHOCYTES # (MANUAL) 1.8 10^3/uL (1.5-3.5); LYMPHOCYTES % (MANUAL) 8 %; METAMYELOCYTES % (MANUAL) 3 %; MONOCYTES # (MANUAL) 0.4 10^3/uL (0.0-1.0); MYELOCYTES % (MANUAL) 2 %; NEUTROPHILS # (MANUAL) 18.2 10^3/uL (1.5-6.6); RBC MORPHOLOGY (MULTIPLE) NORMAL APPEARANCE (NORMAL)
[2021-01-04 06:12] LABS: DIFFERENTIAL COMMENT MANUAL DIFFERENTIAL; PLATELET ESTIMATE, MANUAL INCREASED (>450,000) (NORMAL)
[2021-01-04] MEDS: FAMOTIDINE 20 MG TABLET PO SCH ×2 (08:27→21:20)
[2021-01-04] MEDS: MAGNESIUM OXIDE 400 MG TABLET PO SCH ×2 (08:27→17:27)
[2021-01-04] MEDS: PRENATAL VITAMIN TABLET PO SCH (08:27)
[2021-01-04] MEDS: METOPROLOL TARTRATE 50 MG TABLET PO SCH ×2 (08:27→21:20)
[2021-01-04] MEDS: DOCUSATE SODIUM 100 MG CAPSULE PO SCH ×2 (08:27→21:23)
[2021-01-04] MEDS: FUROSEMIDE 20 MG/2 ML VIAL IVP SCH (08:28)
[2021-01-04] MEDS: polyethylene glycoL 3350 17 GM PACKET PO SCH ×2 (08:29→21:21)
[2021-01-04] MEDS ORDERED: MAGNESIUM SULFATE 2 GRAM 2 GM/50 ML BAG IV ONE (08:35)
[2021-01-04] MEDS: FLUCONAZOLE 200 MG/100 ML 100 ML IV SCH (08:49)
[2021-01-04] MEDS: POTASSIUM CHLORIDE 20 MEQ TABLET PO SCH (09:07)
[2021-01-04] MEDS: HEPARIN 5,000 UNIT/ML VIAL SUBQ SCH ×2 (09:50→21:29)
--- NOTE | 2021-01-04 10:08 | PROVIDER PROGRESS NOTE ---
Assessment/Plan - Problem List (1) Perforation and abscess of large intestine concurrent with and due to diverticulitis Assessment/Plan: Abdominal surgery management as per general surgery. Tolerating puree diet, advancement of diet per general surgery. Continues to have liquid stool output from ileostomy bag, will defer management of bowel meds to surgery team. Continue with pain meds as needed, continue empiric antibiotics (2) Dyspnea Qualifiers: Dyspnea type: other forms of dyspnea Qualified Code(s): R06.09 - Other f orms of dyspnea Assessment/Plan: Likely related hospital-acquired pneumonia and volume overload. Able to get OOB and minimal ambulation in room. Continual impovement in WOB and SOB. Oxygen saturation stable on RA during the day and 2LNC at night. Continue with in centive spirometry and encourage a deeper cough. Continue daily lasix. Continue Continue empiric IV antibiotics (3) Tachycardia Assessment/Plan: Remains stable tachycardia with rates 100-110s s/p change to increased metoprolol with oral dosing and d/c diltizem. Echo shows normal EF and LV contractility. (4) Fever Qualifiers: Fever type: unspecified Qualified Code(s): R50.9 - Fever, unspecified Assessment/Plan: Fever overnight of 38. Per review of vitals pt does have occasional spikes in temp overnight. If fever persists will consider further work up including blood cultures and UA. (5) Anemia Qualifiers: Anemia type: other cause Assessment/Plan: Likely acute blood loss anemia s/p surgery. She has required blood transfusions intermittently when hemoglobin was under 7. Transfuse if hemoglobin under 7 with iv Lasix pre and post. Morning Hgb stable 7.8 Continue daily CBC and monitor for s/s of bleeding. (6) Hyponatremia Assessment/Plan: Morning sodium 133 from 134. Pt is now off TPN, and increased oral intake, wondering if this has contributed to slight decrease in sodium levels. Will continue daily IV Lasix to promote free water clearance and daily BMPs. Continue with present plan: to decrease her peripheral IV infusions and continue IV Lasix. Follow BMP daily (7) Hypokalemia Assessment/Plan: Morning potassium 3.4, IV replacement ordered. Continue PRN replacement and monitor for s/s of hypokalemia. Will monitor with daily BMP with magnesium level . Additional magnesium given to replete again low AM labs of 1.7. Continue scheduled potassium and magnesium daily while she is being diuresis. (8) HTN (hypertension) Qualifiers: Hypertension type: essential hypertension Qualified Code(s): I10 - Essential (primary) hypertension Assessment/Plan: Low normotensive Pressure with current BP management. Continue current med management. (9) Septic shock Assessment/Plan: Resolved. - Current Meds Current Meds: Current Medications Generic Name Dose Route Start Last Admin Trade Name Freq PRN Reason Stop Dose Admin Acetaminophen 650 mg 12/28/20 10:01 01/03/21 08:31 Acetaminophen 325 Mg Tablet PO 650 mg Q4HR PRN Administration Pain or Fever > 38C (100.4F) Carboxymethylcellulose 1 drops 12/30/20 14:41 12/30/20 14:51 Carboxymethylcellulose Ophth Drops EACHEYE 1 drops PRN PRN Administration Dry Eye Docusate Sodium 100 mg 12/27/20 21:00 01/04/21 08:27 Docusate Sodium 100 Mg Capsule PO 100 mg BID VANESSA Administration Famotidine 20 mg 12/30/20 11:00 01/04/21 08:27 Famotidine 20 Mg Tablet PO 20 mg BID VANESSA Administration Furosemide 20 mg 01/04/21 09:00 01/04/21 08:28 Furosemide 20 Mg/2 Ml Vial IVP 20 mg DAILY VANESSA Administration Heparin Sodium (Porcine) 5,000 unit 12/27/20 21:00 01/04/21 09:50 Heparin 5,000 Unit/Ml Vial SUBQ 5,000 unit BID VANESSA Administration Hydromorphone HCl 0.5 mg 12/30/20 11:36 01/04/21 08:22 Hydromorphone 0.5 Mg/0.5 Ml Syringe IVP 0.5 mg Q2H PRN Administration PAIN Fluconazole 100 mls @ 100 mls/hr 12/28/20 09:00 01/04/21 09:49 Diflucan 200 Mg/100 Ml IV Infused DAILY VANESSA Infusion Piperacillin Sod/Tazobactam 100 mls @ 25 mls/hr 01/01/21 16:00 01/04/21 08:29 Sod 3.375 gm/ Sodium Chloride IV 25 mls/hr Q8H VANESSA Administration Insulin Human Regular 2 - 10 unit 12/28/20 19:00 01/04/21 06:30 Insulin Regular Human 300 Unit/3 Ml Vial SUBQ Not Given Q6HR [facility] Protocol Lidocaine 1 patch 01/03/21 19:55 01/03/21 21:44 Lidocaine Patch 5% TOP 1 patch DAILY PRN Administration PAIN Magnesium Oxide 400 mg 01/02/21 17:00 01/04/21 08:27 Magnesium Oxide 400 Mg Tablet PO 400 mg BIDWM VANESSA Administration Methocarbamol 500 mg 12/27/20 18:00 01/04/21 06:02 Methocarbamol 500 Mg Tablet PO 500 mg Q6HR VANESSA Administration Metoclopramide HCl 10 mg 12/27/20 18:00 01/04/21 06:02 Metoclopramide 10 Mg/2 Ml Vial IVP 10 mg Q6HR VANESSA Administration Metoprolol Tartrate 50 mg 01/03/21 21:00 01/04/21 08:27 Metoprolol Tartrate 50 Mg Tablet PO 50 mg BID VANESSA Administration Morphine Sulfate 2 mg 12/18/20 08:36 01/04/21 06:02 Morphine 2 Mg/Ml Carpuject IVP 2 mg Q2HR PRN Administration PAIN Petrolatum 1 applic 01/02/21 10:13 01/02/21 11:22 Petrolatum White 5 Gm Packet TOP 1 applic PRN PRN Administration Dry Lips Polyethylene Glycol 17 gm 12/27/20 21:00 01/04/21 08:29 Polyethylene Glycol 3350 17 Gm Packet PO 17 gm BID VANESSA Administration Potassium Chloride 20 meq 01/04/21 09:00 01/04/21 09:07 Potassium Chloride 20 Meq Tablet PO 20 meq DAILYWM VANESSA Administration Multivit/Folic Acid/Iron 1 tab 01/03/21 08:00 01/04/21 08:27 Vitamin Tablet PO 1 tab DAILYWM VANESSA Administration Sodium Chloride 10 ml 12/17/20 01:00 01/04/21 00:04 Sodium Chloride Flush 0.9% 10 Ml Syringe IVP 10 ml 0100,0900,1700 VANESSA Administration Sodium Chloride 10 ml 12/27/20 17:31 01/04/21 08:26 Sodium Chloride Flush 0.9% 10 Ml Syringe IVP 10 ml PRN PRN Administration NEEDED PER PROVIDER ORDERS Sodium Chloride 20 ml 12/30/20 01:06 01/04/21 04:53 Sodium Chloride Flush 0.9% 10 Ml Syringe IVP 20 ml PRN PRN Administration After Blood Draw - Lab Result Lab results reviewed: Yes Fish Bone Diagrams: 01/04/21 04:55 01/04/21 04:55 - Additional Planning Condition/Complexity: Improved Subjective - Subjective Patient Reports: Feeling Better, Resting Comfortably, No Complaints (Feels good, doesnt like the purreed foods but able to drink the Ensure shakes. Back pain is better with lidocaine patch) Nursing Reports: No Complaints Objective Vital Signs: Vital Signs - 24 hr 01/03/21 01/03/21 01/03/21 10:25 10:41 11:00 Temperature Heart Rate [ 115 H Monitoring electrodes] Respiratory 26 H 23 22 Rate Blood Pressure Blood Pressure 94/66 [left radial] O2 Saturation 100 100 97 01/03/21 01/03/21 01/03/21 11:31 11:57 12:20 Temperature 37 C Heart Rate [ 110 H 113 H Monitoring electrodes] Respiratory 22 24 Rate Blood Pressure 99/66 Blood Pressure 99/66 [left radial] O2 Saturation 96 100 01/03/21 01/03/21 01/03/21 13:00 14:00 16:55 Temperature 37.3 C Heart Rate [ 113 H 104 H 115 H Monitoring electrodes] Respiratory 26 H 30 H 23 Rate Blood Pressure Blood Pressure 93/77 99/79 97/57 L [left radial] O2 Saturation 100 100 95 01/03/21 01/03/21 01/04/21 19:37 20:41 00:00 Temperature 37.7 C 38 C H Heart Rate [ 125 H 115 H Monitoring electrodes] Respiratory 35 H 38 H Rate Blood Pressure 114/64 Blood Pressure 114/61 123/69 [left radial] O2 Saturation 95 94 01/04/21 01/04/21 01/04/21 04:00 08:00 08:55 Temperature Heart Rate [ 103 H 108 H Monitoring electrodes] Respiratory 30 H 29 H 24 Rate Blood Pressure Blood Pressure 120/72 121/71 [left radial] O2 Saturation 95 97 93 Oxygen O2 Source Room air I&O (Last 24 Hrs): Intake and Output Totals x24h 01/02/21 01/03/21 01/04/21 23:59 23:59 23:59 Intake Total 3827 2660 1040 Output Total 5300 8713 3784 [facility] -[phone] General: Alert, Oriented x3, Cooperative, No acute distress HEENT: Atraumatic, Mucous membr. moist/pink Neck: Supple, No JVD Lymphatic: no adenopathy Neuro: Alert, Non Focal, Oriented Times 3 Cardiovascular: Regular rate (tachycardic), Normal S1, Normal S2 Respiratory: Chest non-tender, No respiratory distress, Other (Fine crackles in the LLL all other areas CTA) Abdomen: Soft, Other (Tender to palpation. Illeostomy continues to have liquid brown stool. Sent for C Diff. FREDDY drain with minimal serous output. Pt tells me Surgeon plans to remove today.) Genitourinary: Normal External Extremities: Normal pulses, Other (R>L nonpitting edema in the lower extr emities.) Skin: No rashes, No breakdown, No significant lesion - Results Results: Laboratory Results WBC 21.9 x10^3/uL (4.8-10.8) H 01/04/21 04:55 RBC 2.65 10^6/uL (4.20-5.40) L 01/04/21 04:55 Hgb 7.8 g/dL (12.0-16.0) L 01/04/21 04:55 Hct 23.9 % (37.0-47.0) L 01/04/21 04:55 MCV 90.2 fL (81.0-99.0) 01/04/21 04:55 MCH 29.4 pg (27.0-31.0) 01/04/21 04:55 MCHC 32.6 g/dL (32.0-36.0) 01/04/21 04:55 RDW 15.9 % (12.0-15.0) H 01/04/21 04:55 Plt Count 556 10^3/uL (130-450) H 01/04/21 04:55 MPV 10.1 fL (7.9-10.8) 01/04/21 04:55 Neut # (Auto) Not Reportable 01/04/21 04:55 Lymph # (Auto) Not Reportable 01/04/21 04:55 [place] # (Auto) Not Reportable 01/04/21 04:55 Eos # (Auto) Not Reportable 01/04/21 04:55 Baso # (Auto) Not Reportable 01/04/21 04:55 Absolute Nucleated RBC Not Reportable 01/04/21 04:55 Total Counted 100 01/04/21 04:55 Band Neuts % (Manual) 6 % (0-10) 01/04/21 04:55 Abnorm Lymph % (Manual) 0 % 01/04/21 04:55 Metamyelocytes % 3 % (-0) H 01/04/21 04:55 Myelocytes % 2 % (-0) H 01/04/21 04:55 Nucleated RBC % Not Reportable 01/04/21 04:55 Neutrophils # (Manual) 18.2 10^3/uL (1.5-6.6) H 01/04/21 04:55 Lymphocytes # (Manual) 1.8 10^3/uL (1.5-3.5) 01/04/21 04:55 Monocytes # (Manual) 0.4 10^3/uL (0.0-1.0) 01/04/21 04:55 Eosinophils # (Manual) 0.4 10^3/uL (0-0.7) 01/04/21 04:55 Basophils # (Manual) 0.0 10^3/uL (0-0.1) 01/04/21 04:55 Differential Comment MANUAL DIFFERENTIAL 01/04/21 04:55 Manual Slide Review Indicated 12/16/20 16:00 WBC Morphology NORMAL APPEARANCE (NORMAL) 01/01/21 04:55 Platelet Estimate INCREASED (>450,000) (NORMAL) 01/04/21 04:55 Platelet Morphology NORMAL APPEARANCE (NORMAL) 01/01/21 04:55 RBC Morph Micro Appear NORMAL APPEARANCE (NORMAL) 01/04/21 04:55 PT 16.1 secs (9.9-12.6) H 12/31/20 04:50 INR 1.5 (0.8-1.2) H 12/31/20 04:50 Whole Blood INR 1.4 (0.8-1.2) H 12/29/20 09:13 Bld Gas Analysis Time 0830 01/01/21 08:30 Sample Site RIGHT RADIAL 01/01/21 08:30 ABG pH 7.49 (7.35-7.45) H 01/01/21 08:30 ABG pCO2 38 mmHg (34-45) 01/01/21 08:30 ABG pO2 43 mmHg (80-100) L* 01/01/21 08:30 ABG HCO3 28.7 mmol/L (22.0-26.0) H 01/01/21 08:30 ABG Total CO2 30.0 MMOL/L (21.0-29.0) H 01/01/21 08:30 ABG O2 Saturation 82 % (94-98) L* 01/01/21 08:30 ABG Base Excess 5.0 mmol/L (-2.0-3.0) H 01/01/21 08:30 Olaf Test POSITIVE 01/01/21 08:30 O2 Delivery Device OXYMASK 01/01/21 08:30 O2 Liters/Min 9.00 LPM 01/01/21 08:30 Sodium 133 mmol/L (135-145) L 01/04/21 04:55 Potassium 3.4 mmol/L (3.5-5.0) L 01/04/21 04:55 Chloride 98 mmol/L (101-111) L 01/04/21 04:55 Carbon Dioxide 28 mmol/L (21-32) 01/04/21 04:55 Anion Gap 7.0 (6-13) 01/04/21 04:55 BUN 15 mg/dL (6-20) 01/04/21 04:55 Creatinine 0.6 mg/dL (0.4-1.0) 01/04/21 04:55 Estimated GFR (MDRD) 103 (>89) 01/04/21 04:55 Glucose 85 mg/dL (70-100) 01/04/21 04:55 POC Whole Bld Glucose 90 mg/dL (70 - 100) 01/04/21 06:18 Calcium 7.6 mg/dL (8.5-10.3) L 01/04/21 04:55 Phosphorus 2.7 mg/dL (2.5-4.6) 01/04/21 04:55 Magnesium 1.6 mg/dL (1.7-2.8) L 01/04/21 04:55 Iron 6 ug/dL (28-170) L 12/30/20 05:00 TIBC 115 ug/dL (250-450) L 12/30/20 05:00 % Saturation 5 % (20-50) L 12/30/20 05:00 Transferrin 82 mg/dL (192-382) L 12/30/20 05:00 Total Bilirubin 0.8 mg/dL (0.2-1.0) 01/03/21 04:55 AST 32 IU/L (10-42) 01/03/21 04:55 ALT 12 IU/L (10-60) 01/03/21 04:55 Alkaline Phosphatase 88 IU/L (42-121) 01/03/21 04:55 B-Natriuretic Peptide 159 pg/mL (5-100) H 01/01/21 04:55 Total Protein 6.4 g/dL (6.7-8.2) L 01/03/21 04:55 Albumin 1.7 g/dL (3.2-5.5) L 01/03/21 04:55 Globulin 4.7 g/dL (2.1-4.2) H 01/03/21 04:55 Albumin/Globulin Ratio 0.4 (1.0-2.2) L 01/03/21 04:55 Prealbumin 4 mg/dL (18-45) L 01/03/21 04:55 Triglycerides 80 mg/dL (-149) 12/31/20 04:50 Lipase 27 U/L (22-51) 12/16/20 16:00 Vitamin B12 893 pg/mL (180-914) 12/30/20 05:00 Folate 3.80 ng/mL (5.90 - >24.8) L 12/30/20 05:00 TSH 2.48 uIU/mL (0.34-5.60) 12/28/20 05:00 Urine Color YELLOW 12/29/20 11:30 Urine Clarity CLEAR (CLEAR) 12/29/20 11:30 Urine pH 7.0 PH (5.0-7.5) 12/29/20 11:30 Ur Specific [place] 1.020 (1.002-1.030) 12/29/20 11:30 Urine Protein NEGATIVE mg/dL (NEGATIVE) 12/29/20 11:30 Urine Glucose (UA) NEGATIVE mg/dL (NEGATIVE) 12/29/20 11:30 Urine Ketones NEGATIVE mg/dL (NEGATIVE) 12/29/20 11:30 Urine Occult Blood TRACE-LYSE (NEGATIVE) 12/29/20 11:30 Urine Nitrite NEGATIVE (NEGATIVE) 12/29/20 11:30 Urine Bilirubin NEGATIVE (NEGATIVE) 12/29/20 11:30 Urine Urobilinogen 0.2 (NORMAL) E.U./dL (NORMAL) 12/29/20 11:30 Ur Leukocyte Esterase NEGATIVE (NEGATIVE) 12/29/20 11:30 Ur Microscopic Review NOT INDICATED 12/29/20 11:30 Urine Culture Comments NOT INDICATED 12/29/20 11:30 Nasal Adenovirus (PCR) NOT DETECTED 12/16/20 17:54 Nasal B. parapertussis DNA (PCR) NOT DETECTED 12/16/20 17:54 Nasal Coronavir 229E PCR NOT DETECTED 12/16/20 17:54 Nasal Coronavir HKU1 PCR NOT DETECTED 12/16/20 17:54 Nasal Coronavir NL63 PCR NOT DETECTED 12/16/20 17:54 Nasal Coronavir OC43 PCR NOT DETECTED 12/16/20 17:54 Nasal Enterovir/Rhinovir PCR NOT DETECTED 12/16/20 17:54 Nasal Influenza B PCR NOT DETECTED 12/16/20 17:54 Nasal Influenza A PCR NOT DETECTED 12/16/20 17:54 Nasal Parainfluen 1 PCR NOT DETECTED 12/16/20 17:54 Nasal Parainfluen 2 PCR NOT DETECTED 12/16/20 17:54 Nasal Parainfluen 3 PCR NOT DETECTED 12/16/20 17:54 Nasal Parainfluen 4 PCR NOT DETECTED 12/16/20 17:54 Nasal RSV (PCR) NOT DETECTED 12/16/20 17:54 Nasal Screen MRSA (PCR) NEGATIVE (NEGATIVE) 12/27/20 18:00 Nasal B.pertussis DNA PCR NOT DETECTED 12/16/20 17:54 Nasal C.pneumoniae (PCR) NOT DETECTED 12/16/20 17:54 Robin Human Metapneumo PCR NOT DETECTED 12/16/20 17:54 Nasal M.pneumoniae (PCR) NOT DETECTED 12/16/20 17:54 Nasal SARS-CoV-2 (PCR) NOT DETECTED 12/16/20 17:54 Last Dose Date 01/01/21 01/01/21 12:20 Last Dose Time 0114 01/01/21 12:20 Vancomycin Trough 26.2 ug/mL (10.0-20.0) H* 01/01/21 12:20 Blood Type O POSITIVE 12/28/20 20:28 Blood Type Recheck O POSITIVE 12/28/20 05:00 Antibody Screen NEGATIVE 12/28/20 20:28 Crossmatch IS Only See Detail 12/28/20 20:28 ABX Reporting Has patient been on IV antibiotics over the past 48 hours?: Yes Current Medications - Current Medications Current Medications: Active Medications Generic Name Dose Route Start Last Admin Trade Name Freq PRN Reason Stop Dose Admin Acetaminophen 650 mg 12/28/20 10:01 01/03/21 08:31 Acetaminophen 325 Mg Tablet PO 650 mg Q4HR PRN Administration Pain or Fever > 38C (100.4F) Carboxymethylcellulose 1 drops 12/30/20 14:41 12/30/20 14:51 Carboxymethylcellulose Ophth Drops EACHEYE 1 drops PRN PRN Administration Dry Eye Docusate Sodium 100 mg 12/27/20 21:00 01/04/21 08:27 Docusate Sodium 100 Mg Capsule PO 100 mg BID VANESSA Administration Famotidine 20 mg 12/30/20 11:00 01/04/21 08:27 Famotidine 20 Mg Tablet PO 20 mg BID VANESSA Administration Furosemide 20 mg 01/04/21 09:00 01/04/21 08:28 Furosemide 20 Mg/2 Ml Vial IVP 20 mg DAILY VANESSA Administration Heparin Sodium (Porcine) 5,000 unit 12/27/20 21:00 01/04/21 09:50 Heparin 5,000 Unit/Ml Vial SUBQ 5,000 unit BID VANESSA Administration Hydromorphone HCl 0.5 mg 12/30/20 11:36 01/04/21 11:01 Hydromorphone 0.5 Mg/0.5 Ml Syringe IVP 0.5 mg Q2H PRN Administration PAIN Fluconazole 100 mls @ 100 mls/hr 12/28/20 09:00 01/04/21 09:49 Diflucan 200 Mg/100 Ml IV Infused DAILY VANESSA Infusion Piperacillin Sod/Tazobactam 100 mls @ 25 mls/hr 01/01/21 16:00 01/04/21 08:29 Sod 3.375 gm/ Sodium Chloride IV 25 mls/hr Q8H VANESSA Administration Insulin Human Regular 2 - 10 unit 12/28/20 19:00 01/04/21 11:20 Insulin Regular Human 300 Unit/3 Ml Vial SUBQ 2 unit Q6HR VANESSA Administration Protocol Lidocaine 1 patch 01/03/21 19:55 01/03/21 21:44 Lidocaine Patch 5% TOP 1 patch DAILY PRN Administration PAIN Magnesium Oxide 400 mg 01/02/21 17:00 01/04/21 08:27 Magnesium Oxide 400 Mg Tablet PO 400 mg BIDWM VANESSA Administration Methocarbamol 500 mg 12/27/20 18:00 01/04/21 06:02 Methocarbamol 500 Mg Tablet PO 500 mg Q6HR VANESSA Administration Metoclopramide HCl 10 mg 12/27/20 18:00 01/04/21 11:25 Metoclopramide 10 Mg/2 Ml Vial IVP 10 mg Q6HR VANESSA Administration Metoprolol Tartrate 50 mg 01/03/21 21:00 01/04/21 08:27 Metoprolol Tartrate 50 Mg Tablet PO 50 mg BID VANESSA Administration Metoprolol Tartrate 5 mg 01/04/21 11:18 01/04/21 11:24 Metoprolol 5 Mg/5 Ml Vial IVP 5 mg Q6H PRN Administration Hypertensive Emergency Morphine Sulfate 2 mg 12/18/20 08:36 01/04/21 06:02 Morphine 2 Mg/Ml Carpuject IVP 2 mg Q2HR PRN Administration PAIN Petrolatum 1 applic 01/02/21 10:13 01/02/21 11:22 Petrolatum White 5 Gm Packet TOP 1 applic PRN PRN Administration Dry Lips Polyethylene Glycol 17 gm 12/27/20 21:00 01/04/21 08:29 Polyethylene Glycol 3350 17 Gm Packet PO 17 gm BID VANESSA Administration Potassium Chloride 20 meq 01/04/21 09:00 01/04/21 09:07 Potassium Chloride 20 Meq Tablet PO 20 meq DAILYWM VANESSA Administration Multivit/Folic Acid/Iron 1 tab 01/03/21 08:00 01/04/21 08:27 Vitamin Tablet PO 1 tab DAILYWM VANESSA Administration Sodium Chloride 10 ml 12/17/20 01:00 01/04/21 00:04 Sodium Chloride Flush 0.9% 10 Ml Syringe IVP 10 ml 0100,0900,1700 VANESSA Administration Sodium Chloride 10 ml 12/27/20 17:31 01/04/21 11:26 Sodium Chloride Flush 0.9% 10 Ml Syringe IVP 10 ml PRN PRN Administration NEEDED PER PROVIDER ORDERS Sodium Chloride 20 ml 12/30/20 01:06 01/04/21 04:53 Sodium Chloride Flush 0.9% 10 Ml Syringe IVP 20 ml PRN PRN Administration After Blood Draw Metoprolol Tartrate [Lopressor] 100 mg PO BID 12/18/20 Potassium Chloride [K-Dur] 20 meq PO DAILY 12/18/20 Triamterene/Hydrochlorothiazid [Maxzide 75 mg-50 mg Tablet] 0.5 tab PO DAILY 12/18/20
[2021-01-04] MEDS ORDERED: METOPROLOL 5 MG/5 ML VIAL IVP PRN (11:18)
[2021-01-04] MEDS ORDERED: METOPROLOL 5 MG/5 ML VIAL IVP ONE (11:22)
[2021-01-04 18:36] LABS: BILIRUBIN,URINE NEGATIVE (NEGATIVE); GLUCOSE, URINE (UA) NEGATIVE (NEGATIVE); KETONES,URINE (UA) NEGATIVE (NEGATIVE); LEUKOCYTE ESTERASE, URINE NEGATIVE (NEGATIVE); NITRITE,URINE NEGATIVE (NEGATIVE); OCCULT BLOOD,URINE MODERATE (NEGATIVE); PROTEIN,URINE 30 mg/dL (NEGATIVE); UROBILINOGEN,URINE 0.2 (NORMAL) E.U./dL (NORMAL)
[2021-01-04 18:41] LABS: BACTERIA,URINE None Seen /HPF (None Seen); CLARITY,URINE CLEAR (CLEAR); SQUAMOUS EPITHELIAL CELL,UR RARE Squamous (<= Few); WBC,URINE 0-3 /HPF (0-5)
[2021-01-04] MEDS: guaiFENesin 600 MG TABLET PO SCH (21:20)
[2021-01-04] MEDS: LIDOCAINE PATCH 5% TOP PRN (21:23)
[2021-01-05] MEDS: METOCLOPRAMIDE 10 MG/2 ML VIAL IVP SCH ×2 (00:17→06:05)
[2021-01-05] MEDS: PIPERACILLIN/TAZOBACTAM 3.375 GM in SODIUM CHLORIDE 0.9% MINIBAG 100 ML IV SCH ×4 (00:17→23:54)
[2021-01-05] MEDS: methocarbamoL 500 MG TABLET PO SCH ×5 (00:17→23:55)
[2021-01-05] MEDS: INSULIN REGULAR HUMAN 300 UNIT/3 ML VIAL SUBQ SCH ×4 (00:23→19:21)
[2021-01-05] MEDS: SODIUM CHLORIDE FLUSH 0.9% 10 ML SYRINGE IVP SCH ×4 (00:24→23:56)
[2021-01-05] MEDS: HYDROmorphone 0.5 MG/0.5 ML SYRINGE IVP PRN ×8 (00:47→22:42)
[2021-01-05 06:23] LABS: BASOPHILS % (AUTO) 0.4 %; EOSINOPHILS % (AUTO) 2.3 %; HCT - HEMATOCRIT 23.6 % (37.0-47.0); HGB - HEMOGLOBIN 7.8 g/dL (12.0-16.0); LYMPHOCYTES % (AUTO) 8.7 %; MEAN CORPUSCULAR HEMOGLOBIN 29.9 pg (27.0-31.0); MEAN CORPUSCULAR HGB CONC 33.1 g/dL (32.0-36.0); MEAN CORPUSCULAR VOLUME 90.4 fL (81.0-99.0); MEAN PLATELET VOLUME 9.5 fL (7.9-10.8); MONOCYTES % (AUTO) 6.5 %; NEUTROPHILS % (AUTO) 78.6 %; PLT - PLATELET COUNT 542 10^3/uL (130-450); RED BLOOD COUNT 2.61 10^6/uL (4.20-5.40); WHITE BLOOD COUNT 23.1 x10^3/uL (4.8-10.8)
[2021-01-05 06:33] LABS: ABNORMAL LYMPHS % (MANUAL) 0 %
[2021-01-05 06:34] LABS: MAGNESIUM 1.6 mg/dL (1.7-2.8); PHOSPHORUS 3.1 mg/dL (2.5-4.6)
[2021-01-05 06:36] LABS: ALBUMIN 1.6 g/dL (3.2-5.5); ALBUMIN/GLOBULIN RATIO 0.3 (1.0-2.2); BILIRUBIN,TOTAL 0.7 mg/dL (0.2-1.0); CALCIUM 7.6 mg/dL (8.5-10.3); CREATININE 0.7 mg/dL (0.4-1.0); POTASSIUM 3.5 mmol/L (3.5-5.0); TOTAL PROTEIN 6.4 g/dL (6.7-8.2)
[2021-01-05 07:06] LABS: BAND NEUTROPHILS % (MANUAL) 7 %; EOSINOPHILS # (MANUAL) 0.5 10^3/uL (0-0.7); LYMPHOCYTES # (MANUAL) 2.1 10^3/uL (1.5-3.5); LYMPHOCYTES % (MANUAL) 9 %; MONOCYTES # (MANUAL) 1.8 10^3/uL (0.0-1.0); NEUTROPHILS # (MANUAL) 18.7 10^3/uL (1.5-6.6)
[2021-01-05 07:07] LABS: DIFFERENTIAL COMMENT MANUAL DIFFERENTIAL
[2021-01-05] MEDS ORDERED: MAGNESIUM OXIDE 400 MG TABLET PO SCH (08:00)
[2021-01-05] MEDS: FLUCONAZOLE 200 MG/100 ML 100 ML IV SCH (08:07)
[2021-01-05] MEDS: POTASSIUM CHLORIDE 20 MEQ TABLET PO SCH (09:03)
[2021-01-05] MEDS: FAMOTIDINE 20 MG TABLET PO SCH ×2 (09:03→21:26)
[2021-01-05] MEDS: PRENATAL VITAMIN TABLET PO SCH (09:03)
[2021-01-05] MEDS: METOPROLOL TARTRATE 50 MG TABLET PO SCH ×2 (09:04→21:26)
[2021-01-05] MEDS: guaiFENesin 600 MG TABLET PO SCH ×2 (09:04→21:26)
[2021-01-05] MEDS: FUROSEMIDE 20 MG/2 ML VIAL IVP SCH (09:04)
[2021-01-05] MEDS: SODIUM CHLORIDE FLUSH 0.9% 10 ML SYRINGE IVP PRN (09:04)
[2021-01-05] MEDS: DOCUSATE SODIUM 100 MG CAPSULE PO SCH (09:04)
[2021-01-05] MEDS: polyethylene glycoL 3350 17 GM PACKET PO SCH (09:04)
[2021-01-05] MEDS: HEPARIN 5,000 UNIT/ML VIAL SUBQ SCH ×2 (09:15→21:26)
--- NOTE | 2021-01-05 09:27 | PROVIDER PROGRESS NOTE ---
Progress Note Subjective: Positive ileostomy output. Pain controlled. Nothing per rectum. Acosta remains in place. Patient with significantly improved respiratory status. Has been on scheduled Lasix daily; tachycardia with stable SBP. Pre-Op Diagnosis: Complicated diverticulitis; perforated diverticulitis s/p perc drain; SBO Procedure Performed: 1. Diagnostic laparoscopy 2. Laparoscopic adhesiolysis extensive 3. Laparoscopic takedown of enterocolonic fistula 4. Laparoscopic takedown of colocutaneous fistula 5. Low anterior resection, laparoscopic 6. Splenic flexure mobilization, laparoscopic 7. Repair of vesicular sinus tract 8. Laparoscopic assisted loop ileostomy 9. Partial omentectomy 10. Umbilical hernia repair 11. Drainage of intra-abdominal abscess multiple 12. Drainage catheter placement 13. Small bowel resection 14. Abdominal washout Post Op Diagnosis: Same; feculent peritonitis; multiple fistulae; vesicular involvement Objective General Appearance: positive: No acute distress Eyes Bilateral: positive: Normal inspection ENT: positive: ENT inspection nml Neck: positive: Nml inspection Respiratory: positive: Chest non-tender, No respiratory distress, Breath sounds nml. negative: Wheezes, Rales, Rhonchi Cardiovascular: positive: Regular rate & rhythm Extremities: positive: Non-tender, Full ROM, Nml appearance Neurologic/Psychiatric: positive: Oriented x3, CN's nml (2-12) Stoma pink. Wound VAC in place. Julio drain serosanguineous. Abdomen soft, nondistended, no rebound no guarding. Impression/Plan Post operative day #8 status post above listed procedure. (1) GI - IVF, bowel regimen, TPN discontinued. Advancing diet. Much improved early satiety and abdominal distention. GI ppx. (2) SURGERY - continue Acosta catheter secondary to bladder involvement. Bladder repair. Continue Julio drain. Ordered CT cystogram. Wound VAC change within next 24 hours. (3) Renal/Lytes - continue IVF. Renal indices within normal limits. Do not remove Acosta catheter prior to CT cystogram. Agree with continued diuresis, cautiously. Concentrate all fluids to avoid overload. (4) Respiratory - O2 as necessary. Continue IS. (5) Heme - Will continue with DVT ppx. H/H stable. Transfuse as necessary. Consider Venofer. (6) Cardiovascular - HD acceptable. (7) Neuro - Opiate sparring analgesia. Antispasmodics with Robaxin. Neuropathic agents. (8) Immune/Infectious Disease - continue broad-spectrum antibiotics. Agree with Zosyn. D/C Cel[place]. Follow WBC.
[2021-01-05] MEDS ORDERED: IOPAMIDOL-300 50 ML VIAL ONE (09:35)
[2021-01-05] MEDS ORDERED: IOPAMIDOL-300 100 ML VIAL ONE (11:52)
--- NOTE | 2021-01-05 12:01 | PROVIDER PROGRESS NOTE ---
Subjective - Prog Note Date Prog Note Date: 01/05/21 Prog Note Time: 11:49 - Subjective Pt reports feeling: Worse Subjective: She presented to the emergency room December 16 with abdominal pain that had begun days before admission. She had a similar episode a year before that was not nearly as severe as this 1. CT of the abdomen had acute sigmoid diverticulitis with signs of rupture including a small amount of pneumoperitoneum and formation of a pericolonic abscess measuring 4 x 2 x 4 cm. She was admitted by Dr. Collins who felt that she could be transition to oral antibiotics and discharged relatively quickly. Unfortunately she did not progress in the positive direction and continued to deteriorate. She was sent for pigtail catheter placement for multiple pelvic abscesses to [facility] on December 23.. Repeat CT on December 26 showed status post placement of pelvic percutaneous pigtail catheters of multiple pelvic abscesses. Pelvic abscesses have decreased in size since December 23. Abscess in the right paracolic gutter stable. Dilated loops of proximal small bowel slightly better. Multiple small intraperitoneal and perihepatic free air locules decreased in number and size. Bibasilar lung consolidation, right greater than left. Over the next 24 hours she did not improve with feculent drainage from her drains. She was felt to have hypovolemic shock, upper GI bleed, possible sepsis. And as such she was taken to the operating room December 26 for a diagnostic laparoscopy, laparoscopic adhesiolysis, takedown of enterocolonic fistula, takedown of colocutaneous fistula, laparoscopic low anterior resection, splenic flexure mobilization, repair of vesicular sinus tract, laparoscopic- assisted loop ileostomy, partial omentectomy, and an umbilical hernia repair. Internal medicine was consulted on December 27 and we have been involved in the case since then. Patient has had drains, wound VAC, has been fed via TPN. TPN was stopped on SaturdayJanuary 03. Diet has been progressed and she has been transferred from ICU to Med Surg. Her main problems have been tachycardia. She says that she has been tachycardic all of her life. She uses a beta-pura in the outpatient setting. The beta-pura has been given in IV form because she was n.p.o. but switched to p.o. In spite of that she has been tachycardic into the 130s as recently as yesterday. She dropped her hemoglobin on Emma [address] of the abdomen was done and she was transfused. Significant positive fluid balance noted overall and she continue to aggressively mobilize fluid with a high output especially with t he addition of Lasix. Prior to that she was starting to feel panicky and felt like she was suffocating and short of breath. she was requiring high flow nasal cannula after being tried on 30 L and 50% FiO2 by January 02. The Lasix with a negative fluid balance is helped over the last few days. She has been gradually tapered off oxygen needs and went from 3 L nasal cannula to 2 L nasal cannula to room air by January 04. She spiked a temp to 38 on January 02, January 04, and today. White cell count on postop day 0 was 15.3. Today's postop day 10 and she has been steadily rising to a white cell count of 23.1 today. She is having copious loose stools via her ostomy bag. Urine output in ostomy bag output has been as high as close to 6 L. Yesterday combined output was 3840. She feels exhausted. Cold. Affect is more muted today than has been in the past few days. Pain at the incision sites are still present and she rates it at about a 7 out of a 10 needing intermittent pain medication. The pain medicine does bring it down to a 3 out of a 10. No cough, chest pain. Overall body edema is almost completely gone she tells me. Current Medications - Current Medications Current Medications: Active Medications Acetaminophen (Acetaminophen 325 Mg Tablet) 650 mg PO Q4HR PRN PRN Reason: Pain or Fever > 38C (100.4F) Last Admin: 01/03/21 08:31 Dose: 650 mg Documented by: Carboxymethylcellulose (Carboxymethylcellulose Ophth Drops) 1 drops EACHEYE PRN PRN PRN Reason: Dry Eye Last Admin: 12/30/20 14:51 Dose: 1 drops Documented by: Famotidine (Famotidine 20 Mg Tablet) 20 mg PO BID [facility] Last Admin: 01/05/21 09:03 Dose: 20 mg Documented by: Furosemide (Furosemide 20 Mg/2 Ml Vial) 20 mg IVP DAILY [facility] Last Admin: 01/05/21 09:04 Dose: 20 mg Documented by: Guaifenesin (Guaifenesin 600 Mg Tablet) 600 mg PO BID [facility] Last Admin: 01/05/21 09:04 Dose: 600 mg Documented by: Heparin Sodium (Porcine) (Heparin 5,000 Unit/Ml Vial) 5,000 unit SUBQ BID [facility] Last Admin: 01/05/21 09:15 Dose: 5,000 unit Documented by: Hydromorphone HCl (Hydromorphone 0.5 Mg/0.5 Ml Syringe) 0.5 mg IVP Q2H PRN PRN Reason: PAIN Last Admin: 01/05/21 09:04 Dose: 0.5 mg Documented by: Fluconazole (Diflucan 200 Mg/100 Ml) 100 mls @ 100 mls/hr IV DAILY [facility] Last Infusion: 01/05/21 09:12 Dose: Infused Documented by: Piperacillin Sod/Tazobactam (Sod 3.375 gm/ Sodium Chloride) 100 mls @ 25 mls/hr IV Q8H [facility] Last Admin: 01/05/21 09:12 Dose: 25 mls/hr Documented by: Insulin Human Regular (Insulin Regular Human 300 Unit/3 Ml Vial) 2 - 10 unit SUBQ ACHS [facility]; Protocol Last Admin: 01/05/21 08:07 Dose: Not Given Documented by: Lidocaine (Lidocaine Patch 5%) 1 patch TOP DAILY PRN PRN Reason: PAIN Last Admin: 01/04/21 21:23 Dose: 1 patch Documented by: Methocarbamol (Methocarbamol 500 Mg Tablet) 500 mg PO Q6HR [facility] Last Admin: 01/05/21 06:06 Dose: 500 mg Documented by: Metoprolol Tartrate (Metoprolol Tartrate 50 Mg Tablet) 50 mg PO BID [facility] Last Admin: 01/05/21 09:04 Dose: 50 mg Documented by: Metoprolol Tartrate (Metoprolol 5 Mg/5 Ml Vial) 5 mg IVP Q6H PRN PRN Reason: Hypertensive Emergency Last Admin: 01/04/21 11:24 Dose: 5 mg Documented by: Morphine Sulfate (Morphine 2 Mg/Ml Carpuject) 2 mg IVP Q2HR PRN PRN Reason: PAIN Last Admin: 01/04/21 06:02 Dose: 2 mg Documented by: Petrolatum (Petrolatum White 5 Gm Packet) 1 applic TOP PRN PRN PRN Reason: Dry Lips Last Admin: 01/02/21 11:22 Dose: 1 applic Documented by: Potassium Chloride (Potassium Chloride 20 Meq Tablet) 20 meq PO DAILYWM [facility] Last Admin: 01/05/21 09:03 Dose: 20 meq Documented by: Multivit/Folic Acid/Iron ( Vitamin Tablet) 1 tab PO DAILYWM [facility] Last Admin: 01/05/21 09:03 Dose: 1 tab Documented by: Sodium Chloride (Sodium Chloride Flush 0.9% 10 Ml Syringe) 10 ml IVP 0100,0900,1700 [facility] Last Admin: 01/05/21 08:07 Dose: 10 ml Documented by: Sodium Chloride (Sodium Chloride Flush 0.9% 10 Ml Syringe) 10 ml IVP PRN PRN PRN Reason: NEEDED PER PROVIDER ORDERS Last Admin: 01/05/21 09:04 Dose: 10 ml Documented by: Sodium Chloride (Sodium Chloride Flush 0.9% 10 Ml Syringe) 20 ml IVP PRN PRN PRN Reason: After Blood Draw Last Admin: 01/04/21 04:53 Dose: 20 ml Documented by: Metoprolol Tartrate [Lopressor] 100 mg PO BID 12/18/20 Potassium Chloride [K-Dur] 20 meq PO DAILY 12/18/20 Triamterene/Hydrochlorothiazid [Maxzide 75 mg-50 mg Tablet] 0.5 tab PO DAILY 12/18/20 Objective - Vital Signs/Intake & Output Reviewed Vital Signs: Yes Vital Signs: Vital Signs x48h Temp Pulse Resp BP BP Pulse Ox 01/05/21 08:01 36.7 C 115 H 20 115/66 93 01/05/21 05:00 36.7 C 115 H 18 109/61 97 Intake & Output: Intake & Output 01/02/21 01/03/21 01/04/21 01/05/21 23:59 23:59 23:59 23:59 Intake Total 3827 2660 2009 Output Total 5300 4200 3848 1475 [facility] -[phone] - Objective General Appearance: positive: Alert, Mild distress (from fatigue and pain), Other (Fatigued appearing, quiet affect, foot 3 inch female who weighs 71 kg sitting up in chair asking for a blanket for her legs and socks for her feet.) Eyes Bilateral: positive: PERRL ENT: positive: No signs of dehydration Neck: positive: No JVD. negative: Stiff neck Respiratory: positive: No respiratory distress, Rales, Other (weakly coughing and not much coming up). negative: Wheezes, Rhonchi Cardiovascular: positive: Regular rate & rhythm, Tachycardia, Systolic murmur. negative: Gallop/S4, Friction rub Abdomen: positive: Other (mildly distended, tender over incisions but not severe, just bloated and uncomfortable, (+) BS) Skin: positive: Warm, Dry, Other (tanned) Extremities: positive: Pedal edema Neurologic/Psychiatric: positive: Oriented x3, CN's nml (2-12), Motor nml (but mild gen weakness, nonfocal, using trapeze adn needs help into chair and back in bed) - Lab Results Fish Bones: 01/05/21 06:00 01/05/21 06:00 Other Labs: Lab Results x24hrs 01/05/21 01/05/21 01/05/21 Range/Units 07:52 06:00 06:00 WBC (4.8-10.8) x10^3/uL RBC (4.20-5.40) 10^6/uL Hgb (12.0-16.0) g/dL Hct (37.0-47.0) % MCV (81.0-99.0) fL MCH (27.0-31.0) pg MCHC (32.0-36.0) g/dL RDW (12.0-15.0) % Plt Count (130-450) 10^3/uL MPV (7.9-10.8) fL Neut # (Auto) Lymph # (Auto) Glynn # (Auto) Eos # (Auto) Baso # (Auto) Absolute Nucleated RBC Total Counted Band Neuts % (Manual) (0 - 10) % Abnorm Lymph % (Manual) % Nucleated RBC % Neutrophils # (Manual) (1.5-6.6) 10^3/uL Lymphocytes # (Manual) (1.5-3.5) 10^3/uL Monocytes # (Manual) (0.0-1.0) 10^3/uL Eosinophils # (Manual) (0-0.7) 10^3/uL Basophils # (Manual) (0-0.1) 10^3/uL Differential Comment Sodium 132 L (135-145) mmol/L Potassium 3.5 (3.5-5.0) mmol/L Chloride 99 L (101-111) mmol/L Carbon Dioxide 24 (21-32) mmol/L Anion Gap 9.0 (6-13) BUN 15 (6-20) mg/dL Creatinine 0.7 (0.4-1.0) mg/dL Estimated GFR (MDRD) 86 L (>89) Glucose 96 (70-100) mg/dL POC Whole Bld Glucose 101 H (70 - 100) mg/dL Calcium 7.6 L (8.5-10.3) mg/dL Phosphorus 3.1 (2.5-4.6) mg/dL Magnesium 1.6 L (1.7-2.8) mg/dL Total Bilirubin 0.7 (0.2-1.0) mg/dL AST 33 (10-42) IU/L ALT 12 (10-60) IU/L Alkaline Phosphatase 96 (42-121) IU/L Total Protein 6.4 L (6.7-8.2) g/dL Albumin 1.6 L (3.2-5.5) g/dL Globulin 4.8 H (2.1-4.2) g/dL Albumin/Globulin Ratio 0.3 L (1.0-2.2) Prealbumin 6 L (18-45) mg/dL Urine Color Urine Clarity (CLEAR) Urine pH (5.0-7.5) PH Ur Specific [place] (1.002-1.030) Urine Protein (NEGATIVE) mg/dL Urine Glucose (UA) (NEGATIVE) mg/dL Urine Ketones (NEGATIVE) mg/dL Urine Occult Blood (NEGATIVE) Urine Nitrite (NEGATIVE) Urine Bilirubin (NEGATIVE) Urine Urobilinogen (NORMAL) E.U./dL Ur Leukocyte Esterase (NEGATIVE) Urine RBC (0-5) /HPF Urine WBC (0-5) /HPF Ur Squamous Epith Cells (<= Few) Urine Bacteria (None Seen) /HPF Urine Culture Comments 01/05/21 01/04/21 01/04/21 Range/Units 06:00 23:50 17:03 WBC 23.1 H (4.8-10.8) x10^3/uL RBC 2.61 L (4.20-5.40) 10^6/uL Hgb 7.8 L (12.0-16.0) g/dL Hct 23.6 L (37.0-47.0) % MCV 90.4 (81.0-99.0) fL MCH 29.9 (27.0-31.0) pg MCHC 33.1 (32.0-36.0) g/dL RDW 16.0 H (12.0-15.0) % Plt Count 542 H (130-450) 10^3/uL MPV 9.5 (7.9-10.8) fL Neut # (Auto) Not Reportable Lymph # (Auto) Not Reportable Glynn # (Auto) Not Reportable Eos # (Auto) Not Reportable Baso # (Auto) Not Reportable Absolute Nucleated RBC Not Reportable Total Counted 100 Band Neuts % (Manual) 7 (0 - 10) % Abnorm Lymph % (Manual) 0 % Nucleated RBC % Not Reportable Neutrophils # (Manual) 18.7 H (1.5-6.6) 10^3/uL Lymphocytes # (Manual) 2.1 (1.5-3.5) 10^3/uL Monocytes # (Manual) 1.8 H (0.0-1.0) 10^3/uL Eosinophils # (Manual) 0.5 (0-0.7) 10^3/uL Basophils # (Manual) 0.0 (0-0.1) 10^3/uL Differential Comment MANUAL DIFFERENTIAL Sodium (135-145) mmol/L Potassium (3.5-5.0) mmol/L Chloride (101-111) mmol/L Carbon Dioxide (21-32) mmol/L Anion Gap (6-13) BUN (6-20) mg/dL Creatinine (0.4-1.0) mg/dL Estimated GFR (MDRD) (>89) Glucose (70-100) mg/dL POC Whole Bld Glucose 116 H (70 - 100) mg/dL Calcium (8.5-10.3) mg/dL Phosphorus (2.5-4.6) mg/dL Magnesium (1.7-2.8) mg/dL Total Bilirubin (0.2-1.0) mg/dL AST (10-42) IU/L ALT (10-60) IU/L Alkaline Phosphatase (42-121) IU/L Total Protein (6.7-8.2) g/dL Albumin (3.2-5.5) g/dL Globulin (2.1-4.2) g/dL Albumin/Globulin Ratio (1.0-2.2) Prealbumin (18-45) mg/dL Urine Color YELLOW Urine Clarity CLEAR (CLEAR) Urine pH 7.0 (5.0-7.5) PH Ur Specific [place] 1.020 (1.002-1.030) Urine Protein 30 H (NEGATIVE) mg/dL Urine Glucose (UA) NEGATIVE (NEGATIVE) mg/dL Urine Ketones NEGATIVE (NEGATIVE) mg/dL Urine Occult Blood MODERATE H (NEGATIVE) Urine Nitrite NEGATIVE (NEGATIVE) Urine Bilirubin NEGATIVE (NEGATIVE) Urine Urobilinogen 0.2 (NORMAL) (NORMAL) E.U./dL Ur Leukocyte Esterase NEGATIVE (NEGATIVE) Urine RBC 11-25 H (0-5) /HPF Urine WBC 0-3 (0-5) /HPF Ur Squamous Epith Cells RARE Squamous (<= Few) Urine Bacteria None Seen (None Seen) /HPF Urine Culture Comments NOT INDICATED 01/04/21 Range/Units 16:48 WBC (4.8-10.8) x10^3/uL RBC (4.20-5.40) 10^6/uL Hgb (12.0-16.0) g/dL Hct (37.0-47.0) % MCV (81.0-99.0) fL MCH (27.0-31.0) pg MCHC (32.0-36.0) g/dL RDW (12.0-15.0) % Plt Count (130-450) 10^3/uL MPV (7.9-10.8) fL Neut # (Auto) Lymph # (Auto) Glynn # (Auto) Eos # (Auto) Baso # (Auto) Absolute Nucleated RBC Total Counted Band Neuts % (Manual) (0 - 10) % Abnorm Lymph % (Manual) % Nucleated RBC % Neutrophils # (Manual) (1.5-6.6) 10^3/uL Lymphocytes # (Manual) (1.5-3.5) 10^3/uL Monocytes # (Manual) (0.0-1.0) 10^3/uL Eosinophils # (Manual) (0-0.7) 10^3/uL Basophils # (Manual) (0-0.1) 10^3/uL Differential Comment Sodium (135-145) mmol/L Potassium (3.5-5.0) mmol/L Chloride (101-111) mmol/L Carbon Dioxide (21-32) mmol/L Anion Gap (6-13) BUN (6-20) mg/dL Creatinine (0.4-1.0) mg/dL Estimated GFR (MDRD) (>89) Glucose (70-100) mg/dL POC Whole Bld Glucose 117 H (70 - 100) mg/dL Calcium (8.5-10.3) mg/dL Phosphorus (2.5-4.6) mg/dL Magnesium (1.7-2.8) mg/dL Total Bilirubin (0.2-1.0) mg/dL AST (10-42) IU/L ALT (10-60) IU/L Alkaline Phosphatase (42-121) IU/L Total Protein (6.7-8.2) g/dL Albumin (3.2-5.5) g/dL Globulin (2.1-4.2) g/dL Albumin/Globulin Ratio (1.0-2.2) Prealbumin (18-45) mg/dL Urine Color Urine Clarity (CLEAR) Urine pH (5.0-7.5) PH Ur Specific [place] (1.002-1.030) Urine Protein (NEGATIVE) mg/dL Urine Glucose (UA) (NEGATIVE) mg/dL Urine Ketones (NEGATIVE) mg/dL Urine Occult Blood (NEGATIVE) Urine Nitrite (NEGATIVE) Urine Bilirubin (NEGATIVE) Urine Urobilinogen (NORMAL) E.U./dL Ur Leukocyte Esterase (NEGATIVE) Urine RBC (0-5) /HPF Urine WBC (0-5) /HPF Ur Squamous Epith Cells (<= Few) Urine Bacteria (None Seen) /HPF Urine Culture Comments ABX Reporting Has patient been on IV antibiotics over the past 48 hours?: Yes Assessment/Plan - Problem List (1) Perforation and abscess of large intestine concurrent with and due to diverticulitis Impression: Abdominal surgery management as per general surgery. No change and tolerating puree diet, advancement of diet per general surgery. She hates it and prefers the ensure instead. Continues to have liquid stool output from ileostomy bag, will defer management of bowel meds to surgery team. RN is asking to stop miralax. Continue with pain meds as needed, continue empiric antibiotics (2) Dyspnea improving Qualifiers: Dyspnea type: other forms of dyspnea Qualified Code(s): R06.09 - Other forms of dyspnea Assessment/Plan: Likely related hospital-acquired pneumonia and volume overload. Still able to get OOB and minimal ambulation in room. Continual impovement in WOB and SOB. Oxygen saturation stable on RA during the day and 2LNC at night. Continue with incentive spirometry and encourage a deeper cough. Continue daily lasix. Continue Continue empiric IV antibiotics (3) Tachycardia Assessment/Plan: In spite of resuming her usual betablocker, continues. I gave extra dose of IV last night. Stable tachycardia with rates 100-110s s/p change to increased metoprolol with oral dosing and d/c diltizem. Echo shows normal EF and LV contractility. While she has a hx of chronic tachycardia, in face of fever this is being monitored closely to make sure we are not over diuresiing her or missing sign of infection. (4) Fever continues and more frequent spikes now Qualifiers: Fever type: unspecified Qualified Code(s): R50.9 - Fever, unspecified Assessment/Plan: Fever overnight of 38 again. Per review of vitals pt does have occasional spikes in temp overnight. Blood and urine cultures done last evening. Blood was done thru her port. Surgery has stated she will get another CT today. (5) Anemia Qualifiers: Anemia type: other cause Assessment/Plan: Likely acute blood loss anemia s/p surgery. She has required blood transfusions intermittently when hemoglobin was under 7. Transfuse if hemoglobin under 7 with iv Lasix pre and post. Morning Hgb stable 7.8 for two days now. Continue daily CBC and monitor for s/s of bleeding. (6) Hyponatremia Assessment/Plan: Morning sodium 132 from 134. Pt is now off TPN, and increased oral intake, wondering if this has contributed to slight decrease in sodium levels. Will co ntinue daily IV Lasix to promote free water clearance and daily BMPs. Continue with present plan: to decrease her peripheral IV infusions and continue IV Lasix. Follow BMP daily. Consider stopping the lasix today. (7) Hypokalemia Assessment/Plan: Morning potassium 3.5 today, IV replacement ordered for yesterday. Continue PRN replacement and monitor for s/s of hypokalemia. Will monitor with daily BMP with magnesium level. Additional magnesium given to replete again low AM labs of 1.7. Continue scheduled potassium and magnesium daily while she is being diuresis. (8) HTN (hypertension) Qualifiers: Hypertension type: essential hypertension Qualified Code(s): I10 - Essential (primary) hypertension Assessment/Plan: Low normotensive Pressure with current BP management. Continue current med management. (9) Septic shock Assessment/Plan: Resolved.
[2021-01-05] MEDS ORDERED: IOPAMIDOL-300 50 ML VIAL PO ONE (14:06)
[2021-01-05] MEDS ORDERED: IOPAMIDOL-300 100 ML VIAL IVP ONE (14:06)
--- NOTE | 2021-01-05 14:36 | CT Report ---
PROCEDURE: Abdomen/Pelvis W INDICATIONS: CT cystogram, with IV contrast after post evac. CONTRAST: IV CONTRAST: Isovue 300 ml: 100 PO CONTRAST: *NO PO CONTRAST TECHNIQUE: After the administration of oral and intravenous contrast, 5 mm thick sections acquired from the diap hragms to the symphysis. 5 mm thick coronal and sagittal reformats were acquired. For radiation dos e reduction, the following was used: automated exposure control, adjustment of mA and/or kV accordin g to patient size. COMPARISON: 12/31/2020. FINDINGS: Image quality: Excellent. ABDOMEN: Lung bases: Bibasilar interstitial infiltrates, posterior right basal atelectasis, minimal right pleu ral effusion. Heart size is normal. Solid organs: Liver and spleen are normal in size and enhancement. Gallbladder is decompressed Eliceo iary system is non dilated. Pancreas enhances normally. No adrenal nodules. Kidneys demonstrate no rmal size and enhancement, without hydronephrosis. Peritoneum and bowel: The colon is largely decompressed. An ileostomy is in place. There is wall thic kening involving the proximal transverse colon. The left colon is decompressed. There are scattered d iverticuli present. Multiple bowel anastomotic clips. No bowel lesions identified. Very thin diameter perihepatic abscess immediately adjacent to the medial aspect of the right lobe of the liver, more well formed on the current study than on the prior study, measuring approximately 0. 6 x 3.3 cm on image 32/16. Reference previous image 33/2. Very thin right paracolic gutter abscess, more well-defined than on the previous study, with a well-d efined enhancing wall now identified. On current coronal reformat image 27/19 and measures approximat judy 7.4 cm in craniocaudal dimension and 1.4 cm on transverse dimension. It is too small to drain. Deep pelvic fluid in the cul-de-sac now has more of a enhancing wall. Reference image 75/16, where it measures 5.0 x 2.3 cm. Small amount of fluid adjacent to jejunal bowel loops in the left lower abdomen. A surgical drain enters through a right abdominal approach and extends into the pelvis. Nodes and vessels: No retroperitoneal or mesenteric adenopathy by size criteria. Aorta and inferior vena cava are normal in size. Miscellaneous: No ventral hernias. PELVIS: Genitourinary: A Acosta catheter decompresses the bladder. Miscellaneous: No inguinal hernias or adenopathy. Bones: No suspicious bony lesions. No vertebral body compression fractures. IMPRESSION: 1. Bibasilar interstitial infiltrates, posterior basilar right atelectasis, minimal right pleural eff usion. 2. A surgical drain is in place. 3. There are multiple thin abscess cavities. These includes a perihepatic collection which is too sma ll to drain, measuring only 0.6 cm in diameter, as well as a very thin right paracolic gutter abscess which is too small to drain. There is a deep pelvic collection in the cul-de-sac which measures 2.3 x 5.0 cm. Reviewed by: Adan Berry MD on 01/05/2021 2:35 PM PDT Approved by: Adan Berry MD on 01/05/2021 2:35 PM PDT Station ID: [id number]
[2021-01-05] MEDS: INSULIN ASPART 300 UNIT/3 ML PEN SUBQ SCH (21:27)
[2021-01-05] MEDS: LIDOCAINE PATCH 5% TOP PRN (22:42)
[2021-01-06] MEDS: HYDROmorphone 0.5 MG/0.5 ML SYRINGE IVP PRN ×6 (00:59→21:38)
[2021-01-06] MEDS: methocarbamoL 500 MG TABLET PO SCH ×3 (05:54→17:01)
[2021-01-06] MEDS: PIPERACILLIN/TAZOBACTAM 3.375 GM in SODIUM CHLORIDE 0.9% MINIBAG 100 ML IV SCH ×2 (08:11→16:07)
[2021-01-06] MEDS: POTASSIUM CHLORIDE 20 MEQ TABLET PO SCH (08:14)
[2021-01-06] MEDS: FAMOTIDINE 20 MG TABLET PO SCH ×2 (08:15→21:00)
[2021-01-06] MEDS: PRENATAL VITAMIN TABLET PO SCH (08:15)
[2021-01-06] MEDS: HEPARIN 5,000 UNIT/ML VIAL SUBQ SCH ×2 (08:23→21:14)
[2021-01-06] MEDS: FUROSEMIDE 20 MG/2 ML VIAL IVP SCH (08:24)
[2021-01-06] MEDS: METOPROLOL TARTRATE 50 MG TABLET PO SCH ×2 (08:24→22:00)
[2021-01-06] MEDS: guaiFENesin 600 MG TABLET PO SCH ×2 (08:24→21:00)
--- NOTE | 2021-01-06 09:54 | PROVIDER PROGRESS NOTE ---
Assessment/Plan - Problem List (1) Abdominal abscess Assessment/Plan: New abdominal abscesses found CT yesterday. Pt has had sporadic fever episodes and tachycardia. Pt has had blood and urine cultures drawn two days ago which have not grown anything to date. Currently on antibiotic coverage will further d efer management to surgical team. (2) Perforation and abscess of large intestine concurrent with and due to diverticulitis Assessment/Plan: Abdominal surgery management as per general surgery. Diet advanced to dysphagia mechanical and tolerating well, and much happier with solid foods, but still prefers ensures. Continues to have liquid stool output from ileostomy bag, becoming more soft formed. Will defer management of bowel meds to surgery team. Continue with pain meds as needed, continue empiric antibiotics (3) Dyspnea Qualifiers: Dyspnea type: other forms of dyspnea Qualified Code(s): R06.09 - Other forms of dyspnea Assessment/Plan: Likely related hospital-acquired pneumonia and volume overload. Getting OOB and minimal ambulation in room and to bathroom. Continual improvement in WOB and SOB. Oxygen saturation stable on RA overnight. Continue with incentive spirometry and encourage a deeper cough. Continue daily Lasix. Continue empiric IV antibiotics (4) Tachycardia Assessment/Plan: Stable tachycardia with rates 100-110s, In spite of resuming her usual betablocker dose. Echo shows normal EF and LV contractility. While she has a hx of chronic tachycardia, in face of fever this is being monitored closely to make sure we are not over diuresiing her or missing sign of infection. (5) Fever Qualifiers: Fever type: unspecified Qualified Code(s): R50.9 - Fever, unspecified Assessment/Plan: Low grade spike overnight 37.8. Pt has known spikes. Blood and urine cultures completed without growth to-date. Blood was done thru her port. CT abd yesterday does show multiple small abscesses, will defer to surgery for management. Pt has known tachycardia, this is chronic per patient and uptrending WBC will continue to monitor for s/s of sepsis or shock. (6) Anemia Qualifiers: Anemia type: other cause Assessment/Plan: Likely acute blood loss anemia s/p surgery. She has required blood transfusions intermittently when hemoglobin was under 7. Transfuse if hemoglobin under 7 with iv Lasix pre and post. Hgb remains stable. Continue daily CBC and monitor for s/s of bleeding. (7) Hyponatremia Assessment/Plan: Sodium 132,unchanged from previous day. Diet advanced to mechanical dysphagia. By physical exam, looks euvolemic. Consider stopping the lasix today. If we stop lasix, will have low threshold for restarting as based on sodium levels and respiratory status. Follow BMP daily. (8) Hypokalemia Assessment/Plan: potassium 3.1, down from 3.5. Will replace. Continue PRN replacement and monitor for s/s of hypokalemia. With advancement of diet and decrease in liquid stool will need to monitor for shift to hyperkalemia. Pt currently getting supplemental PO potassium daily. Will monitor with daily BMP with magnesium level. Will adjust PO and IV sources of potassium as indicated by BMP. (9) HTN (hypertension) Qualifiers: Hypertension type: essential hypertension Qualified Code(s): I10 - Essential (primary) hypertension - Current Meds Current Meds: Current Medications Generic Name Dose Route Start Last Admin Trade Name Freq PRN Reason Stop Dose Admin Acetaminophen 650 mg 12/28/20 10:01 01/03/21 08:31 Acetaminophen 325 Mg Tablet PO 650 mg Q4HR PRN Administration Pain or Fever > 38C (100.4F) Carboxymethylcellulose 1 drops 12/30/20 14:41 12/30/20 14:51 Carboxymethylcellulose Ophth Drops EACHEYE 1 drops PRN PRN Administration Dry Eye Famotidine 20 mg 12/30/20 11:00 01/06/21 08:15 Famotidine 20 Mg Tablet PO 20 mg BID VANESSA Administration Furosemide 20 mg 01/04/21 09:00 01/06/21 08:24 Furosemide 20 Mg/2 Ml Vial IVP 20 mg DAILY VANESSA Administration Guaifenesin 600 mg 01/04/21 21:00 01/06/21 08:24 Guaifenesin 600 Mg Tablet PO 600 mg BID VANESSA Administration Heparin Sodium (Porcine) 5,000 unit 12/27/20 21:00 01/06/21 08:23 Heparin 5,000 Unit/Ml Vial SUBQ 5,000 unit BID VANESSA Administration Hydromorphone HCl 0.5 mg 12/30/20 11:36 01/06/21 08:12 Hydromorphone 0.5 Mg/0.5 Ml Syringe IVP 0.5 mg Q2H PRN Administration PAIN Piperacillin Sod/Tazobactam 100 mls @ 25 mls/hr 01/01/21 16:00 01/06/21 08:11 Sod 3.375 gm/ Sodium Chloride IV 25 mls/hr Q8H VANESSA Administration Insulin Aspart 1 - 5 unit 01/05/21 21:00 01/05/21 21:27 Insulin Aspart 300 Unit/3 Ml Pen SUBQ Not Given 0800,1200,1700,2100 [facility] Protocol Lidocaine 1 patch 01/03/21 19:55 01/05/21 22:42 Lidocaine Patch 5% TOP 1 patch DAILY PRN Administration PAIN Methocarbamol 500 mg 12/27/20 18:00 01/06/21 05:54 Methocarbamol 500 Mg Tablet PO 500 mg Q6HR VANESSA Administration Metoprolol Tartrate 50 mg 01/03/21 21:00 01/06/21 08:24 Metoprolol Tartrate 50 Mg Tablet PO 50 mg BID VANESSA Administration Metoprolol Tartrate 5 mg 01/04/21 11:18 01/04/21 11:24 Metoprolol 5 Mg/5 Ml Vial IVP 5 mg Q6H PRN Administration Hypertensive Emergency Morphine Sulfate 2 mg 12/18/20 08:36 01/04/21 06:02 Morphine 2 Mg/Ml Carpuject IVP 2 mg Q2HR PRN Administration PAIN Petrolatum 1 applic 01/02/21 10:13 01/02/21 11:22 Petrolatum White 5 Gm Packet TOP 1 applic PRN PRN Administration Dry Lips Potassium Chloride 20 meq 01/04/21 09:00 01/06/21 08:14 Potassium Chloride 20 Meq Tablet PO 20 meq DAILYWM VANESSA Administration Multivit/Folic Acid/Iron 1 tab 01/03/21 08:00 01/06/21 08:15 Vitamin Tablet PO 1 tab DAILYWM VANESSA Administration Sodium Chloride 10 ml 12/17/20 01:00 01/05/21 23:56 Sodium Chloride Flush 0.9% 10 Ml Syringe IVP 10 ml 0100,0900,1700 VANESSA Administration Sodium Chloride 10 ml 12/27/20 17:31 01/05/21 09:04 Sodium Chloride Flush 0.9% 10 Ml Syringe IVP 10 ml PRN PRN Administration NEEDED PER PROVIDER ORDERS Sodium Chloride 20 ml 12/30/20 01:06 01/04/21 04:53 Sodium Chloride Flush 0.9% 10 Ml Syringe IVP 20 ml PRN PRN Administration After Blood Draw - Lab Result Fish Bone Diagrams: 01/06/21 12:00 01/06/21 12:00 - Additional Planning Condition/Complexity: Improved Plan Discussed with:: Patient Time Spent: 31-60 minutes Subjective - Subjective Patient Reports: Feeling Better (Feeling much better with more solid foods. Still having pain, but doesnt like IV meds in the day becuase they make her too tired.), Resting Comfortably, No Complaints Objective Vital Signs: Vital Signs - 24 hr 01/05/21 01/05/21 01/05/21 11:51 14:12 15:41 Temperature 38.2 C H 37.2 C 37.5 C Heart Rate [ 113 H Brachial] Heart Rate [ 115 H Monitoring electrodes] Respiratory 19 16 Rate Blood Pressure Blood Pressure 114/60 125/69 [Left Brachial artery] Blood Pressure [left radial] O2 Saturation 96 92 01/05/21 01/05/21 01/06/21 20:04 21:26 00:01 Temperature 37.8 C 36.7 C Heart Rate [ 122 H 117 H Brachial] Heart Rate [ Monitoring electrodes] Respiratory 20 18 Rate Blood Pressure 123/64 Blood Pressure 123/64 [Left Brachial artery] Blood Pressure 122/74 [left radial] O2 Saturation 92 91 L 01/06/21 01/06/21 05:00 07:45 Temperature 36.9 C 36.8 C Heart Rate [ 97 111 H Brachial] Heart Rate [ Monitoring electrodes] Respiratory 16 20 Rate Blood Pressure Blood Pressure 120/59 L [Left Brachial artery] Blood Pressure 103/75 [left radial] O2 Saturation 91 L 92 Oxygen O2 Source Room air I&O (Last 24 Hrs): Intake and Output Totals x24h 01/04/21 01/05/21 01/06/21 23:59 23:59 23:59 Intake Total 20090 100 Output Total 8758 1759 7959 Balance -4472 -3067 -7220 General: Alert, Oriented x3, Cooperative, No acute distress HEENT: Atraumatic, Mucous membr. moist/pink Neck: Supple, No JVD, No thyromegaly Lymphatic: no adenopathy Neuro: Alert, Non Focal, Oriented Times 3 Cardiovascular: Regular rate (tachycardic), Normal S1, Normal S2, No murmurs Respiratory: Chest non-tender, No respiratory distress, Other (Fine cracklles limited to the left lower lobe) Abdomen: Normal bowel sounds, Soft, Other (Tender to palpation. Ileostomy site pink, with liquid and soft stool.) Genitourinary: No Bleeding, No Discharge, No Tenderness Extremities: Normal pulses, Other (edema improved. RLE edema 1+) Skin: No significant lesion - Results Results: Laboratory Results WBC 23.1 x10^3/uL (4.8-10.8) H 01/05/21 06:00 RBC 2.61 10^6/uL (4.20-5.40) L 01/05/21 06:00 Hgb 7.8 g/dL (12.0-16.0) L 01/05/21 06:00 Hct 23.6 % (37.0-47.0) L 01/05/21 06:00 MCV 90.4 fL (81.0-99.0) 01/05/21 06:00 MCH 29.9 pg (27.0-31.0) 01/05/21 06:00 MCHC 33.1 g/dL (32.0-36.0) 01/05/21 06:00 RDW 16.0 % (12.0-15.0) H 01/05/21 06:00 Plt Count 542 10^3/uL (130-450) H 01/05/21 06:00 MPV 9.5 fL (7.9-10.8) 01/05/21 06:00 Neut # (Auto) Not Reportable 01/05/21 06:00 Lymph # (Auto) Not Reportable 01/05/21 06:00 [place] # (Auto) Not Reportable 01/05/21 06:00 Eos # (Auto) Not Reportable 01/05/21 06:00 Baso # (Auto) Not Reportable 01/05/21 06:00 Absolute Nucleated RBC Not Reportable 01/05/21 06:00 Total Counted 100 01/05/21 06:00 Band Neuts % (Manual) 7 % (0-10) 01/05/21 06:00 Abnorm Lymph % (Manual) 0 % 01/05/21 06:00 Metamyelocytes % 3 % (-0) H 01/04/21 04:55 Myelocytes % 2 % (-0) H 01/04/21 04:55 Nucleated RBC % Not Reportable 01/05/21 06:00 Neutrophils # (Manual) 18.7 10^3/uL (1.5-6.6) H 01/05/21 06:00 Lymphocytes # (Manual) 2.1 10^3/uL (1.5-3.5) 01/05/21 06:00 Monocytes # (Manual) 1.8 10^3/uL (0.0-1.0) H 01/05/21 06:00 Eosinophils # (Manual) 0.5 10^3/uL (0-0.7) 01/05/21 06:00 Basophils # (Manual) 0.0 10^3/uL (0-0.1) 01/05/21 06:00 Differential Comment MANUAL DIFFERENTIAL 01/05/21 06:00 Manual Slide Review Indicated 12/16/20 16:00 WBC Morphology NORMAL APPEARANCE (NORMAL) 01/01/21 04:55 Platelet Estimate INCREASED (>450,000) (NORMAL) 01/04/21 04:55 Platelet Morphology NORMAL APPEARANCE (NORMAL) 01/01/21 04:55 RBC Morph Micro Appear NORMAL APPEARANCE (NORMAL) 01/04/21 04:55 PT 16.1 secs (9.9-12.6) H 12/31/20 04:50 INR 1.5 (0.8-1.2) H 12/31/20 04:50 Whole Blood INR 1.4 (0.8-1.2) H 12/29/20 09:13 Bld Gas Analysis Time 0830 01/01/21 08:30 Sample Site RIGHT RADIAL 01/01/21 08:30 ABG pH 7.49 (7.35-7.45) H 01/01/21 08:30 ABG pCO2 38 mmHg (34-45) 01/01/21 08:30 ABG pO2 43 mmHg (80-100) L* 01/01/21 08:30 ABG HCO3 28.7 mmol/L (22.0-26.0) H 01/01/21 08:30 ABG Total CO2 30.0 MMOL/L (21.0-29.0) H 01/01/21 08:30 ABG O2 Saturation 82 % (94-98) L* 01/01/21 08:30 ABG Base Excess 5.0 mmol/L (-2.0-3.0) H 01/01/21 08:30 Olaf Test POSITIVE 01/01/21 08:30 O2 Delivery Device OXYMASK 01/01/21 08:30 O2 Liters/Min 9.00 LPM 01/01/21 08:30 Sodium 132 mmol/L (135-145) L 01/05/21 06:00 Potassium 3.5 mmol/L (3.5-5.0) 01/05/21 06:00 Chloride 99 mmol/L (101-111) L 01/05/21 06:00 Carbon Dioxide 24 mmol/L (21-32) 01/05/21 06:00 Anion Gap 9.0 (6-13) 01/05/21 06:00 BUN 15 mg/dL (6-20) 01/05/21 06:00 Creatinine 0.7 mg/dL (0.4-1.0) 01/05/21 06:00 Estimated GFR (MDRD) 86 (>89) L 01/05/21 06:00 Glucose 96 mg/dL (70-100) 01/05/21 06:00 POC Whole Bld Glucose 96 mg/dL (70 - 100) 01/06/21 07:22 Calcium 7.6 mg/dL (8.5-10.3) L 01/05/21 06:00 Phosphorus 3.1 mg/dL (2.5-4.6) 01/05/21 06:00 Magnesium 1.6 mg/dL (1.7-2.8) L 01/05/21 06:00 Iron 6 ug/dL (28-170) L 12/30/20 05:00 TIBC 115 ug/dL (250-450) L 12/30/20 05:00 % Saturation 5 % (20-50) L 12/30/20 05:00 Transferrin 82 mg/dL (192-382) L 12/30/20 05:00 Total Bilirubin 0.7 mg/dL (0.2-1.0) 01/05/21 06:00 AST 33 IU/L (10-42) 01/05/21 06:00 ALT 12 IU/L (10-60) 01/05/21 06:00 Alkaline Phosphatase 96 IU/L (42-121) 01/05/21 06:00 B-Natriuretic Peptide 159 pg/mL (5-100) H 01/01/21 04:55 Total Protein 6.4 g/dL (6.7-8.2) L 01/05/21 06:00 Albumin 1.6 g/dL (3.2-5.5) L 01/05/21 06:00 Globulin 4.8 g/dL (2.1-4.2) H 01/05/21 06:00 Albumin/Globulin Ratio 0.3 (1.0-2.2) L 01/05/21 06:00 Prealbumin 6 mg/dL (18-45) L 01/05/21 06:00 Triglycerides 80 mg/dL (-149) 12/31/20 04:50 Lipase 27 U/L (22-51) 12/16/20 16:00 Vitamin B12 893 pg/mL (180-914) 12/30/20 05:00 Folate 3.80 ng/mL (5.90 - >24.8) L 12/30/20 05:00 TSH 2.48 uIU/mL (0.34-5.60) 12/28/20 05:00 Urine Color YELLOW 01/04/21 17:03 Urine Clarity CLEAR (CLEAR) 01/04/21 17:03 Urine pH 7.0 PH (5.0-7.5) 01/04/21 17:03 Ur Specific [place] 1.020 (1.002-1.030) 01/04/21 17:03 Urine Protein 30 mg/dL (NEGATIVE) H 01/04/21 17:03 Urine Glucose (UA) NEGATIVE mg/dL (NEGATIVE) 01/04/21 17:03 Urine Ketones NEGATIVE mg/dL (NEGATIVE) 01/04/21 17:03 Urine Occult Blood MODERATE (NEGATIVE) H 01/04/21 17:03 Urine Nitrite NEGATIVE (NEGATIVE) 01/04/21 17:03 Urine Bilirubin NEGATIVE (NEGATIVE) 01/04/21 17:03 Urine Urobilinogen 0.2 (NORMAL) E.U./dL (NORMAL) 01/04/21 17:03 Ur Leukocyte Esterase NEGATIVE (NEGATIVE) 01/04/21 17:03 Urine RBC 11-25 /HPF (0-5) H 01/04/21 17:03 Urine WBC 0-3 /HPF (0-5) 01/04/21 17:03 Ur Squamous Epith Cells RARE Squamous (<= Few) 01/04/21 17:03 Urine Bacteria None Seen /HPF (None Seen) 01/04/21 17:03 Ur Microscopic Review NOT INDICATED 12/29/20 11:30 Urine Culture Comments NOT INDICATED 01/04/21 17:03 Nasal Adenovirus (PCR) NOT DETECTED 12/16/20 17:54 Nasal B. parapertussis DNA (PCR) NOT DETECTED 12/16/20 17:54 Nasal Coronavir 229E PCR NOT DETECTED 12/16/20 17:54 Nasal Coronavir HKU1 PCR NOT DETECTED 12/16/20 17:54 Nasal Coronavir NL63 PCR NOT DETECTED 12/16/20 17:54 Nasal Coronavir OC43 PCR NOT DETECTED 12/16/20 17:54 Nasal Enterovir/Rhinovir PCR NOT DETECTED 12/16/20 17:54 Nasal Influenza B PCR NOT DETECTED 12/16/20 17:54 Nasal Influenza A PCR NOT DETECTED 12/16/20 17:54 Nasal Parainfluen 1 PCR NOT DETECTED 12/16/20 17:54 Nasal Parainfluen 2 PCR NOT DETECTED 12/16/20 17:54 Nasal Parainfluen 3 PCR NOT DETECTED 12/16/20 17:54 Nasal Parainfluen 4 PCR NOT DETECTED 12/16/20 17:54 Nasal RSV (PCR) NOT DETECTED 12/16/20 17:54 Nasal Screen MRSA (PCR) NEGATIVE (NEGATIVE) 12/27/20 18:00 Nasal B.pertussis DNA PCR NOT DETECTED 12/16/20 17:54 Nasal C.pneumoniae (PCR) NOT DETECTED 12/16/20 17:54 Robin Human Metapneumo PCR NOT DETECTED 12/16/20 17:54 Nasal M.pneumoniae (PCR) NOT DETECTED 12/16/20 17:54 Nasal SARS-CoV-2 (PCR) NOT DETECTED 12/16/20 17:54 Stl C. diff Tox B Gene NEGATIVE (NEGATIVE) 01/04/21 09:40 Last Dose Date 01/01/21 01/01/21 12:20 Last Dose Time 0114 01/01/21 12:20 Vancomycin Trough 26.2 ug/mL (10.0-20.0) H* 01/01/21 12:20 Blood Type O POSITIVE 12/28/20 20:28 Blood Type Recheck O POSITIVE 12/28/20 05:00 Antibody Screen NEGATIVE 12/28/20 20:28 Crossmatch IS Only See Detail 12/28/20 20:28 ABX Reporting Has patient been on IV antibiotics over the past 48 hours?: Yes
[2021-01-06] MEDS: INSULIN ASPART 300 UNIT/3 ML PEN SUBQ SCH ×4 (10:14→21:11)
[2021-01-06] MEDS: SODIUM CHLORIDE FLUSH 0.9% 10 ML SYRINGE IVP SCH ×2 (11:45→16:18)
[2021-01-06 12:08] LABS: BASOPHILS % (AUTO) 0.5 %; EOSINOPHILS % (AUTO) 0.9 %; HCT - HEMATOCRIT 24.5 % (37.0-47.0); LYMPHOCYTES % (AUTO) 6.6 %; MEAN CORPUSCULAR HEMOGLOBIN 29.9 pg (27.0-31.0); MEAN CORPUSCULAR HGB CONC 32.7 g/dL (32.0-36.0); MEAN CORPUSCULAR VOLUME 91.4 fL (81.0-99.0); MEAN PLATELET VOLUME 9.5 fL (7.9-10.8); MONOCYTES % (AUTO) 6.5 %; NEUTROPHILS % (AUTO) 81.4 %; PLT - PLATELET COUNT 572 10^3/uL (130-450); RED BLOOD COUNT 2.68 10^6/uL (4.20-5.40); RED CELL DISTRIBUTION WIDTH 16.3 % (12.0-15.0); WHITE BLOOD COUNT 22.9 x10^3/uL (4.8-10.8)
[2021-01-06 12:15] LABS: SLIDE REVIEW? Indicated
[2021-01-06 12:16] LABS: CALCIUM 7.7 mg/dL (8.5-10.3); CREATININE 0.7 mg/dL (0.4-1.0); POTASSIUM 3.1 mmol/L (3.5-5.0)
[2021-01-06 12:32] LABS: ABNORMAL LYMPHS % (MANUAL) 0 %
[2021-01-06 12:33] LABS: BAND NEUTROPHILS % (MANUAL) 2 %; BASOPHILS # (MANUAL) 0.7 10^3/uL (0-0.1); BASOPHILS % (MANUAL) 3 %; DIFFERENTIAL COMMENT MANUAL DIFFERENTIAL; EOSINOPHILS # (MANUAL) 0.9 10^3/uL (0-0.7); LYMPHOCYTES # (MANUAL) 0.9 10^3/uL (1.5-3.5); LYMPHOCYTES % (MANUAL) 4 %; MONOCYTES # (MANUAL) 0.9 10^3/uL (0.0-1.0); NEUTROPHILS # (MANUAL) 19.5 10^3/uL (1.5-6.6); PLATELET ESTIMATE, MANUAL INCREASED (>450,000) (NORMAL); PLATELET MORPHOLOGY NORMAL APPEARANCE (NORMAL); RBC MORPHOLOGY (MULTIPLE) 2+ HYPOCHROMASIA (NORMAL)
[2021-01-06] MEDS: oxyCODONE 5 MG TABLET PO PRN ×2 (13:50→18:35)
[2021-01-06] MEDS: ACETAMINOPHEN 325 MG TABLET PO PRN (16:15)
[2021-01-06] MEDS ORDERED: SODIUM CHLORIDE 0.9% 500 ML IV PRN (20:17)
[2021-01-06] MEDS: POTASSIUM CHLOR 10 MEQ/100 ML 10 MEQ/100 ML BAG IV SCH ×3 (20:58→23:02)
[2021-01-06] MEDS: LIDOCAINE PATCH 5% TOP PRN (21:05)
[2021-01-07] MEDS: oxyCODONE 5 MG TABLET PO PRN ×5 (00:18→21:14)
[2021-01-07] MEDS: methocarbamoL 500 MG TABLET PO SCH ×4 (00:18→17:57)
[2021-01-07] MEDS: POTASSIUM CHLOR 10 MEQ/100 ML 10 MEQ/100 ML BAG IV SCH (00:29)
[2021-01-07] MEDS: PIPERACILLIN/TAZOBACTAM 3.375 GM in SODIUM CHLORIDE 0.9% MINIBAG 100 ML IV SCH ×3 (01:42→15:51)
[2021-01-07] MEDS: SODIUM CHLORIDE FLUSH 0.9% 10 ML SYRINGE IVP SCH ×3 (01:44→15:52)
[2021-01-07] MEDS: HYDROmorphone 0.5 MG/0.5 ML SYRINGE IVP PRN ×2 (03:51→22:40)
[2021-01-07] MEDS: MIN OIL/DIMETHICON/COCONUT OIL 92 GM TUBE TOP PRN ×2 (03:51→15:55)
[2021-01-07 05:34] LABS: BASOPHILS % (AUTO) 0.5 %; EOSINOPHILS % (AUTO) 3.1 %; HCT - HEMATOCRIT 25.3 % (37.0-47.0); LYMPHOCYTES % (AUTO) 8.5 %; MEAN CORPUSCULAR HEMOGLOBIN 29.2 pg (27.0-31.0); MEAN CORPUSCULAR HGB CONC 31.6 g/dL (32.0-36.0); MEAN CORPUSCULAR VOLUME 92.3 fL (81.0-99.0); MEAN PLATELET VOLUME 9.6 fL (7.9-10.8); MONOCYTES % (AUTO) 7.6 %; NEUTROPHILS % (AUTO) 75.5 %; PLT - PLATELET COUNT 604 10^3/uL (130-450); RED BLOOD COUNT 2.74 10^6/uL (4.20-5.40); RED CELL DISTRIBUTION WIDTH 16.6 % (12.0-15.0); WHITE BLOOD COUNT 21.7 x10^3/uL (4.8-10.8)
[2021-01-07 05:37] LABS: ABNORMAL LYMPHS % (MANUAL) 0 %; BAND NEUTROPHILS % (MANUAL) 0 %
[2021-01-07 05:43] LABS: CALCIUM 8.6 mg/dL (8.5-10.3); CREATININE 0.7 mg/dL (0.4-1.0); POTASSIUM 4.2 mmol/L (3.5-5.0)
[2021-01-07 06:01] LABS: DIFFERENTIAL COMMENT MANUAL DIFFERENTIAL; EOSINOPHILS # (MANUAL) 0.9 10^3/uL (0-0.7); LYMPHOCYTES # (MANUAL) 3.9 10^3/uL (1.5-3.5); LYMPHOCYTES % (MANUAL) 18 %; MONOCYTES # (MANUAL) 1.7 10^3/uL (0.0-1.0); NEUTROPHILS # (MANUAL) 15.2 10^3/uL (1.5-6.6); PLATELET ESTIMATE, MANUAL INCREASED (>450,000) (NORMAL); PLATELET MORPHOLOGY NORMAL APPEARANCE (NORMAL); RBC MORPHOLOGY (MULTIPLE) NORMAL APPEARANCE (NORMAL); WBC MORPHOLOGY (MULTIPLE) NORMAL APPEARANCE (NORMAL)
[2021-01-07] MEDS: PRENATAL VITAMIN TABLET PO SCH (07:59)
[2021-01-07] MEDS: FAMOTIDINE 20 MG TABLET PO SCH ×2 (08:00→21:03)
[2021-01-07] MEDS: guaiFENesin 600 MG TABLET PO SCH ×2 (08:00→21:03)
[2021-01-07] MEDS: POTASSIUM CHLORIDE 20 MEQ TABLET PO SCH (08:00)
[2021-01-07] MEDS: METOPROLOL TARTRATE 50 MG TABLET PO SCH ×2 (08:08→16:12)
[2021-01-07] MEDS: INSULIN ASPART 300 UNIT/3 ML PEN SUBQ SCH (08:12)
[2021-01-07] MEDS: LIDOCAINE PATCH 5% TOP PRN (08:13)
[2021-01-07] MEDS: SODIUM CHLORIDE FLUSH 0.9% 10 ML SYRINGE IVP PRN ×2 (08:17→22:40)
[2021-01-07] MEDS: HEPARIN 5,000 UNIT/ML VIAL SUBQ SCH ×2 (08:23→21:02)
--- NOTE | 2021-01-07 11:43 | PROVIDER PROGRESS NOTE ---
Assessment/Plan - Problem List (1) Abdominal abscess Assessment/Plan: New abdominal abscesses found CT two days ago Pt has had sporadic fever episodes and tachycardia. Pt has had blood and urine cultures drawn two days ago which have not grown anything to date. Discussed with surgery, plan is to reevaluate with CT on Saturday. Depending on those results could possibly require additional surgery or IR intervention. Currently on antibiotic coverage will further defer management to surgical team. . (2) Perforation and abscess of large intestine concurrent with and due to diverticulitis Assessment/Plan: Abdominal surgery management as per general surgery. Diet advanced to dysphagia mechanical and tolerating well, and much happier with solid foods, but still prefers ensures. Continues to have liquid stool output from ileostomy bag, becoming more soft formed. Will defer management of bowel meds to surgery team. Continue with pain meds as needed, continue empiric antibiotics (3) Dyspnea Qualifiers: Dyspnea type: other forms of dyspnea Qualified Code(s): R06.09 - Other forms of dyspnea Assessment/Plan: Likely related hospital-acquired pneumonia and volume overload. Getting OOB and minimal ambulation in room and to bathroom. Continual improvement in WOB and SOB. Oxygen saturation stable on RA overnight. Continue with incentive spirometry and encourage a deeper cough. Lasix stopped last night. Continue empiric IV antibiotics per surgery (4) Tachycardia Assessment/Plan: Stable tachycardia with rates 100-110s, In spite of resuming her usual betablocker dose. Echo shows normal EF and LV contractility. While she has a hx of chronic tachycardia, in face of fever this is being monitored closely. Continue to monitor for increased tachycardia as lasix has been stopped. Will n eed close monitoring for respiratory distress or infective causes of increased tachycardia. (5) Fever Qualifiers: Fever type: unspecified Qualified Code(s): R50.9 - Fever, unspecified Assessment/Plan: No fevers in the last 24 hours. Blood and urine cultures completed without growth to-date. Blood was done thru her port. CT shows multiple small abscesses, plan discussed with surgery; awaiting results of CT planned for Saturday. Pt has known tachycardia, this is chronic per patient, stable but elevated WBC; will continue to monitor for s/s of sepsis or shock. (6) Anemia Qualifiers: Anemia type: other cause Assessment/Plan: Likely acute blood loss anemia s/p surgery. She has required blood transfusions intermittently when hemoglobin was under 7. Transfuse if hemoglobin under 7 with iv Lasix pre and post. Hgb remains stable. Continue daily CBC and monitor for s/s of bleeding. (7) Hyponatremia Assessment/Plan: Sodium 130. down from 132 from previous day. Diet advanced to mechanical dysphagia. Continues to look euvolemic on exam. Lasix stopped last night. will continue monitor trend in sodium tomorrow. If sodium levels continue to decrease or becomes symptomatic will discuss with dietary and reevaluate management. Follow BMP daily. (8) Hypokalemia Assessment/Plan: Potassium level normal. Since Lasix has stopped, and liquid stool decreasing, will decrease PO supplemental potassium, to avoid causing hyperkalemia. Continue daily BMP. (9) HTN (hypertension) Qualifiers: Hypertension type: essential hypertension Qualified Code(s): I10 - Essential (primary) hypertension Assessment/Plan: BP stable. Continue metoprolol dosing for HR and BP control. (10) Septic shock Assessment/Plan: Resolved. - Current Meds Current Meds: Current Medications Generic Name Dose Route Start Last Admin Trade Name Freq PRN Reason Stop Dose Admin Acetaminophen 650 mg 12/28/20 10:01 01/06/21 16:15 Acetaminophen 325 Mg Tablet PO 650 mg Q4HR PRN Administration Pain or Fever > 38C (100.4F) Carboxymethylcellulose 1 drops 12/30/20 14:41 12/30/20 14:51 Carboxymethylcellulose Ophth Drops EACHEYE 1 drops PRN PRN Administration Dry Eye Famotidine 20 mg 12/30/20 11:00 01/07/21 08:00 Famotidine 20 Mg Tablet PO 20 mg BID VANESSA Administration Guaifenesin 600 mg 01/04/21 21:00 01/07/21 08:00 Guaifenesin 600 Mg Tablet PO 600 mg BID VANESSA Administration Heparin Sodium (Porcine) 5,000 unit 12/27/20 21:00 01/07/21 08:23 Heparin 5,000 Unit/Ml Vial SUBQ 5,000 unit BID VANESSA Administration Hydromorphone HCl 0.5 mg 12/30/20 11:36 01/07/21 03:51 Hydromorphone 0.5 Mg/0.5 Ml Syringe IVP 0.5 mg Q2H PRN Administration PAIN Piperacillin Sod/Tazobactam 100 mls @ 25 mls/hr 01/01/21 16:00 01/07/21 08:13 Sod 3.375 gm/ Sodium Chloride IV 25 mls/hr Q8H VANESSA Administration Sodium Chloride 500 mls @ 20 mls/hr 01/06/21 20:17 01/07/21 07:23 Normal Saline 0.9% IV 0 mls/hr Q24H PRN Infusion TKO RATE Lidocaine 1 patch 01/03/21 19:55 01/07/21 08:13 Lidocaine Patch 5% TOP 1 patch DAILY PRN Administration PAIN Methocarbamol 500 mg 12/27/20 18:00 01/07/21 11:04 Methocarbamol 500 Mg Tablet PO 500 mg Q6HR VANESSA Administration Metoprolol Tartrate 50 mg 01/03/21 21:00 01/07/21 08:08 Metoprolol Tartrate 50 Mg Tablet PO Not Given BID VANESSA Metoprolol Tartrate 5 mg 01/04/21 11:18 01/04/21 11:24 Metoprolol 5 Mg/5 Ml Vial IVP 5 mg Q6H PRN Administration Hypertensive Emergency Mineral Oil 1 applic 01/07/21 03:40 01/07/21 03:51 Min Oil/Dimethicon/Coconut Oil 92 Gm Tube TOP 1 applic PRN PRN Administration Skin Care Morphine Sulfate 2 mg 12/18/20 08:36 01/04/21 06:02 Morphine 2 Mg/Ml Carpuject IVP 2 mg Q2HR PRN Administration PAIN Oxycodone HCl 5 mg 01/06/21 12:58 01/07/21 08:02 Oxycodone 5 Mg Tablet PO 5 mg Q4HR PRN Administration PAIN Petrolatum 1 applic 01/02/21 10:13 01/02/21 11:22 Petrolatum White 5 Gm Packet TOP 1 applic PRN PRN Administration Dry Lips Multivit/Folic Acid/Iron 1 tab 01/03/21 08:00 01/07/21 07:59 Vitamin Tablet PO 1 tab DAILYWM VANESSA Administration Sodium Chloride 10 ml 12/17/20 01:00 01/07/21 03:51 Sodium Chloride Flush 0.9% 10 Ml Syringe IVP 10 ml 0100,0900,1700 VANESSA Administration Sodium Chloride 10 ml 12/27/20 17:31 01/05/21 09:04 Sodium Chloride Flush 0.9% 10 Ml Syringe IVP 10 ml PRN PRN Administration NEEDED PER PROVIDER ORDERS Sodium Chloride 20 ml 12/30/20 01:06 01/07/21 08:17 Sodium Chloride Flush 0.9% 10 Ml Syringe IVP 20 ml PRN PRN Administration After Blood Draw - Lab Result Dao Bone Diagrams: 01/07/21 05:15 01/07/21 05:15 Subjective - Subjective Patient Reports: Feeling Better, Resting Comfortably, Abdominal Pain (tells me she had a long episode of sharp L mid abd pain yesterday, non radiating, relieved by dilaudid and manual pressure. Now says it "okay" and has a lidoc prince patch which has been helping.) Objective Vital Signs: Vital Signs - 24 hr 01/06/21 01/06/21 01/06/21 12:22 17:00 21:00 Temperature 36.8 C 36.8 C 36.8 C Heart Rate [ 112 H 111 H 112 H Brachial] Heart Rate [ Monitoring electrodes] Respiratory 18 20 18 Rate Blood Pressure Blood Pressure 104/63 109/71 104/65 [Left Brachial artery] Blood Pressure [left radial] O2 Saturation 92 94 92 01/06/21 01/07/21 01/07/21 22:00 00:49 04:10 Temperature 36.6 C 36.6 C Heart Rate [ Brachial] Heart Rate [ 108 H 99 Monitoring electrodes] Respiratory 18 16 Rate Blood Pressure 112/62 Blood Pressure 110/67 104/56 L [Left Brachial artery] Blood Pressure [left radial] O2 Saturation 94 93 01/07/21 01/07/21 08:03 08:08 Temperature 37.3 C Heart Rate [ Brachial] Heart Rate [ 106 H Monitoring electrodes] Respiratory 18 Rate Blood Pressure 108/57 L Blood Pressure [Left Brachial artery] Blood Pressure 101/62 [left radial] O2 Saturation 92 Oxygen O2 Source Room air I&O (Last 24 Hrs): Intake and Output Totals x24h 01/05/21 01/06/21 01/07/21 23:59 23:59 23:59 Intake Total 1790 9940.486 9546 Output Total 5475 5830 800 Balance -0277 -1261.667 772 General: Alert, Oriented x3, Cooperative HEENT: Atraumatic Neck: Supple, No JVD, No thyromegaly Lymphatic: no adenopathy Neuro: Alert, Non Focal, CN 2-12 Grossly Intact, Oriented Times 3 Cardiovascular: Regular rate (tachycardic), Normal S1, Normal S2, No murmurs Respiratory: Chest non-tender, No respiratory distress, Other (Expiratory click heard; no respiratory distress, oxygen levels stable. Suppect this is a leaflet flap style mucous plug.) Abdomen: Other (tenderness to L abd pain) Genitourinary: Normal External Extremities: No clubbing, No cyanosis, No edema, Normal pulses Skin: No rashes, No breakdown, No significant lesion - Results Results: Laboratory Results WBC 21.7 x10^3/uL (4.8-10.8) H 01/07/21 05:15 RBC 2.74 10^6/uL (4.20-5.40) L 01/07/21 05:15 Hgb 8.0 g/dL (12.0-16.0) L 01/07/21 05:15 Hct 25.3 % (37.0-47.0) L 01/07/21 05:15 MCV 92.3 fL (81.0-99.0) 01/07/21 05:15 MCH 29.2 pg (27.0-31.0) 01/07/21 05:15 MCHC 31.6 g/dL (32.0-36.0) L 01/07/21 05:15 RDW 16.6 % (12.0-15.0) H 01/07/21 05:15 Plt Count 604 10^3/uL (130-450) H 01/07/21 05:15 MPV 9.6 fL (7.9-10.8) 01/07/21 05:15 Neut # (Auto) Not Reportable 01/07/21 05:15 Lymph # (Auto) Not Reportable 01/07/21 05:15 Hubbard # (Auto) Not Reportable 01/07/21 05:15 Eos # (Auto) Not Reportable 01/07/21 05:15 Baso # (Auto) Not Reportable 01/07/21 05:15 Absolute Nucleated RBC Not Reportable 01/07/21 05:15 Total Counted 100 01/07/21 05:15 Band Neuts % (Manual) 0 % (0-10) 01/07/21 05:15 Abnorm Lymph % (Manual) 0 % 01/07/21 05:15 Metamyelocytes % 3 % (-0) H 01/04/21 04:55 Myelocytes % 2 % (-0) H 01/04/21 04:55 Nucleated RBC % Not Reportable 01/07/21 05:15 Neutrophils # (Manual) 15.2 10^3/uL (1.5-6.6) H 01/07/21 05:15 Lymphocytes # (Manual) 3.9 10^3/uL (1.5-3.5) H 01/07/21 05:15 Monocytes # (Manual) 1.7 10^3/uL (0.0-1.0) H 01/07/21 05:15 Eosinophils # (Manual) 0.9 10^3/uL (0-0.7) H 01/07/21 05:15 Basophils # (Manual) 0.0 10^3/uL (0-0.1) 01/07/21 05:15 Differential Comment MANUAL DIFFERENTIAL 01/07/21 05:15 Manual Slide Review Indicated 01/06/21 12:00 WBC Morphology NORMAL APPEARANCE (NORMAL) 01/07/21 05:15 Platelet Estimate INCREASED (>450,000) (NORMAL) 01/07/21 05:15 Platelet Morphology NORMAL APPEARANCE (NORMAL) 01/07/21 05:15 RBC Morph Micro Appear NORMAL APPEARANCE (NORMAL) 01/07/21 05:15 PT 16.1 secs (9.9-12.6) H 12/31/20 04:50 INR 1.5 (0.8-1.2) H 12/31/20 04:50 Whole Blood INR 1.4 (0.8-1.2) H 12/29/20 09:13 Bld Gas Analysis Time 0830 01/01/21 08:30 Sample Site RIGHT RADIAL 01/01/21 08:30 ABG pH 7.49 (7.35-7.45) H 01/01/21 08:30 ABG pCO2 38 mmHg (34-45) 01/01/21 08:30 ABG pO2 43 mmHg (80-100) L* 01/01/21 08:30 ABG HCO3 28.7 mmol/L (22.0-26.0) H 01/01/21 08:30 ABG Total CO2 30.0 MMOL/L (21.0-29.0) H 01/01/21 08:30 ABG O2 Saturation 82 % (94-98) L* 01/01/21 08:30 ABG Base Excess 5.0 mmol/L (-2.0-3.0) H 01/01/21 08:30 Olaf Test POSITIVE 01/01/21 08:30 O2 Delivery Device OXYMASK 01/01/21 08:30 O2 Liters/Min 9.00 LPM 01/01/21 08:30 Sodium 130 mmol/L (135-145) L 01/07/21 05:15 Potassium 4.2 mmol/L (3.5-5.0) 01/07/21 05:15 Chloride 102 mmol/L (101-111) 01/07/21 05:15 Carbon Dioxide 20 mmol/L (21-32) L 01/07/21 05:15 Anion Gap 8.0 (6-13) 01/07/21 05:15 BUN 15 mg/dL (6-20) 01/07/21 05:15 Creatinine 0.7 mg/dL (0.4-1.0) 01/07/21 05:15 Estimated GFR (MDRD) 86 (>89) L 01/07/21 05:15 Glucose 103 mg/dL (70-100) H 01/07/21 05:15 POC Whole Bld Glucose 122 mg/dL (70 - 100) H 01/06/21 11:13 Calcium 8.6 mg/dL (8.5-10.3) 01/07/21 05:15 Phosphorus 3.1 mg/dL (2.5-4.6) 01/05/21 06:00 Magnesium 1.6 mg/dL (1.7-2.8) L 01/05/21 06:00 Iron 6 ug/dL (28-170) L 12/30/20 05:00 TIBC 115 ug/dL (250-450) L 12/30/20 05:00 % Saturation 5 % (20-50) L 12/30/20 05:00 Transferrin 82 mg/dL (192-382) L 12/30/20 05:00 Total Bilirubin 0.7 mg/dL (0.2-1.0) 01/05/21 06:00 AST 33 IU/L (10-42) 01/05/21 06:00 ALT 12 IU/L (10-60) 01/05/21 06:00 Alkaline Phosphatase 96 IU/L (42-121) 01/05/21 06:00 B-Natriuretic Peptide 159 pg/mL (5-100) H 01/01/21 04:55 Total Protein 6.4 g/dL (6.7-8.2) L 01/05/21 06:00 Albumin 1.6 g/dL (3.2-5.5) L 01/05/21 06:00 Globulin 4.8 g/dL (2.1-4.2) H 01/05/21 06:00 Albumin/Globulin Ratio 0.3 (1.0-2.2) L 01/05/21 06:00 Prealbumin 6 mg/dL (18-45) L 01/05/21 06:00 Triglycerides 80 mg/dL (-149) 12/31/20 04:50 Lipase 27 U/L (22-51) 12/16/20 16:00 Vitamin B12 893 pg/mL (180-914) 12/30/20 05:00 Folate 3.80 ng/mL (5.90 - >24.8) L 12/30/20 05:00 TSH 2.48 uIU/mL (0.34-5.60) 12/28/20 05:00 Urine Color YELLOW 01/04/21 17:03 Urine Clarity CLEAR (CLEAR) 01/04/21 17:03 Urine pH 7.0 PH (5.0-7.5) 01/04/21 17:03 Ur Specific [place] 1.020 (1.002-1.030) 01/04/21 17:03 Urine Protein 30 mg/dL (NEGATIVE) H 01/04/21 17:03 Urine Glucose (UA) NEGATIVE mg/dL (NEGATIVE) 01/04/21 17:03 Urine Ketones NEGATIVE mg/dL (NEGATIVE) 01/04/21 17:03 Urine Occult Blood MODERATE (NEGATIVE) H 01/04/21 17:03 Urine Nitrite NEGATIVE (NEGATIVE) 01/04/21 17:03 Urine Bilirubin NEGATIVE (NEGATIVE) 01/04/21 17:03 Urine Urobilinogen 0.2 (NORMAL) E.U./dL (NORMAL) 01/04/21 17:03 Ur Leukocyte Esterase NEGATIVE (NEGATIVE) 01/04/21 17:03 Urine RBC 11-25 /HPF (0-5) H 01/04/21 17:03 Urine WBC 0-3 /HPF (0-5) 01/04/21 17:03 Ur Squamous Epith Cells RARE Squamous (<= Few) 01/04/21 17:03 Urine Bacteria None Seen /HPF (None Seen) 01/04/21 17:03 Ur Microscopic Review NOT INDICATED 12/29/20 11:30 Urine Culture Comments NOT INDICATED 01/04/21 17:03 Nasal Adenovirus (PCR) NOT DETECTED 12/16/20 17:54 Nasal B. parapertussis DNA (PCR) NOT DETECTED 12/16/20 17:54 Nasal Coronavir 229E PCR NOT DETECTED 12/16/20 17:54 Nasal Coronavir HKU1 PCR NOT DETECTED 12/16/20 17:54 Nasal Coronavir NL63 PCR NOT DETECTED 12/16/20 17:54 Nasal Coronavir OC43 PCR NOT DETECTED 12/16/20 17:54 Nasal Enterovir/Rhinovir PCR NOT DETECTED 12/16/20 17:54 Nasal Influenza B PCR NOT DETECTED 12/16/20 17:54 Nasal Influenza A PCR NOT DETECTED 12/16/20 17:54 Nasal Parainfluen 1 PCR NOT DETECTED 12/16/20 17:54 Nasal Parainfluen 2 PCR NOT DETECTED 12/16/20 17:54 Nasal Parainfluen 3 PCR NOT DETECTED 12/16/20 17:54 Nasal Parainfluen 4 PCR NOT DETECTED 12/16/20 17:54 Nasal RSV (PCR) NOT DETECTED 12/16/20 17:54 Nasal Screen MRSA (PCR) NEGATIVE (NEGATIVE) 12/27/20 18:00 Nasal B.pertussis DNA PCR NOT DETECTED 12/16/20 17:54 Nasal C.pneumoniae (PCR) NOT DETECTED 12/16/20 17:54 Robin Human Metapneumo PCR NOT DETECTED 12/16/20 17:54 Nasal M.pneumoniae (PCR) NOT DETECTED 12/16/20 17:54 Nasal SARS-CoV-2 (PCR) NOT DETECTED 12/16/20 17:54 Stl C. diff Tox B Gene NEGATIVE (NEGATIVE) 01/04/21 09:40 Last Dose Date 01/01/21 01/01/21 12:20 Last Dose Time 0114 01/01/21 12:20 Vancomycin Trough 26.2 ug/mL (10.0-20.0) H* 01/01/21 12:20 Blood Type O POSITIVE 12/28/20 20:28 Blood Type Recheck O POSITIVE 12/28/20 05:00 Antibody Screen NEGATIVE 12/28/20 20:28 Crossmatch IS Only See Detail 12/28/20 20:28 ABX Reporting Has patient been on IV antibiotics over the past 48 hours?: Yes Current Medications - Current Medications Current Medications: Current Medications Generic Name Dose Route Start Last Admin Trade Name Freq PRN Reason Stop Dose Admin Acetaminophen 650 mg 12/28/20 10:01 01/06/21 16:15 Acetaminophen 325 Mg Tablet PO 650 mg Q4HR PRN Administration Pain or Fever > 38C (100.4F) Carboxymethylcellulose 1 drops 12/30/20 14:41 12/30/20 14:51 Carboxymethylcellulose Ophth Drops EACHEYE 1 drops PRN PRN Administration Dry Eye Famotidine 20 mg 12/30/20 11:00 01/07/21 08:00 Famotidine 20 Mg Tablet PO 20 mg BID VANESSA Administration Guaifenesin 600 mg 01/04/21 21:00 01/07/21 08:00 Guaifenesin 600 Mg Tablet PO 600 mg BID VANESSA Administration Heparin Sodium (Porcine) 5,000 unit 12/27/20 21:00 01/07/21 08:23 Heparin 5,000 Unit/Ml Vial SUBQ 5,000 unit BID VANESSA Administration Hydromorphone HCl 0.5 mg 12/30/20 11:36 01/07/21 03:51 Hydromorphone 0.5 Mg/0.5 Ml Syringe IVP 0.5 mg Q2H PRN Administration PAIN Piperacillin Sod/Tazobactam 100 mls @ 25 mls/hr 01/01/21 16:00 01/07/21 08:13 Sod 3.375 gm/ Sodium Chloride IV 25 mls/hr Q8H VANESSA Administration Sodium Chloride 500 mls @ 20 mls/hr 01/06/21 20:17 01/07/21 07:23 Normal Saline 0.9% IV 0 mls/hr Q24H PRN Infusion TKO RATE Lidocaine 1 patch 01/03/21 19:55 01/07/21 08:13 Lidocaine Patch 5% TOP 1 patch DAILY PRN Administration PAIN Methocarbamol 500 mg 12/27/20 18:00 01/07/21 11:04 Methocarbamol 500 Mg Tablet PO 500 mg Q6HR VANESSA Administration Metoprolol Tartrate 50 mg 01/03/21 21:00 01/07/21 08:08 Metoprolol Tartrate 50 Mg Tablet PO Not Given BID VANESSA Metoprolol Tartrate 5 mg 01/04/21 11:18 01/04/21 11:24 Metoprolol 5 Mg/5 Ml Vial IVP 5 mg Q6H PRN Administration Hypertensive Emergency Mineral Oil 1 applic 01/07/21 03:40 01/07/21 03:51 Min Oil/Dimethicon/Coconut Oil 92 Gm Tube TOP 1 applic PRN PRN Administration Skin Care Morphine Sulfate 2 mg 12/18/20 08:36 01/04/21 06:02 Morphine 2 Mg/Ml Carpuject IVP 2 mg Q2HR PRN Administration PAIN Oxycodone HCl 5 mg 01/06/21 12:58 01/07/21 08:02 Oxycodone 5 Mg Tablet PO 5 mg Q4HR PRN Administration PAIN Petrolatum 1 applic 01/02/21 10:13 01/02/21 11:22 Petrolatum White 5 Gm Packet TOP 1 applic PRN PRN Administration Dry Lips Multivit/Folic Acid/Iron 1 tab 01/03/21 08:00 01/07/21 07:59 Vitamin Tablet PO 1 tab DAILYWM VANESSA Administration Sodium Chloride 10 ml 12/17/20 01:00 01/07/21 03:51 Sodium Chloride Flush 0.9% 10 Ml Syringe IVP 10 ml 0100,0900,1700 VANESSA Administration Sodium Chloride 10 ml 12/27/20 17:31 01/05/21 09:04 Sodium Chloride Flush 0.9% 10 Ml Syringe IVP 10 ml PRN PRN Administration NEEDED PER PROVIDER ORDERS Sodium Chloride 20 ml 12/30/20 01:06 01/07/21 08:17 Sodium Chloride Flush 0.9% 10 Ml Syringe IVP 20 ml PRN PRN Administration After Blood Draw
[2021-01-07] MEDS: ACETAMINOPHEN 325 MG TABLET PO PRN ×3 (12:14→21:14)
--- NOTE | 2021-01-07 14:37 | PROVIDER PROGRESS NOTE ---
Progress Note Subjective: Positive ileostomy output. Pain controlled. Nothing per rectum. Acosta in place. Status post CT cystogram as well as CT abdomen pelvis. See results below. Patient with continued improved respiratory status. Has been on scheduled Lasix daily; tachycardia with stable SBP. Pre-Op Diagnosis: Complicated diverticulitis; perforated diverticulitis s/p perc drain; SBO Procedure Performed: 1. Diagnostic laparoscopy 2. Laparoscopic adhesiolysis extensive 3. Laparoscopic takedown of enterocolonic fistula 4. Laparoscopic takedown of colocutaneous fistula 5. Low anterior resection, laparoscopic 6. Splenic flexure mobilization, laparoscopic 7. Repair of vesicular sinus tract 8. Laparoscopic assisted loop ileostomy 9. Partial omentectomy 10. Umbilical hernia repair 11. Drainage of intra-abdominal abscess multiple 12. Drainage catheter placement 13. Small bowel resection 14. Abdominal washout Post Op Diagnosis: Same; feculent peritonitis; multiple fistulae; vesicular involvement Objective General Appearance: positive: No acute distress Eyes Bilateral: positive: Normal inspection ENT: positive: ENT inspection nml Neck: positive: Nml inspection Respiratory: positive: Chest non-tender, No respiratory distress, Breath sounds nml. negative: Wheezes, Rales, Rhonchi Cardiovascular: positive: Regular rate & rhythm Extremities: positive: Non-tender, Full ROM, Nml appearance Neurologic/Psychiatric: positive: Oriented x3, CN's nml (2-12) Stoma pink. Wound VAC in place. Julio drain serosanguineous. Abdomen soft, nondistended, no rebound no guarding. CT abdomen pelvis impression January 05, 2021: 1. Bibasilar interstitial infiltrates, positive basilar right atelectasis, minimal right pleural effusion. 2. Surgical drain in place. 3. There are multiple thin abscess cavities. These includes a perihepatic collection which is too small to drain measuring only 0.6 cm in diameter as well as a very thin right paracolic gutter abscess which is too small to drain. There is a deep pelvic collection in the cul-de-sac which measures 2.3 x 5 cm. No evidence of extravasation of contrast within the urinary bladder on my evaluation of the images. Impression/Plan Post operative day #9 status post above listed procedure. (1) GI - IVF, bowel regimen. We have advanced diet. Much improved early satiety and abdominal distention. GI ppx. (2) SURGERY - We will discontinue patient's Acosta as there is no evidence of compromise of the Bladder repair. See separate note for VAC change. Plan delayed primary closure. Will withdraw drain to see if we can propagate drainage of pelvic fluid collection. (3) Renal/Lytes - discontinue IVF. Renal indices within normal limits. (4) Respiratory - O2 as necessary. Continue IS. (5) Heme - Will continue with DVT ppx. H/H stable. Transfuse as necessary. Infuse Venofer. (6) Cardiovascular - HD acceptable. (7) Neuro - Opiate sparring analgesia. Antispasmodics with Robaxin. Neuropathic agents. (8) Immune/Infectious Disease - continue broad-spectrum antibiotics. Agree with Zosyn. D/C Vanco. Follow WBC. Plan CT scan on Saturday if unable to reposition drain and reculture abdominal fluid towards tailoring antibiotic therapy.
--- NOTE | 2021-01-07 14:56 | POST OP PROGRESS NOTE ---
Subjective - General Admit Date: 12/16/20 Procedure Date: 01/05/21 Post Op Days: 2 Procedure Performed: Wound Vac Changes; Drain manipulations - Review of Systems Wound/Incisions: positive: Healing well, Other (VAC changed. Wound is 4 x 12 and granualating well. No purulence. All other port sites are well approximate. Ostomy is pink and working.) Drain Type: clearing Drain Output Description: serous General: positive: No symptoms HEENT: positive: No symptoms Pulmonary: positive: Shortness of breath Cardiovascular: positive: Dyspnea on exertion, Edema Gastrointestinal: negative: Nausea, Vomiting Genitourinary: positive: No symptoms Skin: positive: No symptoms All Other Systems: positive: Reviewed and negative - Other Other Information/Narrative: Procedure note: General Appearance: positive: No acute distress Eyes Bilateral: positive: Normal inspection ENT: positive: ENT inspection nml Neck: positive: Nml inspection Respiratory: positive: Chest non-tender, No respiratory distress, Breath sounds nml. negative: Wheezes, Rales, Rhonchi Cardiovascular: positive: Regular rate & rhythm Abdomen: positive: No distention, Other. negative: Guarding, Rebound Extremities: positive: Non-tender, Full ROM, Nml appearance Neurologic/Psychiatric: positive: Oriented x3, CN's nml (2-12) Abdominal Exam: Inspection - Erythema [none]; Scars healing well; drain site clean dry and intact Auscultation - [Normoactive bowel sounds] Palpation - Hernias [none]; Fluctuance [none]; Induration [none] Appropriately tender to palpation. Wound VAC removed and plan for change see below. Stoma pink and productive of stool and gas. The stoma bolster was removed and the stoma appliance was changed by me. Drain was attempted to be withdrawn to the point to see if we could have any production of the pelvic collection by careful drain manipulation see below. 1. WOUND VAC CHANGE: Patient was prepped and draped in the usual sterile fashion. Timeout was called and agreed to by all in the room. Pfannenstiel incision was prepped with Betadine. Again a timeout was called and agreed to by all in the room. The defect was approximately 14 cm in length by 4 cm in width. At this time we proceeded with washout withsterile saline. There was no concerns for induration or other erythema or purulence. Thereafter black sponge was inserted and placed overlying the entire defect. The clear top dressing was placed, the suction button was thereafter installed over hole cut in the dressing. There was no air leak or other compromise from the dressing. All sponge instruments and counts were correct at the conclusion of this operative case. Please note that we also performed exam under anesthesia evaluating the patient's perineum and associated erythema. 2. STOMA MANAGEMENT: Stoma bolster was removed without any complication sutures addressed no retraction of stoma which was pink and productive no complication. Please note place the new stoma appliance atop this which was oriented in such a way to avoid any complications as a relates to the wound VAC. 3. DRAIN MANIPULATION: We remove the suture from the right upper quadrant drain and slowly withdrew after placing a three-way stopcock to see if the drain was potentially occluded and aspirated and sucked after irrigating the drain with 20 cc of sterile saline there was not any drainage noted on slow withdrawal of drain which was performed carefully. At this time without the drain performing any significant aspiration we decided to remove this and plan repeat imaging in several days and consider referral for interventional radiographic percutaneous drain placement. Please note that voice recognition software was used to transcribe this note and inadvertent errors might persist in spite of review and editing. I am obliged to you for your attention. I am thankful to you for allowing me to participate with you in this care of this patient.
--- NOTE | 2021-01-07 14:57 | PROVIDER PROGRESS NOTE ---
Progress Note Subjective: Positive ileostomy output. Pain controlled. Nothing per rectum. Acosta REMOVED. Patient with continued improved respiratory status. Has been on scheduled Lasix daily; tachycardia with stable SBP. Pre-Op Diagnosis: Complicated diverticulitis; perforated diverticulitis s/p perc drain; SBO Procedure Performed: 1. Diagnostic laparoscopy 2. Laparoscopic adhesiolysis extensive 3. Laparoscopic takedown of enterocolonic fistula 4. Laparoscopic takedown of colocutaneous fistula 5. Low anterior resection, laparoscopic 6. Splenic flexure mobilization, laparoscopic 7. Repair of vesicular sinus tract 8. Laparoscopic assisted loop ileostomy 9. Partial omentectomy 10. Umbilical hernia repair 11. Drainage of intra-abdominal abscess multiple 12. Drainage catheter placement 13. Small bowel resection 14. Abdominal washout Post Op Diagnosis: Same; feculent peritonitis; multiple fistulae; vesicular involvement Objective General Appearance: positive: No acute distress Eyes Bilateral: positive: Normal inspection ENT: positive: ENT inspection nml Neck: positive: Nml inspection Respiratory: positive: Chest non-tender, No respiratory distress, Breath sounds nml. negative: Wheezes, Rales, Rhonchi Cardiovascular: positive: Regular rate & rhythm Extremities: positive: Non-tender, Full ROM, Nml appearance Neurologic/Psychiatric: positive: Oriented x3, CN's nml (2-12) Stoma pink. Wound VAC in place. Abdomen soft, nondistended, no rebound no guarding. STOMA pink and productive of stool and gas. CT abdomen pelvis impression January 05, 2021: 1. Bibasilar interstitial infiltrates, positive basilar right atelectasis, minimal right pleural effusion. 2. Surgical drain in place. 3. There are multiple thin abscess cavities. These includes a perihepatic collection which is too small to drain measuring only 0.6 cm in diameter as well as a very thin right paracolic gutter abscess which is too small to drain. There is a deep pelvic collection in the cul-de-sac which measures 2.3 x 5 cm. No evidence of extravasation of contrast within the urinary bladder on my evaluation of the images. Impression/Plan Post operative day #10 status post above listed procedure. (1) GI - IVF, bowel regimen. We have advanced diet. Much improved early satiety and abdominal distention. GI ppx. (2) SURGERY - Plan delayed primary closure. We will repeat imaging for possible percutaneous drain placement next week. (3) Renal/Lytes - discontinue IVF. Renal indices within normal limits. (4) Respiratory - O2 as necessary. Continue IS. (5) Heme - Will continue with DVT ppx. H/H stable. Transfuse as necessary. Infuse Venofer. (6) Cardiovascular - HD acceptable. (7) Neuro - Opiate sparring analgesia. Antispasmodics with Robaxin. Neuropathic agents. (8) Immune/Infectious Disease - continue broad-spectrum antibiotics. Agree with Zosyn. Follow WBC. Plan CT scan on Saturday if unable to reposition drain and reculture abdominal fluid towards tailoring antibiotic therapy.
[2021-01-08] MEDS: PIPERACILLIN/TAZOBACTAM 3.375 GM in SODIUM CHLORIDE 0.9% MINIBAG 100 ML IV SCH ×3 (00:45→15:30)
[2021-01-08] MEDS: METOPROLOL TARTRATE 50 MG TABLET PO SCH ×3 (00:46→21:00)
[2021-01-08] MEDS: methocarbamoL 500 MG TABLET PO SCH ×4 (00:50→18:06)
[2021-01-08] MEDS: SODIUM CHLORIDE FLUSH 0.9% 10 ML SYRINGE IVP SCH ×3 (00:50→16:35)
[2021-01-08] MEDS: oxyCODONE 5 MG TABLET PO PRN ×4 (01:37→14:57)
[2021-01-08] MEDS: SODIUM CHLORIDE FLUSH 0.9% 10 ML SYRINGE IVP PRN ×4 (06:49→14:33)
[2021-01-08 07:06] LABS: BASOPHILS % (AUTO) 0.5 %; EOSINOPHILS % (AUTO) 0.5 %; HCT - HEMATOCRIT 24.7 % (37.0-47.0); LYMPHOCYTES % (AUTO) 9.2 %; MEAN CORPUSCULAR HEMOGLOBIN 29.5 pg (27.0-31.0); MEAN CORPUSCULAR HGB CONC 32.4 g/dL (32.0-36.0); MEAN CORPUSCULAR VOLUME 91.1 fL (81.0-99.0); MEAN PLATELET VOLUME 9.5 fL (7.9-10.8); MONOCYTES % (AUTO) 6.8 %; NEUTROPHILS % (AUTO) 79.8 %; PLT - PLATELET COUNT 610 10^3/uL (130-450); RED BLOOD COUNT 2.71 10^6/uL (4.20-5.40); RED CELL DISTRIBUTION WIDTH 16.8 % (12.0-15.0); WHITE BLOOD COUNT 23.4 x10^3/uL (4.8-10.8)
[2021-01-08 07:22] LABS: ABNORMAL LYMPHS % (MANUAL) 0 %; ALBUMIN 1.9 g/dL (3.2-5.5); ALBUMIN/GLOBULIN RATIO 0.4 (1.0-2.2); BAND NEUTROPHILS % (MANUAL) 0 %; BILIRUBIN,TOTAL 0.7 mg/dL (0.2-1.0); CALCIUM 8.5 mg/dL (8.5-10.3); CREATININE 0.6 mg/dL (0.4-1.0); MAGNESIUM 1.6 mg/dL (1.7-2.8); PHOSPHORUS 3.9 mg/dL (2.5-4.6); POTASSIUM 3.7 mmol/L (3.5-5.0); TOTAL PROTEIN 7.3 g/dL (6.7-8.2)
[2021-01-08] MEDS ORDERED: SODIUM CHLORIDE 0.9% 500 ML IV ONE (07:30)
[2021-01-08 07:38] LABS: PLATELET ESTIMATE, MANUAL INCREASED (>450,000) (NORMAL); PLATELET MORPHOLOGY NORMAL APPEARANCE (NORMAL)
[2021-01-08 07:39] LABS: WBC MORPHOLOGY (MULTIPLE) 1+ VACUOLATION (NORMAL)
[2021-01-08 08:21] LABS: SLIDE REVIEW? Indicated
[2021-01-08 08:24] LABS: EOSINOPHILS # (MANUAL) 0.5 10^3/uL (0-0.7); LYMPHOCYTES # (MANUAL) 2.6 10^3/uL (1.5-3.5); LYMPHOCYTES % (MANUAL) 11 %; MONOCYTES # (MANUAL) 1.6 10^3/uL (0.0-1.0); NEUTROPHILS # (MANUAL) 18.7 10^3/uL (1.5-6.6)
[2021-01-08 08:25] LABS: DIFFERENTIAL COMMENT MANUAL DIFFERENTIAL
[2021-01-08] MEDS: guaiFENesin 600 MG TABLET PO SCH ×2 (09:04→21:00)
[2021-01-08] MEDS: SODIUM CHLORIDE 0.9% 1,000 ML IV SCH ×2 (09:04→20:52)
[2021-01-08] MEDS: PRENATAL VITAMIN TABLET PO SCH (09:05)
[2021-01-08] MEDS: FAMOTIDINE 20 MG TABLET PO SCH ×2 (09:05→21:00)
[2021-01-08] MEDS: IRON DEXTRAN 200 MG in SODIUM CHLORIDE 0.9% 100ML 100 ML IV SCH (09:07)
[2021-01-08] MEDS: HEPARIN 5,000 UNIT/ML VIAL SUBQ SCH ×2 (09:13→21:01)
[2021-01-08] MEDS: LIDOCAINE PATCH 5% TOP PRN (10:37)
[2021-01-08] MEDS ORDERED: MAGNESIUM SULFATE 2 GRAM 2 GM/50 ML BAG IV ONE (13:39)
[2021-01-08] MEDS: MIN OIL/DIMETHICON/COCONUT OIL 92 GM TUBE TOP PRN ×2 (14:08→15:32)
[2021-01-08] MEDS: ACETAMINOPHEN 325 MG TABLET PO PRN (14:08)
--- NOTE | 2021-01-08 14:09 | PROVIDER PROGRESS NOTE ---
Progress Note January 08, 2021 2:08 PM I spent an hour discussing the case with the patient yesterday. Reiterated general surgery plan for a CT scan of the abdomen tomorrow to assess the size of her abscess and then to see if she needed interventional radiology or another surgery. The patient is understandably frustrated, occasionally tearful, but trying to look on the bright side of things and that she still alive, and so many other people are much more ill than she has. Pain is with deep inspiration. Pain is in the abdominal wall when she does that. Controlled with Dilaudid at night and oxycodone during the day. Tolerating mainly a liquid diet. Stool output has slowed down a little bit in the bag. Sodium has been dropping and we started her on low rate IV fluids. No fever, no chills. Cough is occasionally productive of thick phlegm. No shortness of breath. No chest pain. Medication list is Tylenol as needed, refresh ophthalmic drops, Pepcid, Mucinex, heparin 5000 twice daily, Dilaudid, iron dextran, Lidoderm patch, magnesium sulfate as needed, Robaxin as needed, Lopressor 50 twice daily as well as 5 mg IV push every 6 hours as needed, Cavilon, morphine as needed, oxycodone 5 mg as needed, Zosyn, vitamin with folic acid, potassium chloride. Objective: Temperature is 37 1, pulse continues to be over 100 at 140 116. Blood pressure 104/58. She was as low as 98/59 this morning. Respirations 16 and she is 95% on room air. Sitting upright in her chair, doing work on her computer. States is tender go back to bed because she is exhausted. Occasional crackles and rhonchi in both lung barragan. The clicking respiratory noise from yesterday has resolved. No pleuritic chest pain. No tachypnea. Regular rate and rhythm with tachycardia that is consistent. Been present since admission. Abdomen diffusely mildly tender but increasing pain in both right and left lower quadrants. No rebound or guarding. Hypoactive bowel sounds. Ostomy site with good granulation, no breakdown. Extremities have decreasing edema overall. She still has some edema around her ankles and lower feet but it is much improved over the last 4 days where she was severely edematous. Neurologically she is alert, oriented to person place and time. Needs minimum to moderate assist to get out of the chair to get back in bed mainly because of all the tubes, and wires attached to her. She thinks of that she did have that she would be able to do it on her own. Assessment/plan 1. Abdominal abscess. CT of abdomen has pelvic abscess from 3 days ago. She has had sporadic fever, episodes of tachycardia. Blood and urine cultures -[address] scan is planned for tomorrow, and then interventional radiology transfer to [facility] (where I believe she will be brought back) versus surgery. Being followed by general surgery. On antibiotics. White cell count still elevated. 2. Perforation and abscess of large intestine concurrent with and due to diverticulitis. Initial presentation December 16 with abscess and pneumoperitoneum. Drainage December 23 with interventional radiology. OR December 26 after shock, sepsis, possible GI bleed. On mechanical soft diet. She had takedown of fistulas, low anterior resection, repair of vesicular sinus tract, loop ileostomy, partial omentectomy and umbilical hernia repair. Was on TPN until January 03. Diet has been advancing. Currently on dysphagia mechanical soft diet. Prefers her insurer more than anything. Plan continue follow-up with general surgery. 3. Tachycardia that has been lifelong. Worsened during her stay. Her home medications of metoprolol resumed. In spite of that she continues to be tachycardic in the low 100s. We are monitoring her for signs and symptoms of infection. 4. Anemia. Status post acute blood loss anemia after surgery requiring transfusion. We are monitoring to make sure she does not need further transfusion 5. Hyponatremia as low as 130. Stable. Off TPN. Back on IV fluids today with my order. 6. Hypokalemia. Continue to supplement as needed. 7. Hypertension. On home medication of metoprolol. Blood pressure is not a problem and occasionally hypotensive now.
[2021-01-08] MEDS: POTASSIUM CHLOR 10 MEQ/100 ML 10 MEQ/100 ML BAG IV SCH ×3 (14:29→16:35)
--- NOTE | 2021-01-08 15:03 | PROVIDER PROGRESS NOTE ---
Progress Note Subjective: Positive ileostomy output. Pain controlled. Nothing per rectum. Patient with stable, improved respiratory status. No acute complaints. Pre-Op Diagnosis: Complicated diverticulitis; perforated diverticulitis s/p perc drain; SBO Procedure Performed: 1. Diagnostic laparoscopy 2. Laparoscopic adhesiolysis extensive 3. Laparoscopic takedown of enterocolonic fistula 4. Laparoscopic takedown of colocutaneous fistula 5. Low anterior resection, laparoscopic 6. Splenic flexure mobilization, laparoscopic 7. Repair of vesicular sinus tract 8. Laparoscopic assisted loop ileostomy 9. Partial omentectomy 10. Umbilical hernia repair 11. Drainage of intra-abdominal abscess multiple 12. Drainage catheter placement 13. Small bowel resection 14. Abdominal washout Post Op Diagnosis: Same; feculent peritonitis; multiple fistulae; vesicular involvement Objective General Appearance: positive: No acute distress Eyes Bilateral: positive: Normal inspection ENT: positive: ENT inspection nml Neck: positive: Nml inspection Respiratory: positive: Chest non-tender, No respiratory distress, Breath sounds nml. negative: Wheezes, Rales, Rhonchi Cardiovascular: positive: Regular rate & rhythm Extremities: positive: Non-tender, Full ROM, Nml appearance Neurologic/Psychiatric: positive: Oriented x3, CN's nml (2-12) Stoma pink. Wound VAC in place. Please see procedure note. Abdomen soft, nondistended, no rebound no guarding. STOMA pink and productive of stool and gas. Stoma appliance changed after attached procedure completed both the delayed primary closure and wound VAC change. CT abdomen pelvis impression January 05, 2021: 1. Bibasilar interstitial infiltrates, positive basilar right atelectasis, minimal right pleural effusion. 2. Surgical drain in place. 3. There are multiple thin abscess cavities. These includes a perihepatic collection which is too small to drain measuring only 0.6 cm in diameter as well as a very thin right paracolic gutter abscess which is too small to drain. There is a deep pelvic collection in the cul-de-sac which measures 2.3 x 5 cm. No evidence of extravasation of contrast within the urinary bladder on my evaluation of the images. Impression/Plan Post operative day #11 status post above listed procedure. (1) GI - IVF, bowel regimen. We have advanced diet. Much improved early satiety and abdominal distention. GI ppx. (2) SURGERY - Please see attached procedure notes. (3) Renal/Lytes - Renal indices within normal limits. (4) Respiratory - O2 as necessary. Continue IS. (5) Heme - Will continue with DVT ppx. H/H stable. Transfuse as necessary. Infuse Venofer. (6) Cardiovascular - HD acceptable. (7) Neuro - Opiate sparring analgesia. Antispasmodics with Robaxin. Neuropathic agents. (8) Immune/Infectious Disease - continue broad-spectrum antibiotics. Agree with Zosyn. Follow WBC. CT scan in am on Saturday as unable to reposition drain. Wound appears viable and free of infectious sequelae.
[2021-01-08] MEDS ORDERED: LIDOCAINE 1% 50 ML MDV TD STA (15:45)
[2021-01-08] MEDS: HYDROmorphone 0.5 MG/0.5 ML SYRINGE IVP PRN ×2 (19:44→22:33)
--- NOTE | 2021-01-08 20:31 | POST OP PROGRESS NOTE ---
Subjective - General Admit Date: 12/16/20 Procedure Date: 01/08/21 Post Op Days: 1 Procedure Performed: Wound Vac Changes; Delayed Primary Closure - Review of Systems Wound/Incisions: positive: Healing well, Other (VAC changed. Wound is 4 x 12 and granualating well. No purulence. All other port sites are well approximate. Ostomy is pink and working.) Drain Type: clear Drain Output Description: serous General: positive: No symptoms HEENT: positive: No symptoms Pulmonary: positive: Shortness of breath Cardiovascular: positive: Dyspnea on exertion, Edema Gastrointestinal: negative: Nausea, Vomiting Genitourinary: positive: No symptoms Skin: positive: No symptoms All Other Systems: positive: Reviewed and negative - Other Other Information/Narrative: DELAYED PRIMARY CLOSURE Patient was obtained for informed consent with risks and benefits discussed questions answered. Timeout was called and agreed to by all the room. Patient was prepped and draped in the usual sterile fashion. Patient was localized with lidocaine without any complication. The wound was aggressively irrigated with sterile saline and suctioned dry. There was no evidence of any infectious stigmata; no erythema, induration, purulence, or warmth. Pfannenstiel wound 14 cm horizontal/transverse width. Depth 4 cm. Performed multiple deep dermals 3-0 Vicryl and superficial vertical mattresses of 2-0 nylon laterally leaving approximately 5 cm within the midline for placement of a another wound VAC sponge. See below. We proceeded to sterilely reapproximate as per above. There was no tension on the wound patient tolerated well. The wound was dressed wound VAC in the midline with plan to again perform delayed primary closure of this aspect of the wound in several days to reduce the risk of skin and soft tissue infection. I was present for the entirety of this intervention. Please note that voice recognition software was used to transcribe this note and inadvertent errors might persist in spite of review and editing. I am obliged to you for your attention. I am thankful to you for allowing me to participate with you in this care of this patient. WOUND VAC CHANGE: Patient was prepped and draped in the usual sterile fashion. Timeout was called and agreed to by all in the room. Pfannenstiel incision was prepped with Betadine. Again a timeout was called and agreed to by all in the room. At this time we proceeded with washout with sterile saline. There was no concerns for induration or other erythema or purulence. Thereafter black sponge was inserted and placed overlying the entire defect. Approximately 5 cm within the Pfannenstiel. The clear top dressing was placed, the suction button was thereafter installed over hole cut in the dressing. There was no air leak or other compromise from the dressing. All sponge instruments and counts were correct at the conclusion of this operative case. Please note that we also performed exam under anesthesia evaluating the patient's perineum and associated erythema.
[2021-01-09] MEDS: methocarbamoL 500 MG TABLET PO SCH ×4 (00:22→17:51)
[2021-01-09] MEDS: SODIUM CHLORIDE FLUSH 0.9% 10 ML SYRINGE IVP SCH ×3 (00:24→17:31)
[2021-01-09] MEDS: PIPERACILLIN/TAZOBACTAM 3.375 GM in SODIUM CHLORIDE 0.9% MINIBAG 100 ML IV SCH ×3 (00:24→15:59)
[2021-01-09] MEDS: HYDROmorphone 0.5 MG/0.5 ML SYRINGE IVP PRN ×3 (00:40→15:53)
[2021-01-09] MEDS ORDERED: IOPAMIDOL-300 100 ML VIAL ONE (04:44)
[2021-01-09] MEDS ORDERED: IOPAMIDOL-300 50 ML VIAL ONE (04:45)
[2021-01-09] MEDS ORDERED: IOPAMIDOL-300 50 ML VIAL PO ONE (05:07)
[2021-01-09] MEDS: ACETAMINOPHEN 325 MG TABLET PO PRN ×4 (05:33→21:19)
[2021-01-09] MEDS: oxyCODONE 5 MG TABLET PO PRN ×4 (05:34→21:19)
[2021-01-09 05:37] LABS: BASOPHILS % (AUTO) 0.4 %; EOSINOPHILS % (AUTO) 1.2 %; HCT - HEMATOCRIT 23.1 % (37.0-47.0); HGB - HEMOGLOBIN 7.3 g/dL (12.0-16.0); LYMPHOCYTES % (AUTO) 12.2 %; MEAN CORPUSCULAR HEMOGLOBIN 29.2 pg (27.0-31.0); MEAN CORPUSCULAR HGB CONC 31.6 g/dL (32.0-36.0); MEAN CORPUSCULAR VOLUME 92.4 fL (81.0-99.0); MEAN PLATELET VOLUME 9.4 fL (7.9-10.8); MONOCYTES % (AUTO) 7.1 %; NEUTROPHILS % (AUTO) 76.3 %; PLT - PLATELET COUNT 593 10^3/uL (130-450); RED CELL DISTRIBUTION WIDTH 16.9 % (12.0-15.0); WHITE BLOOD COUNT 21.5 x10^3/uL (4.8-10.8)
[2021-01-09 05:39] LABS: ABNORMAL LYMPHS % (MANUAL) 0 %; BAND NEUTROPHILS % (MANUAL) 0 %
[2021-01-09 05:49] LABS: CALCIUM 7.6 mg/dL (8.5-10.3); CREATININE 0.6 mg/dL (0.4-1.0); MAGNESIUM 1.6 mg/dL (1.7-2.8); POTASSIUM 3.6 mmol/L (3.5-5.0)
[2021-01-09 05:58] LABS: EOSINOPHILS # (MANUAL) 0.2 10^3/uL (0-0.7); LYMPHOCYTES # (MANUAL) 2.4 10^3/uL (1.5-3.5); LYMPHOCYTES % (MANUAL) 11 %; MONOCYTES # (MANUAL) 1.5 10^3/uL (0.0-1.0); MYELOCYTES % (MANUAL) 1 %; NEUTROPHILS # (MANUAL) 17.2 10^3/uL (1.5-6.6); PLATELET ESTIMATE, MANUAL INCREASED (>450,000) (NORMAL); PLATELET MORPHOLOGY NORMAL APPEARANCE (NORMAL)
[2021-01-09 05:59] LABS: DIFFERENTIAL COMMENT MANUAL DIFFERENTIAL; WBC MORPHOLOGY (MULTIPLE) NORMAL APPEARANCE (NORMAL)
[2021-01-09] MEDS: LIDOCAINE PATCH 5% TOP PRN (07:06)
[2021-01-09] MEDS ORDERED: IOPAMIDOL-300 100 ML VIAL IVP ONE (07:17)
[2021-01-09] MEDS: PRENATAL VITAMIN TABLET PO SCH (09:03)
[2021-01-09] MEDS: FAMOTIDINE 20 MG TABLET PO SCH ×2 (09:04→20:33)
[2021-01-09] MEDS: SODIUM CHLORIDE 0.9% 1,000 ML IV SCH (09:04)
--- NOTE | 2021-01-09 09:04 | CT Report ---
PROCEDURE: Abdomen/Pelvis W INDICATIONS: evaluate for abscess CONTRAST: IV CONTRAST: Isovue 300 ml: 100 PO CONTRAST: Isovue 300 ml50 TECHNIQUE: After the administration of nonionic contrast, 5 mm thick sections acquired from the diaphragms to th e symphysis. 5 mm thick coronal and sagittal reformats were acquired. For radiation dose reduction, the following was used: automated exposure control, adjustment of mA and/or kV according to patient size. COMPARISON: 01/05/2021 CT scanning of abdomen/pelvis FINDINGS: Image quality: Excellent. ABDOMEN: Lung bases: Lung bases are mildly abnormal with a small degree of alveolar infiltration in the right middle lobe, and scattered at the lung bases. No pleural effusion found.. Heart size is normal. Solid organs: Liver and spleen are normal in size and enhancement. There is a slight rim-enhancing fluid collection in the hepatorenal space on the right, measuring approximately 1 x 2.8 cm. Gallbladd er appears normal. There is a thin subdural diaphragmatic crescentic fluid collection which measures 1.5 x 3.9 cm. This has slightly diminished in size from the comparison CT. Biliary system is non dila zev. Pancreas enhances normally. No adrenal nodules. Kidneys demonstrate normal size and enhanceme nt, without hydronephrosis. Peritoneum and bowel: Bowel loops demonstrate normal wall thickness and caliber. The bilateral para colic gutter fluid collections seen seen on series 3 image 57. No free fluid or air. Nodes and vessels: No retroperitoneal or mesenteric adenopathy by size criteria. Aorta and inferior vena cava are normal in size. Miscellaneous: No ventral hernias. PELVIS: Genitourinary: Bladder wall thickness is normal. Miscellaneous: No inguinal hernias or adenopathy. A surgical drain has been removed from the thin f luid collection just above the bladder, and this collection has not enlarged in volume overall. Acosta catheter has been removed. Bones: No suspicious bony lesions. No vertebral body compression fractures. IMPRESSION: Several scattered small peritoneal fluid collections scattered within the abdomen and pe lvis have overall reduced in size, and there has been removal of a surgical drain from the thin pelvi c fluid collection above the bladder level. No new fluid collection has developed. No free air found. Reviewed by: Max Antonio MD on 01/09/2021 9:03 AM PDT Approved by: Max Antonio MD on 01/09/2021 9:[address] [facility] Station ID: [id number]
[2021-01-09] MEDS: guaiFENesin 600 MG TABLET PO SCH ×2 (09:05→20:33)
[2021-01-09] MEDS: METOPROLOL TARTRATE 50 MG TABLET PO SCH ×2 (09:06→20:33)
[2021-01-09] MEDS: IRON DEXTRAN 200 MG in SODIUM CHLORIDE 0.9% 100ML 100 ML IV SCH (09:06)
[2021-01-09] MEDS: MIN OIL/DIMETHICON/COCONUT OIL 92 GM TUBE TOP PRN (09:09)
[2021-01-09] MEDS: HEPARIN 5,000 UNIT/ML VIAL SUBQ SCH ×2 (09:14→20:34)
[2021-01-09] MEDS: D5NS W/20 MEQ KCL 1,000 ML IV SCH ×2 (09:35→20:34)
[2021-01-09] MEDS ORDERED: MAGNESIUM SULFATE 2 GRAM 2 GM/50 ML BAG IV ONE (10:00)
--- NOTE | 2021-01-09 12:01 | PROVIDER PROGRESS NOTE ---
Subjective - Prog Note Date Prog Note Date: 01/09/21 Prog Note Time: 13:17 - Subjective Pt reports feeling: Improved Subjective: Tired, nauseated, poor appetite. But overall stable. No fever spikes. When she takes a deep breath it is her abdominal wall that hurts. No pleuritic chest pain. She feels like and she can take a deep breath and not feel like she is suffocating. Cough is productive of phlegm but no hemoptysis. Current Medications - Current Medications Current Medications: Active Medications Acetaminophen (Acetaminophen 325 Mg Tablet) 650 mg PO Q4HR PRN PRN Reason: Pain or Fever > 38C (100.4F) Last Admin: 01/09/21 09:35 Dose: 650 mg Documented by: Carboxymethylcellulose (Carboxymethylcellulose Ophth Drops) 1 drops EACHEYE PRN PRN PRN Reason: Dry Eye Last Admin: 12/30/20 14:51 Dose: 1 drops Documented by: Famotidine (Famotidine 20 Mg Tablet) 20 mg PO BID [facility] Last Admin: 01/09/21 09:04 Dose: 20 mg Documented by: Guaifenesin (Guaifenesin 600 Mg Tablet) 600 mg PO BID [facility] Last Admin: 01/09/21 09:05 Dose: 600 mg Documented by: Heparin Sodium (Porcine) (Heparin 5,000 Unit/Ml Vial) 5,000 unit SUBQ BID [facility] Last Admin: 01/09/21 09:14 Dose: 5,000 unit Documented by: Hydromorphone HCl (Hydromorphone 0.5 Mg/0.5 Ml Syringe) 0.5 mg IVP Q2H PRN PRN Reason: PAIN Last Admin: 01/09/21 03:18 Dose: 0.5 mg Documented by: Piperacillin Sod/Tazobactam (Sod 3.375 gm/ Sodium Chloride) 100 mls @ 25 mls/hr IV Q8H [facility] Last Infusion: 01/09/21 13:01 Dose: 0 mls/hr Documented by: Sodium Chloride (Normal Saline 0.9%) 500 mls @ 20 mls/hr IV Q24H PRN PRN Reason: TKO RATE Last Infusion: 01/09/21 07:34 Dose: Infused Documented by: Iron Dextran 200 mg/ Sodium (Chloride) 104 mls @ 208 mls/hr IV DAILY [facility] Stop: 01/13/21 08:59 Last Infusion: 01/09/21 09:55 Dose: Infused Documented by: Potassium Chloride/Dextrose/Sod Cl (D5ns W/20 Meq Kcl) 1,000 mls @ 125 mls/hr IV .Q8H [facility] Last Infusion: 01/09/21 13:01 Dose: 0 mls/hr Documented by: Lidocaine (Lidocaine Patch 5%) 1 patch TOP DAILY PRN PRN Reason: PAIN Last Admin: 01/09/21 07:06 Dose: 1 patch Documented by: Methocarbamol (Methocarbamol 500 Mg Tablet) 500 mg PO Q6HR [facility] Last Admin: 01/09/21 05:33 Dose: 500 mg Documented by: Metoprolol Tartrate (Metoprolol 5 Mg/5 Ml Vial) 5 mg IVP Q6H PRN PRN Reason: Hypertensive Emergency Last Admin: 01/04/21 11:24 Dose: 5 mg Documented by: Metoprolol Tartrate (Metoprolol Tartrate 50 Mg Tablet) 50 mg PO BID [facility] Last Admin: 01/09/21 09:06 Dose: Not Given Documented by: Mineral Oil (Min Oil/Dimethicon/Coconut Oil 92 Gm Tube) 1 applic TOP PRN PRN PRN Reason: Skin Care Last Admin: 01/09/21 09:09 Dose: 1 applic Documented by: Morphine Sulfate (Morphine 2 Mg/Ml Carpuject) 2 mg IVP Q2HR PRN PRN Reason: PAIN Last Admin: 01/04/21 06:02 Dose: 2 mg Documented by: Oxycodone HCl (Oxycodone 5 Mg Tablet) 5 mg PO Q4HR PRN PRN Reason: PAIN Last Admin: 01/09/21 09:36 Dose: 5 mg Documented by: Petrolatum (Petrolatum White 5 Gm Packet) 1 applic TOP PRN PRN PRN Reason: Dry Lips Last Admin: 01/02/21 11:22 Dose: 1 applic Documented by: Multivit/Folic Acid/Iron ( Vitamin Tablet) 1 tab PO DAILYWM [facility] Last Admin: 01/09/21 09:03 Dose: 1 tab Documented by: Sodium Chloride (Sodium Chloride Flush 0.9% 10 Ml Syringe) 10 ml IVP 0100 ,0900,1700 [facility] Last Admin: 01/09/21 09:06 Dose: 10 ml Documented by: Sodium Chloride (Sodium Chloride Flush 0.9% 10 Ml Syringe) 10 ml IVP PRN PRN PRN Reason: NEEDED PER PROVIDER ORDERS Last Admin: 01/08/21 14:33 Dose: 10 ml Documented by: Sodium Chloride (Sodium Chloride Flush 0.9% 10 Ml Syringe) 20 ml IVP PRN PRN PRN Reason: After Blood Draw Last Admin: 01/08/21 06:49 Dose: 20 ml Documented by: Metoprolol Tartrate [Lopressor] 100 mg PO BID 12/18/20 Potassium Chloride [K-Dur] 20 meq PO DAILY 12/18/20 Triamterene/Hydrochlorothiazid [Maxzide 75 mg-50 mg Tablet] 0.5 tab PO DAILY 12/18/20 Objective - Vital Signs/Intake & Output Reviewed Vital Signs: Yes Vital Signs: Vital Signs x48h Temp Pulse Resp BP BP Pulse Ox 01/09/21 09:06 98/51 L 01/09/21 07:50 36.4 C L 96 18 104/60 97 Intake & Output: Intake & Output 01/06/21 01/07/21 01/08/21 01/09/21 23:59 23:59 23:59 23:59 Intake Total 5748.703 8090.667 4993.163 1537.055 Output Total 3200 1925 2150 2400 Balance -1261.667 609.493 1283.163 -862.945 - Objective General Appearance: positive: Alert Eyes Bilateral: positive: PERRL, EOMI ENT: positive: No signs of dehydration Neck: positive: No JVD. negative: Stiff neck Respiratory: positive: No respiratory distress, Rhonchi. negative: Wheezes, Rales Cardiovascular: positive: Regular rate & rhythm, Systolic murmur. negative: Gallop/S4, Friction rub Abdomen: positive: Nml bowel sounds, Tenderness (Around incisions and left lower quadrant/left midabdomen.). negative: Guarding, Rebound Skin: positive: Warm, Dry Extremities: positive: Full ROM, No pedal edema Neurologic/Psychiatric: positive: Oriented x3, CN's nml (2-12), Motor nml (But is really hard for her to move around because "you have all these things attached to me". She is talking about lead wires, IVs, wound VAC.) - Lab Results Fish Bones: 01/09/21 05:21 01/09/21 05:21 Other Labs: Lab Results x24hrs 01/09/21 01/09/21 Range/Units 05:21 05:21 WBC 21.5 H (4.8-10.8) x10^3/uL RBC 2.50 L (4.20-5.40) 10^6/uL Hgb 7.3 L (12.0-16.0) g/dL Hct 23.1 L (37.0-47.0) % MCV 92.4 (81.0-99.0) fL MCH 29.2 (27.0-31.0) pg MCHC 31.6 L (32.0-36.0) g/dL RDW 16.9 H (12.0-15.0) % Plt Count 593 H (130-450) 10^3/uL MPV 9.4 (7.9-10.8) fL Neut # (Auto) Not Reportable Lymph # (Auto) Not Reportable [place] # (Auto) Not Reportable Eos # (Auto) Not Reportable Baso # (Auto) Not Reportable Absolute Nucleated RBC Not Reportable Total Counted 100 Band Neuts % (Manual) 0 (0 - 10) % Abnorm Lymph % (Manual) 0 % Myelocytes % 1 H ( - 0) % Nucleated RBC % Not Reportable Neutrophils # (Manual) 17.2 H (1.5-6.6) 10^3/uL Lymphocytes # (Manual) 2.4 (1.5-3.5) 10^3/uL Monocytes # (Manual) 1.5 H (0.0-1.0) 10^3/uL Eosinophils # (Manual) 0.2 (0-0.7) 10^3/uL Basophils # (Manual) 0.0 (0-0.1) 10^3/uL Differential Comment MANUAL DIFFERENTIAL WBC Morphology NORMAL APPEARANCE (NORMAL) Platelet Estimate INCREASED (>450,000) (NORMAL) Platelet Morphology NORMAL APPEARANCE (NORMAL) RBC Morph Micro Appear 2+ HYPOCHROMASIA (NORMAL) Sodium 130 L (135-145) mmol/L Potassium 3.6 (3.5-5.0) mmol/L Chloride 105 (101-111) mmol/L Carbon Dioxide 18 L (21-32) mmol/L Anion Gap 7.0 (6-13) BUN 10 (6-20) mg/dL Creatinine 0.6 (0.4-1.0) mg/dL Estimated GFR (MDRD) 103 (>89) Glucose 92 (70-100) mg/dL Calcium 7.6 L (8.5-10.3) mg/dL Phosphorus 3.0 (2.5-4.6) mg/dL Magnesium 1.6 L (1.7-2.8) mg/dL ABX Reporting Has patient been on IV antibiotics over the past 48 hours?: Yes Assessment/Plan - Problem List (1) Perforation and abscess of large intestine concurrent with and due to diverticulitis Impression: Summary for next hospitalist service: She presented to the emergency room December 16 with abdominal pain that had begun days before admission. She had a similar episode a year before that was not nearly as severe as this 1. CT of the abdomen had acute sigmoid diverticulitis with signs of rupture including a small amount of pneumoperitoneum and formation of a pericolonic abscess measuring 4 x 2 x 4 cm. She was admitted by Dr. Collins who felt that she could be transition to oral antibiotics and discharged relatively quickly. Unfortunately she did not progress in the positive direction and continued to deteriorate. She was sent for pigtail catheter placement for multiple pelvic abscesses to [facility] on December 23.. Repeat CT on December 26 showed status post placement of pelvic percutaneous pigtail catheters of multiple pelvic abscesses. Pelvic abscesses have decreased in size since December 23. Abscess in the right paracolic gutter stable. Dilated loops of proximal small bowel slightly better. Multiple small intraperitoneal and perihepatic free air locules decreased in number and size. Bibasilar lung consolidation, right greater than left. Over the next 24 hours she did not improve with feculent drainage from her drains. She was felt to have hypovolemic shock, upper GI bleed, possible sepsis. And as such she was taken to the operating room December 26 for a diagnostic laparoscopy, laparoscopic adhesiolysis, takedown of enterocolonic fistula, takedown of colocutaneous fistula, laparoscopic low anterior resection, splenic flexure mobilization, repair of vesicular sinus tract, laparoscopic- assisted loop ileostomy, partial omentectomy, and an umbilical hernia repair. Internal medicine was consulted on December 27 and we have been involved in the case since then. Patient has had drains, wound VAC, has been fed via TPN. TPN was stopped on SaturdayJanuary 03. Diet has been progressed and she has been transferred from ICU to Med Surg. Her main problems have been tachycardia. She says that she has been tachycardic all of her life. She uses a beta-pura in the outpatient setting. The beta-pura has been given in IV form because she was n.p.o. but switched to p.o. In spite of that she has been tachycardic into the 130s as recently as yesterday. She dropped her hemoglobin on December [address] of the abdomen was done and she was transfused. Significant positive fluid balance noted overall and she continue to aggressively mobilize fluid with a high output especially with the addition of Lasix. Prior to that she was starting to feel panicky and felt like she was suffocating and short of breath. she was requiring high flow nasal cannula after being tried on 30 L and 50% FiO2 by January 02. The Lasix with a negative fluid balance is helped over the last few days. She has been gradually tapered off oxygen needs and went from 3 L nasal cannula to 2 L nasal cannula to room air by January 04. She spiked a temp to 38 on January 02, January 04, and January 05. None after that day. White cell count on postop day 0 was 15.3. White cell count started climbing until it was 23.1 on January 05. It is wavered a little bit lower but still 21.5 today. She was having copious loose stools via her ostomy bag. Urine output and ostomy bag output has been as high as close to 6 L. IVF have been increased, stopped, or resumed depending on the output so that we could avoid high output dehydration. Repeat CT was done and showed bibasilar interstitial infiltrates, a largely decompressed colon. Ileostomy in place. Wall thickening involving the proximal transverse colon. A very thin diameter perihepatic abscess adjacent to the medial aspect of the right lobe of the liver. Slightly more well formed than on previous study. A very thin right paracolic gutter abscess more well-defined than the previous study. Any deep pelvic fluid in the cul-de-sac with a more enhancing wall where it measures 5 x 2.3 cm. She had surgical drains. No ventral hernias. We stay the course. No change in antibiotics or therapy. Today she had another CT of the abdomen to see if she needed to be sent for interventional radiology or surgery or to continue observation. CT of the abdomen today shows a small degree of alveolar infiltration of the right middle lobe. A rim-enhancing fluid collection in the hepatorenal space on the right. A thin subdural diaphragmatic concentric fluid collection. Slightly diminished in size from the previous CT. Bowel loops are now normal wall thickness and caliber. Bilateral paracolic gutter fluid collections still present but not enlarging. The drain has been removed. There was a fluid collection just above the bladder and this has not enlarged in volume overall. Overall everything has reduced in size with no new fluid collection, no free air. She still has wound vacuum is in place. Those will be changed today. General surgery will be managing her case until she is ready for discharge. The plan is for takedown ileostomy may be [address] she is discharged and once nutrition status has been optimized. (2) Hyponatremia Impression: This unfortunate timothy lady has tremendous fluid shifts between preoperative, postoperative settings. She is also been on TPN. Sodium has gone up and down. It is nadired at 130 and stayed about that region. I did resume IV fluids yesterday to make sure she was not getting high output dehydration. It made no difference in her sodium level. We will continue to monitor and adjust fluids as needed (3) HTN (hypertension) Impression: Not a problem during her stay. Blood pressures actually been on the low side once we started beta-blockers to slow down her heart rate. She is 98 systolic this morning, up to 101 earlier this morning. I do worry about high output dehydration in this timothy woman. But at the same time or avoid the fluid overload she had resulting in severe dyspnea few days ago. We ended up having to diurese her. I want to avoid the seesaw effect of hydrating then diuresis, hydrating the diuresis. Qualifiers: Hypertension type: essential hypertension Qualified Code(s): I10 - Essential (primary) hypertension (4) Persistent adjustment disorder with depressed mood Impression: Last few weeks have been very hard on her. She states that she tries to be strong, and not complain but sometimes her pain and disability "gets her down". I spent a long time with her day before yesterday. I reassured her that her emotions are completely appropriate and her expression is not a form of "whining" which is what she saw herself as doing. Plan: Daily encouragement. And to check in with her frequently to make sure we do not need to add medications. (5) Anemia Impression: Combination of acute blood loss anemia with surgery, nutritional deficiencies. She has been transfused 1 unit on December 28. She is 7.3 g of hemoglobin today. I would consider transfusing her if she gets any lower than 7.3. Qualifiers: Anemia type: other cause
--- NOTE | 2021-01-09 15:48 | PROVIDER PROGRESS NOTE ---
Progress Note Subjective: Positive ileostomy output. Pain controlled. Nothing per rectum. Patient with stable, improved respiratory status. No acute complaints. Status post delayed primary closure partial of Pfannenstiel wound. Status post wound VAC placement. Pre-Op Diagnosis: Complicated diverticulitis; perforated diverticulitis s/p perc drain; SBO Procedure Performed: 1. Diagnostic laparoscopy 2. Laparoscopic adhesiolysis extensive 3. Laparoscopic takedown of enterocolonic fistula 4. Laparoscopic takedown of colocutaneous fistula 5. Low anterior resection, laparoscopic 6. Splenic flexure mobilization, laparoscopic 7. Repair of vesicular sinus tract 8. Laparoscopic assisted loop ileostomy 9. Partial omentectomy 10. Umbilical hernia repair 11. Drainage of intra-abdominal abscess multiple 12. Drainage catheter placement 13. Small bowel resection 14. Abdominal washout Post Op Diagnosis: Same; feculent peritonitis; multiple fistulae; vesicular involvement Objective General Appearance: positive: No acute distress Eyes Bilateral: positive: Normal inspection ENT: positive: ENT inspection nml Neck: positive: Nml inspection Respiratory: positive: Chest non-tender, No respiratory distress, Breath sounds nml. negative: Wheezes, Rales, Rhonchi Cardiovascular: positive: Regular rate & rhythm Extremities: positive: Non-tender, Full ROM, Nml appearance Neurologic/Psychiatric: positive: Oriented x3, CN's nml (2-12) Stoma pink. Wound VAC in place. Abdomen soft, nondistended, no rebound no guarding. CT abdomen pelvis impression January 05, 2021: 1. Bibasilar interstitial infiltrates, positive basilar right atelectasis, minimal right pleural effusion. 2. Surgical drain in place. 3. There are multiple thin abscess cavities. These includes a perihepatic collection which is too small to drain measuring only 0.6 cm in diameter as well as a very thin right paracolic gutter abscess which is too small to drain. There is a deep pelvic collection in the cul-de-sac which measures 2.3 x 5 cm. No evidence of extravasation of contrast within the urinary bladder on my evaluation of the images. CT abdomen pelvis impression January 09, 2021: Several scattered small peritoneal fluid collections within the abdomen and pelvis have overall reduced in size, and there has been removal of a surgical drain from the thin pelvic fluid collection above the bladder level. No new fluid collection has developed. No free air found Impression/Plan Post operative day #12 status post above listed procedure. (1) GI - IVF, bowel regimen. We have advanced diet. Much improved early satiety and abdominal distention. GI ppx. (2) SURGERY - Please see attached procedure notes. (3) Renal/Lytes - Renal indices within normal limits. (4) Respiratory - O2 as necessary. Continue IS. (5) Heme - Will continue with DVT ppx. H/H stable. Transfuse as necessary. Infuse Venofer. (6) Cardiovascular - HD acceptable. (7) Neuro - Opiate sparring analgesia. Antispasmodics with Robaxin. Neuropathic agents. (8) Immune/Infectious Disease - continue broad-spectrum antibiotics. Agree with Zosyn. Follow WBC. CT appears to have signs concerning for cholecystitis, possible acalculous. Will order HIDA scan to rule out. May need percutaneous cholecystostomy tube. Wound appears viable and free of infectious sequelae.
[2021-01-09] MEDS ORDERED: SINCALIDE IV ONE (15:56)
[2021-01-09] MEDS ORDERED: SODIUM CHLORIDE 0.9% IV ONE (15:56)
--- NOTE | 2021-01-09 16:09 | Nuclear Medicine Report ---
PROCEDURE: Hepatobiliary HIDA w/ Rx INDICATIONS: concern for acalculous cholecystitis RADIOPHARMACEUTICAL: 5.4 mCi Tc-99m meprofenin i.v. and 1.34 ?g sincalide i.v. TECHNIQUE: Following intravenous administration of Tc-99m meprofenin, sequential anterior abdominal images were . To evaluate the contractile response of the gallbladder in response to Cholecystokinin (CCK), sincalide (0.02 ?g/kg) was administered by slow intravenous infusion after the administration of the radiopharmaceutical. Sequential imaging was continued for 30 minutes after the start of CCK infusion. Gallbladder ejection fraction was calculated. COMPARISON: CT abdomen/pelvis 01/09/2021 reviewed, earlier same day.. FINDINGS: Biliary scan: There is normal tracer uptake and excretion by the liver. There is normal visualizati on of the intrahepatic ducts, common bile duct, and gallbladder. There is normal tracer transit into the duodenum. CCK stimulation: There is normal contractile response of the gallbladder to CCK infusion. The calcu lated gallbladder ejection fraction is 80%; normal values are above 35%. IMPRESSION: 1. Normal biliary imaging study. 2. Normal contractile response of gallbladder to CCK infusion.. Reviewed by: Max Antonio MD on 01/09/2021 4:08 PM PDT Approved by: Max Antonio MD on 01/09/2021 4:08 PM PDT Station ID: [id number]
[2021-01-10] MEDS: PIPERACILLIN/TAZOBACTAM 3.375 GM in SODIUM CHLORIDE 0.9% MINIBAG 100 ML IV SCH ×3 (00:45→18:20)
[2021-01-10] MEDS: SODIUM CHLORIDE FLUSH 0.9% 10 ML SYRINGE IVP SCH ×3 (00:46→16:32)
[2021-01-10] MEDS: methocarbamoL 500 MG TABLET PO SCH ×4 (00:49→18:24)
[2021-01-10] MEDS: oxyCODONE 5 MG TABLET PO PRN ×4 (00:49→16:32)
[2021-01-10] MEDS: D5NS W/20 MEQ KCL 1,000 ML IV SCH ×3 (04:16→22:37)
[2021-01-10 04:47] LABS: MAGNESIUM 1.6 mg/dL (1.7-2.8); PHOSPHORUS 2.9 mg/dL (2.5-4.6)
[2021-01-10] MEDS: ACETAMINOPHEN 325 MG TABLET PO PRN ×3 (05:37→16:32)
[2021-01-10 06:59] LABS: BASOPHILS # (AUTO) 0.1 10^3/uL (0.0-0.1); BASOPHILS % (AUTO) 0.5 %; EOSINOPHILS # (AUTO) 0.1 10^3/uL (0.0-0.7); EOSINOPHILS % (AUTO) 0.5 %; HCT - HEMATOCRIT 23.5 % (37.0-47.0); HGB - HEMOGLOBIN 7.1 g/dL (12.0-16.0); LYMPHOCYTES # (AUTO) 2.7 10^3/uL (1.5-3.5); LYMPHOCYTES % (AUTO) 14.7 %; MEAN CORPUSCULAR HGB CONC 30.2 g/dL (32.0-36.0); MEAN CORPUSCULAR VOLUME 95.9 fL (81.0-99.0); MEAN PLATELET VOLUME 9.6 fL (7.9-10.8); MONOCYTES # (AUTO) 1.3 10^3/uL (0.0-1.0); MONOCYTES % (AUTO) 7.3 %; NEUTROPHILS # (AUTO) 13.8 10^3/uL (1.5-6.6); NEUTROPHILS % (AUTO) 75.1 %; PLT - PLATELET COUNT 625 10^3/uL (130-450); RED BLOOD COUNT 2.45 10^6/uL (4.20-5.40); RED CELL DISTRIBUTION WIDTH 17.2 % (12.0-15.0); WHITE BLOOD COUNT 18.4 x10^3/uL (4.8-10.8)
[2021-01-10 07:17] LABS: CALCIUM 7.9 mg/dL (8.5-10.3); CREATININE 0.6 mg/dL (0.4-1.0); POTASSIUM 3.8 mmol/L (3.5-5.0)
--- NOTE | 2021-01-10 07:19 | PROVIDER PROGRESS NOTE ---
Assessment/Plan - Problem List (1) Perforation and abscess of large intestine concurrent with and due to diverticulitis Assessment/Plan: Patient's white blood cell count today is 18.4. This is an improvement from 21.5 yesterday. The patient has been afebrile. Her abdominal pain is mild at 3/10. She has good output in her colostomy bag. CT scan of the abdomen pelvis done yesterday Showed several scattered small peritoneal fluid collections scattered within the abdomen and pelvis have overall reduced in size, surgical drain from thin pelvic fluid collection above the bladder level had been removed. It was also negative for any new fluid collection or free air. Overall clinically patient is stable/improved. We will continue patient on Zosyn. General surgery primary. (2) Hyponatremia Assessment/Plan: Resolved. Patient is on D5 normal saline with 20 mEq of potassium chloride at 125 mL/h. (3) HTN (hypertension) Qualifiers: Hypertension type: essential hypertension Qualified Code(s): I10 - Essential (primary) hypertension Assessment/Plan: On metoprolol tartrate 50 mg po bid (4) Persistent adjustment disorder with depressed mood Assessment/Plan: Patient's white blood cell count today is 18.4. This is an improvement from 21.5 yesterday. The patient has been afebrile. Her abdominal pain is mild at 3/10. She has good output in her colostomy bag. CT scan of the abdomen pelvis done yesterday was negative for any new fluid collection. No free air was found. We will continue patient on Zosyn. General surgery primary. Overall clinically patient is stable/improved. (5) Anemia Qualifiers: Anemia type: other cause Assessment/Plan: Likely related to acute blood loss with surgery. Hemoglobin today is 7.1. Patient was last transfused 1 unit of packed red blood cells on 12/28/2020. Will transfuse 1 unit of packed red blood cells today - Current Meds Current Meds: Current Medications Generic Name Dose Route Start Last Admin Trade Name Freq PRN Reason Stop Dose Admin Acetaminophen 650 mg 12/28/20 10:01 01/10/21 05:37 Acetaminophen 325 Mg Tablet PO 650 mg Q4HR PRN Administration Pain or Fever > 38C (100.4F) Carboxymethylcellulose 1 drops 12/30/20 14:41 12/30/20 14:51 Carboxymethylcellulose Ophth Drops EACHEYE 1 drops PRN PRN Administration Dry Eye Famotidine 20 mg 12/30/20 11:00 01/09/21 20:33 Famotidine 20 Mg Tablet PO 20 mg BID VANESSA Administration Guaifenesin 600 mg 01/04/21 21:00 01/09/21 20:33 Guaifenesin 600 Mg Tablet PO 600 mg BID VANESSA Administration Heparin Sodium (Porcine) 5,000 unit 12/27/20 21:00 01/09/21 20:34 Heparin 5,000 Unit/Ml Vial SUBQ 5,000 unit BID VANESSA Administration Hydromorphone HCl 0.5 mg 12/30/20 11:36 01/09/21 15:53 Hydromorphone 0.5 Mg/0.5 Ml Syringe IVP 0.5 mg Q2H PRN Administration PAIN Piperacillin Sod/Tazobactam 100 mls @ 25 mls/hr 01/01/21 16:00 01/10/21 04:45 Sod 3.375 gm/ Sodium Chloride IV Infused Q8H VANESSA Infusion Sodium Chloride 500 mls @ 20 mls/hr 01/06/21 20:17 01/09/21 07:34 Normal Saline 0.9% IV Infused Q24H PRN Infusion TKO RATE Iron Dextran 200 mg/ Sodium 104 mls @ 208 mls/hr 01/08/21 09:00 01/09/21 09:55 Chloride IV 01/13/21 08:59 Infused DAILY VANESSA Infusion Potassium Chloride/Dextrose/Sod Cl 1,000 mls @ 125 mls/hr 01/09/21 10:00 12/28 04:16 D5ns W/20 Meq Kcl IV 125 mls/hr .Q8H VANESSA Administration Lidocaine 1 patch 01/03/21 19:55 01/09/21 07:06 Lidocaine Patch 5% TOP 1 patch DAILY PRN Administration PAIN Methocarbamol 500 mg 12/27/20 18:00 01/10/21 05:38 Methocarbamol 500 Mg Tablet PO 500 mg Q6HR VANESSA Administration Metoprolol Tartrate 5 mg 01/04/21 11:18 01/04/21 11:24 Metoprolol 5 Mg/5 Ml Vial IVP 5 mg Q6H PRN Administration Hypertensive Emergency Metoprolol Tartrate 50 mg 01/07/21 16:15 01/09/21 20:33 Metoprolol Tartrate 50 Mg Tablet PO 50 mg BID VANESSA Administration Mineral Oil 1 applic 01/07/21 03:40 01/09/21 09:09 Min Oil/Dimethicon/Coconut Oil 92 Gm Tube TOP 1 applic PRN PRN Administration Skin Care Morphine Sulfate 2 mg 12/18/20 08:36 01/04/21 06:02 Morphine 2 Mg/Ml Carpuject IVP 2 mg Q2HR PRN Administration PAIN Oxycodone HCl 5 mg 01/06/21 12:58 01/10/21 05:38 Oxycodone 5 Mg Tablet PO 5 mg Q4HR PRN Administration PAIN Petrolatum 1 applic 01/02/21 10:13 01/02/21 11:22 Petrolatum White 5 Gm Packet TOP 1 applic PRN PRN Administration Dry Lips Multivit/Folic Acid/Iron 1 tab 01/03/21 08:00 01/09/21 09:03 Vitamin Tablet PO 1 tab DAILYWM VANESSA Administration Sodium Chloride 10 ml 12/17/20 01:00 01/10/21 00:46 Sodium Chloride Flush 0.9% 10 Ml Syringe IVP 10 ml 0100,0900,1700 VANESSA Administration Sodium Chloride 10 ml 12/27/20 17:31 01/08/21 14:33 Sodium Chloride Flush 0.9% 10 Ml Syringe IVP 10 ml PRN PRN Administration NEEDED PER PROVIDER ORDERS Sodium Chloride 20 ml 12/30/20 01:06 01/08/21 06:49 Sodium Chloride Flush 0.9% 10 Ml Syringe IVP 20 ml PRN PRN Administration After Blood Draw - Lab Result Fish Bone Diagrams: 01/10/21 04:15 01/10/21 04:15 - Additional Planning My Orders: My Active Orders 01/10/21 07:18 MAGNESIUM SULFATE 2 GRAMS IV X1 Magnesium Sulfate 2 Gram [Magnesium Sulfate] 2 gm in 50 ml IV ONCE Subjective - Subjective Patient Reports: Other (Patient resting comfortably in bed. She reports significant improvement in her abdominal pain. She rates it 3 out of 10 today. She tolerated a soft diet well. She has good output in her ostomy bag. She denies fever, chills, chest pain or dyspnea.) Objective Vital Signs: Vital Signs - 24 hr 01/09/21 01/09/21 01/09/21 07:50 09:06 16:47 Temperature 36.4 C L 36.5 C Heart Rate [ 96 103 H Brachial] Heart Rate [ Monitoring electrodes] Respiratory 18 18 Rate Blood Pressure 98/51 L Blood Pressure 104/60 128/72 [Left Brachial artery] Blood Pressure [left radial] O2 Saturation 97 96 01/09/21 01/09/21 01/10/21 20:17 20:33 00:34 Temperature 36.7 C 36.4 C L Heart Rate [ 120 H Brachial] Heart Rate [ 98 Monitoring electrodes] Respiratory 18 18 Rate Blood Pressure 107/53 L Blood Pressure 107/53 L [Left Brachial artery] Blood Pressure 101/67 [left radial] O2 Saturation 95 94 01/10/21 05:00 Temperature 36.5 C Heart Rate [ Brachial] Heart Rate [ 101 H Monitoring electrodes] Respiratory 18 Rate Blood Pressure Blood Pressure [Left Brachial artery] Blood Pressure 111/66 [left radial] O2 Saturation 96 Oxygen O2 Source Room air I&O (Last 24 Hrs): Intake and Output Totals x24h 01/08/21 01/09/21 01/10/21 23:59 23:59 23:59 Intake Total 4993.163 3379.889 1062.5 Output Total 2150 2800 425 Balance 2843.163 579.889 637.5 General: Alert, Oriented x3, Cooperative, Mild distress HEENT: PERRLA, EOMI Neck: Supple, No JVD Neuro: Alert, Non Focal, Oriented Times 3 Cardiovascular: No murmurs, Other (tachycardia) Respiratory: No respiratory distress, Other (mild crackles) Abdomen: Normal bowel sounds, Soft, No tenderness Extremities: No clubbing, No cyanosis, No edema Skin: No rashes, No breakdown - Results Results: Laboratory Results WBC 18.4 x10^3/uL (4.8-10.8) H 01/10/21 04:15 RBC 2.45 10^6/uL (4.20-5.40) L 01/10/21 04:15 Hgb 7.1 g/dL (12.0-16.0) L 01/10/21 04:15 Hct 23.5 % (37.0-47.0) L 01/10/21 04:15 MCV 95.9 fL (81.0-99.0) 01/10/21 04:15 MCH 29.0 pg (27.0-31.0) 01/10/21 04:15 MCHC 30.2 g/dL (32.0-36.0) L 01/10/21 04:15 RDW 17.2 % (12.0-15.0) H 01/10/21 04:15 Plt Count 625 10^3/uL (130-450) H 01/10/21 04:15 MPV 9.6 fL (7.9-10.8) 01/10/21 04:15 Neut # (Auto) 13.8 10^3/uL (1.5-6.6) H 01/10/21 04:15 Lymph # (Auto) 2.7 10^3/uL (1.5-3.5) 01/10/21 04:15 [place] # (Auto) 1.3 10^3/uL (0.0-1.0) H 01/10/21 04:15 Eos # (Auto) 0.1 10^3/uL (0.0-0.7) 01/10/21 04:15 Baso # (Auto) 0.1 10^3/uL (0.0-0.1) 01/10/21 04:15 Absolute Nucleated RBC 0.00 x10^3/uL 01/10/21 04:15 Total Counted 100 01/09/21 05:21 Band Neuts % (Manual) 0 % (0-10) 01/09/21 05:21 Abnorm Lymph % (Manual) 0 % 01/09/21 05:21 Metamyelocytes % 3 % (-0) H 01/04/21 04:55 Myelocytes % 1 % (-0) H 01/09/21 05:21 Nucleated RBC % 0.0 /100WBC 01/10/21 04:15 Neutrophils # (Manual) 17.2 10^3/uL (1.5-6.6) H 01/09/21 05:21 Lymphocytes # (Manual) 2.4 10^3/uL (1.5-3.5) 01/09/21 05:21 Monocytes # (Manual) 1.5 10^3/uL (0.0-1.0) H 01/09/21 05:21 Eosinophils # (Manual) 0.2 10^3/uL (0-0.7) 05/03/21 05:21 Basophils # (Manual) 0.0 10^3/uL (0-0.1) 01/09/21 05:21 Differential Comment MANUAL DIFFERENTIAL 01/09/21 05:21 Manual Slide Review Indicated 01/08/21 06:53 WBC Morphology NORMAL APPEARANCE (NORMAL) 01/09/21 05:21 Platelet Estimate INCREASED (>450,000) (NORMAL) 01/09/21 05:21 Platelet Morphology NORMAL APPEARANCE (NORMAL) 01/09/21 05:21 RBC Morph Micro Appear 1+ ANISOCYTOSIS (NORMAL) 2+ HYPOCHROMASIA (NORMAL) 01/09/21 05:21 RBC Morph Micro Appear 1+ ANISOCYTOSIS (NORMAL) 2+ HYPOCHROMASIA (NORMAL) 01/09/21 05:21 PT 16.1 secs (9.9-12.6) H 12/31/20 04:50 INR 1.5 (0.8-1.2) H 12/31/20 04:50 Whole Blood INR 1.4 (0.8-1.2) H 12/29/20 09:13 Bld Gas Analysis Time 0830 01/01/21 08:30 Sample Site RIGHT RADIAL 01/01/21 08:30 ABG pH 7.49 (7.35-7.45) H 01/01/21 08:30 ABG pCO2 38 mmHg (34-45) 01/01/21 08:30 ABG pO2 43 mmHg (80-100) L* 01/01/21 08:30 ABG HCO3 28.7 mmol/L (22.0-26.0) H 01/01/21 08:30 ABG Total CO2 30.0 MMOL/L (21.0-29.0) H 01/01/21 08:30 ABG O2 Saturation 82 % (94-98) L* 01/01/21 08:30 ABG Base Excess 5.0 mmol/L (-2.0-3.0) H 01/01/21 08:30 Olaf Test POSITIVE 01/01/21 08:30 O2 Delivery Device OXYMASK 01/01/21 08:30 O2 Liters/Min 9.00 LPM 01/01/21 08:30 Sodium 139 mmol/L (135-145) 01/10/21 04:15 Potassium 3.8 mmol/L (3.5-5.0) 01/10/21 04:15 Chloride 112 mmol/L (101-111) H 01/10/21 04:15 Carbon Dioxide 18 mmol/L (21-32) L 01/10/21 04:15 Anion Gap 9.0 (6-13) 01/10/21 04:15 BUN 8 mg/dL (6-20) 01/10/21 04:15 Creatinine 0.6 mg/dL (0.4-1.0) 01/10/21 04:15 Estimated GFR (MDRD) 103 (>89) 01/10/21 04:15 Glucose 103 mg/dL (70-100) H 01/10/21 04:15 POC Whole Bld Glucose 122 mg/dL (70 - 100) H 01/06/21 11:13 Calcium 7.9 mg/dL (8.5-10.3) L 01/10/21 04:15 Phosphorus 2.9 mg/dL (2.5-4.6) 01/10/21 04:17 Magnesium 1.6 mg/dL (1.7-2.8) L 01/10/21 04:17 Iron 6 ug/dL (28-170) L 12/30/20 05:00 TIBC 115 ug/dL (250-450) L 12/30/20 05:00 % Saturation 5 % (20-50) L 12/30/20 05:00 Transferrin 82 mg/dL (192-382) L 12/30/20 05:00 Total Bilirubin 0.7 mg/dL (0.2-1.0) 01/08/21 06:53 AST 30 IU/L (10-42) 01/08/21 06:53 ALT 16 IU/L (10-60) 01/08/21 06:53 Alkaline Phosphatase 85 IU/L (42-121) 01/08/21 06:53 B-Natriuretic Peptide 159 pg/mL (5-100) H 01/01/21 04:55 Total Protein 7.3 g/dL (6.7-8.2) 01/08/21 06:53 Albumin 1.9 g/dL (3.2-5.5) L 01/08/21 06:53 Globulin 5.4 g/dL (2.1-4.2) H 01/08/21 06:53 Albumin/Globulin Ratio 0.4 (1.0-2.2) L 01/08/21 06:53 Prealbumin 9 mg/dL (18-45) L 01/08/21 06:53 Triglycerides 80 mg/dL (-149) 12/31/20 04:50 Lipase 27 U/L (22-51) 12/16/20 16:00 Vitamin B12 893 pg/mL (180-914) 12/30/20 05:00 Folate 3.80 ng/mL (5.90 - >24.8) L 12/30/20 05:00 TSH 2.48 uIU/mL (0.34-5.60) 12/28/20 05:00 Urine Color YELLOW 01/04/21 17:03 Urine Clarity CLEAR (CLEAR) 01/04/21 17:03 Urine pH 7.0 PH (5.0-7.5) 01/04/21 17:03 Ur Specific [place] 1.020 (1.002-1.030) 01/04/21 17:03 Urine Protein 30 mg/dL (NEGATIVE) H 01/04/21 17:03 Urine Glucose (UA) NEGATIVE mg/dL (NEGATIVE) 01/04/21 17:03 Urine Ketones NEGATIVE mg/dL (NEGATIVE) 01/04/21 17:03 Urine Occult Blood MODERATE (NEGATIVE) H 01/04/21 17:03 Urine Nitrite NEGATIVE (NEGATIVE) 01/04/21 17:03 Urine Bilirubin NEGATIVE (NEGATIVE) 01/04/21 17:03 Urine Urobilinogen 0.2 (NORMAL) E.U./dL (NORMAL) 01/04/21 17:03 Ur Leukocyte Esterase NEGATIVE (NEGATIVE) 01/04/21 17:03 Urine RBC 11-25 /HPF (0-5) H 01/04/21 17:03 Urine WBC 0-3 /HPF (0-5) 01/04/21 17:03 Ur Squamous Epith Cells RARE Squamous (<= Few) 01/04/21 17:03 Urine Bacteria None Seen /HPF (None Seen) 01/04/21 17:03 Ur Microscopic Review NOT INDICATED 12/29/20 11:30 Urine Culture Comments NOT INDICATED 01/04/21 17:03 Nasal Adenovirus (PCR) NOT DETECTED 12/16/20 17:54 Nasal B. parapertussis DNA (PCR) NOT DETECTED 12/16/20 17:54 Nasal Coronavir 229E PCR NOT DETECTED 12/16/20 17:54 Nasal Coronavir HKU1 PCR NOT DETECTED 12/16/20 17:54 Nasal Coronavir NL63 PCR NOT DETECTED 12/16/20 17:54 Nasal Coronavir OC43 PCR NOT DETECTED 12/16/20 17:54 Nasal Enterovir/Rhinovir PCR NOT DETECTED 12/16/20 17:54 Nasal Influenza B PCR NOT DETECTED 12/16/20 17:54 Nasal Influenza A PCR NOT DETECTED 12/16/20 17:54 Nasal Parainfluen 1 PCR NOT DETECTED 12/16/20 17:54 Nasal Parainfluen 2 PCR NOT DETECTED 12/16/20 17:54 Nasal Parainfluen 3 PCR NOT DETECTED 12/16/20 17:54 Nasal Parainfluen 4 PCR NOT DETECTED 12/16/20 17:54 Nasal RSV (PCR) NOT DETECTED 12/16/20 17:54 Nasal Screen MRSA (PCR) NEGATIVE (NEGATIVE) 12/27/20 18:00 Nasal B.pertussis DNA PCR NOT DETECTED 12/16/20 17:54 Nasal C.pneumoniae (PCR) NOT DETECTED 12/16/20 17:54 Robin Human Metapneumo PCR NOT DETECTED 12/16/20 17:54 Nasal M.pneumoniae (PCR) NOT DETECTED 12/16/20 17:54 Nasal SARS-CoV-2 (PCR) NOT DETECTED 12/16/20 17:54 Stl C. diff Tox B Gene NEGATIVE (NEGATIVE) 01/04/21 09:40 Last Dose Date 01/01/21 01/01/21 12:20 Last Dose Time 0114 01/01/21 12:20 Vancomycin Trough 26.2 ug/mL (10.0-20.0) H* 01/01/21 12:20 Blood Type O POSITIVE 12/28/20 20:28 Blood Type Recheck O POSITIVE 12/28/20 05:00 Antibody Screen NEGATIVE 12/28/20 20:28 Crossmatch IS Only See Detail 12/28/20 20:28 ABX Reporting Has patient been on IV antibiotics over the past 48 hours?: Yes
[2021-01-10] MEDS ORDERED: MAGNESIUM SULFATE 2 GRAM 2 GM/50 ML BAG IV ONE (08:00)
[2021-01-10] MEDS: guaiFENesin 600 MG TABLET PO SCH ×2 (08:36→20:32)
[2021-01-10] MEDS: PRENATAL VITAMIN TABLET PO SCH (08:36)
[2021-01-10] MEDS: FAMOTIDINE 20 MG TABLET PO SCH ×2 (08:38→20:32)
[2021-01-10] MEDS: METOPROLOL TARTRATE 50 MG TABLET PO SCH ×2 (08:38→20:33)
[2021-01-10] MEDS: HEPARIN 5,000 UNIT/ML VIAL SUBQ SCH ×2 (08:56→20:33)
[2021-01-10] MEDS: IRON DEXTRAN 200 MG in SODIUM CHLORIDE 0.9% 100ML 100 ML IV SCH (09:36)
--- NOTE | 2021-01-10 15:35 | PROVIDER PROGRESS NOTE ---
Progress Note Subjective: Positive ileostomy output. Pain controlled. Nothing per rectum. Patient with stable, improved respiratory status. No acute complaints. Status post delayed primary closure partial of Pfannenstiel wound. Status post wound VAC placement. Pending closure of the remnant of her midline Pfannenstiel. Pre-Op Diagnosis: Complicated diverticulitis; perforated diverticulitis s/p perc drain; SBO Procedure Performed: 1. Diagnostic laparoscopy 2. Laparoscopic adhesiolysis extensive 3. Laparoscopic takedown of enterocolonic fistula 4. Laparoscopic takedown of colocutaneous fistula 5. Low anterior resection, laparoscopic 6. Splenic flexure mobilization, laparoscopic 7. Repair of vesicular sinus tract 8. Laparoscopic assisted loop ileostomy 9. Partial omentectomy 10. Umbilical hernia repair 11. Drainage of intra-abdominal abscess multiple 12. Drainage catheter placement 13. Small bowel resection 14. Abdominal washout Post Op Diagnosis: Same; feculent peritonitis; multiple fistulae; vesicular involvement Objective General Appearance: positive: No acute distress Eyes Bilateral: positive: Normal inspection ENT: positive: ENT inspection nml Neck: positive: Nml inspection Respiratory: positive: Chest non-tender, No respiratory distress, Breath sounds nml. negative: Wheezes, Rales, Rhonchi Cardiovascular: positive: Regular rate & rhythm Extremities: positive: Non-tender, Full ROM, Nml appearance Neurologic/Psychiatric: positive: Oriented x3, CN's nml (2-12) Stoma pink. Wound VAC in place. Abdomen soft, nondistended, no rebound no guarding. CT abdomen pelvis impression January 05, 2021: 1. Bibasilar interstitial infiltrates, positive basilar right atelectasis, minimal right pleural effusion. 2. Surgical drain in place. 3. There are multiple thin abscess cavities. These includes a perihepatic collection which is too small to drain measuring only 0.6 cm in diameter as well as a very thin right paracolic gutter abscess which is too small to drain. There is a deep pelvic collection in the cul-de-sac which measures 2.3 x 5 cm. No evidence of extravasation of contrast within the urinary bladder on my evaluation of the images. CT abdomen pelvis impression January 09, 2021: Several scattered small peritoneal fluid collections within the abdomen and pelvis have overall reduced in size, and there has been removal of a surgical drain from the thin pelvic fluid collection above the bladder level. No new fluid collection has developed. No free air found Impression HIDA scan: 1. HIDA scan with no evidence of acute cholecystitis 2. Normal biliary imaging study 3. Normal contractile response of gallbladder with CCK infusion Impression/Plan Post operative day #13 status post above listed procedure. (1) GI - IVF, bowel regimen. We have advanced diet. Much improved early satiety and abdominal distention. GI ppx. (2) SURGERY - Patient will need definitive closure of the remnant aspect of her open Pfannenstiel. In the long-term she will need colonoscopy and CT scan prior to ileostomy reversal. She will also need outpatient IV and fluids as well as ostomy care. (3) Renal/Lytes - Renal indices within normal limits. (4) Respiratory - O2 as necessary. Continue IS. (5) Heme - Will continue with DVT ppx. H/H stable. Transfuse as necessary. Infuse Venofer. (6) Cardiovascular - HD acceptable. (7) Neuro - Opiate sparring analgesia. Antispasmodics with Robaxin. Neuropathic agents. (8) Immune/Infectious Disease - continue broad-spectrum antibiotics. Agree with Zosyn. Improving WBC. No evidence for acute cholecystitis. Will transition to oral antibiotics and plan for discharge in the next 24 to 48 hours.
[2021-01-10] MEDS: HYDROmorphone 0.5 MG/0.5 ML SYRINGE IVP PRN ×2 (18:31→22:37)
[2021-01-10] MEDS: LIDOCAINE PATCH 5% TOP PRN (18:31)
[2021-01-11] MEDS: methocarbamoL 500 MG TABLET PO SCH ×4 (00:41→18:38)
[2021-01-11] MEDS: PIPERACILLIN/TAZOBACTAM 3.375 GM in SODIUM CHLORIDE 0.9% MINIBAG 100 ML IV SCH ×3 (00:42→15:48)
[2021-01-11] MEDS: SODIUM CHLORIDE FLUSH 0.9% 10 ML SYRINGE IVP SCH ×3 (00:51→17:33)
[2021-01-11] MEDS: ACETAMINOPHEN 325 MG TABLET PO PRN ×4 (01:14→21:39)
[2021-01-11] MEDS: oxyCODONE 5 MG TABLET PO PRN ×4 (01:14→21:39)
[2021-01-11] MEDS ORDERED: LIDOCAINE 1% 50 ML MDV ONE (02:35)
[2021-01-11 06:08] LABS: BASOPHILS # (AUTO) 0.1 10^3/uL (0.0-0.1); BASOPHILS % (AUTO) 0.6 %; EOSINOPHILS # (AUTO) 0.1 10^3/uL (0.0-0.7); EOSINOPHILS % (AUTO) 0.5 %; HCT - HEMATOCRIT 26.5 % (37.0-47.0); HGB - HEMOGLOBIN 8.9 g/dL (12.0-16.0); LYMPHOCYTES # (AUTO) 2.9 10^3/uL (1.5-3.5); LYMPHOCYTES % (AUTO) 16.2 %; MEAN CORPUSCULAR HGB CONC 33.6 g/dL (32.0-36.0); MEAN CORPUSCULAR VOLUME 89.2 fL (81.0-99.0); MEAN PLATELET VOLUME 8.8 fL (7.9-10.8); MONOCYTES # (AUTO) 1.4 10^3/uL (0.0-1.0); MONOCYTES % (AUTO) 7.8 %; NEUTROPHILS % (AUTO) 73.6 %; PLT - PLATELET COUNT 646 10^3/uL (130-450); RED BLOOD COUNT 2.97 10^6/uL (4.20-5.40); RED CELL DISTRIBUTION WIDTH 17.3 % (12.0-15.0); WHITE BLOOD COUNT 17.6 x10^3/uL (4.8-10.8)
[2021-01-11 06:19] LABS: CALCIUM 7.9 mg/dL (8.5-10.3); CREATININE 0.6 mg/dL (0.4-1.0); MAGNESIUM 1.5 mg/dL (1.7-2.8); PHOSPHORUS 2.9 mg/dL (2.5-4.6); POTASSIUM 3.7 mmol/L (3.5-5.0)
[2021-01-11] MEDS: D5NS W/20 MEQ KCL 1,000 ML IV SCH ×2 (06:24→15:25)
--- NOTE | 2021-01-11 07:13 | PROVIDER PROGRESS NOTE ---
Assessment/Plan - Problem List (1) Perforation and abscess of large intestine concurrent with and due to diverticulitis Assessment/Plan: Patient's white blood cell count today is 17.6. Overall clinically patient is stable/improved. We will continue patient on Zosyn. General surgery primary. Anticipated discharge home today (2) Hyponatremia Assessment/Plan: Mild. Patient is on D5 normal saline with 20 mEq of potassium chloride at 125 mL/h. (3) HTN (hypertension) Qualifiers: Hypertension type: essential hypertension Qualified Code(s): I10 - Essential (primary) hypertension Assessment/Plan: On metoprolol tartrate 50 mg po bid (5) Anemia Qualifiers: Anemia type: other cause Assessment/Plan: Patient was transfused 1 unit of packed red blood cells yesterday 01/10/2021. Hemoglobin today is 8.9. - Current Meds Current Meds: Current Medications Generic Name Dose Route Start Last Admin Trade Name Freq PRN Reason Stop Dose Admin Acetaminophen 650 mg 12/28/20 10:01 01/11/21 05:55 Acetaminophen 325 Mg Tablet PO 650 mg Q4HR PRN Administration Pain or Fever > 38C (100.4F) Carboxymethylcellulose 1 drops 12/30/20 14:41 12/30/20 14:51 Carboxymethylcellulose Ophth Drops EACHEYE 1 drops PRN PRN Administration Dry Eye Famotidine 20 mg 12/30/20 11:00 01/10/21 20:32 Famotidine 20 Mg Tablet PO 20 mg BID VANESSA Administration Guaifenesin 600 mg 01/04/21 21:00 01/10/21 20:32 Guaifenesin 600 Mg Tablet PO 600 mg BID VANESSA Administration Heparin Sodium (Porcine) 5,000 unit 12/27/20 21:00 01/10/21 20:33 Heparin 5,000 Unit/Ml Vial SUBQ 5,000 unit BID VANESSA Administration Hydromorphone HCl 0.5 mg 12/30/20 11:36 01/10/21 22:37 Hydromorphone 0.5 Mg/0.5 Ml Syringe IVP 0.5 mg Q2H PRN Administration PAIN Piperacillin Sod/Tazobactam 100 mls @ 25 mls/hr 01/01/21 16:00 01/11/21 04:45 Sod 3.375 gm/ Sodium Chloride IV Infused Q8H VANESSA Infusion Sodium Chloride 500 mls @ 20 mls/hr 01/06/21 20:17 01/09/21 07:34 Normal Saline 0.9% IV Infused Q24H PRN Infusion TKO RATE Iron Dextran 200 mg/ Sodium 104 mls @ 208 mls/hr 01/08/21 09:00 01/10/21 10:44 Chloride IV 01/13/21 08:59 Infused DAILY VANESSA Infusion Potassium Chloride/Dextrose/Sod Cl 1,000 mls @ 125 mls/hr 01/09/21 10:00 01/11/21 06:24 D5ns W/20 Meq Kcl IV 125 mls/hr .Q8H VANESSA Administration Lidocaine 1 patch 01/03/21 19:55 01/10/21 18:31 Lidocaine Patch 5% TOP 1 patch DAILY PRN Administration PAIN Methocarbamol 500 mg 12/27/20 18:00 01/11/21 05:55 Methocarbamol 500 Mg Tablet PO 500 mg Q6HR VANESSA Administration Metoprolol Tartrate 5 mg 01/04/21 11:18 01/04/21 11:24 Metoprolol 5 Mg/5 Ml Vial IVP 5 mg Q6H PRN Administration Hypertensive Emergency Metoprolol Tartrate 50 mg 01/07/21 16:15 01/10/21 20:33 Metoprolol Tartrate 50 Mg Tablet PO 50 mg BID VANESSA Administration Mineral Oil 1 applic 01/07/21 03:40 01/09/21 09:09 Min Oil/Dimethicon/Coconut Oil 92 Gm Tube TOP 1 applic PRN PRN Administration Skin Care Morphine Sulfate 2 mg 12/18/20 08:36 01/04/21 06:02 Morphine 2 Mg/Ml Carpuject IVP 2 mg Q2HR PRN Administration PAIN Oxycodone HCl 5 mg 01/06/21 12:58 01/11/21 05:55 Oxycodone 5 Mg Tablet PO 5 mg Q4HR PRN Administration PAIN Petrolatum 1 applic 01/02/21 10:13 01/02/21 11:22 Petrolatum White 5 Gm Packet TOP 1 applic PRN PRN Administration Dry Lips Multivit/Folic Acid/Iron 1 tab 01/03/21 08:00 01/10/21 08:36 Vitamin Tablet PO 1 tab DAILYWM VANESSA Administration Sodium Chloride 10 ml 12/17/20 01:00 01/11/21 00:51 Sodium Chloride Flush 0.9% 10 Ml Syringe IVP 10 ml 0100,0900,1700 VANESSA Administration Sodium Chloride 10 ml 12/27/20 17:31 01/08/21 14:33 Sodium Chloride Flush 0.9% 10 Ml Syringe IVP 10 ml PRN PRN Administration NEEDED PER PROVIDER ORDERS Sodium Chloride 20 ml 12/30/20 01:06 01/08/21 06:49 Sodium Chloride Flush 0.9% 10 Ml Syringe IVP 20 ml PRN PRN Administration After Blood Draw - Lab Result Fish Bone Diagrams: 01/11/21 05:45 01/11/21 05:45 - Additional Planning My Orders: My Active Orders 01/10/21 Lunch Soft Mechanical Diet [DIET] 01/11/21 07:11 MAGNESIUM SULFATE 2 GRAMS IV X1 Magnesium Sulfate 2 Gram [Magnesium Sulfate] 2 gm in 50 ml IV ONCE Subjective - Subjective Patient Reports: Other (Patient resting comfortably in bed. She continues to improve daily. She denies any abdominal pain currently) Objective Vital Signs: Vital Signs - 24 hr 01/10/21 01/10/21 01/10/21 08:30 08:38 12:50 Temperature 36.5 C 36.3 C L Heart Rate Heart Rate [ 108 H 92 Brachial] Heart Rate [ Monitoring electrodes] Respiratory 18 18 Rate Blood Pressure 114/59 L Blood Pressure 109/56 L 105/59 L [Left Brachial artery] Blood Pressure [left radial] O2 Saturation 95 98 01/10/21 01/10/21 01/10/21 14:56 15:07 15:12 Temperature 36.7 C 36.9 C 36.9 C Heart Rate 102 H 100 Heart Rate [ 100 Brachial] Heart Rate [ Monitoring electrodes] Respiratory 16 17 17 Rate Blood Pressure 106/64 123/65 Blood Pressure 123/65 [Left Brachial artery] Blood Pressure [left radial] O2 Saturation 97 01/10/21 01/10/21 01/10/21 18:25 19:48 20:33 Temperature 36.9 C 36.8 C Heart Rate 109 H Heart Rate [ 95 Brachial] Heart Rate [ Monitoring electrodes] Respiratory 18 18 Rate Blood Pressure 131/71 H 130/76 Blood Pressure 130/76 [Left Brachial artery] Blood Pressure [left radial] O2 Saturation 95 01/11/21 01/11/21 01:00 03:52 Temperature 37.3 C 36.6 C Heart Rate Heart Rate [ Brachial] Heart Rate [ 102 H 105 H Monitoring electrodes] Respiratory 15 18 Rate Blood Pressure Blood Pressure 135/77 H [Left Brachial artery] Blood Pressure 118/69 [left radial] O2 Saturation 96 93 Oxygen O2 Source Room air I&O (Last 24 Hrs): Intake and Output Totals x24h 01/09/21 01/10/21 01/11/21 23:59 23:59 23:59 Intake Total 3379.889 5725.666 1072.917 Output Total 2800 2725 275 Balance 781.048 3535.666 797.917 General: Alert, Oriented x3, Cooperative, No acute distress HEENT: Atraumatic, PERRLA, EOMI Neck: Supple, No JVD Neuro: Alert, Non Focal, Oriented Times 3 Cardiovascular: Regular rate Respiratory: Chest non-tender, No respiratory distress, Breath sounds nml Abdomen: Normal bowel sounds, Soft Extremities: No clubbing, No cyanosis, No edema - Results Results: Laboratory Results WBC 17.6 x10^3/uL (4.8-10.8) H 01/11/21 05:45 RBC 2.97 10^6/uL (4.20-5.40) L 01/11/21 05:45 Hgb 8.9 g/dL (12.0-16.0) L 01/11/21 05:45 Hct 26.5 % (37.0-47.0) L 01/11/21 05:45 MCV 89.2 fL (81.0-99.0) 01/11/21 05:45 MCH 30.0 pg (27.0-31.0) 01/11/21 05:45 MCHC 33.6 g/dL (32.0-36.0) 01/11/21 05:45 RDW 17.3 % (12.0-15.0) H 01/11/21 05:45 Plt Count 646 10^3/uL (130-450) H 01/11/21 05:45 MPV 8.8 fL (7.9-10.8) 01/11/21 05:45 Neut # (Auto) 13.0 10^3/uL (1.5-6.6) H 01/11/21 05:45 Lymph # (Auto) 2.9 10^3/uL (1.5-3.5) 01/11/21 05:45 [place] # (Auto) 1.4 10^3/uL (0.0-1.0) H 01/11/21 05:45 Eos # (Auto) 0.1 10^3/uL (0.0-0.7) 01/11/21 05:45 Baso # (Auto) 0.1 10^3/uL (0.0-0.1) 01/11/21 05:45 Absolute Nucleated RBC 0.00 x10^3/uL 01/11/21 05:45 Total Counted 100 01/09/21 05:21 Band Neuts % (Manual) 0 % (0-10) 01/09/21 05:21 Abnorm Lymph % (Manual) 0 % 01/09/21 05:21 Metamyelocytes % 3 % (-0) H 01/04/21 04:55 Myelocytes % 1 % (-0) H 01/09/21 05:21 Nucleated RBC % 0.0 /100WBC 01/11/21 05:45 Neutrophils # (Manual) 17.2 10^3/uL (1.5-6.6) H 01/09/21 05:21 Lymphocytes # (Manual) 2.4 10^3/uL (1.5-3.5) 01/09/21 05:21 Monocytes # (Manual) 1.5 10^3/uL (0.0-1.0) H 01/09/21 05:21 Eosinophils # (Manual) 0.2 10^3/uL (0-0.7) 01/09/21 05:21 Basophils # (Manual) 0.0 10^3/uL (0-0.1) 01/09/21 05:21 Differential Comment MANUAL DIFFERENTIAL 01/09/21 05:21 Manual Slide Review Indicated 01/08/21 06:53 WBC Morphology NORMAL APPEARANCE (NORMAL) 01/09/21 05:21 Platelet Estimate INCREASED (>450,000) (NORMAL) 01/09/21 05:21 Platelet Morphology NORMAL APPEARANCE (NORMAL) 01/09/21 05:21 RBC Morph Micro Appear 1+ ANISOCYTOSIS (NORMAL) 2+ HYPOCHROMASIA (NORMAL) 01/09/21 05:21 RBC Morph Micro Appear 1+ ANISOCYTOSIS (NORMAL) 2+ HYPOCHROMASIA (NORMAL) 01/09/21 05:21 PT 16.1 secs (9.9-12.6) H 12/31/20 04:50 INR 1.5 (0.8-1.2) H 12/31/20 04:50 Whole Blood INR 1.4 (0.8-1.2) H 12/29/20 09:13 Bld Gas Analysis Time 0830 01/01/21 08:30 Sample Site RIGHT RADIAL 01/01/21 08:30 ABG pH 7.49 (7.35-7.45) H 01/01/21 08:30 ABG pCO2 38 mmHg (34-45) 01/01/21 08:30 ABG pO2 43 mmHg (80-100) L* 01/01/21 08:30 ABG HCO3 28.7 mmol/L (22.0-26.0) H 01/01/21 08:30 ABG Total CO2 30.0 MMOL/L (21.0-29.0) H 01/01/21 08:30 ABG O2 Saturation 82 % (94-98) L* 01/01/21 08:30 ABG Base Excess 5.0 mmol/L (-2.0-3.0) H 01/01/21 08:30 Olaf Test POSITIVE 01/01/21 08:30 O2 Delivery Device OXYMASK 01/01/21 08:30 O2 Liters/Min 9.00 LPM 01/01/21 08:30 Sodium 134 mmol/L (135-145) L 01/11/21 05:45 Potassium 3.7 mmol/L (3.5-5.0) 01/11/21 05:45 Chloride 105 mmol/L (101-111) 01/11/21 05:45 Carbon Dioxide 20 mmol/L (21-32) L 01/11/21 05:45 Anion Gap 9.0 (6-13) 01/11/21 05:45 BUN 7 mg/dL (6-20) 01/11/21 05:45 Creatinine 0.6 mg/dL (0.4-1.0) 01/11/21 05:45 Estimated GFR (MDRD) 103 (>89) 01/11/21 05:45 Glucose 108 mg/dL (70-100) H 01/11/21 05:45 POC Whole Bld Glucose 122 mg/dL (70 - 100) H 01/06/21 11:13 Calcium 7.9 mg/dL (8.5-10.3) L 01/11/21 05:45 Phosphorus 2.9 mg/dL (2.5-4.6) 01/11/21 05:45 Magnesium 1.5 mg/dL (1.7-2.8) L 01/11/21 05:45 Iron 6 ug/dL (28-170) L 12/30/20 05:00 TIBC 115 ug/dL (250-450) L 12/30/20 05:00 % Saturation 5 % (20-50) L 12/30/20 05:00 Transferrin 82 mg/dL (192-382) L 12/30/20 05:00 Total Bilirubin 0.7 mg/dL (0.2-1.0) 01/08/21 06:53 AST 30 IU/L (10-42) 01/08/21 06:53 ALT 16 IU/L (10-60) 01/08/21 06:53 Alkaline Phosphatase 85 IU/L (42-121) 01/08/21 06:53 B-Natriuretic Peptide 159 pg/mL (5-100) H 01/01/21 04:55 Total Protein 7.3 g/dL (6.7-8.2) 01/08/21 06:53 Albumin 1.9 g/dL (3.2-5.5) L 01/08/21 06:53 Globulin 5.4 g/dL (2.1-4.2) H 01/08/21 06:53 Albumin/Globulin Ratio 0.4 (1.0-2.2) L 01/08/21 06:53 Prealbumin 9 mg/dL (18-45) L 01/08/21 06:53 Triglycerides 80 mg/dL (-149) 12/31/20 04:50 Lipase 27 U/L (22-51) 12/16/20 16:00 Vitamin B12 893 pg/mL (180-914) 12/30/20 05:00 Folate 3.80 ng/mL (5.90 - >24.8) L 12/30/20 05:00 TSH 2.48 uIU/mL (0.34-5.60) 12/28/20 05:00 Urine Color YELLOW 01/04/21 17:03 Urine Clarity CLEAR (CLEAR) 01/04/21 17:03 Urine pH 7.0 PH (5.0-7.5) 01/04/21 17:03 Ur Specific [place] 1.020 (1.002-1.030) 01/04/21 17:03 Urine Protein 30 mg/dL (NEGATIVE) H 01/04/21 17:03 Urine Glucose (UA) NEGATIVE mg/dL (NEGATIVE) 01/04/21 17:03 Urine Ketones NEGATIVE mg/dL (NEGATIVE) 01/04/21 17:03 Urine Occult Blood MODERATE (NEGATIVE) H 01/04/21 17:03 Urine Nitrite NEGATIVE (NEGATIVE) 01/04/21 17:03 Urine Bilirubin NEGATIVE (NEGATIVE) 01/04/21 17:03 Urine Urobilinogen 0.2 (NORMAL) E.U./dL (NORMAL) 01/04/21 17:03 Ur Leukocyte Esterase NEGATIVE (NEGATIVE) 01/04/21 17:03 Urine RBC 11-25 /HPF (0-5) H 01/04/21 17:03 Urine WBC 0-3 /HPF (0-5) 01/04/21 17:03 Ur Squamous Epith Cells RARE Squamous (<= Few) 01/04/21 17:03 Urine Bacteria None Seen /HPF (None Seen) 01/04/21 17:03 Ur Microscopic Review NOT INDICATED 12/29/20 11:30 Urine Culture Comments NOT INDICATED 01/04/21 17:03 Nasal Adenovirus (PCR) NOT DETECTED 12/16/20 17:54 Nasal B. parapertussis DNA (PCR) NOT DETECTED 12/16/20 17:54 Nasal Coronavir 229E PCR NOT DETECTED 12/16/20 17:54 Nasal Coronavir HKU1 PCR NOT DETECTED 12/16/20 17:54 Nasal Coronavir NL63 PCR NOT DETECTED 12/16/20 17:54 Nasal Coronavir OC43 PCR NOT DETECTED 12/16/20 17:54 Nasal Enterovir/Rhinovir PCR NOT DETECTED 12/16/20 17:54 Nasal Influenza B PCR NOT DETECTED 12/16/20 17:54 Nasal Influenza A PCR NOT DETECTED 12/16/20 17:54 Nasal Parainfluen 1 PCR NOT DETECTED 12/16/20 17:54 Nasal Parainfluen 2 PCR NOT DETECTED 12/16/20 17:54 Nasal Parainfluen 3 PCR NOT DETECTED 12/16/20 17:54 Nasal Parainfluen 4 PCR NOT DETECTED 12/16/20 17:54 Nasal RSV (PCR) NOT DETECTED 12/16/20 17:54 Nasal Screen MRSA (PCR) NEGATIVE (NEGATIVE) 12/27/20 18:00 Nasal B.pertussis DNA PCR NOT DETECTED 12/16/20 17:54 Nasal C.pneumoniae (PCR) NOT DETECTED 12/16/20 17:54 Robin Human Metapneumo PCR NOT DETECTED 12/16/20 17:54 Nasal M.pneumoniae (PCR) NOT DETECTED 12/16/20 17:54 Nasal SARS-CoV-2 (PCR) NOT DETECTED 12/16/20 17:54 Stl C. diff Tox B Gene NEGATIVE (NEGATIVE) 01/04/21 09:40 Last Dose Date 01/01/21 01/01/21 12:20 Last Dose Time 0114 01/01/21 12:20 Vancomycin Trough 26.2 ug/mL (10.0-20.0) H* 01/01/21 12:20 Blood Type O POSITIVE 01/10/21 13:04 Blood Type Recheck O POSITIVE 12/28/20 05:00 Antibody Screen NEGATIVE 01/10/21 13:04 Crossmatch IS Only See Detail 01/10/21 13:04 ABX Reporting Has patient been on IV antibiotics over the past 48 hours?: Yes
[2021-01-11] MEDS ORDERED: MAGNESIUM SULFATE 2 GRAM 2 GM/50 ML BAG IV ONE (07:30)
[2021-01-11] MEDS ORDERED: LIDOCAINE 1% 50 ML MDV TD ONE ×2 (08:00)
[2021-01-11] MEDS: IRON DEXTRAN 200 MG in SODIUM CHLORIDE 0.9% 100ML 100 ML IV SCH (08:24)
[2021-01-11] MEDS: guaiFENesin 600 MG TABLET PO SCH (09:13)
[2021-01-11] MEDS: PRENATAL VITAMIN TABLET PO SCH (09:13)
[2021-01-11] MEDS: FAMOTIDINE 20 MG TABLET PO SCH (09:14)
[2021-01-11] MEDS: METOPROLOL TARTRATE 50 MG TABLET PO SCH ×2 (09:19→16:20)
[2021-01-11] MEDS: HEPARIN 5,000 UNIT/ML VIAL SUBQ SCH (09:20)
[2021-01-11] MEDS: HYDROmorphone 0.5 MG/0.5 ML SYRINGE IVP PRN (17:12)
[2021-01-11 20:26] VITALS: BP 114/80
--- NOTE | 2021-01-11 20:47 | Discharge Plan ---
Discharge Plan Problem Reviewed?: Yes Disposition: Home, Self Care Condition: Stable Prescriptions: oxyCODONE [Roxicodone] 5 mg PO Q4HR PRN #30 tablet PRN Reason: Pain methocarbamoL [Robaxin] 500 mg PO Q6HR PRN #60 tablet PRN Reason: Spasms Amox/Clav 875/125 [Augmentin 875/125 Tab] 1 tablet PO Q12H 10 Days #20 tablet Sulfamethox/Trimeth 800/160 [Bactrim Ds] 1 tablet PO BID 10 Days #20 tablet Metoprolol Tartrate [Lopressor] 50 mg PO BID #60 tablet Magnesium Oxide [Magnesium] 250 mg PO TIDWM 30 Days #90 tablet Activity Restrictions: no heavy lift/push/pull Shower Restrictions: No Driving Restrictions: Yes (not on narcotics) Weight Bearing: Full Weight Health [place] [facility] [place] Weekly CBC and CMP Follow-up with me next week [place] care [place] [facility] Plan of Treatment: DISCHARGE INSTRUCTIONS TEMPLATE: No heavy lifting, pushing, or pulling. Stairs are allowed, no strenuo us/exertional activities. 5-10lbs weight carrying limit (i.e. gallon of milk) If provided, abdominal binder while out of bed and while ambulating. Call or proceed to clinic/ER for fevers, severe pain, nausea, vomiting, inability to pass flatus/stool, bleeding, wound redness/discharge, weakness, excessively loose stool/diarrhea, or for any other reasonably worrisome symptom or concern. Soft diet, no raw vegetables, avoid high fiber foods. Colace 100mg by mouth twice to three times daily while taking narcotic pain medication. If no bowel movement in 24-48hr, may take 17g Miralax in 8oz water twice daily until bowel movement. May shower, no submersive bathing. Follow up in clinic in 2-4 weeks for wound check and staple removal. No driving while taking narcotic pain medications. Follow up with primary care provider and/or medical subspecialist following discharge as well. Patient not allowed to drive self today or within 24 hours of surgery. Follow-Up Care: [facility] [place], [facility] [place] No Smoking: If you smoke, Please STOP! Call for help. Follow-up with: Brandt Richardson DO [Primary Care Provider] - Prem Martinez MD [Provider Admit Priv/Credential] -
--- NOTE | 2021-01-11 21:53 | POST OP PROGRESS NOTE ---
Subjective - General Admit Date: 12/16/20 Procedure Date: 01/11/21 Post Op Days: 7 Procedure Performed: Wound Vac Removal; Delayed Primary Closure - Review of Systems Wound/Incisions: positive: Healing well, Other (VAC changed. Wound is 4 x 12 and granualating well. No purulence. All other port sites are well approximate. Ostomy is pink and working.) Drain Type: clear Drain Output Description: serous General: positive: No symptoms HEENT: positive: No symptoms Pulmonary: positive: Shortness of breath Cardiovascular: positive: Dyspnea on exertion, Edema Gastrointestinal: negative: Nausea, Vomiting Genitourinary: positive: No symptoms Skin: positive: No symptoms All Other Systems: positive: Reviewed and negative - Other Other Information/Narrative: Patient was obtained for informed consent with risks and benefits discussed questions answered. Timeout was called and agreed to by all the room. Patient was prepped and draped in the usual sterile fashion. Patient was localized with lidocaine without any complication. The wound was aggressively irrigated with sterile saline and suctioned dry. There was no evidence of any infectious stigmata; no erythema, induration, purulence, or warmth. We proceeded to sterilely reapproximate the wound leaving the vertical mattress sutures intact that were placed historically. We proceeded to instill local anesthetic into the wound. We proceeded to perform additional vertical mattress sutures of 2-0 nylon and the portion of the wound at the midline that was still left open and maintained for wound VAC. The wound was aggressively irrigated and suctioned dry as per above. It was prepped with Betadine as well. The wound was closed for approximately 5 cm of its total length. Initially the wound was at least 14 cm if not longer. These were placed at appropriate distance. There was no tension on the wound patient tolerated well. The wound was dressed with dry sterile gauze. I was present for the entirety of this intervention. Please note that voice recognition software was used to transcribe this note and inadvertent errors might persist in spite of review and editing. I am obliged to you for your attention. I am thankful to you for allowing me to participate with you in this care of this patient.
--- NOTE | 2021-01-18 14:05 | DISCHARGE SUMMARY ---
"Discharge Summary Admit Date: 12/16/20 Discharge Date: 01/11/21 Discharging Provider: Juan Code Status: Attempt Resuscitation Condition at Discharge: Stable Discharge Disposition: 01 Home, Self Care - DIAGNOSES Admission Diagnoses: 1. Septic shock 2. 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 Abdominal abscess 7. Bowel obstruction 8. Severe protein malnutrition 9. Electrolyte abnormalities 10. Umbilical hernia Discharge Diagnoses with Status of Each Condition: 1. Septic shock - Resolved/Treated 2. Perforated diverticulitis - Resolved/Treated 3. Colocutaneous fistula - Resolved/Treated 4. Enterocolic fistula - Resolved/Treated 5. Colovesical fistula - Resolved/Treated 6. Abdominal abscess - Resolved/Treated 7. Bowel obstruction - Resolved/Treated 8. Severe protein malnutrition - Resolved/Treated 9. Electrolyte abnormalities - Resolved/Treated 10. Umbilical hernia - Resolved/Treated 11. Failure of medical management - Resolved/Treated 12. Fluid retention - Resolved/Treated - HPI History of Present Illness: 60-year-old female with acute sigmoid diverticulitis with signs of perforation, pneumoperitoneum and a small pericolonic abscess, 4 x 2 x 4 cm. Discussed with radiology and does not appear amenable to Interventional Radiographic drainage. Discussed the case with Dr. Collins, recommends admission to the hospitalist and he will consult. Discussed case with Dr. Snider, hospitalist, who states that surgery should admit this patient primarily. Discussed the case with Dr. Collins again and he will write orders. Patient will be admitted with Perforation of intestine due to diverticulitis of gastrointestinal tract with bowel rest, IV abx, and serial abdominal exams. (Per ED attending Note) Please note this was recurrent diverticulitis in this patient who had historically been admitted and had no operative intervention. And the patient had no historic colonic evaluation or screening endoscopically. - CONSULTS | PROCEDURES Consultations: Hospitalist Service Procedures: Pre-Op Diagnosis: Complicated diverticulitis; perforated diverticulitis s/p perc drain; SBO Procedure Performed: 1. Diagnostic laparoscopy 2. Laparoscopic adhesiolysis extensive 3. Laparoscopic takedown of enterocolonic fistula 4. Laparoscopic takedown of colocutaneous fistula 5. Low anterior resection, laparoscopic 6. Splenic flexure mobilization, laparoscopic 7. Repair of vesicular sinus tract 8. Laparoscopic assisted loop ileostomy 9. Partial omentectomy 10. Umbilical hernia repair 11. Drainage of intra-abdominal abscess multiple 12. Drainage catheter placement 13. Small bowel resection 14. Abdominal washout Post Op Diagnosis: Same; feculent peritonitis; multiple fistulae; vesicular involvement - HOSPITAL COURSE Hospital Course: 60-year-old female admitted for complicated diverticulitis. Ultimately the patient developed small bowel obstruction. NG tube was placed. Patient continued to have bowel function however abdominal pain persisted and ultimately repeat imaging inspired interventional radiographic consultation for attempted drainage of 1 of several abdominal abscesses on hospital day #8. Hospital day #9 for complicated diverticulitis. Patient status post IR drainage yesterday. Pain unchanged. Persistent bowel obstruction with NG tube in place. Continues with bowel function. Abdomen distended, tender at drainage site, bilious/feculent output from drainage catheter. At this point the patient did not appear to be responding appropriately to nonoperative management and this was discussed with the multiple responsible attendings. Moreover, given the patient's bowel obstruction, together with her feculent output from percutaneous drainage, were both independent indications to proceed with operative intervention, the latter specific secondary to fistula propagation. Moreover, the patient had large, contained perforation with ongoing pain and signs of continued sepsis. Patient underwent above-stated intervention. Postoperatively the patient was managed in the intensive care unit. PICC line was placed by anesthesia for TPN given the patient's longstanding n.p.o. status and severe protein malnutrition. The remainder of this discharge summary will be systems based: Cardiovascular: Patient was placed for arterial line for hemodynamic monitoring and continue titration of pressors postoperatively given septic shock in the setting of ongoing sepsis from intra-abdominal abscess and perforated diverticulitis. This was exacerbated postoperatively and with fluid resuscitation and aggressive dara and postoperative management were able to wean pressors to off. Please see below for arterial line procedure performed. Postoperative diagnosis (arterial line placement): 1. Hypovolemic shock 2. Upper GI bleed 3. Suspicion for sepsis 4. Need for additional Hemodynamic monitoring. 5. Successful placement of Left arterial line, radial artery. Respiratory: Patient was maintained on oxygen nebulizers and incentive spirometry throughout. Suspected atelectasis versus pneumonia however the patient was broadly covered on antibiotics throughout. Patient was weaned after aggressive diuresis. Urology/renal: Patient was maintained for Acosta perioperatively secondary to communication with urinary bladder. This was repaired intraoperatively and checked and verified by intraoperative instillation per Acosta of methylene blue. Patient was performed for CT cystogram prior to removing Acosta which was without any extravasation. Patient had stable renal indices. Patient was maintained on aggressive diuresis throughout for fluid retention and towards euv olemia. Patient spontaneously voided without any complication. Patient was managed for electrolytes throughout which were repleted aggressively and repeatedly. Nutrition/electrolytes/fluids: Patient was maintained on TPN for severe protein malnutrition. She was slowly advanced for diet after positive resumption of bowel function per ileostomy which was performed to divert the fecal stream from a low pelvic anastomosis and a high-risk inflammatory milieu secondary to perforated diverticulitis. This was achieved through PICC line placement and assistance with nutrition and pharmacy. Patient was concentrated for fluids and wean for TPN secondary to significant fluid in retention. After approaching euvolemia patient was planned for outpatient fluid resuscitation given the presence of ileostomy and risk of dehydration. Patient was aggressively replaced for electrolytes including magnesium phosphate and potassium throughout her hospitalization. Hematology: Patient was multiply transfused throughout secondary to acute on chronic blood loss anemia. She was also transfused for iron/Venofer. She remained stable. She had appropriate leukocytosis in response to sepsis. This improved as well. Patient was also maintained on DVT prophylaxis for the entirety of her hospital stay. This was achieved both chemically and mechanical ly. Infectious disease: Patient was maintained broadly on antibiotics pos toperatively. Intraoperative cultures were obtained. Patient also had cultures obtained historically/preoperatively from her percutaneous drain. She was widely covered by vancomycin, Merrem, and antifungal. Ultimately she was transitioned to Zosyn for de-escalation. Additional cultures were drawn when leukocytosis persisted and followed as well. Patient ultimately was managed for her antibiotics after it was decided to transition to oral regimen on discharge with improving inflammatory markers. Drain was removed as well. Surgical site/wound: Patient's Pfannenstiel was left open postoperatively to avoid any complication as far skin and subcutaneous tissue infection. This was performed for wound VAC. Patient was ultimately performed for delayed primary closure sequentially with intermittent wound VAC placement and ultimate packing. Patient had no complication ultimately was closed for her wound using vertical mattress sutures and plan for removal of sutures as an outpatient. Drain was removed as stated elsewhere. Patient was maintained for PICC line for continued outpatient IV fluid instillation and infusion. 3 discharge CAT scan showed no significant concern that would necessitate further intervention from a percutaneous drain standpoint. Neurologic: Patient was maintained on pain management initially with tap block and ultimately with SURVEY SUPERVISOR ultimately transitioned to oral analgesia with as needed intravenous breakthrough medications. Opiate sparing analgesia was also utilized as well throughout. Patient was discharged on oral analgesia. Gastrointestinal: Patient was maintained on bowel regimen postoperatively. Resumption of bowel function first. Patient also had single episode of stool per rectum which is not unusual in a patient who has not undergone full bowel prep. She was obstructed and this was not an option. She was advised that postoperatively she would need diagnostic colonoscopy and CAT scan to evaluate the anastomosis as well as in anticipation of ileostomy takedown. She was maintained on GI GI prophylaxis. On the day of discharge patient was afebrile, hemodynamic acceptable, tolerating oral intake, tolerating p.o. nutrition, tolerating p.o. analgesia, voiding spontaneously, comfortable with stoma management for which there was outpatient follow-up scheduled. Patient had already been scheduled for outpatient IV infusion services weekly for boluses. Wound was already closed patient had no drains. Patient was moved for her stoma bolster. And was appropriate for discharge and short interval follow-up. Discharge instructions were given. Please note that voice recognition software was used to transcribe this note and inadvertent errors might persist in spite of review and editing. I am obliged to you for your attention. I am thankful to you for allowing me to participate with you in this care of this patient. - ALLERGIES Allergies/Adverse Reactions: Allergies Allergy/AdvReac Type Severity Reaction Status Date / Time amoxicillin AdvReac Intermediate Rash Verified 12/28/20 11:20 - MEDICATIONS Home Medications: Ambulatory Orders Medication Instructions Recorded Confirmed Acetaminophen [Tylenol] 650 mg PO Q4HR PRN tablet 01/11/21 01/16/21 Magnesium Oxide [Magnesium] 250 mg PO TIDWM 30 Days #90 tablet 01/11/21 01/16/21 Metoprolol Tartrate [Lopressor] 50 mg PO BID #60 tablet 01/11/21 01/16/21 Sulfamethox/Trimeth 800/160 1 tablet PO BID 10 Days #20 tablet 01/11/21 01/16/21 [Bactrim Ds] methocarbamoL [Robaxin] 500 mg PO Q6HR PRN #60 tablet 01/11/21 01/16/21 oxyCODONE [Roxicodone] 5 mg PO Q4HR PRN #30 tablet 01/11/21 01/16/21 - PHYSICAL EXAM AT DISCHARGE Physical Exam Other/Comments: General Appearance: positive: No acute distress Eyes Bilateral: positive: Normal inspection ENT: positive: ENT inspection nml Neck: positive: Nml inspection Respiratory: positive: Chest non-tender, No respiratory distress, Breath sounds nml. negative: Wheezes, Rales, Rhonchi Cardiovascular: positive: Regular rate & rhythm Abdominal Exam: Inspection - Erythema none; Scars trocars well healed Auscultation -normoactive bowel sounds Palpation - Hernias none; Fluctuance none; Induration none; Scar N/A Pfannenstiel incision with sutures intact. Drain already removed. Stoma pink and productive of stool. All trocar sites with no concerns. No rebound no guarding. Extremities: positive: Non-tender, Full ROM, Nml appearance Neurologic/Psychiatric: positive: Oriented x3, CN's nml (2-12) - LABS Result Diagrams: 01/11/21 05:45 01/11/21 05:45 - SEPSIS Current Stage of Sepsis: Septic shock Possible source of Sepsis: GI tract/intra-abdominal - FOLLOW UP Follow Up: Patient was discharged with short interval follow-up. Patient was to have weekly IV fluid boluses to avoid any risk of dehydration. [facility] clinic scheduled for labs, IV fluid infusions, and wound and ostomy care. Oral antibiotics written as well. Discharge instructions explained at length. - TIME SPENT Time Spent in Discharge (Minutes): 90"
== END 2021-01-11 22:15 | disposition home or self-care (01) | DRG 329 ==
LOC: ED 15:37 → MS2 20:43 → ICU 12-27 16:24 → MS2 01-04 23:56
PROVIDERS: ADMIT Surgery; ATTEND Surgery
PROC: 0W9G30Z Drainage of Peritoneal Cavity with Drainage Device, Percutaneous Approach (ICD-10-PCS; 2020-12-23)
PROC: 02HV33Z Insertion of Infusion Device into Superior Vena Cava, Percutaneous Approach (ICD-10-PCS; 2020-12-26)
PROC: 0DBP0ZZ Excision of Rectum, Open Approach (ICD-10-PCS; 2020-12-27)
PROC: 0DSL0ZZ Reposition Transverse Colon, Open Approach (ICD-10-PCS; 2020-12-27)
PROC: 0DNN0ZZ Release Sigmoid Colon, Open Approach (ICD-10-PCS; 2020-12-27)
PROC: 0DN80ZZ Release Small Intestine, Open Approach (ICD-10-PCS; 2020-12-27)
PROC: 0DNE0ZZ Release Large Intestine, Open Approach (ICD-10-PCS; 2020-12-27)
PROC: 0D1B0Z4 Bypass Ileum to Cutaneous, Open Approach (ICD-10-PCS; 2020-12-27)
PROC: 0DBU0ZZ Excision of Omentum, Open Approach (ICD-10-PCS; 2020-12-27)
PROC: 0W9G00Z Drainage of Peritoneal Cavity with Drainage Device, Open Approach (ICD-10-PCS; 2020-12-27)
PROC: 0DNW4ZZ Release Peritoneum, Percutaneous Endoscopic Approach (ICD-10-PCS; 2020-12-27)
PROC: 0TQB0ZZ Repair Bladder, Open Approach (ICD-10-PCS; 2020-12-27)
PROC: 3E1M38Z Irrigation of Peritoneal Cavity using Irrigating Substance, Percutaneous Approach (ICD-10-PCS; 2020-12-27)
PROC: 0DJD8ZZ Inspection of Lower Intestinal Tract, Via Natural or Artificial Opening Endoscopic (ICD-10-PCS; 2020-12-27)
PROC: 3E0436Z Introduction of Nutritional Substance into Central Vein, Percutaneous Approach (ICD-10-PCS; 2020-12-27)
PROC: 03HC03Z Insertion of Infusion Device into Left Radial Artery, Open Approach (ICD-10-PCS; 2020-12-27)
PROC: 0DB80ZZ Excision of Small Intestine, Open Approach (ICD-10-PCS; principal; 2020-12-27 11:00)
PROC: 0DTN0ZZ Resection of Sigmoid Colon, Open Approach (ICD-10-PCS; 2020-12-27 11:00)
PROC: 2W03X6Z Change Pressure Dressing on Abdominal Wall (ICD-10-PCS; 2021-01-08)
PROC: 0WQFXZZ Repair Abdominal Wall, External Approach (ICD-10-PCS; 2021-01-11)
PROC: 2W53X6Z Removal of Pressure Dressing on Abdominal Wall (ICD-10-PCS; 2021-01-11)
DX: K57.20 Diverticulitis of large intestine with perforation and abscess without bleeding (principal); K65.8 Other peritonitis; A41.9 Sepsis, unspecified organism; R65.21 Severe sepsis with septic shock; E43 Unspecified severe protein-calorie malnutrition; J18.9 Pneumonia, unspecified organism; R57.1 Hypovolemic shock; N32.1 Vesicointestinal fistula; K63.2 Fistula of intestine; N32.2 Vesical fistula, not elsewhere classified; K56.699 Other intestinal obstruction unspecified as to partial versus complete obstruction; E87.1 Hypo-osmolality and hyponatremia; J81.1 Chronic pulmonary edema; J98.11 Atelectasis; D50.0 Iron deficiency anemia secondary to blood loss (chronic); K42.9 Umbilical hernia without obstruction or gangrene; I10 Essential (primary) hypertension; Z79.899 Other long term (current) drug therapy; F17.210 Nicotine dependence, cigarettes, uncomplicated; E87.6 Hypokalemia; R00.0 Tachycardia, unspecified; R09.02 Hypoxemia; Y95 Nosocomial condition; E87.70 Fluid overload, unspecified; F41.0 Panic disorder [episodic paroxysmal anxiety]; R50.9 Fever, unspecified; F43.21 Adjustment disorder with depressed mood
CPT/HCPCS: 0202U; 36415; 36600; 71045; 71275; 74177; 78227; 80048; 80053; 80202; 81001; 81003; 82040; 82607; 82746; 82803; 83540; 83690; 83735; 83880; 84100; 84132; 84134; 84443; 84466; 84478; 85014; 85018; 85025; 85027; 85610; 86850; 86900; 86901; 86920; 87040; 87070; 87150; 87205; 87493; 93306; 96365; 96366; 96367; 96375; 96376; 97110; 97116; 97161; 97165; 97530; 99284; 99285; A6250; A9270; C1751; J0131; J0330; J1170; J1750; J1815; J2185; J2765; J3370; J3490; J7040; J7120; P9016; P9040; Q9967; 49406; 87086

== ENCOUNTER 2020-12-23 12:43 | Outpatient (CLI) | payer OTHER | END 2020-12-23 12:44 | disposition short-term general hospital (02) | LOC: EMS 12:43 | PROVIDERS: ATTEND Surgery | DX: K57.92 Diverticulitis of intestine, part unspecified, without perforation or abscess without bleeding (principal) | CPT/HCPCS: A0425; A0428 ==

== ENCOUNTER 2021-02-20 06:26 | Day surgery (SDC) | payer OTHER ==
--- OUTSIDE RECORDS SUMMARY | 2021-02-20 06:29 | EXTERNAL MEDICAL SUMMARY RPT | Continuity of Care Document ---
:1960 Demographics Phone Unavailable Preferred Language Unknown Marital Status Unknown Orthodoxy Affiliation Unknown Race Unknown Ethnic Group Unknown Author Organization [facility] Address [address] [place] [address] Phone Allergies Encounters Medications Problems Results
[2021-02-20] MEDS ORDERED: LACTATED RINGERS 1,000 ML IV ONE (06:33)
[2021-02-20] MEDS ORDERED: fentaNYL 250 MCG/5 ML VIAL ONE (07:41)
[2021-02-20] MEDS ORDERED: MIDAZOLAM 2 MG/2 ML VIAL ONE ×3 (07:41→08:02)
[2021-02-20] MEDS ORDERED: LACTATED RINGERS 600 ML IV ONE (08:14)
[2021-02-20 08:50] VITALS: BP 124/67
== END 2021-02-20 06:27 | disposition home or self-care (01) ==
LOC: SDS 06:26
PROVIDERS: ATTEND Surgery
DX: Z43.2 Encounter for attention to ileostomy (principal); K57.30 Diverticulosis of large intestine without perforation or abscess without bleeding; K64.8 Other hemorrhoids; I10 Essential (primary) hypertension; F17.210 Nicotine dependence, cigarettes, uncomplicated; Z90.49 Acquired absence of other specified parts of digestive tract; Z79.899 Other long term (current) drug therapy
CPT/HCPCS: 45378; J3010; J7120

== ENCOUNTER 2021-02-22 12:11 | Outpatient (CLI) | payer OTHER ==
[2021-02-22] MEDS ORDERED: IOPAMIDOL-300 50 ML VIAL ONE (12:30)
[2021-02-22] MEDS ORDERED: IOVERSOL 320 100 ML VIAL IVP ONE ×2 (12:30→15:26)
[2021-02-22] MEDS ORDERED: IOPAMIDOL-300 50 ML VIAL PO ONE (15:25)
--- NOTE | 2021-02-22 16:04 | CT Report ---
PROCEDURE: Abdomen/Pelvis W INDICATIONS: ILEOSTOMY STATUS CONTRAST: IV CONTRAST: Optiray 320 ml: 100 PO CONTRAST: Isovue 300 ml50 TECHNIQUE: After the administration of IV, oral, and rectal contrast, 5 mm thick sections acquired from the diap hragms to the symphysis. 5 mm thick coronal and sagittal reformats were acquired. For radiation dos e reduction, the following was used: automated exposure control, adjustment of mA and/or kV accordin g to patient size. COMPARISON: 01/09/2021. FINDINGS: Image quality: Excellent. ABDOMEN: Lung bases: Lung bases are clear. Heart size is normal. A catheter tip noted in the superior vena c millie is likely the tip of a PICC line. Solid organs: Liver and spleen are normal in size and enhancement. Gallbladder is unremarkable. Bi liary system is non dilated. Pancreas enhances normally. No adrenal nodules. Kidneys demonstrate n ormal size and enhancement, without hydronephrosis. Peritoneum and bowel: Loop ileostomy unremarkable. Multiple bowel anastomotic clips. Small bowel and colon are unremarkable. No residual abscess cavity is noted. Nodes and vessels: No retroperitoneal or mesenteric adenopathy by size criteria. Aorta and inferior vena cava are normal in size. Miscellaneous: No ventral hernias. Likely postsurgical change in the anterior pelvic subcutaneous f at. PELVIS: Genitourinary: Bladder wall thickness is normal. Miscellaneous: No inguinal hernias or adenopathy. Bones: No suspicious bony lesions. No vertebral body compression fractures. IMPRESSION: 1. Interval resolution of multiple abdominal abscess cavities. 2. Unremarkable appearance of loop ileostomy and unremarkable appearance of bowel. 3. No evidence of acute abdominal process. Reviewed by: Adan Berry MD on 02/22/2021 4:03 PM PDT Approved by: Adan Berry MD on 02/22/2021 4:03 PM PDT Station ID: [id number]
== END 2021-02-22 12:12 | disposition home or self-care (01) ==
LOC: DI 12:11
PROVIDERS: ATTEND Surgery
DX: Z93.2 Ileostomy status (principal)
CPT/HCPCS: 74177; Q9967

== ENCOUNTER 2021-03-10 06:25 | Inpatient (IN) | payer OTHER ==
[~2021-03-10 06:25] MED LIST: ACETAMINOPHEN 1,000 MG/100 ML 100 ML IV ONE; CELECOXIB 100 MG CAPSULE PO ONE; CIPROFLOXACIN 400 MG/200 ML 400 MG/200 ML BAG IV ONE; GABAPENTIN 400 MG CAPSULE ONE; metroNIDAZOLE 500 MG/100 ML 500 MG/100 ML BAG ONE
[2021-03-10] MEDS ORDERED: LACTATED RINGERS 1,000 ML IV ONE ×2 (06:49→10:19)
[2021-03-10] MEDS ORDERED: ROCURONIUM 50 MG/5 ML VIAL ONE (06:59)
[2021-03-10] MEDS ORDERED: PROPOFOL 200 MG/20 ML VIAL IVP ONE (06:59)
[2021-03-10] MEDS ORDERED: DEXAMETHASONE 4 MG/ML VIAL ONE (06:59)
[2021-03-10] MEDS ORDERED: ONDANSETRON 4 MG/2 ML VIAL ONE (06:59)
[2021-03-10] MEDS ORDERED: fentaNYL 100 MCG/2 ML VIAL ONE (07:05)
[2021-03-10] MEDS ORDERED: MAGNESIUM SULFATE 1 GM/2 ML VIAL ONE ×2 (07:21→07:39)
[2021-03-10] MEDS ORDERED: DEXMEDETOMIDINE 200 MCG/2 ML VIAL ONE (07:21)
[2021-03-10] MEDS ORDERED: KETAMINE 500 MG/10 ML VIAL ONE (07:21)
[2021-03-10] MEDS ORDERED: KETOROLAC 30 MG/ML VIAL ONE (07:38)
[2021-03-10] MEDS ORDERED: ATROPINE ABBOJECT 1 MG/10 ML SYRINGE IVP PRN (07:40)
[2021-03-10] MEDS ORDERED: METOCLOPRAMIDE 10 MG/2 ML VIAL IVP PRN (07:40)
[2021-03-10] MEDS ORDERED: ePHEDrine 50 MG/ML VIAL IVP PRN (07:40)
[2021-03-10] MEDS ORDERED: fentaNYL 100 MCG/2 ML VIAL IVP PRN (07:40)
[2021-03-10] MEDS ORDERED: ONDANSETRON 4 MG/2 ML VIAL IVP PRN ×2 (07:40→10:05)
[2021-03-10] MEDS ORDERED: HYDROmorphone 0.5 MG/0.5 ML SYRINGE IVP PRN (07:40)
[2021-03-10] MEDS ORDERED: MORPHINE 2 MG/ML CARPUJECT IVP PRN (07:40)
[2021-03-10] MEDS ORDERED: NALOXONE 0.4 MG/ML VIAL IVP PRN (07:40)
--- NOTE | 2021-03-10 07:40 | ANESTHESIA ---
Pre-Anesthesia VS, & Labs - Diagnosis ileostomy - Procedure ileostomy reversal Vital Signs: Temp Pulse Resp BP Pulse Ox 36.3 C L 90 18 153/55 H 100 03/10/21 06:35 03/10/21 06:35 03/10/21 06:35 03/10/21 06:35 03/10/21 06:35 Height: 5 ft 3 in Weight (kg): 60.3 kg Body Mass Index: 23.5 BMI Classification: Healthy weight - NPO >8 hours - Is Patient ?: No Home Medications and Allergies Ibuprofen [Motrin] 600 mg PO Q6H PRN 03/08/21 Allergies/Adverse Reactions: Allergies Allergy/AdvReac Type Severity Reaction Status Date / Time amoxicillin AdvReac Intermediate Rash Verified 12/28/20 11:20 Anes History & Medical History - Anesthetic History Anesthesia Complications: reports: No previous complications Family history of Anesthesia Complications: Denies Family history of Malignant Hyperthermia: Denies - Medical History Cardiovascular: reports: Hypertension Pulmonary: reports: None Gastrointestinal: reports: Diverticulitis Urinary: reports: None Neuro: reports: None Musculoskeletal: reports: None Endocrine/Autoimmune: reports: None Blood Disorders: reports: None Smoking Status: Current every day smoker - Surgical History General: reports: Bowel surgery, Colonoscopy, Other Exam General: Alert, Oriented x3, Cooperative Dental: WNL Mouth Openin Fingerbreadth Neck Mobility: Normal Mallampati classification: II Thyromental Distance: 4-6 cm Respiratory: Lungs clear Cardiovascular: Regular rate Plan Anesthesia Type: General, Transverse Abdominis Plane (TAP) Block Regional Block: Per Surgeon's request for Post Op pain control Consent for Procedure(s) Verified and Reviewed: Yes Code Status: Attempt Resuscitation ASA classification: 2-Mild systemic disease Is this case an emergency?: No
[2021-03-10] MEDS ORDERED: LACTATED RINGERS 1,000 ML IV SCH (08:00)
[2021-03-10] MEDS ORDERED: ROPIVACAINE 0.5% PF 20 ML AMPULE ONE (08:37)
[2021-03-10] MEDS ORDERED: ePHEDrine 50 MG/ML VIAL IVP ONE ×2 (09:11)
[2021-03-10] MEDS ORDERED: SUGAMMADEX 200 MG/2 ML VIAL IVP ONE ×2 (09:11→09:45)
[2021-03-10] MEDS ORDERED: ACETAMINOPHEN 1,000 MG/100 ML 100 ML IV ONE (10:05)
--- NOTE | 2021-03-10 10:14 | OPERATIVE REPORT ---
Operative Report - General Admit Date: 03/10/21 Planned Procedure: 1. Ileostomy takedown 2. Small bowel resection 3. [id number]-[id number] functional end-to-end antiperistaltic anastomosis stapled with primary enterotomy closure to layers 4. Parastomal hernia repair 5. Drain placement 6. Tap block Pre-Op Diagnosis: History of complicated diverticulitis; status post LAR w/ DLI Procedure Performed: 1. Ileostomy takedown 2. Small bowel resection 3. Szos-gu-tgbq functional end-to-end antiperistaltic anastomosis stapled with primary enterotomy closure to layers 4. Parastomal hernia repair 5. Drain placement 6. Tap block Per anesthesia 7. Extensive lysis of adhesions Post Op Diagnosis: SAME; Dense Adhesions; Viable Anastomosis - Procedure Note Primary Surgeon: Juan Secondary Surgeon: Caden Anesthesia Provider: Olegario Anesthesia Technique: General ET tube, Regional block Pathology: Stoma/Small Bowel Estimated Blood Loss (mL): 25 Drain/Tube Type: Julio drain Indications: See Below/See EMR Findings: 1. Extensive abdominal adhesions 2. Viable loop ileostomy 3. Patent viable [id number] functional end-to-end antiperistaltic entero enterostomy stapled and partially handsewn 2 layer for closure 4. Parastomal hernia repaired Complications: NONE - Other Other Information/Narrative: The patient was taken to the operating room, placed supine on the operating table placed for bilateral lower extremity serial compression devices and induced for general endotracheal anesthesia. Once this was completed, ostomy appliance was taken off the abdomen and using a Vicryl suture, the proximal limb of diverting loop ileostomy was ligated in order to prevent intraoperative spillage. A Acosta catheter was placed. The abdomen was prepped and draped in the usual sterile fashion and perioperative antibiotics were given within an hour of surgical incision. A timeout was called and agreed to by all the room. Surrounding the diverting loop ileostomy using a scalpel, the mucocutaneous junction was incised outside of the mucus border and this was taken down through to the superficial subcutaneous fat with Bovie electrocautery. Once this was completed, using sharp dissection and Bovie electrocautery the diverting loop ileostomy was dissected free from the surrounding adhesions again sharply with scalpel & Metzenbaum scissors as well as Bovie electrocautery dissection, using great care to avoid injury to the small intestine. This was taken down through to the level of fascia. This was incised and ultimately the ileostomy was freed from its surrounding attachments and any adhesions were appropriately lysed. Additional adhesiolysis was necessary for appropriate prolapse of the diverting loop ileostomy and after this was completed, we chose points of transection and after dividing and ligating the intervening mesentery, the small intestine was divided using a linear cutting stapler with a triple staple line. Case began with adhesiolysis as follows: Careful sharp adhesiolysis was performed in order to appropriately prolapse the loop ileostomy and associated length of ileum towards a successful partial small bowel resection and antiperistaltic [id number]-lx-rtos functional end-to-end anastomosis. This proceeded without any untoward complications, and without any inadvertent injuries or other adverse effect events. The ileostomy was sent for permanent pathology. Once this was completed, Allis clamps were placed along the antimesenteric staple lines of both ends. These were incised and divided using curved Cedeño scissors and thereafter limbs of the linear cutting stapler were placed through both enterotomies and the [id number]-[id number]-ditz anastomosis was created. There was no bleeding, and after the stapler was fired, two seromuscular crotch stitches were placed in order to relieve any tension. Thereafter, the enterotomies were closed in two layers, first with a [place] running suture, followed by interrupted Lembert stitches of 2-0 Vicryl. The anastomosis was widely patent, intact, with no ischemic changes noted. Please note adhesiolysis was necessary in order to allow for appropriate prolapse of the ileostomy and bowel loops in order to perform a [id number]-fv-cdvm functional end-to-end anastomosis stapled and handsewn closure to layer for the enterotomies. This was viable, intact, peristaltic. After the abdomen was irrigated and aspirated clear, we proceeded with placement of a 19 Julio drain which was placed by the anastomosis and also sutured in place with 2-0 nylon. Fascia and the parastomal hernia was thereafter closed in a unidirectional fashion with loop PDS. There is no complication. Skin flaps were created in order to afford an appropriate pursestring of the skin with 0 Vicryl. The wound was packed with iodoform packing strips. Transversus abdominis plane blocks were performed as well. All counts for sponges needles and instruments were correct at the conclusion of this operative case. I was physically present for the entirety of the surgical procedure as indicated above. Please note that voice recognition software was used to transcribe this note and inadvertent errors might persist in spite of review and editing. I am obliged to you for your attention. I am thankful to you for allowing me to participate with you in this care of this patient.
--- NOTE | 2021-03-10 10:18 | PROVIDER PROGRESS NOTE ---
Progress Note BRIEF Operative Report - General Admit Date: 03/10/21 Procedure Date: 03/10/21 Planned Procedure: 1. Ileostomy takedown 2. Small bowel resection 3. Bcsl-pr-fslu functional end-to-end antiperistaltic anastomosis stapled with primary enterotomy closure to layers 4. Parastomal hernia repair 5. Drain placement 6. Tap block Pre-Op Diagnosis: History of complicated diverticulitis; status post LAR w/ DLI Procedure Performed: 1. Ileostomy takedown 2. Small bowel resection 3. Mdiw-ae-siaq functional end-to-end antiperistaltic anastomosis stapled with primary enterotomy closure to layers 4. Parastomal hernia repair 5. Drain placement 6. Tap block Per anesthesia 7. Extensive lysis of adhesions Post Op Diagnosis: SAME; Dense Adhesions; Viable Anastomosis - Procedure Note Primary Surgeon: Juan Secondary Surgeon: Caden Anesthesia Provider: Olegario Anesthesia Technique: General ET tube, Regional block Pathology: Stoma/Small Bowel Estimated Blood Loss (mL): 25 Drain/Tube Type: Julio drain Indications: See Below/See EMR Findings: See Below Complications: NONE
[2021-03-10] MEDS ORDERED: metroNIDAZOLE 500 MG/100 ML 500 MG/100 ML BAG IV SCH (11:00)
[2021-03-10] MEDS ORDERED: CIPROFLOXACIN 400 MG/200 ML 400 MG/200 ML BAG IV SCH (11:00)
--- NOTE | 2021-03-10 11:03 | ANESTHESIA POST OP EVALUATION ---
Anesthesia Post Eval - Post Anesthesia Eval Vitals: Last Vital Signs Temp 36.3 C L 03/10/21 10:50 Pulse 102 H 03/10/21 10:50 Resp 19 03/10/21 10:50 BP 138/79 H 03/10/21 10:50 Pulse Ox 94 03/10/21 10:50 CV Function Including HR & BP: Stable Pain Control: Satisfactory Nausea & Vomiting: Negative Mental Status: Baseline Respiratory Status: Airway Patent Hydration Status: Satisfactory Anesthesia Complications: None
[2021-03-10] MEDS: KETOROLAC 15 MG/ML VIAL IVP SCH ×4 (11:27→23:58)
[2021-03-10] MEDS: methocarbamoL 500 MG TABLET PO SCH ×3 (11:32→23:58)
[2021-03-10] MEDS: METOCLOPRAMIDE 10 MG/2 ML VIAL IVP SCH ×3 (11:35→23:58)
--- NOTE | 2021-03-10 11:39 | PHARMACY PROGRESS NOTE ---
- Best Possible Medication History Admit Date and Time: 03/10/21 0625 Processed by: Pharmacy Medication History completed: Yes Patient Interview: Pt unable to participate Secondary Source(s): Physician records, Pharmacy records, Insurance records As the person ultimately responsible for medication therapy, providers are able to order a medication from an existing home medication list in [facility] via the "Reconcile Routine" prior to Confirmation of that medication by customer support associate. Such practice is discouraged except when the physician, in their clinical judgment, deems that a medical need exists for a medication without regard to previous use.
[2021-03-10] MEDS: D5NS W/20 MEQ KCL 1,000 ML IV SCH ×2 (12:17→21:53)
[2021-03-10] MEDS: metroNIDAZOLE 500 MG/100 ML 500 MG/100 ML BAG IV SCH ×2 (13:19→21:52)
[2021-03-10] MEDS: DOCUSATE SODIUM 100 MG CAPSULE PO SCH (20:31)
[2021-03-10] MEDS: polyethylene glycoL 3350 17 GM PACKET PO SCH (20:31)
[2021-03-10] MEDS: CIPROFLOXACIN 400 MG/200 ML 400 MG/200 ML BAG IV SCH (20:40)
[2021-03-11] MEDS: metroNIDAZOLE 500 MG/100 ML 500 MG/100 ML BAG IV SCH ×3 (06:21→21:58)
[2021-03-11] MEDS: D5NS W/20 MEQ KCL 1,000 ML IV SCH ×2 (06:22→17:46)
[2021-03-11] MEDS: PANTOPRAZOLE 40 MG TABLET PO SCH (06:22)
[2021-03-11] MEDS: HYDROmorphone 0.5 MG/0.5 ML SYRINGE IVP PRN ×3 (06:27→21:55)
[2021-03-11] MEDS: methocarbamoL 500 MG TABLET PO SCH ×4 (06:35→23:47)
[2021-03-11] MEDS: METOCLOPRAMIDE 10 MG/2 ML VIAL IVP SCH ×4 (06:35→23:47)
[2021-03-11] MEDS: KETOROLAC 15 MG/ML VIAL IVP SCH ×4 (06:35→23:47)
[2021-03-11 08:16] LABS: BASOPHILS % (AUTO) 0.2 %; EOSINOPHILS % (AUTO) 0.1 %; HCT - HEMATOCRIT 33.3 % (37.0-47.0); HGB - HEMOGLOBIN 10.5 g/dL (12.0-16.0); LYMPHOCYTES # (AUTO) 2.2 10^3/uL (1.5-3.5); LYMPHOCYTES % (AUTO) 16.8 %; MEAN CORPUSCULAR HEMOGLOBIN 30.5 pg (27.0-31.0); MEAN CORPUSCULAR HGB CONC 31.5 g/dL (32.0-36.0); MEAN CORPUSCULAR VOLUME 96.8 fL (81.0-99.0); MEAN PLATELET VOLUME 8.9 fL (7.9-10.8); MONOCYTES # (AUTO) 1.1 10^3/uL (0.0-1.0); MONOCYTES % (AUTO) 8.4 %; NEUTROPHILS # (AUTO) 9.7 10^3/uL (1.5-6.6); PLT - PLATELET COUNT 230 10^3/uL (130-450); RED BLOOD COUNT 3.44 10^6/uL (4.20-5.40); RED CELL DISTRIBUTION WIDTH 15.6 % (12.0-15.0); WHITE BLOOD COUNT 13.2 x10^3/uL (4.8-10.8)
[2021-03-11 08:31] LABS: ALBUMIN 2.8 g/dL (3.2-5.5); ALBUMIN/GLOBULIN RATIO 0.8 (1.0-2.2); ALKALINE PHOSPHATASE 62 IU/L (42-121); ALT ALANINE AMINOTRANSFERASE < 10 IU/L (10-60); AST ASPARTATE AMINOTRANSFERASE 16 IU/L (10-42); BILIRUBIN,TOTAL 0.9 mg/dL (0.2-1.0); BUN - BLOOD UREA NITROGEN 10 mg/dL (6-20); CALCIUM 8.2 mg/dL (8.5-10.3); CARBON DIOXIDE - CO2 20 mmol/L (21-32); CHLORIDE 110 mmol/L (101-111); CREATININE 0.6 mg/dL (0.4-1.0); GFR - MDRD 103 (>89); GLUCOSE 111 mg/dL (70-100); MAGNESIUM 1.7 mg/dL (1.7-2.8); PHOSPHORUS 3.1 mg/dL (2.5-4.6); POTASSIUM 3.8 mmol/L (3.5-5.0); SODIUM 137 mmol/L (135-145); TOTAL PROTEIN 6.5 g/dL (6.7-8.2)
[2021-03-11] MEDS: polyethylene glycoL 3350 17 GM PACKET PO SCH ×2 (09:11→20:34)
[2021-03-11] MEDS: DOCUSATE SODIUM 100 MG CAPSULE PO SCH ×2 (09:11→20:34)
[2021-03-11] MEDS: ENOXAPARIN 40 MG/0.4 ML SYRINGE SUBQ SCH (09:12)
[2021-03-11] MEDS: CIPROFLOXACIN 400 MG/200 ML 400 MG/200 ML BAG IV SCH ×2 (09:15→20:38)
--- NOTE | 2021-03-11 14:25 | PROVIDER PROGRESS NOTE ---
Subjective - Prog Note Date Prog Note Date: 03/11/21 - Subjective Pt reports feeling: Improved (tolerting clear liquid diet. no nausea) Objective - Vital Signs/Intake & Output Reviewed Vital Signs: Yes Vital Signs: Vital Signs x48h Temp Pulse Resp BP Pulse Ox 03/11/21 11:23 36.5 C 89 18 117/71 99 03/11/21 07:40 36.7 C 93 17 115/69 99 Intake & Output: Intake & Output 03/08/21 03/09/21 03/10/21 03/11/21 23:59 23:59 23:59 23:59 Intake Total 0921.519 2287.250 Output Total 800 695 Balance 7948.073 6251.250 - Objective General Appearance: positive: Alert Eyes Bilateral: positive: PERRL, EOMI ENT: positive: Pharynx nml, No signs of dehydration Neck: positive: No JVD Respiratory: positive: No respiratory distress Abdomen: positive: Non-tender, No distention Neurologic/Psychiatric: positive: Oriented x3 - Lab Results Fish Bones: 03/11/21 07:52 03/11/21 07:52 Other Labs: Lab Results x24hrs 03/11/21 03/11/21 03/11/21 Range/Units 10:59 07:57 07:52 WBC (4.8-10.8) x10^3/uL RBC (4.20-5.40) 10^6/uL Hgb (12.0-16.0) g/dL Hct (37.0-47.0) % MCV (81.0-99.0) fL MCH (27.0-31.0) pg MCHC (32.0-36.0) g/dL RDW (12.0-15.0) % Plt Count (130-450) 10^3/uL MPV (7.9-10.8) fL Neut # (Auto) (1.5-6.6) 10^3/uL Lymph # (Auto) (1.5-3.5) 10^3/uL [place] # (Auto) (0.0-1.0) 10^3/uL Eos # (Auto) (0.0-0.7) 10^3/uL Baso # (Auto) (0.0-0.1) 10^3/uL Absolute Nucleated RBC x10^3/uL Nucleated RBC % /100WBC Sodium 137 (135-145) mmol/L Potassium 3.8 (3.5-5.0) mmol/L Chloride 110 (101-111) mmol/L Carbon Dioxide 20 L (21-32) mmol/L Anion Gap 7.0 (6-13) BUN 10 (6-20) mg/dL Creatinine 0.6 (0.4-1.0) mg/dL Estimated GFR (MDRD) 103 (>89) Glucose 111 H (70-100) mg/dL POC Whole Bld Glucose 101 H 102 H (70 - 100) mg/dL Calcium 8.2 L (8.5-10.3) mg/dL Phosphorus 3.1 (2.5-4.6) mg/dL Magnesium 1.7 (1.7-2.8) mg/dL Total Bilirubin 0.9 (0.2-1.0) mg/dL AST 16 (10-42) IU/L ALT < 10 L (10-60) IU/L Alkaline Phosphatase 62 (42-121) IU/L Total Protein 6.5 L (6.7-8.2) g/dL Albumin 2.8 L (3.2-5.5) g/dL Globulin 3.7 (2.1-4.2) g/dL Albumin/Globulin Ratio 0.8 L (1.0-2.2) 03/11/21 03/10/21 03/10/21 Range/Units 07:52 20:30 16:29 WBC 13.2 H (4.8-10.8) x10^3/uL RBC 3.44 L (4.20-5.40) 10^6/uL Hgb 10.5 L (12.0-16.0) g/dL Hct 33.3 L (37.0-47.0) % MCV 96.8 (81.0-99.0) fL MCH 30.5 (27.0-31.0) pg MCHC 31.5 L (32.0-36.0) g/dL RDW 15.6 H (12.0-15.0) % Plt Count 230 (130-450) 10^3/uL MPV 8.9 (7.9-10.8) fL Neut # (Auto) 9.7 H (1.5-6.6) 10^3/uL Lymph # (Auto) 2.2 (1.5-3.5) 10^3/uL [place] # (Auto) 1.1 H (0.0-1.0) 10^3/uL Eos # (Auto) 0.0 (0.0-0.7) 10^3/uL Baso # (Auto) 0.0 (0.0-0.1) 10^3/uL Absolute Nucleated RBC 0.00 x10^3/uL Nucleated RBC % 0.0 /100WBC Sodium (135-145) mmol/L Potassium (3.5-5.0) mmol/L Chloride (101-111) mmol/L Carbon Dioxide (21-32) mmol/L Anion Gap (6-13) BUN (6-20) mg/dL Creatinine (0.4-1.0) mg/dL Estimated GFR (MDRD) (>89) Glucose (70-100) mg/dL POC Whole Bld Glucose 179 H 173 H (70 - 100) mg/dL Calcium (8.5-10.3) mg/dL Phosphorus (2.5-4.6) mg/dL Magnesium (1.7-2.8) mg/dL Total Bilirubin (0.2-1.0) mg/dL AST (10-42) IU/L ALT (10-60) IU/L Alkaline Phosphatase (42-121) IU/L Total Protein (6.7-8.2) g/dL Albumin (3.2-5.5) g/dL Globulin (2.1-4.2) g/dL Albumin/Globulin Ratio (1.0-2.2) Assessment/Plan - Problem List (1) Perforation of intestine due to diverticulitis of gastrointestinal tract Impression: doing well after ileostomy closure. continue present care ok to use picc line
[2021-03-11] MEDS: oxyCODONE 5 MG TABLET PO PRN ×2 (15:22→20:33)
[2021-03-12] MEDS: D5NS W/20 MEQ KCL 1,000 ML IV SCH ×4 (03:56→21:19)
[2021-03-12] MEDS: oxyCODONE 5 MG TABLET PO PRN ×4 (04:05→22:47)
[2021-03-12] MEDS: metroNIDAZOLE 500 MG/100 ML 500 MG/100 ML BAG IV SCH ×3 (05:57→21:03)
[2021-03-12] MEDS: methocarbamoL 500 MG TABLET PO SCH ×3 (05:57→17:46)
[2021-03-12] MEDS: KETOROLAC 15 MG/ML VIAL IVP SCH ×3 (05:57→17:45)
[2021-03-12] MEDS: METOCLOPRAMIDE 10 MG/2 ML VIAL IVP SCH ×4 (05:57→23:09)
[2021-03-12 06:18] LABS: BASOPHILS % (AUTO) 0.5 %; EOSINOPHILS # (AUTO) 0.2 10^3/uL (0.0-0.7); EOSINOPHILS % (AUTO) 2.1 %; HCT - HEMATOCRIT 33.6 % (37.0-47.0); HGB - HEMOGLOBIN 10.6 g/dL (12.0-16.0); LYMPHOCYTES % (AUTO) 22.5 %; MEAN CORPUSCULAR HEMOGLOBIN 30.8 pg (27.0-31.0); MEAN CORPUSCULAR HGB CONC 31.5 g/dL (32.0-36.0); MEAN CORPUSCULAR VOLUME 97.7 fL (81.0-99.0); MEAN PLATELET VOLUME 8.9 fL (7.9-10.8); MONOCYTES # (AUTO) 0.8 10^3/uL (0.0-1.0); MONOCYTES % (AUTO) 8.9 %; NEUTROPHILS # (AUTO) 5.8 10^3/uL (1.5-6.6); NEUTROPHILS % (AUTO) 65.8 %; PLT - PLATELET COUNT 218 10^3/uL (130-450); RED BLOOD COUNT 3.44 10^6/uL (4.20-5.40); RED CELL DISTRIBUTION WIDTH 15.7 % (12.0-15.0); WHITE BLOOD COUNT 8.7 x10^3/uL (4.8-10.8)
[2021-03-12 06:31] LABS: ALBUMIN 2.7 g/dL (3.2-5.5); ALBUMIN/GLOBULIN RATIO 0.8 (1.0-2.2); BILIRUBIN,TOTAL 0.6 mg/dL (0.2-1.0); CREATININE 0.5 mg/dL (0.4-1.0); MAGNESIUM 1.5 mg/dL (1.7-2.8); PHOSPHORUS 2.7 mg/dL (2.5-4.6); POTASSIUM 3.5 mmol/L (3.5-5.0); TOTAL PROTEIN 6.2 g/dL (6.7-8.2)
[2021-03-12] MEDS: HYDROmorphone 0.5 MG/0.5 ML SYRINGE IVP PRN (06:44)
[2021-03-12] MEDS: PANTOPRAZOLE 40 MG TABLET PO SCH (06:55)
[2021-03-12] MEDS: CIPROFLOXACIN 400 MG/200 ML 400 MG/200 ML BAG IV SCH ×2 (08:49→20:59)
[2021-03-12] MEDS: DOCUSATE SODIUM 100 MG CAPSULE PO SCH ×3 (10:19→20:57)
[2021-03-12] MEDS: ENOXAPARIN 40 MG/0.4 ML SYRINGE SUBQ SCH (10:19)
[2021-03-12] MEDS: polyethylene glycoL 3350 17 GM PACKET PO SCH ×2 (10:19→20:56)
[2021-03-12] MEDS: METOPROLOL TARTRATE 50 MG TABLET PO SCH ×2 (13:27→20:57)
--- NOTE | 2021-03-12 14:06 | PROVIDER PROGRESS NOTE ---
Subjective - Prog Note Date Prog Note Date: 03/12/21 - Subjective Pt reports feeling: Improved (passing gas/ bms and tolerating clears) Objective - Vital Signs/Intake & Output Reviewed Vital Signs: Yes Vital Signs: Vital Signs x48h Temp Pulse Resp BP BP Pulse Ox 03/12/21 13:27 147/78 H 03/12/21 11:41 36.7 C 111 H 17 145/77 H 100 03/12/21 07:21 37.1 C 117 H 16 151/78 H 97 03/12/21 06:53 104 H 137/74 H Intake & Output: Intake & Output 03/09/21 03/10/21 03/11/21 03/12/21 23:59 23:59 23:59 23:59 Intake Total 3034.472 3165.250 2418.749 Output Total 151 721 4473 Balance 1314.002 5069.250 48.749 - Objective General Appearance: positive: Alert Eyes Bilateral: positive: PERRL, EOMI ENT: positive: No signs of dehydration Neck: positive: No JVD Respiratory: positive: No respiratory distress Abdomen: positive: Non-tender, No distention, Other (bety serous) Neurologic/Psychiatric: positive: Oriented x3 - Lab Results Fish Bones: 03/12/21 06:05 03/12/21 06:05 Other Labs: Lab Results x24hrs 03/12/21 03/12/21 03/12/21 Range/Units 11:10 07:14 06:05 WBC (4.8-10.8) x10^3/uL RBC (4.20-5.40) 10^6/uL Hgb (12.0-16.0) g/dL Hct (37.0-47.0) % MCV (81.0-99.0) fL MCH (27.0-31.0) pg MCHC (32.0-36.0) g/dL RDW (12.0-15.0) % Plt Count (130-450) 10^3/uL MPV (7.9-10.8) fL Neut # (Auto) (1.5-6.6) 10^3/uL Lymph # (Auto) (1.5-3.5) 10^3/uL [place] # (Auto) (0.0-1.0) 10^3/uL Eos # (Auto) (0.0-0.7) 10^3/uL Baso # (Auto) (0.0-0.1) 10^3/uL Absolute Nucleated RBC x10^3/uL Nucleated RBC % /100WBC Sodium 137 (135-145) mmol/L Potassium 3.5 (3.5-5.0) mmol/L Chloride 110 (101-111) mmol/L Carbon Dioxide 21 (21-32) mmol/L Anion Gap 6.0 (6-13) BUN 6 (6-20) mg/dL Creatinine 0.5 (0.4-1.0) mg/dL Estimated GFR (MDRD) 127 (>89) Glucose 122 H (70-100) mg/dL POC Whole Bld Glucose 91 89 (70 - 100) mg/dL Calcium 8.0 L (8.5-10.3) mg/dL Phosphorus 2.7 (2.5-4.6) mg/dL Magnesium 1.5 L (1.7-2.8) mg/dL Total Bilirubin 0.6 (0.2-1.0) mg/dL AST 13 (10-42) IU/L ALT 11 (10-60) IU/L Alkaline Phosphatase 61 (42-121) IU/L Total Protein 6.2 L (6.7-8.2) g/dL Albumin 2.7 L (3.2-5.5) g/dL Globulin 3.5 (2.1-4.2) g/dL Albumin/Globulin Ratio 0.8 L (1.0-2.2) 03/12/21 03/11/21 03/11/21 Range/Units 06:05 20:36 20:34 WBC 8.7 (4.8-10.8) x10^3/uL RBC 3.44 L (4.20-5.40) 10^6/uL Hgb 10.6 L (12.0-16.0) g/dL Hct 33.6 L (37.0-47.0) % MCV 97.7 (81.0-99.0) fL MCH 30.8 (27.0-31.0) pg MCHC 31.5 L (32.0-36.0) g/dL RDW 15.7 H (12.0-15.0) % Plt Count 218 (130-450) 10^3/uL MPV 8.9 (7.9-10.8) fL Neut # (Auto) 5.8 (1.5-6.6) 10^3/uL Lymph # (Auto) 2.0 (1.5-3.5) 10^3/uL [place] # (Auto) 0.8 (0.0-1.0) 10^3/uL Eos # (Auto) 0.2 (0.0-0.7) 10^3/uL Baso # (Auto) 0.0 (0.0-0.1) 10^3/uL Absolute Nucleated RBC 0.00 x10^3/uL Nucleated RBC % 0.0 /100WBC Sodium (135-145) mmol/L Potassium (3.5-5.0) mmol/L Chloride (101-111) mmol/L Carbon Dioxide (21-32) mmol/L Anion Gap (6-13) BUN (6-20) mg/dL Creatinine (0.4-1.0) mg/dL Estimated GFR (MDRD) (>89) Glucose (70-100) mg/dL POC Whole Bld Glucose 103 H 99 (70 - 100) mg/dL Calcium (8.5-10.3) mg/dL Phosphorus (2.5-4.6) mg/dL Magnesium (1.7-2.8) mg/dL Total Bilirubin (0.2-1.0) mg/dL AST (10-42) IU/L ALT (10-60) IU/L Alkaline Phosphatase (42-121) IU/L Total Protein (6.7-8.2) g/dL Albumin (3.2-5.5) g/dL Globulin (2.1-4.2) g/dL Albumin/Globulin Ratio (1.0-2.2) 03/11/21 Range/Units 16:47 WBC (4.8-10.8) x10^3/uL RBC (4.20-5.40) 10^6/uL Hgb (12.0-16.0) g/dL Hct (37.0-47.0) % MCV (81.0-99.0) fL MCH (27.0-31.0) pg MCHC (32.0-36.0) g/dL RDW (12.0-15.0) % Plt Count (130-450) 10^3/uL MPV (7.9-10.8) fL Neut # (Auto) (1.5-6.6) 10^3/uL Lymph # (Auto) (1.5-3.5) 10^3/uL [place] # (Auto) (0.0-1.0) 10^3/uL Eos # (Auto) (0.0-0.7) 10^3/uL Baso # (Auto) (0.0-0.1) 10^3/uL Absolute Nucleated RBC x10^3/uL Nucleated RBC % /100WBC Sodium (135-145) mmol/L Potassium (3.5-5.0) mmol/L Chloride (101-111) mmol/L Carbon Dioxide (21-32) mmol/L Anion Gap (6-13) BUN (6-20) mg/dL Creatinine (0.4-1.0) mg/dL Estimated GFR (MDRD) (>89) Glucose (70-100) mg/dL POC Whole Bld Glucose 103 H (70 - 100) mg/dL Calcium (8.5-10.3) mg/dL Phosphorus (2.5-4.6) mg/dL Magnesium (1.7-2.8) mg/dL Total Bilirubin (0.2-1.0) mg/dL AST (10-42) IU/L ALT (10-60) IU/L Alkaline Phosphatase (42-121) IU/L Total Protein (6.7-8.2) g/dL Albumin (3.2-5.5) g/dL Globulin (2.1-4.2) g/dL Albumin/Globulin Ratio (1.0-2.2) Assessment/Plan - Problem List (1) Perforation of intestine due to diverticulitis of gastrointestinal tract Impression: doing well after ileostomy closure. restart metoprolol diet fulls
[2021-03-13] MEDS: KETOROLAC 15 MG/ML VIAL IVP SCH ×4 (00:31→18:06)
[2021-03-13] MEDS: methocarbamoL 500 MG TABLET PO SCH ×4 (00:32→18:06)
[2021-03-13] MEDS: D5NS W/20 MEQ KCL 1,000 ML IV SCH ×2 (05:44→16:42)
[2021-03-13] MEDS: PANTOPRAZOLE 40 MG TABLET PO SCH (05:50)
[2021-03-13] MEDS: METOCLOPRAMIDE 10 MG/2 ML VIAL IVP SCH ×3 (05:51→18:06)
[2021-03-13] MEDS: metroNIDAZOLE 500 MG/100 ML 500 MG/100 ML BAG IV SCH ×3 (05:52→21:03)
[2021-03-13 09:00] LABS: BASOPHILS % (AUTO) 0.3 %; EOSINOPHILS # (AUTO) 0.3 10^3/uL (0.0-0.7); EOSINOPHILS % (AUTO) 2.8 %; HCT - HEMATOCRIT 38.2 % (37.0-47.0); HGB - HEMOGLOBIN 12.3 g/dL (12.0-16.0); LYMPHOCYTES # (AUTO) 2.5 10^3/uL (1.5-3.5); LYMPHOCYTES % (AUTO) 26.7 %; MEAN CORPUSCULAR HEMOGLOBIN 30.9 pg (27.0-31.0); MEAN CORPUSCULAR HGB CONC 32.2 g/dL (32.0-36.0); MEAN PLATELET VOLUME 8.5 fL (7.9-10.8); MONOCYTES # (AUTO) 0.7 10^3/uL (0.0-1.0); MONOCYTES % (AUTO) 7.6 %; NEUTROPHILS # (AUTO) 5.8 10^3/uL (1.5-6.6); NEUTROPHILS % (AUTO) 62.4 %; PLT - PLATELET COUNT 262 10^3/uL (130-450); RED BLOOD COUNT 3.98 10^6/uL (4.20-5.40); RED CELL DISTRIBUTION WIDTH 15.2 % (12.0-15.0); WHITE BLOOD COUNT 9.3 x10^3/uL (4.8-10.8)
[2021-03-13 09:15] LABS: ALBUMIN 3.2 g/dL (3.2-5.5); ALBUMIN/GLOBULIN RATIO 0.8 (1.0-2.2); ALKALINE PHOSPHATASE 67 IU/L (42-121); ALT ALANINE AMINOTRANSFERASE 10 IU/L (10-60); AST ASPARTATE AMINOTRANSFERASE 16 IU/L (10-42); BILIRUBIN,TOTAL 0.8 mg/dL (0.2-1.0); BUN - BLOOD UREA NITROGEN < 5 mg/dL (6-20); CALCIUM 8.5 mg/dL (8.5-10.3); CARBON DIOXIDE - CO2 23 mmol/L (21-32); CHLORIDE 102 mmol/L (101-111); CREATININE 0.6 mg/dL (0.4-1.0); GFR - MDRD 103 (>89); GLUCOSE 156 mg/dL (70-100); MAGNESIUM 1.2 mg/dL (1.7-2.8); POTASSIUM 3.1 mmol/L (3.5-5.0); SODIUM 134 mmol/L (135-145)
[2021-03-13] MEDS: HYDROmorphone 0.5 MG/0.5 ML SYRINGE IVP PRN (09:23)
[2021-03-13] MEDS: CIPROFLOXACIN 400 MG/200 ML 400 MG/200 ML BAG IV SCH ×2 (09:24→20:26)
[2021-03-13] MEDS: ENOXAPARIN 40 MG/0.4 ML SYRINGE SUBQ SCH (09:29)
[2021-03-13] MEDS: METOPROLOL TARTRATE 50 MG TABLET PO SCH ×2 (09:30→21:01)
[2021-03-13] MEDS: polyethylene glycoL 3350 17 GM PACKET PO SCH ×2 (10:12→21:02)
[2021-03-13] MEDS: oxyCODONE 5 MG TABLET PO PRN ×2 (16:42→21:01)
[2021-03-13] MEDS: DOCUSATE SODIUM 100 MG CAPSULE PO SCH (21:01)
[2021-03-14] MEDS: methocarbamoL 500 MG TABLET PO SCH ×3 (00:50→13:07)
[2021-03-14] MEDS: KETOROLAC 15 MG/ML VIAL IVP SCH ×3 (00:51→13:03)
[2021-03-14] MEDS: METOCLOPRAMIDE 10 MG/2 ML VIAL IVP SCH ×2 (00:51→06:13)
[2021-03-14] MEDS: D5NS W/20 MEQ KCL 1,000 ML IV SCH (01:47)
[2021-03-14 06:06] LABS: BASOPHILS % (AUTO) 0.5 %; EOSINOPHILS # (AUTO) 0.4 10^3/uL (0.0-0.7); EOSINOPHILS % (AUTO) 4.4 %; HCT - HEMATOCRIT 33.6 % (37.0-47.0); HGB - HEMOGLOBIN 10.8 g/dL (12.0-16.0); LYMPHOCYTES # (AUTO) 2.5 10^3/uL (1.5-3.5); LYMPHOCYTES % (AUTO) 29.3 %; MEAN CORPUSCULAR HEMOGLOBIN 30.5 pg (27.0-31.0); MEAN CORPUSCULAR HGB CONC 32.1 g/dL (32.0-36.0); MEAN CORPUSCULAR VOLUME 94.9 fL (81.0-99.0); MEAN PLATELET VOLUME 8.7 fL (7.9-10.8); MONOCYTES # (AUTO) 0.9 10^3/uL (0.0-1.0); MONOCYTES % (AUTO) 10.2 %; NEUTROPHILS # (AUTO) 4.7 10^3/uL (1.5-6.6); NEUTROPHILS % (AUTO) 55.2 %; PLT - PLATELET COUNT 241 10^3/uL (130-450); RED BLOOD COUNT 3.54 10^6/uL (4.20-5.40); RED CELL DISTRIBUTION WIDTH 14.9 % (12.0-15.0); WHITE BLOOD COUNT 8.6 x10^3/uL (4.8-10.8)
[2021-03-14] MEDS: PANTOPRAZOLE 40 MG TABLET PO SCH (06:13)
[2021-03-14 06:46] LABS: ALBUMIN 2.9 g/dL (3.2-5.5); ALBUMIN/GLOBULIN RATIO 0.8 (1.0-2.2); ALKALINE PHOSPHATASE 64 IU/L (42-121); ALT ALANINE AMINOTRANSFERASE 10 IU/L (10-60); AST ASPARTATE AMINOTRANSFERASE 14 IU/L (10-42); BILIRUBIN,TOTAL 0.8 mg/dL (0.2-1.0); BUN - BLOOD UREA NITROGEN < 5 mg/dL (6-20); CALCIUM 8.5 mg/dL (8.5-10.3); CARBON DIOXIDE - CO2 25 mmol/L (21-32); CHLORIDE 104 mmol/L (101-111); CREATININE 0.5 mg/dL (0.4-1.0); GFR - MDRD 127 (>89); GLUCOSE 124 mg/dL (70-100); MAGNESIUM 1.3 mg/dL (1.7-2.8); PHOSPHORUS 3.1 mg/dL (2.5-4.6); POTASSIUM 3.2 mmol/L (3.5-5.0); SODIUM 136 mmol/L (135-145); TOTAL PROTEIN 6.7 g/dL (6.7-8.2)
[2021-03-14] MEDS: METOPROLOL TARTRATE 50 MG TABLET PO SCH (10:46)
[2021-03-14] MEDS: ENOXAPARIN 40 MG/0.4 ML SYRINGE SUBQ SCH (10:46)
[2021-03-14] MEDS: DOCUSATE SODIUM 100 MG CAPSULE PO SCH (10:47)
[2021-03-14] MEDS: polyethylene glycoL 3350 17 GM PACKET PO SCH (10:47)
--- NOTE | 2021-03-14 13:02 | Discharge Plan ---
Discharge Plan Problem Reviewed?: Yes Disposition: Home, Self Care Condition: Stable Prescriptions: oxyCODONE [Roxicodone] 5 mg PO Q4HR PRN #20 tablet PRN Reason: Pain methocarbamoL [Robaxin] 500 mg PO Q6HR PRN #20 tablet PRN Reason: Spasms Docusate Sodium 100Mg Capsule [Colace 100Mg Capsule] 100 mg PO BID #60 tab Pantoprazole [Protonix] 40 mg PO QDAC #30 tablet Diet: Regular Activity Restrictions: 10 pound lifting limit Shower Restrictions: No Driving Restrictions: Yes (Not while using pain meds) Weight Bearing: Full Weight No Smoking: If you smoke, Please STOP! Call for help. Follow-up with: Brandt Richardson DO [Primary Care Provider] - Prem Martinez MD [Provider Admit Priv/Credential] -
--- NOTE | 2021-03-14 13:49 | DISCHARGE SUMMARY ---
"Discharge Summary Admit Date: 03/10/21 Discharge Date: 03/14/21 Discharging Provider: Chrissie Primary Care Provider: Debra Code Status: Attempt Resuscitation Condition at Discharge: Stable Discharge Disposition: 01 Home, Self Care - DIAGNOSES Admission Diagnoses: Ileostomy status after treatment for perforated diverticulitis Discharge Diagnoses with Status of Each Condition: Ileostomy status -resolved - HPI History of Present Illness: Shauna is a 60-year-old lady who presented to outpatient surgery on the date of admission for ileostomy reversal. She has a history of complicated perforated diverticulitis requiring colon resection and diverting ostomy. She has had an appropriate time for healing and colonoscopy confirmed the anastomosis to be in good repair. - CONSULTS | PROCEDURES Consultations: None Procedures: Ileostomy reversal with drain placement - HOSPITAL COURSE Hospital Course: The patient was taken to the operating room on the date of admission for an unev entful ileostomy reversal. She was admitted to the Medr unit postoperatively for routine convalescence and supportive care. Her recovery has been uneventful. Today she is eating a regular diet, her pain is controlled with oral medications, she is walking in the carpio unassisted, and her has been taught to change her dressing. She will be discharged to her home in the care of her family. Drain will be removed prior to discharge. She will follow- up with Dr. Martinez in 1 week. - ALLERGIES Allergies/Adverse Reactions: Allergies Allergy/AdvReac Type Severity Reaction Status Date / Time amoxicillin AdvReac Intermediate Rash Verified 12/28/20 11:20 - MEDICATIONS Home Medications: Ambulatory Orders Medication Instructions Recorded Confirmed Metoprolol Tartrate [Lopressor] 50 mg PO BID #60 tablet 01/11/21 03/10/21 Ibuprofen [Motrin] 600 mg PO Q6H PRN 03/08/21 03/10/21 Docusate Sodium 100Mg Capsule 100 mg PO BID #60 tab 03/14/21 [Colace 100Mg Capsule] Metoprolol Tartrate [Lopressor] 50 mg PO BID tablet 03/14/21 Pantoprazole [Protonix] 40 mg PO QDAC #30 tablet 03/14/21 methocarbamoL [Robaxin] 500 mg PO Q6HR PRN #20 tablet 03/14/21 oxyCODONE [Roxicodone] 5 mg PO Q4HR PRN #20 tablet 03/14/21 - PHYSICAL EXAM AT DISCHARGE General Appearance: positive: No acute distress, Alert Eyes Bilateral: positive: Normal inspection, PERRL, EOMI ENT: positive: ENT inspection nml, Pharynx nml, No signs of dehydration Neck: positive: Nml inspection, Thyroid nml, No JVD Respiratory: positive: Chest non-tender, No respiratory distress, Breath sounds nml Cardiovascular: positive: Regular rate & rhythm, No murmur Peripheral Pulses: positive: 0 Abdomen: positive: Nml bowel sounds, No distention, Other (Ostomy site is clean and healing) Back: positive: Nml inspection Skin: positive: Color nml Neurologic/Psychiatric: positive: Oriented x3 - LABS Result Diagrams: 03/14/21 06:00 03/14/21 06:20 - QUALITY (Female Hip Fx Only) Was patient sent home on osteoporosis medication?: No - FOLLOW UP Follow Up: [address] Martinez - TIME SPENT Time Spent in Discharge (Minutes): 20"
[2021-03-14] MEDS: oxyCODONE 5 MG TABLET PO PRN (16:18)
[2021-03-14 17:48] VITALS: BP 159/70
== END 2021-03-14 17:45 | disposition home or self-care (01) | DRG 331 ==
LOC: MS2 06:25
PROVIDERS: ADMIT Surgery; ATTEND Surgery
PROC: 0WQF0ZZ Repair Abdominal Wall, Open Approach (ICD-10-PCS; 2021-03-10)
PROC: 0DBB0ZZ Excision of Ileum, Open Approach (ICD-10-PCS; principal; 2021-03-10 07:30)
DX: Z43.2 Encounter for attention to ileostomy (principal); Z87.19 Personal history of other diseases of the digestive system; I10 Essential (primary) hypertension; F17.200 Nicotine dependence, unspecified, uncomplicated; E86.0 Dehydration
CPT/HCPCS: 36415; 80053; 83735; 84100; 85025; A9270; J0131; J1170; J1650; J2765; J7120

== ENCOUNTER 2021-12-08 08:16 | Outpatient (CLI) | payer OTHER ==
[2021-12-08] MEDS ORDERED: IOVERSOL 320 100 ML VIAL IVP ONE ×2 (08:36→10:08)
[2021-12-08] MEDS ORDERED: IOVERSOL 320 50 ML VIAL ONE (08:36)
[2021-12-08 08:46] LABS: CREATININE 0.7 mg/dL (0.4-1.0)
[2021-12-08] MEDS ORDERED: IOVERSOL 320 50 ML VIAL PO ONE (10:08)
--- NOTE | 2021-12-08 14:10 | CT Report ---
PROCEDURE: CT abdomen pelvis with contrast INDICATIONS: HERNIA CONTRAST: IV CONTRAST: Optiray 320 ml: 100 PO CONTRAST: Optiray 320 ml50 TECHNIQUE: After the administration of contrast, 5 mm thick sections acquired from the diaphragms to the sym physis. 5 mm thick coronal and sagittal reformats were acquired. For radiation dose reduction, the following was used: automated exposure control, adjustment of mA and/or kV according to patient size . COMPARISON: 02/22/2021 FINDINGS: Image quality: Excellent. ABDOMEN: Lung bases: Lung bases are clear. Heart size is normal. Solid organs: Liver and spleen are normal in size and enhancement other than diffuse hepatic fatty i nfiltration. Gallbladder Biliary system is non dilated. Pancreas enhances normally. No adrena l nodules. Kidneys demonstrate normal size and enhancement, without hydronephrosis. Peritoneum and bowel: Bowel loops demonstrate normal wall thickness and caliber. No free fluid or a ir. Moderate fecal debris in the right colon. Nodes and vessels: No retroperitoneal or mesenteric adenopathy by size criteria. Aorta and inferior vena cava are normal in size. Miscellaneous: Right lower quadrant ventral hernia containing a loop of colon at the prior ostomy sit e. No obstruction. PELVIS: Genitourinary: Bladder wall thickness is normal. Miscellaneous: No inguinal hernias or adenopathy. Bones: No suspicious bony lesions. No vertebral body compression fractures. Degenerative disc dise ase and arthropathy in the lower lumbar spine results in moderate central stenosis at L4-5 IMPRESSION: 1. Right lower quadrant ventral hernia contains a loop of bowel without obstruction at the prior osto my site. 2. Moderate fecal debris and hepatic fatty infiltration Reviewed by: Benny Huang MD on 12/08/2021 1:09 PM AKDT Approved by: Benny Huang MD on 12/08/2021 1:09 PM AKDT Station ID: [id number]
== END 2021-12-08 08:17 | disposition home or self-care (01) ==
LOC: DI 08:16
PROVIDERS: ATTEND Surgery
DX: K43.9 Ventral hernia without obstruction or gangrene (principal); K76.0 Fatty (change of) liver, not elsewhere classified
CPT/HCPCS: 36415; 74177; 82565; Q9967

== ENCOUNTER 2022-02-19 12:16 | Day surgery (SDC) | payer OTHER ==
[~2022-02-19 12:16] MED LIST changes: -ACETAMINOPHEN 1,000 MG/100 ML 100 ML IV ONE; +CEFAZOLIN SODIUM IN 0.9 % NACL 2 GM/50 ML BAG IV ONE; -CELECOXIB 100 MG CAPSULE PO ONE; -CIPROFLOXACIN 400 MG/200 ML 400 MG/200 ML BAG IV ONE; -GABAPENTIN 400 MG CAPSULE ONE; -metroNIDAZOLE 500 MG/100 ML 500 MG/100 ML BAG ONE
[2022-02-19] MEDS ORDERED: PROPOFOL 200 MG/20 ML VIAL IVP ONE ×2 (12:48→14:26)
[2022-02-19] MEDS ORDERED: LIDOCAINE-MPF 2% 5 ML VIAL ONE (12:48)
[2022-02-19] MEDS ORDERED: fentaNYL 100 MCG/2 ML VIAL ONE ×2 (12:48→14:26)
[2022-02-19] MEDS ORDERED: MIDAZOLAM 2 MG/2 ML VIAL ONE (12:48)
[2022-02-19] MEDS ORDERED: ROCURONIUM 50 MG/5 ML VIAL ONE (12:50)
--- NOTE | 2022-02-19 13:02 | ANESTHESIA ---
Pre-Anesthesia VS, & Labs - Diagnosis incisonal hernia, RLQ post-ostomy site - Procedure incisional hernia repair Vital Signs: Temp Pulse Resp BP Pulse Ox 37 C 98 16 162/101 H 98 02/19/22 12:37 02/19/22 12:37 02/19/22 12:37 02/19/22 12:37 02/19/22 12:37 Height: 5 ft 3 in Weight (kg): 65.8 kg Body Mass Index: 25.7 BMI Classification: Overweight - NPO >8 hours - Is Patient ?: No - Lab Results Lab results reviewed: Yes Home Medications and Allergies Home Medications: Ambulatory Orders Biotin 5,000 mcg PO DAILY 02/16/22 Biotin 5,000 mcg PO DAILY 02/16/22 Allergies/Adverse Reactions: Allergies Allergy/AdvReac Type Severity Reaction Status Date / Time amoxicillin AdvReac Intermediate Rash Verified 02/19/22 11:32 Anes History & Medical History - Anesthetic History Anesthesia Complications: reports: No previous complications Family history of Anesthesia Complications: Denies Family history of Malignant Hyperthermia: Denies - Medical History Cardiovascular: reports: Hypertension Pulmonary: reports: None Gastrointestinal: reports: Diverticulitis Urinary: reports: None Neuro: reports: None Musculoskeletal: reports: None Endocrine/Autoimmune: reports: None Blood Disorders: reports: None Skin: reports: Eczema Smoking Status: Current every day smoker - Surgical History General: reports: Bowel surgery, Colonoscopy, Other Exam General: Alert, Oriented x3, Cooperative Dental: WNL, Partials Upper, Poor dentition (lower "needs work") Mouth Openin Fingerbreadth Neck Mobility: Normal Mallampati classification: II Thyromental Distance: 4-6 cm Respiratory: Lungs clear Plan Anesthesia Type: General Consent for Procedure(s) Verified and Reviewed: Yes Code Status: Attempt Resuscitation ASA classification: 2-Mild systemic disease Is this case an emergency?: No
[2022-02-19] MEDS ORDERED: LACTATED RINGERS 1,000 ML IV ONE ×2 (13:15→13:40)
[2022-02-19] MEDS ORDERED: LIDOCAINE 2%-EPI 1:100000 20 ML MDV ONE (13:34)
[2022-02-19] MEDS ORDERED: ceFAZolin 1 GM VIAL ONE (13:34)
[2022-02-19] MEDS ORDERED: BUPIVACAINE 0.5% PF 30 ML VIAL ONE (13:34)
[2022-02-19] MEDS ORDERED: METOCLOPRAMIDE 10 MG/2 ML VIAL IVP PRN (13:41)
[2022-02-19] MEDS ORDERED: NALOXONE 0.4 MG/ML VIAL IVP PRN (13:41)
[2022-02-19] MEDS ORDERED: ATROPINE ABBOJECT 1 MG/10 ML SYRINGE IVP PRN (13:41)
[2022-02-19] MEDS ORDERED: MORPHINE 2 MG/ML CARPUJECT IVP PRN (13:41)
[2022-02-19] MEDS ORDERED: ePHEDrine 50 MG/ML VIAL IVP PRN (13:41)
[2022-02-19] MEDS ORDERED: ONDANSETRON 4 MG/2 ML VIAL IVP PRN ×2 (13:41→15:28)
[2022-02-19] MEDS ORDERED: HYDROmorphone 0.5 MG/0.5 ML SYRINGE IVP PRN (13:41)
[2022-02-19] MEDS ORDERED: fentaNYL 100 MCG/2 ML VIAL IVP PRN (13:41)
[2022-02-19] MEDS ORDERED: LACTATED RINGERS 1,000 ML IV SCH (14:00)
[2022-02-19] MEDS ORDERED: BUPIVACAINE 0.5% PF 30 ML VIAL SUBQ ONE (14:32)
[2022-02-19] MEDS ORDERED: ceFAZolin 1 GM VIAL IR ONE (14:33)
[2022-02-19] MEDS ORDERED: LIDOCAINE 2%-EPI 1:100000 20 ML MDV SUBQ ONE (14:33)
[2022-02-19] MEDS ORDERED: KETOROLAC 30 MG/ML VIAL ONE (14:36)
[2022-02-19] MEDS ORDERED: ONDANSETRON 4 MG/2 ML VIAL ONE (14:36)
[2022-02-19] MEDS ORDERED: DEXAMETHASONE 4 MG/ML VIAL ONE (14:36)
[2022-02-19] MEDS ORDERED: HYDROmorphone 1 MG/ML CARPUJECT IVP PRN (15:28)
[2022-02-19] MEDS ORDERED: SODIUM CHLORIDE FLUSH 0.9% 10 ML SYRINGE IVP PRN (15:28)
[2022-02-19] MEDS ORDERED: LORazepam 2 MG/ML VIAL IVP PRN (15:28)
[2022-02-19] MEDS ORDERED: oxyCODONE 5 MG TABLET PO PRN (15:28)
[2022-02-19] MEDS ORDERED: ACETAMINOPHEN 1,000 MG/100 ML 100 ML IV ONE (15:32)
--- NOTE | 2022-02-19 15:54 | OPERATIVE REPORT ---
Operative Report - General Planned Procedure: Incisional hernia repair Pre-Op Diagnosis: Right lower quadrant incisional hernia after ileostomy Procedure Performed: Incisional hernia repair Post Op Diagnosis: 8 x 4 cm incisional hernia containing right colon and ileum - Procedure Note Primary Surgeon: Chrissie Anesthesia Provider: Rohith Anesthesia Technique: General LMA, Local Pathology: None Estimated Blood Loss (mL): 15 Findings: 8 x 4 cm defect Very thin attenuated abdominal wall tissue Multiple midline defects Complications: None apparent - Other Other Information/Narrative: After obtaining informed consent, the patient is brought to the operating room and placed in the supine position on the operating table. Following successful induction of general anesthesia, appropriate padding of all bony prominences the abdomen was prepped and draped in the standard surgical fashion. A timeout was held per scope protocol. All elements of the surgical safety checklist were followed before, during, and after the procedure. We began the procedure by infiltrating a mixture of local anesthetics in and around the existing right lower quadrant scar. This scar was then sharply excised moved. The defect was obvious with preperitoneal fat exposed. We began a careful dissection of the tissue to separate the contents of the hernia sac from the fascia and abdominal wall. This continued with painstaking measures until the entire fascial rim was exposed. The size of the hernia on final analysis was approximately 8.5 cm by about 6 cm. Dense adhesions were noted of the intra-abdominal wall circumferentially. Great care was taken during every portion of the dissection to avoid injury to any portion of the bowel. It was my judgment that it was more dangerous than beneficial attempt to clear enough space to provide mesh placement at this juncture. The contents of the hernia were the patient's right colon and a portion of the ileum. The rent extended all the way to the retroperitoneum on the right side. I elected to repair the hernia with interrupted #1 Prolene sutures. Lateral aspect of the hernia closing each corner and then proceeding medially. Once all of the sutures were in place, a second layer of suture was placed over the surface reapproximating the torn oblique muscle to medial fascial structures. Normal anatomy was not present in this region. The wound was then checked for hemostasis. It was irrigated with warm saline solution containing Ancef. Another layer of Vicryl sutures was applied in the subcutaneous tissue and the skin was closed with a subcuticular Monocryl suture. Dermabond was applied to the skin. All sponge, needle, and instrument counts were correct at the conclusion of the case. The patient was allowed awaken without anesthesia and taken to the postanesthesia care unit in good condition.
--- NOTE | 2022-02-19 16:02 | ANESTHESIA POST OP EVALUATION ---
Anesthesia Post Eval - Post Anesthesia Eval Vitals: Last Vital Signs Temp 37 C 02/19/22 15:56 Pulse 94 02/19/22 15:56 Resp 12 02/19/22 15:56 BP 151/77 H 02/19/22 15:56 Pulse Ox 99 02/19/22 15:56 CV Function Including HR & BP: Stable Pain Control: Satisfactory Nausea & Vomiting: Negative Mental Status: Baseline Respiratory Status: Airway Patent Hydration Status: Satisfactory Anesthesia Complications: None
[2022-02-19] MEDS: SODIUM CHLORIDE 0.9% 1,000 ML IV SCH (17:34)
[2022-02-19] MEDS: SODIUM CHLORIDE FLUSH 0.9% 10 ML SYRINGE IVP SCH ×2 (17:39→23:59)
[2022-02-19] MEDS: ACETAMINOPHEN 325 MG TABLET PO PRN (19:03)
[2022-02-19] MEDS: KETOROLAC 30 MG/ML VIAL IVP SCH (20:15)
[2022-02-19] MEDS: METOPROLOL TARTRATE 50 MG TABLET PO SCH (20:15)
[2022-02-19] MEDS: CEFAZOLIN SODIUM IN 0.9 % NACL 2 GM/50 ML BAG IV SCH (21:33)
[2022-02-19] MEDS ORDERED: ceFAZolin 2 GM in SODIUM CHLORIDE 0.9% 100ML 100 ML IV SCH (22:00)
[2022-02-19] MEDS ORDERED: ceFAZolin 2 GM/50 ML 2 GM/50 ML BAG IV SCH (22:00)
[2022-02-20] MEDS: KETOROLAC 30 MG/ML VIAL IVP SCH ×2 (03:13→08:54)
[2022-02-20] MEDS: ACETAMINOPHEN 325 MG TABLET PO PRN (05:08)
[2022-02-20] MEDS: CEFAZOLIN SODIUM IN 0.9 % NACL 2 GM/50 ML BAG IV SCH (05:08)
[2022-02-20] MEDS: SODIUM CHLORIDE 0.9% 1,000 ML IV SCH (05:08)
[2022-02-20] MEDS ORDERED: PANTOPRAZOLE 40 MG TABLET PO SCH (07:00)
[2022-02-20] MEDS: METOPROLOL TARTRATE 50 MG TABLET PO SCH (08:50)
[2022-02-20] MEDS: SODIUM CHLORIDE FLUSH 0.9% 10 ML SYRINGE IVP SCH (08:51)
[2022-02-20] MEDS ORDERED: ENOXAPARIN 40 MG/0.4 ML SYRINGE SUBQ SCH (09:00)
[2022-02-20] MEDS ORDERED: DOCUSATE SODIUM 250 MG CAPSULE PO SCH (09:00)
--- NOTE | 2022-02-20 09:20 | Discharge Plan ---
Discharge Plan Problem Reviewed?: Yes Disposition: Home, Self Care Condition: Good Prescriptions: oxyCODONE [Roxicodone] 5 mg PO Q4HR PRN #20 tablet PRN Reason: Pain Diet: Regular Activity Restrictions: 10 pound lifting limit Shower Restrictions: No Driving Restrictions: Yes (Not while using narcotic pain meds) No Smoking: If you smoke, Please STOP! Call for help. Follow-up with: Brandt Richardson DO [Primary Care Provider] - Ben Dickens MD [Provider Admit Priv/Credential] -
--- NOTE | 2022-02-20 09:33 | DISCHARGE SUMMARY ---
"Discharge Summary Admit Date: 02/19/22 Discharge Date: 02/20/22 Discharging Provider: Chrissie Primary Care Provider: Debra Code Status: Attempt Resuscitation Condition at Discharge: Good Discharge Disposition: 01 Home, Self Care - DIAGNOSES Admission Diagnoses: Incisional Hernia - HPI History of Present Illness: Clara is a delightful lady who was admitted to our hospital several months ago with perforated diverticulitis. She had an extended hospital course requiring percutaneous drainage followed by surgical colectomy with diversion and then ostomy reversal. She subsequently developed a hernia at the site of her right lower quadrant ileostomy. She presented on the day of admission for hernia repair. - CONSULTS | PROCEDURES Consultations: None Procedures: Incisional hernia repair - HOSPITAL COURSE Hospital Course: Clara was admitted through outpatient surgery and taken directly to the operating room for the aforementioned procedure. The procedure was uneventful and she was admitted to the MedSurg unit afterwards for close observation and pain management. She has done very well overnight. She reports her pain is well controlled with oral medications. Nausea and she is tolerating a regular diet. She is discharged to her home in the care of her . She has a binder in place and will follow-up in my office in 2 weeks. - ALLERGIES Allergies/Adverse Reactions: Allergies Allergy/AdvReac Type Severity Reaction Status Date / Time amoxicillin AdvReac Intermediate Rash Verified 02/19/22 11:32 - MEDICATIONS Home Medications: Ambulatory Orders Medication Instructions Recorded Confirmed Metoprolol Tartrate [Lopressor] 50 mg PO BID #60 tablet 01/11/21 02/19/22 Biotin 5,000 mcg PO DAILY 02/16/22 02/16/22 Docusate Sodium 250Mg Capsule 250 mg PO DAILY 02/20/22 [Colace 250Mg Capsule] oxyCODONE [Roxicodone] 5 mg PO Q4HR PRN #20 tablet 02/20/22 - PHYSICAL EXAM AT DISCHARGE General Appearance: positive: No acute distress, Alert Eyes Bilateral: positive: Normal inspection, PERRL, EOMI ENT: positive: ENT inspection nml, Pharynx nml, No signs of dehydration Neck: positive: Nml inspection, No JVD Respiratory: positive: Chest non-tender, No respiratory distress, Breath sounds nml Cardiovascular: positive: Regular rate & rhythm, No murmur Peripheral Pulses: positive: 1+ Abdomen: positive: Nml bowel sounds, No distention, Tenderness. negative: Guarding, Rebound Skin: positive: Color nml Neurologic/Psychiatric: positive: Oriented x3 - QUALITY (Female Hip Fx Only) Was patient sent home on osteoporosis medication?: No - FOLLOW UP Follow Up: 2 weeks with [facility] - TIME SPENT Time Spent in Discharge (Minutes): 20"
[2022-02-20 10:21] VITALS: BP 145/54
== END 2022-02-20 10:43 | disposition home or self-care (01) ==
LOC: SDS 12:16 → MS2 16:00 → SDS 02-20 10:43
PROVIDERS: ATTEND Surgery
DX: K43.2 Incisional hernia without obstruction or gangrene (principal); I10 Essential (primary) hypertension; Z87.19 Personal history of other diseases of the digestive system; F17.200 Nicotine dependence, unspecified, uncomplicated
CPT/HCPCS: 49560; A9270; J0131; J0690; J1170; J1650; J7120

== ENCOUNTER 2022-07-13 09:48 | Outpatient (CLI) | payer OTHER ==
[2022-07-13 13:00] LABS: BASOPHILS % (AUTO) 0.7 %; EOSINOPHILS # (AUTO) 0.1 10^3/uL (0.0-0.7); EOSINOPHILS % (AUTO) 2.2 %; HCT - HEMATOCRIT 42.3 % (37.0-47.0); HGB - HEMOGLOBIN 13.5 g/dL (12.0-16.0); LYMPHOCYTES # (AUTO) 1.9 10^3/uL (1.5-3.5); LYMPHOCYTES % (AUTO) 34.5 %; MEAN CORPUSCULAR HEMOGLOBIN 32.6 pg (27.0-31.0); MEAN CORPUSCULAR HGB CONC 31.9 g/dL (32.0-36.0); MEAN CORPUSCULAR VOLUME 102.2 fL (81.0-99.0); MEAN PLATELET VOLUME 9.5 fL (7.9-10.8); MONOCYTES # (AUTO) 0.6 10^3/uL (0.0-1.0); MONOCYTES % (AUTO) 10.6 %; NEUTROPHILS # (AUTO) 2.8 10^3/uL (1.5-6.6); NEUTROPHILS % (AUTO) 51.6 %; PLT - PLATELET COUNT 268 10^3/uL (130-450); RED BLOOD COUNT 4.14 10^6/uL (4.20-5.40); RED CELL DISTRIBUTION WIDTH 12.8 % (12.0-15.0); WHITE BLOOD COUNT 5.4 x10^3/uL (4.8-10.8)
[2022-07-13 13:07] LABS: ALBUMIN 4.4 g/dL (3.2-5.5); ALKALINE PHOSPHATASE 81 IU/L (42-121); ALT ALANINE AMINOTRANSFERASE 25 IU/L (10-60); AST ASPARTATE AMINOTRANSFERASE 39 IU/L (10-42); BILIRUBIN,TOTAL 0.6 mg/dL (0.2-1.0); BUN - BLOOD UREA NITROGEN 15 mg/dL (6-20); CALCIUM 9.5 mg/dL (8.5-10.3); CARBON DIOXIDE - CO2 27 mmol/L (21-32); CHLORIDE 102 mmol/L (101-111); CHOL/HDL RATIO 2.2 (<4.4); CHOLESTEROL 204 mg/dL; CREATININE 0.8 mg/dL (0.4-1.0); GFR - MDRD 73 (>89); GLUCOSE 124 mg/dL (70-100); HDL CHOLESTEROL 94 mg/dL; LDL CHOLESTEROL,CALCULATED 95 mg/dL; POTASSIUM 3.9 mmol/L (3.5-5.0); SODIUM 137 mmol/L (135-145); TOTAL PROTEIN 8.6 g/dL (6.7-8.2); TRIGLYCERIDES 73 mg/dL; VLDL CHOLESTEROL 15 mg/dL
[2022-07-13 13:15] LABS: THYROID STIMULATING HORMONE 0.45 uIU/mL (0.34-5.60)
== END 2022-07-13 09:49 | disposition home or self-care (01) ==
LOC: LAB.N 09:48
PROVIDERS: ATTEND Physician Assistant
DX: I10 Essential (primary) hypertension (principal); E78.5 Hyperlipidemia, unspecified
CPT/HCPCS: 36415; 80053; 80061; 83721; 84443; 85025

== ENCOUNTER 2022-07-27 08:07 | Outpatient (CLI) | payer OTHER ==
[2022-07-27 12:37] LABS: ESTIMATED AVERAGE GLUCOSE 114 mg/dL (70-100); HEMOGLOBIN A1c% 5.6 % (4.27-6.07)
== END 2022-07-27 08:08 | disposition home or self-care (01) ==
LOC: LAB.N 08:07
PROVIDERS: ATTEND Physician Assistant
DX: R73.01 Impaired fasting glucose (principal)
CPT/HCPCS: 36415; 83036

== ENCOUNTER 2022-11-06 15:31 | Outpatient (CLI) | payer OTHER ==
--- NOTE | 2022-11-06 16:42 | XRAY Report ---
PROCEDURE: Cervical Spine Comp w/Flex/Ext INDICATIONS: RIGHT SHOULDER PAIN, PARESTHESIA OF ARM TECHNIQUE: 7 views of the cervical spine were acquired. COMPARISON: None. FINDINGS: Bones: No fractures or dislocations to the C7 level. Loss of normal cervical lordosis. Mild focal k yphosis at C4-C5. 4 mm of retrolisthesis of C5 on C6. Disc space narrowing and endplate osteophyte fo rmation throughout the mid and lower cervical spine. No suspicious bony lesions. No significant butts e in alignment throughout limited range of motion. Soft tissues: Prevertebral soft tissues are normal in thickness. IMPRESSION: 1. Multilevel degenerative disc and facet disease. 2. No instability throughout limited range of motion. 3. No acute fracture. No osseous lesion. If symptoms and/or clinical suspicion for pathology continue , further assessment with repeat plain films, or advanced imaging (e.g., CT, MRI, or bone scan) is re commended for further assessment. Reviewed by: Joseph Edwards MD on 11/06/2022 4:40 PM PST Approved by: Joseph Edwards MD on 11/06/2022 4:40 PM PST Station ID: [id number]
--- NOTE | 2022-11-06 16:48 | XRAY Report ---
PROCEDURE: Shoulder 2 View RT INDICATIONS: RIGHT SHOULDER PAIN, PARESTHESIA OF ARM TECHNIQUE: 2 views of the shoulder were acquired. COMPARISON: None. FINDINGS: Bones: No fractures or dislocations. No suspicious bony lesions. Visualized ribs appear intact. P eriarticular osteophyte formation at the, clavicular and glenohumeral joints. Soft tissues: Small focus of calcification projects over the rotator cuff. IMPRESSION: 1. Osteoarthritis. 2. Calcific tendinitis of the rotator cuff. 3. No acute fracture. No osseous lesion. If symptoms and/or clinical suspicion for pathology continue , further assessment with repeat plain films, or advanced imaging (e.g., CT, MRI, or bone scan) is re commended for further assessment. Reviewed by: Joseph Edwards MD on 11/06/2022 4:47 PM PST Approved by: Joseph Edwards MD on 11/06/2022 4:47 PM PST Station ID: [id number]
== END 2022-11-06 15:32 | disposition home or self-care (01) ==
LOC: DI 15:31
PROVIDERS: ATTEND Physician Assistant
DX: R20.0 Anesthesia of skin (principal); M47.812 Spondylosis without myelopathy or radiculopathy, cervical region; M50.30 Other cervical disc degeneration, unspecified cervical region; M19.011 Primary osteoarthritis, right shoulder; M75.31 Calcific tendinitis of right shoulder

== ENCOUNTER 2022-11-12 15:30 | Outpatient (CLI) | payer OTHER ==
--- NOTE | 2022-11-14 12:36 | Mammography Report ---
BILATERAL DIGITAL SCREENING MAMMOGRAM 3D/2D: 11/12/2022 CLINICAL: Routine screening. Comparison is made to exams dated: 08/17/2014 mammogram, 09/12/2012 mammogram, and 03/24/2009 mammogram - [facility]. There are scattered areas of fibroglandular density in both breasts (category b / 25%-50% glandular t issue). There is an oval low density focal asymmetry with an obscured and circumscribed margin in the right b reast at 10 o'clock middle depth. This is increased in size. No other significant masses, calcifications, or other findings are seen in either breast. IMPRESSION: INCOMPLETE: NEEDS ADDITIONAL IMAGING EVALUATION The oval low density focal asymmetry in the right breast is indeterminate. Additional views with pos sible ultrasound are recommended. Based on the Tyrer Cuzick model (a risk assessment model) the patients lifetime risk is 6.3% and her 10 year risk is 2.5%. According to the ACR, ACS, and NCCN guidelines, an annual breast MRI exam rosemary g with mammogram is recommended if the patients lifetime risk is 20% or greater. This exam was interpreted at Station ID: [id number]. NOTE: For mammograms, a report in lay terms will be sent to the patient. Approximately 15% of breast malignancies will not be visualized mammographically. In the management of a palpable breast mass, a negative mammogram must not discourage biopsy of a clinically suspicious lesion. Electronically Signed By: Ingris mays/luiz:11/13/2022 11:58:46 ACR BI-RADS Category 0: Incomplete 3340F PARENCHYMAL PATTERN: (A) - The breast(s) demonstrate(s) scattered fibroglandular densities. BI-RADS CATEGORY: (0) - 0 Mammo and [place] [id number] Immediate follow-up LATERALITY: (B)
== END 2022-11-12 15:31 | disposition home or self-care (01) ==
LOC: DI.N 15:30
DX: Z12.31 Encounter for screening mammogram for malignant neoplasm of breast (principal); R92.8 Other abnormal and inconclusive findings on diagnostic imaging of breast

== ENCOUNTER 2022-11-30 10:22 | Outpatient (CLI) | payer OTHER ==
--- NOTE | 2022-12-03 13:45 | Mammography Report ---
UNILATERAL RIGHT DIGITAL DIAGNOSTIC MAMMOGRAM 3D/2D WITH SPOT COMPRESSION: 11/30/2022 CLINICAL: Patient returns today to evaluate a focal asymmetry in the right breast. Comparison is made to exams dated: 11/12/2022 mammogram, 08/17/2014 mammogram, and 09/12/2012 mammogram - [facility]. There are scattered areas of fibroglandular density in the right breast (category b / 25%-50% glandul ar tissue). There is a 1.4 cm oval low density focal asymmetry with an obscured and circumscribed margin in the r ight breast at 10 o'clock anterior depth. This is seen in additional views. This is increased in si ze. No other significant masses or calcifications are seen in the breast. IMPRESSION: INCOMPLETE: NEEDS ADDITIONAL IMAGING EVALUATION The 1.4 cm oval low density focal asymmetry in the right breast most likely is a cyst or a fibroadeno ma but remains indeterminate. An ultrasound is recommended. This was performed immediately followin g this exam. Based on the Tyrer Cuzick model (a risk assessment model) the patients lifetime risk is 6.3% and her 10 year risk is 2.5%. According to the ACR, ACS, and NCCN guidelines, an annual breast MRI exam rosemary g with mammogram is recommended if the patients lifetime risk is 20% or greater. This exam was interpreted at Station ID: [id number]. NOTE: For mammograms, a report in lay terms will be sent to the patient. Approximately 15% of breast malignancies will not be visualized mammographically. In the management of a palpable breast mass, a negative mammogram must not discourage biopsy of a clinically suspicious lesion. Electronically Signed By: Ingris mays/:11/30/2022 10:52:42 ACR BI-RADS Category 0: Incomplete 3340F PARENCHYMAL PATTERN: (A) - The breast(s) demonstrate(s) scattered fibroglandular densities. BI-RADS CATEGORY: (0) - 0 Ultrasound [id number] Immediate follow-up LATERALITY: (B)
--- NOTE | 2022-12-03 13:45 | Ultrasound Report ---
LIMITED ULTRASOUND OF RIGHT BREAST: 11/30/2022 CLINICAL: Patient returns today to evaluate a focal asymmetry in the right breast. Comparison is made to exams dated: 11/30/2022 mammogram, 11/12/2022 mammogram, 08/17/2014 mammogram, 09/12 mammogram, and 03/24/2009 mammogram - [facility]. Color flow ultrasound of the right breast 10 o'clock region was performed. Cool scale images of the real-time examination were reviewed. There is a 1.2 cm x 0.8 cm x 0.3 cm oval mass, liley lymph node with a circumscribed margin in the ri ght breast at 10 o'clock middle depth 5 cm from the nipple. This mass is hypoechoic with a probable fatty hilum and no posterior acoustic shadowing or enhancement. This correlates with mammography fin dings. Color flow imaging demonstrates that there is no vascularity present. Incidental note is mad e of a 0.8 cm benign appearing lymph node immediately adjacent to this finding. IMPRESSION: PROBABLY BENIGN The 1.2 cm x 0.8 cm x 0.3 cm oval mass n the right breast correlates in size and shape with the mammo graphic finding, most likely is a lymph node or possibly a fibroadenoma, and is probably benign. A follow-up right mammogram and an ultrasound in 6 months is recommended to demonstrate stability. Findings and recommendations were conveyed to the patient at time of exam. This exam was interpreted at Station ID: [id number]. Electronically Signed By: Ingris mays/:11/30/2022 11:19:36 Ultrasound BI-RADS: 3 Probably benign BI-RADS CATEGORY: (3) - 3 Mammo and US [id number] 6 month follow-up LATERALITY: (R)
== END 2022-11-30 10:23 | disposition home or self-care (01) ==
LOC: DI 10:22
PROVIDERS: ATTEND Physician Assistant
DX: R92.8 Other abnormal and inconclusive findings on diagnostic imaging of breast (principal)

== ENCOUNTER 2023-07-04 09:26 | Outpatient (CLI) | payer OTHER ==
--- NOTE | 2023-07-05 10:50 | Ultrasound Report ---
LIMITED ULTRASOUND OF RIGHT BREAST: 07/04/2023 CLINICAL: Patient returns for a 6 month follow up of the right breast. Comparison is made to exams dated: 07/04/2023 mammogram, 11/30/2022 ultrasound, 11/30/2022 mammogram, and 11/12/2022 mammogram - [facility]. Color flow ultrasound of the right breast was performed. Cool scale images of the real-time examinat ion were reviewed. There is a 1 cm x 0.7 cm x 0.3 cm oval lymph node with a circumscribed margin in the right breast at 10 o'clock middle depth 5 cm from the nipple. This oval lymph node is hypoechoic with fatty hilum an d no posterior acoustic shadowing or enhancement. This abnormality is decreased in size and correlat es with mammography findings. Color flow imaging demonstrates that there is no vascularity present. IMPRESSION: PROBABLY BENIGN The 1 cm x 0.7 cm x 0.3 cm oval lymph node in the right breast most likely is a lymph node or a fibro adenoma and is probably benign. A follow-up mammogram and an ultrasound in 6 months is recommended to demonstrate stability. This exam was interpreted at Station ID: [id number]. Electronically Signed By: Jose chase/luiz:07/04/2023 10:11:53 Ultrasound BI-RADS: 3 Probably benign BI-RADS CATEGORY: (3) - 3 Mammo and [place] [id number] 6 month follow-up LATERALITY: (B)
--- NOTE | 2023-07-05 10:50 | Mammography Report ---
UNILATERAL RIGHT DIGITAL DIAGNOSTIC MAMMOGRAM 3D/2D: 07/04/2023 CLINICAL: Patient returns for a 6 month follow up of the right breast. Comparison is made to exams dated: 11/30/2022 mammogram, 11/12/2022 mammogram, 08/17/2014 mammogram, and 11/30/2022 ultrasound - [facility]. There are scattered areas of fibroglandular density in the right breast (category b / 25%-50% glandul ar tissue). There is a 1 cm oval low density focal asymmetry with an obscured and circumscribed margin in the rig ht breast at 10 o'clock anterior depth. This is not significantly changed. No other significant masses or calcifications are seen in the breast. IMPRESSION: INCOMPLETE: NEEDS ADDITIONAL IMAGING EVALUATION The 1 cm oval low density focal asymmetry in the right breast is indeterminate. An ultrasound is rec ommended. Based on the Tyrer Cuzick model (a risk assessment model) the patients lifetime risk is 6.3% and her 10 year risk is 2.5%. According to the ACR, ACS, and NCCN guidelines, an annual breast MRI exam rosemary g with mammogram is recommended if the patients lifetime risk is 20% or greater. This exam was interpreted at Station ID: [id number]. NOTE: For mammograms, a report in lay terms will be sent to the patient. Approximately 15% of breast malignancies will not be visualized mammographically. In the management of a palpable breast mass, a negative mammogram must not discourage biopsy of a clinically suspicious lesion. Electronically Signed By: Jose chase/luiz:07/04/2023 10:10:47 ACR BI-RADS Category 0: Incomplete 3340F PARENCHYMAL PATTERN: (A) - The breast(s) demonstrate(s) scattered fibroglandular densities. BI-RADS CATEGORY: (0) - 0 Ultrasound [id number] Immediate follow-up LATERALITY: (R)
== END 2023-07-04 09:27 | disposition home or self-care (01) ==
LOC: DI 09:26
PROVIDERS: ATTEND Physician Assistant
DX: R92.321 Mammographic fibroglandular density, right breast (principal); R59.0 Localized enlarged lymph nodes

== ENCOUNTER 2023-09-30 13:45 | Outpatient (CLI) | payer OTHER ==
[2023-09-30 14:09] LABS: CREATININE 0.7 mg/dL (0.6-1.3)
[2023-09-30] MEDS ORDERED: iohexoL-300 100 ML VIAL ONE (14:30)
[2023-09-30] MEDS ORDERED: DIATRIZOATE MEGLU/DIATRIZO SOD 30 ML BOTTLE PO ONE ×2 (14:30→15:35)
[2023-09-30] MEDS ORDERED: iohexoL-300 100 ML VIAL IVP ONE (15:35)
--- NOTE | 2023-09-30 16:47 | CT Report ---
PROCEDURE: Abdomen/Pelvis W INDICATIONS: INCISIONAL HERNIAA CONTRAST: 100mL Omni 300 TECHNIQUE: After the administration of intravenous contrast, a CT scan of the abdomen and pelvis was performed. Images were recorded and evaluated at appropriate window settings. Reformats: coronal and sagittal. F or radiation dose reduction, the following was used: automated exposure control, adjustment of mA and /or kV according to patient size. COMPARISON: None. FINDINGS: Image quality: Excellent. Lung bases and heart: Unremarkable. Liver: Hepatic steatosis. Gallbladder and biliary tree: No radiopaque stones or wall thickening. No biliary dilation. Spleen: No splenomegaly. Pancreas: No pancreatic ductal dilation. Adrenals: No adrenal nodule. Kidneys and ureters: No hydronephrosis. No renal cystic lesion which requires follow up. No solid mas s. Bowel and peritoneum: No bowel distension. No pathologic free fluid. Lymph nodes: No central or retroperitoneal adenopathy. Vessels: No infrarenal aortic aneurysm. PELVIS Reproductive organs: Unremarkable. Bladder: No abnormal wall thickening, accounting for underdistention. Pelvic lymph nodes: No pelvic adenopathy by size criteria. Bones: No aggressive osseous abnormality. Other: Widemouthed ventral hernia in the right lower quadrant containing a short segment of nonobstru cting ascending colon. The neck measures 5.4 cm and the sac measures 6.6 x 2.4 cm. IMPRESSION: Widemouth ventral hernia in the right lower quadrant containing short segment of nonobstructed descen ding colon. Reviewed by: Kelvin Brar MD on 09/30/2023 4:46 PM PST Approved by: Kelvin Brar MD on 09/30/2023 4:46 PM PST Station ID: [id number]
== END 2023-09-30 13:46 | disposition home or self-care (01) ==
LOC: LAB 13:45
PROVIDERS: ATTEND Surgery
DX: K43.2 Incisional hernia without obstruction or gangrene (principal)
CPT/HCPCS: 36415; 74177; 82565; Q9963; Q9967

== ENCOUNTER 2023-11-15 10:15 | Outpatient (CLI) | payer OTHER ==
--- NOTE | 2023-11-20 09:41 | XRAY Report ---
PROCEDURE: Wrist 3+V RT INDICATIONS: OTHER SPECIFIED SPRAIN OF RIGHT WRIST TECHNIQUE: 4 views of the wrist were acquired. COMPARISON: None. FINDINGS: Bones: No fractures or dislocations. Normal alignment. Joint spaces are maintained. No suspicious fermin ny lesions. Soft tissues: No suspicious soft tissue calcifications or masses. IMPRESSION: No acute bony abnormality. If there is anatomic snuff box tenderness, consider wrist immobilization a nd repeat radiographs in 10-14 days or cross-sectional imaging now. If pain persists with conservativ e management, consider repeat radiographs in 10-14 days or cross-sectional imaging. Reviewed by: Courtney Putnam MD on 11/20/2023 9:40 AM PDT Approved by: Courtney Putnam MD on 11/20/2023 9:40 AM PDT Station ID: [id number]
== END 2023-11-15 23:59 | disposition home or self-care (01) ==
LOC: DI.N 10:15
PROVIDERS: ATTEND Physician Assistant
DX: S63.591A Other specified sprain of right wrist, initial encounter (principal)

== ENCOUNTER 2023-11-20 13:30 | Outpatient (CLI) | payer OTHER ==
--- NOTE | 2023-11-21 10:57 | XRAY Report ---
PROCEDURE: Elbow 3+V RT INDICATIONS: ARM PAIN,RIGHT TECHNIQUE: 3 views of the elbow were acquired. COMPARISON: None. FINDINGS: Bones: No fractures or dislocations. Normal alignment. Joint spaces are maintained. No suspicious b james lesions. Soft tissues: No effusion. No suspicious soft tissue calcifications or masses. IMPRESSION: No acute bony abnormality. If pain persists with conservative management, consider repeat radiographs in 10-14 days or cross-sectional imaging. Reviewed by: Courtney Putnam MD on 11/21/2023 10:56 AM PDT Approved by: Courtney Putnam MD on 11/21/2023 10:56 AM PDT Station ID: [id number]
--- NOTE | 2023-11-21 10:57 | XRAY Report ---
PROCEDURE: Humerus RT INDICATIONS: ARM PAIN,RIGHT TECHNIQUE: 2 views of the humerus were acquired. COMPARISON: None. FINDINGS: Bones: No fractures or dislocations. Normal alignment. No suspicious bony lesions. Soft tissues: No suspicious soft tissue calcifications or masses. IMPRESSION: No acute bony abnormality. Reviewed by: Courtney Putnam MD on 11/21/2023 10:56 AM PDT Approved by: Courtney Putnam MD on 11/21/2023 10:56 AM PDT Station ID: [id number]
== END 2023-11-20 13:31 | disposition home or self-care (01) ==
LOC: DI 13:30
PROVIDERS: ATTEND Physician Assistant
DX: M79.601 Pain in right arm (principal)

== ENCOUNTER 2024-01-10 08:46 | Outpatient (CLI) | payer OTHER ==
--- NOTE | 2024-01-13 07:34 | Ultrasound Report ---
LIMITED ULTRASOUND OF RIGHT BREAST: 01/10/2024 CLINICAL: 6 month follow-up of right breast finding. Comparison is made to exams dated: 07/04/2023 ultrasound, 07/04/2023 mammogram, and 11/30/2022 [facility]. Color flow ultrasound of the right breast 5-6 o'clock and 10 o'clock regions was performed. Cool sca le images of the real-time examination were reviewed. There is a possible new 0.7 cm x 0.6 cm x 0.6 cm irregular mass with an angular margin in the right b reast at 6 o'clock anterior depth 2 cm from the nipple. This correlates with mammography findings. There also is a possible 1.9 cm x 0.4 cm x 0.3 cm oval lymph node in the right breast at 10 o'clock m iddle depth 5 cm from the nipple. This abnormality is decreased in size and correlates with mammogra phy findings. No significant axillary finding. IMPRESSION: SUSPICIOUS OF MALIGNANCY The possible new 0.7 cm x 0.6 cm x 0.6 cm irregular mass in the right breast at 6 o'clock anterior de pth is suspicious of malignancy. An ultrasound guided biopsy is recommended. No significant axillar y finding. The possible 1.9 cm x 0.4 cm x 0.3 cm oval lymph node in the right breast at 10 o'clock middle depth is probably benign. Follow-up mammogram and ultrasound in 6 months is recommended. This exam was interpreted at Station ID: [id number]. Electronically Signed By: Theodore Laird M.D. lc/:01/10/2024 10:02:32 Ultrasound BI-RADS: 4 Suspicious for malignancy BI-RADS CATEGORY: (4) - 4 Biopsy follow-up [id number] Immediate follow-up LATERALITY: (B)
--- NOTE | 2024-01-13 07:34 | Mammography Report ---
BILATERAL DIGITAL DIAGNOSTIC MAMMOGRAM 3D/2D: 01/10/2024 CLINICAL: Patient returns for a 6 month follow up of the right breast, due for bilateral exam. Comparison is made to exams dated: 07/04/2023 mammogram, 11/30/2022 mammogram, 11/12/2022 mammogram, an d 08/17/2014 mammogram - [facility]. There are scattered areas of fibroglandular density in both breasts (category b / 25%-50% glandular t issue). There is a 1 cm oval focal asymmetry with a circumscribed margin in the right breast at 11 o'clock an terior depth. This is not significantly changed. There also is a new focal asymmetry in the right breast at 6 o'clock anterior depth. No other significant masses, calcifications, or other findings are seen in either breast. IMPRESSION: INCOMPLETE: NEEDS ADDITIONAL IMAGING EVALUATION The 1 cm oval focal asymmetry in the right breast at 11 o'clock anterior depth is indeterminate. An ultrasound is recommended. The new focal asymmetry in the right breast at 6 o'clock anterior depth is indeterminate. An ultraso und is recommended. Based on the Tyrer Cuzick model (a risk assessment model) the patient's lifetime risk is 9.2% and her 10 year risk is 3.8%. According to the ACR, ACS, and NCCN guidelines, an annual breast MRI exam rosemary g with mammogram is recommended if the patient's lifetime risk is 20% or greater. This exam was interpreted at Station ID: [id number]. NOTE: For mammograms, a report in lay terms will be sent to the patient. Approximately 15% of breast malignancies will not be visualized mammographically. In the management of a palpable breast mass, a negative mammogram must not discourage biopsy of a clinically suspicious lesion. Electronically Signed By: Theodore Laird M.D. lc/:01/10/2024 09:59:36 ACR BI-RADS Category 0: Incomplete 3340F PARENCHYMAL PATTERN: (A) - The breast(s) demonstrate(s) scattered fibroglandular densities. BI-RADS CATEGORY: (0) - 0 Ultrasound [id number] Immediate follow-up LATERALITY: (B)
== END 2024-01-10 08:47 | disposition home or self-care (01) ==
LOC: DI 08:46
PROVIDERS: ATTEND Physician Assistant
DX: R92.8 Other abnormal and inconclusive findings on diagnostic imaging of breast (principal); R92.323 Mammographic fibroglandular density, bilateral breasts

== ENCOUNTER 2024-02-04 09:44 | Outpatient (CLI) | payer OTHER ==
[~2024-02-04 09:44] MED LIST changes: -CEFAZOLIN SODIUM IN 0.9 % NACL 2 GM/50 ML BAG IV ONE; +LIDOCAINE 1%-EPI 1:100000 20 ML MDV ONE; +LIDOCAINE-MPF 1% 5 ML VIAL ONE
[2024-02-04] MEDS: LIDOCAINE-MPF 1% 5 ML VIAL TD ONE (11:59)
[2024-02-04] MEDS: LIDOCAINE 1%-EPI 1:100000 20 ML MDV SUBQ ONE (12:00)
--- NOTE | 2024-02-05 10:24 | Mammography Report ---
UNILATERAL RIGHT DIGITAL DIAGNOSTIC MAMMOGRAM - RIGHT BREAST POST-PROCEDURE IMAGING FOR MARKER PLACEM ENT: 02/04/2024 CLINICAL: Post right breast ultrasound biopsy clip placement imaging. Comparison is made to exams dated: 01/10/2024 ultrasound, 01/10/2024 mammogram, 07/04/2023 ultrasound, 1 mammogram, 11/30/2022 ultrasound, and 11/30/2022 mammogram - [facility]. There are scattered areas of fibroglandular density in the right breast (category b / 25%-50% glandul ar tissue). There is a coil marker clip in the appropriate position in the right breast at 6 o'clock anterior dep th at the biopsy site. IMPRESSION: POST PROCEDURE MAMMOGRAM FOR MARKER PLACEMENT There was a successful coil marker clip placement in the right breast anterior depth. This exam was interpreted at Station ID: [id number]. Electronically Signed By: Chiki Tavares M.D. [facility]/:02/04/2024 12:27:42 ACR BI-RADS Category Post-procedure mammogram for marker placement PARENCHYMAL PATTERN: (A) - The breast(s) demonstrate(s) scattered fibroglandular densities. BI-RADS CATEGORY: () - Unspecified - other recall n/a LATERALITY: (B)
--- NOTE | 2024-02-06 15:11 | Ultrasound Report ---
ULTRASOUND GUIDED BIOPSY RIGHT BREAST USING VACUUM DEVICE WITH MARKING DEVICE INSERTED AND POST DIGIT AL MAMMOGRAPHIC IMAGIN02/04/2024 CLINICAL: Right breast mass. PATIENT CONSENT: Risks (minor bleeding, infection, vasovagal reaction and repeat procedure), benefits and alternatives were explained to the patient and written informed consent was obtained. Correlation is made to exams dated: 01/10/2024 ultrasound, 01/10/2024 mammogram, 07/04/2023 ultrasound, 07/04/2023 mammogram, 11/30/2022 ultrasound, and 11/30/2022 mammogram - [facility]. An ultrasound guided biopsy using real-time ultrasound was performed for the 0.7 cm x 0.6 cm x 0.6 cm irregular shaped mass located in the right breast at 6 o'clock anterior depth 2 cm from the nipple. This was described on the previous mammography and ultrasound reports. The skin was prepped in the usual manner. Local anesthetic was administered to the access site. A skin susanna was made in the brian ast. The abnormality was approached from the lateral aspect. A 13 gauge biopsy needle was placed ad jacent to the abnormality under ultrasound guidance. Once the needle was documented to be in the cor rect location, five cores were obtained using the Mammotome biopsy system. The patient received aung tional local anesthetic during the procedure. A coil clip was inserted into the biopsy cavity. A sk in adhesive and a sterile dressing were applied to the access site. Post procedure digital mammograp hic imaging demonstrates the location device at the targeted area. The specimens were sent to the [facility] for pathological analysis. IMPRESSION: ULTRASOUND GUIDED BIOPSY MALIGNANT Ultrasound guided biopsy of the 0.7 cm x 0.6 cm x 0.6 cm mass in the right breast at 6 o'clock anteri or depth 2 cm from the nipple was successful with no apparent post procedure complications. Patholog y indicates malignant invasive lobular carcinoma ([place]). Pathology results are concordant with imaging findings. A surgical/oncologic consultation is recommended. Results and recommendations will be communicated to the ordering provider's office. This exam was interpreted at Station ID: [id number]. Chiki Macias M.D. [facility],[place]/:02/06/2024 14:37:05 BI-RADS CATEGORY: () - Unspecified - other recall n/a LATERALITY: (B)
== END 2024-02-04 09:45 | disposition home or self-care (01) ==
LOC: DI 09:44
PROVIDERS: ATTEND Physician Assistant
DX: C50.811 Malignant neoplasm of overlapping sites of right female breast (principal)
CPT/HCPCS: 19083